=== PATIENT | female | born 1965 | race Caucasian/White ===

== ENCOUNTER → 2020-08-21 12:02 | Outpatient (CLI) | payer OTHER, SELFPAY ==
[2020-08-21 16:14] LABS: Free T3 4.6 pg/mL (2.18-3.98); T4 Free Direct 1.53 ng/dL (0.76-1.46); Thyroid Stim Hormone (TSH) < 0.01 uIU/mL (0.358-3.74)
[2020-08-23 10:59] LABS: Thyroid Peroxidase AB 35 IU/mL (0-34)
== END ==
PROVIDERS: PCP Internal Medicine; Referring Provider Internal Medicine; Visit Provider Internal Medicine
DX: E03.9 Hypothyroidism, unspecified (principal)
CPT/HCPCS: 36415; 84439; 84443; 84481; 86376

== ENCOUNTER → 2020-08-22 12:18 | Outpatient (CLI) | payer OTHER, SELFPAY | PROVIDERS: PCP Internal Medicine; Visit Provider Internal Medicine | DX: G47.33 Obstructive sleep apnea (adult) (pediatric) (principal) | CPT/HCPCS: 95806 ==

== ENCOUNTER → 2020-09-25 10:42 | Outpatient (CLI) | payer OTHER, SELFPAY ==
[2020-09-25 13:09] LABS: T4 Free Direct 1.53 ng/dL (0.76-1.46); Thyroid Stim Hormone (TSH) < 0.01 uIU/mL (0.358-3.74)
== END ==
PROVIDERS: PCP Internal Medicine; Referring Provider Internal Medicine; Visit Provider Internal Medicine
DX: E03.9 Hypothyroidism, unspecified (principal); E05.80 Other thyrotoxicosis without thyrotoxic crisis or storm
CPT/HCPCS: 36415; 84439; 84443; 84481

== ENCOUNTER → 2020-10-29 14:03 | Outpatient (CLI) | payer OTHER, SELFPAY ==
[2020-10-29 16:32] LABS: Thyroid Stim Hormone (TSH) < 0.01 uIU/mL (0.358-3.74)
== END ==
PROVIDERS: PCP Internal Medicine; Referring Provider Internal Medicine; Visit Provider Internal Medicine
DX: E03.9 Hypothyroidism, unspecified (principal); E05.80 Other thyrotoxicosis without thyrotoxic crisis or storm
CPT/HCPCS: 36415; 84439; 84443; 84481

== ENCOUNTER → 2020-12-11 11:49 | Outpatient (CLI) | payer OTHER, SELFPAY ==
[2020-12-11 15:42] LABS: Free T3 2.8 pg/mL (2.18-3.98); T4 Free Direct 1.47 ng/dL (0.76-1.46); Thyroid Stim Hormone (TSH) 0.01 uIU/mL (0.358-3.74)
[2020-12-17 21:09] LABS: Thyroid Stim Immunoglob 0.17 IU/L (0.00-0.55)
== END ==
PROVIDERS: PCP Internal Medicine; Referring Provider Internal Medicine; Visit Provider Internal Medicine
DX: E03.9 Hypothyroidism, unspecified (principal); R79.89 Other specified abnormal findings of blood chemistry
CPT/HCPCS: 36415; 84439; 84443; 84445; 84481

== ENCOUNTER → 2020-12-16 15:18 | Outpatient (CLI) | payer OTHER, SELFPAY ==
[2020-12-12 14:35] VITALS: BMI 44.4
--- NOTE | 2020-12-16 15:22 | US_ITS ---
STUDY: THYROID ULTRASOUND REASON FOR EXAM: Female, 55 years old. Keeps getting stuck in throat. Hypothyroidism. TECHNIQUE: Ultrasound evaluation of the thyroid was performed with real-time and static villegas-scale imaging. COMPARISON: None. FINDINGS: RIGHT LOBE: The right lobe of the thyroid gland measures 4.0 x 0.9 x 1.4 cm. There is a homogeneous echotexture. There is an ill-defined 1.2 x 0.7 x 0.6 cm hypoechoic nodule in the mid upper lobe. Abnormal vascularity on DOPPLER imaging. LEFT LOBE: The left lobe of the thyroid gland measures 2.8 x 0.9 x 0.7 cm. There is a homogeneous echotexture. There are no demonstrated solid, cystic or complex lesions. Normal vascularity on DOPPLER imaging. ISTHMUS: The isthmus measures 0.1 cm. The regional lymph nodes are normal. US/Thyroid IMPRESSION: Ill-defined hypoechoic nodule in the right thyroid. This nodule is moderately suspicious. Recommend follow-up thyroid ultrasounds at 1, 2, 3 and 5 years. Electronically Signed: Ralf Michaels DO at 20:44 EDT Tel [phone], Service support ,
== END ==
PROVIDERS: PCP Internal Medicine; Referring Provider Internal Medicine; Visit Provider Internal Medicine
DX: E03.9 Hypothyroidism, unspecified (principal); E04.9 Nontoxic goiter, unspecified
CPT/HCPCS: 76536

== ENCOUNTER → 2021-01-01 | Outpatient (CLI) | payer OTHER, SELFPAY ==
--- NOTE | 2021-01-01 14:45 | ASPS_PTH ---
PATIENT: JAMIE GANT LOC: [facility] U#:[id number] AGE/SX: 55/F ROOM: RE01/01/[address]: Dr. Geremias Fine MD : 1965 BED: DIS: 01/01/2021 SPEC #: [id number] RECD: 01/02/21 06:58 STATUS: FLOR HIDALGO #: [id number] TINO: 01/01/21 14:[address]: Geremias Fine DEPT: CYTOLOGY RECD BY: Quiana Murray Tissues: Thyroid gland, NOS Procedures: Special Stain Group II Cytology Other HEADER OPERATION: Right thyroid fine needle aspiration PRE-OP DIAGNOSIS: Right thyroid nodule TISSUE SUBMITTED: Right thyroid slides x10 DIAGNOSIS CYTOLOGY Fine needle aspiration, right thyroid nodule (smears): Inadequate for evaluation. Negative for malignant cells. See comment. AM:swetha 01/02/2021 COMMENT Only rare follicular cells are identified. The specimen is inadequate for further evaluation. Clinical correlation is necessary. CYTOLOGY STUDY Slides are reviewed. CYTOLOGY GROSS Received are ten smears labeled with the patient's name and designated per the requisition as right thyroid. Submitted for staining. / swetha 01/01/21 TC:5 CPT: 83292
[2021-01-01 15:16] VITALS: BMI 42.9
== END | disposition home or self-care (01) ==
LOC: LAB 01-02 07:25 → LABSPEC 01-02 07:28
PROVIDERS: Visit Provider Surgery
DX: E04.1 Nontoxic single thyroid nodule (principal)
CPT/HCPCS: 88161; 88313

== ENCOUNTER → 2021-01-09 09:14 | Outpatient (CLI) | payer OTHER, SELFPAY ==
[2021-01-01 05:54] VITALS: BMI 44.4
[2021-01-01 15:16] VITALS: BMI 42.9
--- NOTE | 2021-01-09 09:40 | RAD_ITS ---
STUDY: AIR CONTRAST UPPER GI SERIES with esophagram. REASON FOR EXAM: Female, 55 years old. 3 year history of worsening dysphagia. FLUOROSCOPY TIME (if supplied): (53 seconds) minutes/seconds. 28 images were obtained. TECHNIQUE: SINGLE CONTRAST AND AIR CONTRAST FLUOROSCOPIC IMAGES. COMPARISON: None. FINDINGS: The cervical esophagus demonstrates normal motility without aspiration. There is no stricture or extrinsic mass effect. No intraluminal polypoid mass is identified. The thoracic esophagus distends well without stricture or mucosal fold thickening. No mucosal ulcerations are identified. There is no extrinsic mass effect. There are no diverticula. Small hiatal hernia. Narrowing of the distal esophagus at the gastroesophageal junction. The patient ingested a 12 mm tablet of barium. The tablet is trapped at the gastroesophageal junction. The stomach distends well without mucosal fold thickening or mucosal ulceration. There is no intraluminal mass. The duodenal bulb is freely distensible without deformity or ulceration. The duodenal sweep is normal in position and caliber. RAD/Upper GI w/BA Swallow IMPRESSION: Small sliding hiatal hernia without gastroesophageal reflux. Narrowing of the distal esophagus at the GE junction with trapping of the 12 mm tablet of barium. Correlation with endoscopy is recommended. Electronically Signed: Bandar Gastelum MD at 10:23 EDT , Service support ,
== END ==
PROVIDERS: PCP Internal Medicine; Referring Provider Surgery; Visit Provider Surgery
DX: K22.2 Esophageal obstruction (principal); K44.9 Diaphragmatic hernia without obstruction or gangrene; R13.10 Dysphagia, unspecified
CPT/HCPCS: 74246

== ENCOUNTER → 2021-01-28 14:42 | Outpatient (CLI) | payer OTHER, SELFPAY ==
[2021-01-01 15:16] VITALS: BMI 42.9
[2021-01-28 17:35] LABS: Free T3 2.6 pg/mL (2.18-3.98); T4 Free Direct 1.14 ng/dL (0.76-1.46); Thyroid Stim Hormone (TSH) 0.51 uIU/mL (0.358-3.74)
== END ==
PROVIDERS: PCP Internal Medicine; Referring Provider Internal Medicine; Visit Provider Internal Medicine
DX: E03.9 Hypothyroidism, unspecified (principal)
CPT/HCPCS: 36415; 84439; 84443; 84481

== ENCOUNTER 2021-02-07 06:54 | Day surgery (SDC) | payer OTHER, SELFPAY ==
[2021-01-01 15:16] VITALS: BMI 42.9
[2021-02-07] VITALS (8 sets, daily range): BP systolic 122–148; BP diastolic 60–76; PULSE 59–72; RESP 14–18; TEMP 36.1–37.4; O2SAT 96–100; BMI 44.1
[2021-02-07] MEDS: Lactated Ringers 1,000 ML 100 ML IV (07:20)
--- NOTE | 2021-02-07 07:27 | PCM.HP.BLA ---
History and Physical Date of Admission: 02/07/21 Intake [employer] Required: No Is patient in pain?: No PFSH <Dr. Geremias Fine MD - Last Filed: 01/01/21 15:35> Medical History (Updated 01/01/21 @ 14:56 by Peg Powers) Arthritis Depression Dysphagia Essential hypertension Hypothyroidism Other and unspecified hyperlipidemia Surgical History (Updated 01/01/21 @ 15:14 by Peg Powers) RIGHT WRIST S/P colonoscopy S/P tonsillectomy S/P wrist surgery Family History (Updated 01/01/21 @ 15:16 by Peg Powers) Mother Myocardial infarction Thyroid disorder Heart disease Hypertension Lung cancer Diabetes CVA (cerebral vascular accident) Grandmother Myocardial infarction Sister Breast cancer Diabetes Father Leukemia Diabetes Other Cancer Social History (Updated 01/01/21 @ 15:16 by Peg Powers) Smoking Status: Never smoker alcohol intake: current alcohol intake frequency: a few times a month Alcohol type: wine substance use type: does not use caffeine: Yes what type of physical activity do you participate in: none frequency: decline to answer HPI <Dr. Geremias Fine MD - Last Filed: 01/01/21 15:35> HPI HPI: JAMIE GANT, is a 55 F who presents to the office today for thyroid abnormality and dysphagia. The patient is referred by Dr. Romi Araujo and a written copy of my surgical consult and recommendations will return to him. The patient has trouble swallowing foods. Bread and meats particularly get caught. She notes that she has to either drink water for frequently she will have emesis dislodge it. This has been going on for 3 years. She has not had a barium swallow yet nor an upper endoscopy. She states that 5 years ago she had an attempt at a colonoscopy but that was foreshortened due to a inadequate bowel prep. She states that she simply was not able to take the large volume prep. She denies family history of colon cancer or colon polyps. She denies bright red blood per rectum or melena. She has not had any unexpected weight loss. She did have a thyroid ultrasound. There is a quite vague 1.2 cm diameter hypoechoic right thyroid nodule TI-RADS 4. Moderately suspicious. Follow-up is recommended. Name: JAMIE GANT CESAR ADDENDUM by Dr. Ralf Michaels DO on 12/17/20 at 1559 ADDENDUM ADDENDUM: TIRADS category TR 4: Moderately suspicious. Electronically Signed: Ralf Michaels DO at 15:59 EDT Tel [phone], Service support , Signed ADDENDUM by Dr. Ralf Michaels DO on 12/17/20 at 1648 US/Thyroid Signed STUDY: THYROID ULTRASOUND REASON FOR EXAM: Female, 55 years old. Keeps getting stuck in throat. Hypothyroidism. TECHNIQUE: Ultrasound evaluation of the thyroid was performed with real-time and static villegas-scale imaging. COMPARISON: None. FINDINGS: RIGHT LOBE: The right lobe of the thyroid gland measures 4.0 x 0.9 x 1.4 cm. There is a homogeneous echotexture. There is an ill-defined 1.2 x 0.7 x 0.6 cm hypoechoic nodule in the mid upper lobe. Abnormal vascularity on DOPPLER imaging. LEFT LOBE: The left lobe of the thyroid gland measures 2.8 x 0.9 x 0.7 cm. There is a homogeneous echotexture. There are no demonstrated solid, cystic or complex lesions. Normal vascularity on DOPPLER imaging. ISTHMUS: The isthmus measures 0.1 cm. The regional lymph nodes are normal. US/Thyroid IMPRESSION: Ill-defined hypoechoic nodule in the right thyroid. This nodule is moderately suspicious. Recommend follow-up thyroid ultrasounds at 1, 2, 3 and 5 years. Electronically Signed: Ralf Michaels DO at 20:44 EDT Tel [phone], Service support , HPI <Dr. Geremias Fine MD - Last Filed: 01/01/21 15:35> HPI HPI: JAMIE GANT, is a 55 F who presents to the office today for <Peg Powers - Last Filed: 01/01/21 15:25> General General: No weight change, appetite, fatigue, colon cancer, breast cancer or weakness HEENT HEENT: Yes difficulty swallowing; No eye injury, eye surgery, swollen glands or hoarseness Endo Endocrine: Yes thyroid disease; No diabetes mellitus, thyroid cancer, Hair loss, heat intolerance or cold intolerance Skin Skin: No rash or changing moles Musc Musculoskeletal: Yes arthritis; No back problems, rheumatoid arthritis, gout or joint pain Cardio Cardiovascular: Yes high blood pressure; No murmur, pacemaker, heart disease, atrial fibrillation, heart attack, heart stent, palpitations, shortness of breat with exertion or chest pain Psych Psychiatric: No depression, anxiety or hearing voices Resp Respiratory: No shortness of breath, No sleep apnea, No cough, No COPD, No asthma, No emphysema and No wheezing Gastro Gastrointestinal: No abdominal pain, No nausea or vomiting, No diarrhea, No constipation, No blood in stool, No acid reflux, No hemorrhoids, No ulcers, No gallbladder problem and No black,tarry stools Zeyad Hematologic: No blood thinners, No blood disorders, No bleeding, No anemia and No blood clots Neuro Neurologic: No weakness Exam <Dr. Geremias Fine MD - Last Filed: 01/01/21 15:35> Const General: cooperative Nutritional Appearance: obese morbidly obese [facility] Head: normal to inspection Neck Thyroid: thyroid normal Carotids: normal carotid upstroke and no bruits Lymphatic: no lymphadenopathy noted Resp Effort & Inspection: normal respiratory effort Auscultation: clear to auscultation bilaterally Cardio Rate: regular rate Rhythm: regular rhythm GI Palpation: soft and no hepatosplenomegaly Musc Cervical Spine: normal cervical lordosis Skin General: no rashes or lesions noted Neuro Cognition: normal cognition Extrem General: no calf tenderness bilaterally Psych Thought Content: normal <Peg Powers - Last Filed: 01/01/21 15:25> Cardio Heart Sounds: no murmurs Office Procedures Fine Needle Aspiration Provider Documentation Details: Ultrasound-guided fine needle aspiration vague right thyroid nodule Timeout and informed consent was obtained. Patient was taken to the procedure room and placed supine on the table. The right neck was prepped with Betadine and ultrasound was performed. The thyroid nodule identified on preoperative ultrasound was very vague and difficult to identify and maintain a clear image. This was a technically very difficult procedure. Under ultrasound guidance 1% lidocaine was instilled as a local anesthetic. 3 separate passes with a 25-gauge needle was attempted. 3 additional separate passes with a 23-gauge needle was attempted. Specimen that was obtained and smeared out on slides. There was difficulty in visualizing the lesion and there was difficulty in keeping the lesion consistent within the [id number]. This was hampered by small size of the lesion small size of the thyroid and depth of the thyroid from the skin. She tolerated the procedure well. The slides were treated with fixative. She will be notified of cytology results as they become available. There does not appear to be any evidence suggest compression of the esophagus by this nodule. Geremias Fine M.D., F.A.C.S. Alert Physician Primary [facility] Sports Medicine Alert Billing: Yes FNA [id number] Thyroid Assessment and Plan <Dr. Geremias Fine MD - Last Filed: 01/01/21 15:35> Assessment and Plan (1) Right thyroid nodule: Status: Acute Plan: As noted above on today's visit an ultrasound-guided fine-needle aspiration of this vague right thyroid nodule was performed. This was a technically difficult procedure. Close follow-up will need to be pursued. Regarding the patient's dysphagia to food I would recommend that we obtain a contrast upper GI study. In part this will be to help evaluate for Zenker's diverticulum or evidence of stricturing. I then propose for the patient an esophagogastroduodenoscopy. Careful inspection of the duodenum and stomach with biopsies as indicated. Careful inspection for any stricturing or evidence of reflux hiatal hernia or findings that might suggest eosinophilic esophagitis. The patient has had a previous failed colonoscopy. I would propose at the same setting of her upper endoscopy to proceed with a colonoscopy with possible biopsy or polypectomy. We will utilize a 2-day bowel prep. We will utilize monitored anesthesia care. She has had an opportunity to ask and have questions answered. We will schedule and proceed as noted. Copy: Dr. Romi Fine M.D., Wali.CChrisS. <Peg Powers - Last Filed: 01/01/21 15:25> Assessment and Plan (1) Right thyroid nodule: (2) Dysphagia: Coding Level of Care Code 18980 Diagnoses Right thyroid nodule E04.1 Dysphagia R13.10 CPT Codes FNA - Fine Needle Aspiration: 01140 Thyroid (70797) The patient had a barium swallow. This suggest possible stricturing in the lower esophagus. I anticipate a combined upper and lower endoscopy. I anticipate possible esophageal dilatation. The patient is aware of this new finding and agrees to proceed. Geremias Fine M.D., Nuzhat.[place].CChrisS.
[2021-02-07 07:28] LABS: Internal QC Validated? YES +Cl - CLEAR BKGD; Pregnancy, Urine Negative Negative
--- NOTE | 2021-02-07 08:00 | IMM_PTH ---
PATIENT: JAMIE GANT LOC: [facility] U#:[id number] AGE/SX: 55/F ROOM: RE02/07/[address]: Dr. Geremias Fine MD : 1965 BED: DIS: 02/07/2021 SPEC #: [id number] RECD: 02/07/21 13:11 STATUS: FLOR REJeromy #: [id number] TINO: 02/07/21 08:[address]: Geremias Fine DEPT: IMMUNOHISTOCHEMISTRY RECD BY: Jil Kennedy ENTERED: 02/07/21 13:12 SP TYPE: IMMUNO OTHR DR: Dr. Romi Araujo MD Tissues: A - Stomach, NOS Procedures: H Pylori (initial) PHYSICIAN & INSTITUTION [place] [id number] SPECIMEN INFORMATION: Tissue Source: A ? Antrum biopsy Clinical Info: Right thyroid nodule, dysphagia Specimen Number: [id number] CPT code: 59818 METHODOLOGY: Deparaffinized sections of prefer/formalin-fixed tissue or PAP/DQ stained slides are incubated with monoclonal/polyclonal antibodies/oligonucleotide probes. Localization is made via biotin free immunoperoxidase method. Appropriate controls are performed and reacted as expected. Results on target cell population are indicated in the following table: RESULTS: ANTIBODY / CLONE RESULT Block A H Pylori (polyclonal) negative These tests were developed and their performance characteristics determined by [facility]. They may not have been cleared or approved by the U.S. Food and Drug Administration. The FDA has determined that such clearance or approval is not necessary. INTERPRETATION: A. Antrum biopsy: Negative for Helicobacter pylori organisms. AM:swetha 02/10/2021
--- NOTE | 2021-02-07 08:00 | EGD_PTH ---
PATIENT: JAMIE GANT LOC: EN U#:[id number] AGE/SX: 55/F ROOM: RE02/07/[address]: Dr. Geremias Fine MD : 1965 BED: DIS: 02/07/2021 SPEC #: [id number] RECD: 02/07/21 11:02 STATUS: FLOR GWEN #: [id number] TINO: 02/07/21 08:[address]: Geremias Fine DEPT: SURGICAL PATHOLOGY RECD BY: Riana Pearl ENTERED: 02/07/21 12:01 SP TYPE: EGD BIOPSY [facility] DR: Dr. Romi Araujo MD Tissues: A - Gastric mucous membrane B - Gastric mucous membrane Procedures: Special Stain Group II Surgery Specimen Level IV Alcian Blue/PAS (control) HEADER OPERATION: Colonoscopy, EGD ([facility] [place]) PRE-OP DIAGNOSIS: Right thyroid nodule, dysphagia TISSUE SUBMITTED: A ? Antrum biopsy for H. pylori and path, B ? EG junction biopsy MICROSCOPIC DIAGNOSIS A. Gastric antrum, biopsy: Chronic gastritis. See comment. B. Gastroesophageal junction, biopsy: Chronic inflammation. Focal changes of reflux. No evidence of goblet cell metaplasia. See comment. AM:swetha 02/10/2021 COMMENT A. The results of immunohistochemistry for Helicobacter pylori will be reported separately ([id number]). B. Alcian blue/PAS stain with matched control supports the above diagnosis. MICROSCOPIC DESCRIPTION Slides are reviewed. GROSS DESCRIPTION A - Received in fixative is one container labeled with the patient's name and designated gastric antrum. The specimen consists of one irregular fragment of light beach soft tissue that measures 0.3 x 0.2 x 0.1 cm. The specimen is totally submitted in one cassette. B - Received in fixative is one container labeled with the patient's name and designated GE junction biopsy. The specimen consists of multiple irregular fragments of light beach soft tissue that in aggregate measure 0.6 x 0.6 x 0.1 cm. The specimen is totally submitted in one cassette. / AM:swetha 02/07/21 TC:3 CPT: 43355 x2, 88152
--- NOTE | 2021-02-07 15:09 | OP.EGD_ITS ---
Patient Name: Elena Graham Procedure Date: 02/07/2021 8:00 AM Date of : 1965 Age: 55 Procedure: Upper GI endoscopy Indications: Dysphagia Providers: Geremias Fine MD Medicines: See the Anesthesia note for documentation of the administered medications Complications: No immediate complications. Procedure: Pre-Anesthesia Assessment: - Prior to the procedure, a History and Physical was performed, and patient medications and allergies were reviewed. The patient's tolerance of previous anesthesia was also reviewed. The risks and benefits of the procedure and the sedation options and risks were discussed with the patient. All questions were answered, and informed consent was obtained. Prior Anticoagulants: The patient has taken aspirin, last dose was 1 day prior to procedure. ASA Grade Assessment: III - A patient with severe systemic disease. After reviewing the risks and benefits, the patient was deemed in satisfactory condition to undergo the procedure. After obtaining informed consent, the endoscope was passed under direct vision. Throughout the procedure, the patient's blood pressure, pulse, and oxygen saturations were monitored continuously. The gastroscope was introduced through the mouth, and advanced to the second part of duodenum. The upper GI endoscopy was accomplished without difficulty. The patient tolerated the procedure well. Scope In: 8:11:18 AM Scope Out: 8:21:03 AM Total Procedure Duration Time 0 hours 9 minutes 45 seconds Findings: Moderately severe esophagitis with bleeding was found 40 cm from the incisors. Biopsies were taken with a cold forceps for histology. One benign-appearing, intrinsic stenosis was found 40 cm from the incisors. This stenosis was moderately severe and. The stenosis was traversed. A TTS dilator was passed through the scope. Dilation with a 15-16.5-18 mm balloon dilator was performed to 18 mm. The dilation site was examined and showed mild improvement in luminal narrowing. Estimated blood loss was minimal. Diffuse mildly erythematous mucosa without bleeding was found in the gastric antrum. Biopsies were taken with a cold forceps for histology. The examined duodenum was normal. Impression: - Moderately severe reflux and erosive esophagitis. Biopsied. - Benign-appearing esophageal stenosis. Dilated. - Erythematous mucosa in the antrum. Biopsied. - Normal examined duodenum. Recommendation: - Discharge patient to home. - Resume previous diet. - Continue present medications. - Use Prilosec (omeprazole) 40 mg PO daily. Procedure Code(s): --- Professional --- 33521, Esophagogastroduodenoscopy, flexible, transoral; with transendoscopic balloon dilation of esophagus (less than 30 mm diameter) 36886, 59, Esophagogastroduodenoscopy, flexible, transoral; with biopsy, single or multiple Diagnosis Code(s): --- Professional --- K21.0, Gastro-esophageal reflux disease with esophagitis K20.8, Other esophagitis K22.2, Esophageal obstruction K31.89, Other diseases of stomach and duodenum R13.10, Dysphagia, unspecified CPT copyright 2017 [employer]. All rights reserved. The codes documented in this report are preliminary and upon curriculum and instruction director review may be revised to meet current compliance requirements. Geremias Fine MD 02/07/2021 8:48:40 AM This report has been signed electronically. Number of Addenda: 0 Note Initiated On: 02/07/2021 8:00 AM
--- NOTE | 2021-02-07 15:09 | OP.COLON_ITS ---
Patient Name: Elena Graham Procedure Date: 02/07/2021 8:25 AM Date of : 1965 Age: 55 Procedure: Colonoscopy Indications: Screening for colorectal malignant neoplasm Providers: Geremias Fine MD Medicines: See the Anesthesia note for documentation of the administered medications Patient Profile: Last Colonoscopy: 5 years ago. Complications: No immediate complications. Procedure: Pre-Anesthesia Assessment: - Prior to the procedure, a History and Physical was performed, and patient medications and allergies were reviewed. The patient's tolerance of previous anesthesia was also reviewed. The risks and benefits of the procedure and the sedation options and risks were discussed with the patient. All questions were answered, and informed consent was obtained. Prior Anticoagulants: The patient has taken aspirin, last dose was 1 day prior to procedure. ASA Grade Assessment: III - A patient with severe systemic disease. After reviewing the risks and benefits, the patient was deemed in satisfactory condition to undergo the procedure. After I obtained informed consent, the scope was passed under direct vision. Throughout the procedure, the patient's blood pressure, pulse, and oxygen saturations were monitored continuously. The adult colonoscope was introduced through the anus and advanced to the cecum, identified by appendiceal orifice and ileocecal valve. The colonoscopy was performed without difficulty. The patient tolerated the procedure well. The quality of the bowel preparation was good. The ileocecal valve and the appendiceal orifice were photographed. Scope In: 8:30:09 AM Scope Withdrawal Time 0 hours 4 minutes 49 seconds Scope Out: 8:41:12 AM Total Procedure Duration Time 0 hours 11 minutes 3 seconds Findings: Hemorrhoids were found on perianal exam. Multiple diverticula were found in the entire colon. The colon (entire examined portion) was moderately tortuous. The exam was otherwise without abnormality. Impression: - Hemorrhoids found on perianal exam. - Diverticulosis in the entire examined colon. - Tortuous colon. - The examination was otherwise normal. - No specimens collected. Recommendation: - Discharge patient to home. - Resume previous diet. - Continue present medications. - Repeat colonoscopy in 10 years for screening purposes. Procedure Code(s): --- Professional --- 51985, Colonoscopy, flexible; diagnostic, including collection of specimen(s) by brushing or washing, when performed (separate procedure) Diagnosis Code(s): --- Professional --- Z12.11, Encounter for screening for malignant neoplasm of colon K64.9, Unspecified hemorrhoids K57.30, Diverticulosis of large intestine without perforation or abscess without bleeding Q43.8, Other specified congenital malformations of intestine CPT copyright 2017 [employer]. All rights reserved. The codes documented in this report are preliminary and upon computer operations manager review may be revised to meet current compliance requirements. Geremias Fine MD 02/07/2021 8:50:42 AM This report has been signed electronically. Number of Addenda: 0 Note Initiated On: 02/07/2021 8:25 AM
== END 2021-02-07 09:49 ==
LOC: EN 06:55 → AC 06:56
PROVIDERS: Anesthesiology; PCP Internal Medicine; Referring Provider Surgery; Visit Provider Surgery
PROC: 0DJD8ZZ Inspection of Lower Intestinal Tract, Via Natural or Artificial Opening Endoscopic (ICD-10-PCS; CPT 45378; principal; 2021-02-07 07:55)
DX: Z12.11 Encounter for screening for malignant neoplasm of colon (principal); K57.30 Diverticulosis of large intestine without perforation or abscess without bleeding; K64.9 Unspecified hemorrhoids; Q43.8 Other specified congenital malformations of intestine; K29.50 Unspecified chronic gastritis without bleeding; K22.10 Ulcer of esophagus without bleeding; K21.00 Gastro-esophageal reflux disease with esophagitis, without bleeding; E04.1 Nontoxic single thyroid nodule; M19.90 Unspecified osteoarthritis, unspecified site; E66.01 Morbid (severe) obesity due to excess calories; Z68.41 Body mass index [BMI] 40.0-44.9, adult; I10 Essential (primary) hypertension; F32.9 Major depressive disorder, single episode, unspecified; E03.9 Hypothyroidism, unspecified; E78.5 Hyperlipidemia, unspecified; Z79.82 Long term (current) use of aspirin; Z79.899 Other long term (current) drug therapy
CPT/HCPCS: 43239; 43249; 45378; 81025; 88305; 88313; 88342; J7120; J2405

== ENCOUNTER → 2021-06-10 15:13 | Outpatient (CLI) | payer OTHER, SELFPAY ==
[2021-06-10 16:52] LABS: Free T3 2.5 pg/mL (2.18-3.98); T4 Free Direct 1.02 ng/dL (0.76-1.46); Thyroid Stim Hormone (TSH) 1.48 uIU/mL (0.358-3.74)
== END ==
PROVIDERS: PCP Internal Medicine; Referring Provider Internal Medicine; Visit Provider Internal Medicine
DX: E03.9 Hypothyroidism, unspecified (principal)
CPT/HCPCS: 36415; 84439; 84443; 84481

== ENCOUNTER → 2021-07-08 09:52 | Outpatient (CLI) | payer OTHER, SELFPAY ==
--- NOTE | 2021-07-08 09:56 | US_ITS ---
STUDY: THYROID ULTRASOUND REASON FOR EXAM: Female, 55 years old. Thyroid nodule TECHNIQUE: Ultrasound evaluation of the thyroid was performed with real-time and static villegas-scale imaging. COMPARISON: Comparison is made with prior study 12/16/2020. FINDINGS: RIGHT LOBE: The right lobe of the thyroid gland measures 3.6 cm x 1.3 cm x 1 cm. There is a heterogeneous echotexture. There is a 9 mm x 4 mm x 5 mm hypoechoic solid nodule in the mid upper pole. This has decreased in size as compared to prior study. LEFT LOBE: The left lobe of the thyroid gland measures 3.1 cm x 1.1 cm by 1.1 cm. There is a homogeneous echotexture. There are no demonstrated solid, cystic or complex lesions. ISTHMUS: The isthmus measures 1 mm. The regional lymph nodes are normal. US/Thyroid IMPRESSION: Slight decrease in size of the hypoechoic solid nodule in the mid upper pole of the right lobe of the thyroid. Electronically Signed: Bandar Gastelum MD at 15:40 EDT , Service support ,
== END ==
PROVIDERS: PCP Internal Medicine; Referring Provider Surgery; Visit Provider Surgery
DX: E04.1 Nontoxic single thyroid nodule (principal)
CPT/HCPCS: 76536

== ENCOUNTER → 2021-08-14 | Outpatient (CLI) | payer OTHER, SELFPAY | END | disposition home or self-care (01) | LOC: LABSPEC 13:06 | PROVIDERS: PCP Internal Medicine; Referring Provider Internal Medicine; Visit Provider Internal Medicine | DX: U07.1 COVID-19 (principal) | CPT/HCPCS: 87635; U0005; U0003 ==

== ENCOUNTER 2021-08-16 15:21 | Outpatient (CLI) | payer OTHER, SELFPAY ==
[2021-08-16 15:38] VITALS: BP 153/95; PULSE 73; RESP 16; TEMP 36.9; O2SAT 97; BMI 42.9
[2021-08-16] MEDS: 0.9% Saline Lock 10 ML Syringe IV (15:46)
[2021-08-16 16:15] VITALS: BP 165/80; PULSE 68; RESP 16; TEMP 36.9; O2SAT 100
[2021-08-16 17:11] VITALS: BP 175/88; PULSE 68; RESP 16; TEMP 37.3; O2SAT 98
== END 2021-08-16 17:34 | disposition home or self-care (01) ==
LOC: MS3OUT 15:26 → MS3 15:26
PROVIDERS: PCP Internal Medicine; Visit Provider Nurse Practitioner Acute Care
DX: U07.1 COVID-19 (principal)
CPT/HCPCS: J7050; M0245; Q0245; A4216

== ENCOUNTER 2021-10-08 12:45 | Outpatient (CLI) | payer OTHER, SELFPAY ==
--- NOTE | 2021-10-08 12:50 | RAD_ITS ---
STUDY: XR Knee Complete 4 Views or More 10/08/2021 4:00 PM REASON FOR EXAM: Female, 55 years old. PAIN TECHNIQUE: XR Knee Complete 4 Views or More COMPARISON: None. FINDINGS: Normal visualized distal femur. Normal visualized proximal tibia and fibula. Normal proximal tibiofibular articulation. There is mild degenerative arthrosis of the medial femorotibial compartment. Normal lateral femorotibial compartment. There is mild degenerative arthrosis of the patellofemoral articulation. The soft tissue structures are unremarkable. RAD/Knee 4 or More Views IMPRESSION: Degenerative arthrosis. Electronically Signed: Cristofer Carlson MD at 16:01 EST ,
== END 2021-10-08 23:59 | disposition short-term general hospital (02) ==
LOC: RAD 12:48
PROVIDERS: PCP Internal Medicine; Referring Provider Internal Medicine; Visit Provider Internal Medicine
DX: M25.561 Pain in right knee (principal)
CPT/HCPCS: 73564

== ENCOUNTER 2021-10-15 10:14 | Outpatient (CLI) | payer OTHER, SELFPAY ==
[2021-10-15 13:13] LABS: T4 Free Direct 1.09 ng/dL (0.76-1.46); Thyroid Stim Hormone (TSH) 3.59 uIU/mL (0.358-3.74)
== END 2021-10-15 23:59 | disposition home or self-care (01) ==
LOC: BIMLAB 10:15
PROVIDERS: PCP Internal Medicine; Referring Provider Internal Medicine; Visit Provider Internal Medicine
DX: E03.9 Hypothyroidism, unspecified (principal)
CPT/HCPCS: 36415; 84439; 84443; 84481

== ENCOUNTER 2021-11-18 09:36 | Outpatient (CLI) | payer OTHER, SELFPAY ==
[2021-11-18 12:04] LABS: Absolute Lymphocyte Count 1.62 X10^3/uL (0.83-4.51); Absolute Neutrophil Count 4.8 X10^3/uL (2.0-7.7); Basophil# 0.05 X10^3/uL; Basophil% 0.7 % (0-1); Eosinophil# 0.12 X10^3/uL; Eosinophils% 1.7 % (0-5); Hematocrit 43.2 % (37-47); Hemoglobin 14.9 g/dL (12.0-15.0); Lymphocyte # 1.62 X10^3/ul (0.83-4.51); Lymphocyte % 23.2 % (19-41); Mean Corp Hgb Conc 34.5 g/dL (32-36); Mean Corpuscular Hgb 32.9 pg (27.0-32.0); Mean Corpuscular Volume 95.4 fL (81-99); Mean Platelet Vol. 11.1 fl (6.2-12.0); Monocyte# 0.42 X10^3/uL; NRBC Flagged by Analyzer 0 % (0-5); Neutrophil # 4.76 X10^3/uL (2.7-7.7); Neutrophil % 68.1 % (47-70); Platelet Count 223 K/mm3 (150-450); RBC Distribution Width CV 12.9 % (11.6-14.6); RBC Distribution Width SD 45.6 fl (35.1-43.9); Red Blood Count 4.53 M/mm3 (4.2-5.4)
[2021-11-18 12:41] LABS: Cholesterol 149 mg/dL (200); Glucose 132 mg/dL (74-106); High Density Lipoprotein 58 mg/dL; Triglycerides 138 mg/dL; Very Low Density Lipoprotein 28 mg/dL (5-40)
== END 2021-11-18 23:59 | disposition home or self-care (01) ==
LOC: BIMLAB 09:36
PROVIDERS: PCP Internal Medicine; Referring Provider Physician Assistant; Visit Provider Physician Assistant
DX: E66.9 Obesity, unspecified (principal)
CPT/HCPCS: 36415; 80061; 82947; 85025

== ENCOUNTER 2021-12-02 11:00 | Outpatient (RCR) | payer OTHER, SELFPAY | END 2021-12-04 23:59 | LOC: NS 11:00 | PROVIDERS: PCP Internal Medicine; Visit Provider Internal Medicine | DX: Z71.3 Dietary counseling and surveillance (principal); E66.9 Obesity, unspecified | CPT/HCPCS: 97802; 97803 ==

== ENCOUNTER 2021-12-09 13:11 | Outpatient (CLI) | payer OTHER, SELFPAY ==
[2021-12-09 15:41] LABS: Free T3 2.1 pg/mL (2.18-3.98); Thyroid Stim Hormone (TSH) 0.97 uIU/mL (0.358-3.74)
== END 2021-12-09 23:59 | disposition home or self-care (01) ==
LOC: BIMLAB 13:12
PROVIDERS: PCP Internal Medicine; Referring Provider Internal Medicine; Visit Provider Internal Medicine
DX: E03.9 Hypothyroidism, unspecified (principal)
CPT/HCPCS: 36415; 84439; 84443; 84481

== ENCOUNTER 2021-12-23 09:29 | Outpatient (RCR) | payer OTHER, SELFPAY | END 2022-01-03 23:59 | LOC: NS 09:29 | PROVIDERS: PCP Internal Medicine; Referring Provider Internal Medicine; Visit Provider Internal Medicine | DX: Z71.3 Dietary counseling and surveillance (principal); E66.9 Obesity, unspecified; Z68.41 Body mass index [BMI] 40.0-44.9, adult | CPT/HCPCS: 97803 ==

== ENCOUNTER 2022-01-20 07:24 | Outpatient (RCR) | payer OTHER, SELFPAY | END 2022-02-03 23:59 | LOC: NS 07:24 | PROVIDERS: PCP Internal Medicine; Referring Provider Internal Medicine; Visit Provider Internal Medicine | DX: Z71.3 Dietary counseling and surveillance (principal); E66.9 Obesity, unspecified; Z68.41 Body mass index [BMI] 40.0-44.9, adult | CPT/HCPCS: 97802 ==

== ENCOUNTER → 2022-01-27 | Outpatient (CLI) | payer OTHER, SELFPAY ==
[2022-01-27 15:54] LABS: Free T3 2.5 pg/mL (2.18-3.98); T4 Free Direct 1.28 ng/dL (0.76-1.46); Thyroid Stim Hormone (TSH) 0.21 uIU/mL (0.358-3.74)
== END | disposition home or self-care (01) ==
LOC: BIMLAB 13:58
PROVIDERS: PCP Internal Medicine; Referring Provider Internal Medicine; Visit Provider Internal Medicine
DX: E03.9 Hypothyroidism, unspecified (principal)
CPT/HCPCS: 36415; 84439; 84443; 84481

== ENCOUNTER → 2022-02-18 | Outpatient (CLI) | payer OTHER, SELFPAY ==
[2022-02-18 12:55] LABS: Free T3 2.7 pg/mL (2.18-3.98); T4 Free Direct 1.33 ng/dL (0.76-1.46); Thyroid Stim Hormone (TSH) 0.29 uIU/mL (0.358-3.74)
== END | disposition home or self-care (01) ==
LOC: BIMLAB 11:11
PROVIDERS: PCP Internal Medicine; Referring Provider Internal Medicine; Visit Provider Internal Medicine
DX: E03.9 Hypothyroidism, unspecified (principal)
CPT/HCPCS: 36415; 84439; 84443; 84481

== ENCOUNTER 2022-03-31 11:30 | Outpatient (RCR) | payer OTHER, SELFPAY | END 2022-04-05 23:59 | LOC: NS 11:30 | PROVIDERS: PCP Internal Medicine; Referring Provider Internal Medicine; Visit Provider Internal Medicine | DX: Z71.3 Dietary counseling and surveillance (principal); E66.9 Obesity, unspecified; Z68.41 Body mass index [BMI] 40.0-44.9, adult | CPT/HCPCS: 97803 ==

== ENCOUNTER → 2022-04-20 | Outpatient (CLI) | payer OTHER, SELFPAY ==
[2022-04-20 13:08] LABS: Thyroid Stim Hormone (TSH) 0.65 uIU/mL (0.358-3.74)
== END | disposition home or self-care (01) ==
LOC: BIMLAB 09:56
PROVIDERS: PCP Internal Medicine; Referring Provider Physician Assistant; Visit Provider Physician Assistant
DX: E03.9 Hypothyroidism, unspecified (principal)
CPT/HCPCS: 36415; 84443

== ENCOUNTER 2022-05-04 10:25 | Outpatient (RCR) | payer SELFPAY | END 2022-05-06 23:59 | LOC: NS 10:25 | PROVIDERS: PCP Internal Medicine; Referring Provider Internal Medicine; Visit Provider Internal Medicine | DX: Z71.3 Dietary counseling and surveillance (principal); E66.9 Obesity, unspecified; Z68.41 Body mass index [BMI] 40.0-44.9, adult | CPT/HCPCS: 97803 ==

== ENCOUNTER 2022-06-02 09:29 | Outpatient (RCR) | payer OTHER, SELFPAY | END 2022-06-05 23:59 | LOC: NS 09:29 | PROVIDERS: PCP Internal Medicine; Referring Provider Internal Medicine; Visit Provider Internal Medicine | DX: Z71.3 Dietary counseling and surveillance (principal); E66.9 Obesity, unspecified; Z68.41 Body mass index [BMI] 40.0-44.9, adult | CPT/HCPCS: 97803 ==

== ENCOUNTER → 2022-07-09 | Outpatient (CLI) | payer OTHER, SELFPAY ==
--- NOTE | 2022-07-09 11:40 | US_ITS ---
STUDY: THYROID ULTRASOUND REASON FOR EXAM: Female, 56 years old. Thyroid nodule TECHNIQUE: Ultrasound evaluation of the thyroid was performed with real-time and static villegas-scale imaging. COMPARISON: Comparison is made with prior study of 07/08/2021. FINDINGS: RIGHT LOBE: The right lobe of the thyroid gland measures 2.8 cm x 1.2 cm x 1 cm. There is a heterogeneous echotexture. Stable 9 mm x 4 mm x 5 mm hypoechoic solid nodule in the lower pole of the right lobe. LEFT LOBE: The left lobe of the thyroid gland measures 2.7 cm x 1 cm x 0.7 cm. There is a heterogeneous echotexture. There are no demonstrated solid, cystic or complex lesions. ISTHMUS: The isthmus measures 1 mm. There is a 2.3 cm x 1.5 cm x 0.6 cm right cervical lymph node. US/Thyroid IMPRESSION: Stable examination. 2.3 cm x 1.5 cm x 0.6 cm right cervical lymph node. Electronically Signed: Bandar Gastelum MD at 15:41 EDT ,
== END | disposition home or self-care (01) ==
LOC: US 11:39
PROVIDERS: PCP Internal Medicine; Visit Provider Surgery
DX: E04.1 Nontoxic single thyroid nodule (principal)
CPT/HCPCS: 76536

== ENCOUNTER 2022-07-14 09:00 | Outpatient (RCR) | payer OTHER, SELFPAY ==
--- NOTE | 2022-06-18 13:49 | HP.PTEVAL_ITS ---
Patient's Visit Information JAMIE GANT is a 56 year old F referred to Physical Therapy by Dr. Brent Amaro DPM with a diagnosis of Achilled Tedonitis. Date of Evaluation: 06/18/22 Physical Therapist: Julia Saenz DPT - Visit Plan Frequency: 2x /Week Duration: 4 Weeks Plan: Ultraound, Manual, Eccentrics and Stretching. HEP Given IE: gastroc and soleus standing stretch - Subjective Patietn reprots that her right foot is bothering her starting in the of summer. She had gotten different shoes- just started to bother her. Three weeks ago she went to the [facility] and was getting worse. She has been getting better since she saw the [facility]ist. He did x-rays and she has a bone spur on the medial portion and on the bottom. He gave her a night splint- compound cream- stretches and then sent her to PT. She is able to wear the night splint. She feels that her achilles is tight- she has a night splint that has been helping. Has been wearing shoes without back and has recently put on back shoes and it hurts when the shoes rubs on it. Worst: 5/10 Agg: going down the stairs, wearing shoes with backs, standing for long periods of time or walking a lot. Eases: compound cream, night splint. Best: 0/10. Pain is located along the achilles tendon. No radiating pain. Describes the pain as burning or sharp pain. N/T only happens when the night splint has been on too long. Sleep: once in awhile- she sleeps on her side- mostly when she is touching it. 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 Prior to pain she had no issues and she was wearing [employer]oes or S[employer]chers. No MRI or injections at this time. She feels that she is 75% better from when she was the worst. PMHx/Meds: no changes since saw PCP 04/30/22. - Objective Posture: fair throughout. Gait: mild pes planus- no gait pattern deviations. Stairs: asc/desc- desc recip with poor control and single HR. HR/TR: able without pain. Palpation: tender along distal achilles. ROM: WFL in all planes. Strength: 4+/5 t/o LE. Flex: HS: moderate Gastroc: moderate Soleus: moderate - Balance/Special Test Scores Lower Extremity Functional Score: 57 - Goals Goal 1:: Patient will be I with HEP and progression Goal Time Frame: 4-6 Weeks Goal 2:: Patient will asc/desc 8 recip with no HR and good control Goal Time Frame: 4-6 Weeks Goal 3:: Patient will SLS for 15 sec without LOB Goal Time Frame: 4-6 Weeks Goal 4:: Patient will report 80% improvement Goal Time Frame: 4-6 Weeks - Rehabilitation Potential Physical Therapy Diagnosis: Patient presents with hypomobility- she has decreased LE and core strength/stabilization, flex and muscular endurance leading to increased pain with ADL's. Rehabilitation Potential: Good - Anticipated Interventions Patient/Client Instruction: Educate patient on: Benefits of Fitness Program Therapeutic Exercise to Include: Strength training, Balance training, Coordination, Agility training, Body mechanics, Postural training, Flexibilty training, Gait and locomotor training, Neuromotor development, Passive ROM, Active ROM, Dynamic Lumbar Stabilization, Scapular Strength/Stabilization Manual Therapy Techniques to Include: Mobilization, Soft tissue mobilization TENS: Yes Cryotherapy (ice pack, ice massage): Yes Thermo therapy (hot pack): Yes Ultrasound (thermal/non thermal): Yes Thank you for the opportunity to evaluate your patient. For Medicare and Medicare HMO plans, please review the plan of care and approve it. It will need to be FAXED BACK to us at [phone] for Medicare purposes. For Medicare only, by signing this I certify the plan of care. Please let me know if there are questions or concerns regarding this plan of care. Physician Signature: Date:
--- NOTE | 2022-11-30 07:50 | HP.PT.NRP ---
JAMIE GANT was seen in my office for initial evaluation on 06/18/22. The following Plan of Care was established for this patient: Initial Frequency: 2x /Week Initial Duration: 4 Weeks Patient/Client Instruction: Educate patient on: Benefits of Fitness Program Therapeutic Exercise to Include: Strength training, Balance training, Coordination, Agility training, Body mechanics, Postural training, Flexibilty training, Gait and locomotor training, Neuromotor development, Passive ROM, Active ROM, Dynamic Lumbar Stabilization, Scapular Strength/Stabilization Manual Therapy Techniques to Include: Mobilization, Soft tissue mobilization TENS: Yes Cryotherapy (ice pack, ice massage): Yes Thermo therapy (hot pack): Yes Ultrasound (thermal/non thermal): Yes This patient was last seen in our office . Pertinent comments regarding their Physical therapy will appear below: Patient was to attempt HEP and call with questions. Patient has not followed up with questions and is appropriate to be d/c. At this point I will be discontinuing this patient from physical therapy. I would be happy to see this patient again in the future if found appropriate by the physician. Thank you! Julia Saenz DPT Balance/Gait/Functional tests - Balance/Special Test Scores Lower Extremity Functional Score: 61
== END 2022-07-14 19:00 | disposition home or self-care (01) ==
LOC: PT 09:00
PROVIDERS: PCP Internal Medicine; Visit Provider Podiatrist
DX: M76.61 Achilles tendinitis, right leg (principal); M77.31 Calcaneal spur, right foot
CPT/HCPCS: 97035; 97110; 97140; 97162

== ENCOUNTER 2022-07-28 08:52 | Outpatient (RCR) | payer OTHER, SELFPAY | END 2022-07-28 23:59 | disposition home or self-care (01) | LOC: NS 08:52 | PROVIDERS: PCP Internal Medicine; Referring Provider Internal Medicine; Visit Provider Internal Medicine | DX: Z71.3 Dietary counseling and surveillance (principal); E66.9 Obesity, unspecified; Z68.41 Body mass index [BMI] 40.0-44.9, adult | CPT/HCPCS: 97803 ==

== ENCOUNTER → 2022-09-10 | Outpatient (CLI) | payer OTHER, SELFPAY ==
--- NOTE | 2022-09-10 | EMB_PTH ---
PATIENT: JAMIE GANT LOC: [facility] U#:[id number] AGE/SX: 56/F ROOM: RE09/10/[address]: Dr. Cooper Hernández MD : 1965 BED: DIS: 09/10/2022 SPEC #: [id number] RECD: 09/10/22 10:52 STATUS: FLOR REJeromy #: [id number] TINO: 09/10/22 00:[address]: Cooper Hernández DEPT: SURGICAL PATHOLOGY RECD BY: Quiana Murray ENTERED: 09/10/22 13:29 SP TYPE: ENDOM BX/C BHASKAR DR: Dr. Romi Araujo MD Tissues: Endometrium, NOS Procedures: Surgery Specimen Level IV HEADER OPERATION: Endometrial biopsy PRE-OP DIAGNOSIS: PMB TISSUE SUBMITTED: Endometrial biopsy MICROSCOPIC DIAGNOSIS Endometrial biopsy: Strips and superficial fragments of benign endometrial tissue with focal cystic changes, blood and mucous. See comment. KWAME:swetha 09/11/2022 COMMENT Clinical correlation and appropriate follow up are necessary. MICROSCOPIC DESCRIPTION Slides are reviewed. GROSS DESCRIPTION Received in fixative is one container labeled with the patient's name and designated endometrial biopsy. The specimen consists of multiple irregular fragments of pink-beach soft tissue that in aggregate measure 1.2 x 1 x <0.1 cm. The specimen is totally submitted in one cassette. / AM:swetha 09/10/2022 TC:5 CPT: 59065
[2022-09-10 10:59] LABS: Absolute Lymphocyte Count 1.62 X10^3/uL (0.83-4.51); Absolute Neutrophil Count 5.4 X10^3/uL (2.0-7.7); Basophil# 0.05 X10^3/uL; Basophil% 0.7 % (0-1); Eosinophils% 1.3 % (0-5); Hematocrit 44.1 % (37-47); Hemoglobin 15.1 g/dL (12.0-15.0); Lymphocyte # 1.62 X10^3/ul (0.83-4.51); Lymphocyte % 21.2 % (19-41); Mean Corp Hgb Conc 34.2 g/dL (32-36); Mean Corpuscular Volume 93.4 fL (81-99); Mean Platelet Vol. 10.6 fl (6.2-12.0); Monocyte# 0.43 X10^3/uL; Monocyte% 5.6 % (0-10); NRBC Flagged by Analyzer 0 % (0-5); Neutrophil # 5.43 X10^3/uL (2.7-7.7); Neutrophil % 70.9 % (47-70); Platelet Count 244 K/mm3 (150-450); RBC Distribution Width CV 12.7 % (11.6-14.6); RBC Distribution Width SD 43.8 fl (35.1-43.9); Red Blood Count 4.72 M/mm3 (4.2-5.4); White Blood Count 7.7 K/mm3 (4.4-11.0)
[2022-09-10 11:36] LABS: Estradiol 27.3 pg/mL; Luteinizing Hormone 19.8 mIU/mL; T4 Free Direct 1.07 ng/dL (0.76-1.46); Thyroid Stim Hormone (TSH) 2.83 uIU/mL (0.358-3.74)
== END | disposition home or self-care (01) ==
LOC: WOBLAB 10:30
PROVIDERS: PCP Internal Medicine; Visit Provider Obstetrics & Gynecology
DX: N95.0 Postmenopausal bleeding (principal); N93.9 Abnormal uterine and vaginal bleeding, unspecified
CPT/HCPCS: 36415; 82670; 83001; 83002; 84439; 84443; 85025; 88305

== ENCOUNTER 2022-11-09 07:43 | Day surgery (SDC) | payer OTHER, SELFPAY ==
[2022-10-23 10:53] LABS: Hematocrit 43.2 % (37-47); Hemoglobin 14.5 g/dL (12.0-15.0); Mean Corp Hgb Conc 33.6 g/dL (32-36); Mean Corpuscular Hgb 31.2 pg (27.0-32.0); Mean Corpuscular Volume 92.9 fL (81-99); Mean Platelet Vol. 10.4 fl (6.2-12.0); Platelet Count 244 K/mm3 (150-450); RBC Distribution Width CV 12.7 % (11.6-14.6); RBC Distribution Width SD 43.7 fl (35.1-43.9); Red Blood Count 4.65 M/mm3 (4.2-5.4); White Blood Count 7.3 K/mm3 (4.4-11.0)
[2022-10-23 11:38] LABS: Anion Gap 6 (5-15); BUN 13 mg/dL (7-18); BUN/Creat Ratio 17.2 RATIO (10-20); Calcium,Total 9.5 mg/dL (8.5-10.1); Chloride 102 mmol/L (98-107); Creatinine, Serum 0.75 mg/dL (0.55-1.02); EST Glomerular Filtration Rate 84 mL/min (>60); Est Glom Filt Rate - Afr Amer 102 mL/min (>60); Glucose 143 mg/dL (74-106); Potassium 3.7 mmol/L (3.5-5.1); Sodium Level 139 mmol/L (136-145); Thyroid Stim Hormone (TSH) 5.24 uIU/mL (0.358-3.74)
[2022-11-09] VITALS (10 sets, daily range): BP systolic 114–169; BP diastolic 58–81; PULSE 48–75; RESP 16; TEMP 36–36.8; O2SAT 98–100; BMI 42.9
--- NOTE | 2022-11-09 08:16 | PCM.HP.BLA ---
History and Physical Date of Admission: 11/09/22 Chief complaint: Abnormal uterine bleeding History present illness: 56-year-old arrives for robotic assisted total laparoscopic hysterectomy bilateral salpingo-oophorectomy and cystoscopy for abnormal uterine bleeding. No medical changes since last seen. All questions answered and consent signed. Obstetric history: with a history of vaginal deliveries Past medical history: Hypertension, hyperlipidemia, GERD, hypothyroid Medications: Aspirin, atorvastatin, famotidine, fluoxetine, hydrochlorothiazide, levothyroxine, lisinopril, loratadine Past surgical history: Ablation, wisdom tooth extraction, wrist surgery Allergies: Codeine, erythromycin, nystatin, Bactrim, tetracycline Family history: Denies history DVT or PE Social history: Denies smoking, alcohol use, drug use Review of systems: Besides above pertinent positives a full review of systems was performed and found to be negative Physical exam: Vitals: Pending General: Normal-appearing no acute distress HEENT: Normocephalic/atraumatic no cervical lymphadenopathy Cardiac/respiratory: No use accessory muscles, nonlabored breathing Abdomen: Soft, nontender, obese Extremities: No peripheral edema normal peripheral pulses Psych: Normal affect and remainder nonpressured speech Assessment and plan: 56-year-old elects for robotic assisted total laparoscopic hysterectomy bilateral salpingo-oophorectomy and cystoscopy for abnormal uterine bleeding. Patient understands the risk of the procedure include but are not limited to visceral or vascular injury, prolonged hospitalization, blood loss and need for transfusion, reoperation. Patient state understanding wish to proceed. All questions were answered and consent was signed
[2022-11-09] MEDS: Gabapentin 600 MG Tablet PO (08:31)
[2022-11-09] MEDS: Acetaminophen 500 MG Tablet 1000 MG PO (08:31)
[2022-11-09] MEDS: Magnesium 1 GM over 15 mins IV (08:31)
[2022-11-09] MEDS: Lactated Ringers 1,000 ML 40 ML IV ×2 (08:32→12:02)
[2022-11-09 09:11] LABS: Bedside Glucose 162 mg/dL (74-106)
[2022-11-09] MEDS: Cefazolin 2 GM in 0.9% Normal Saline 100 ML IV (09:37)
--- NOTE | 2022-11-09 09:45 | HYST_PTH ---
PATIENT: JAMIE GANT LOC: [facility] [place] U#:[id number] AGE/SX: 56/F ROOM: RE11/09/[address]: Dr. Cooper Hernández MD : 1965 BED: DIS: 11/09/2022 SPEC #: [id number] RECD: 11/09/22 12:20 STATUS: FLOR HIDALGO #: [id number] TINO: 11/09/22 09:[address]: Cooper Hernández DEPT: SURGICAL PATHOLOGY RECD BY: Quiana Murray ENTERED: 11/09/22 12:40 SP TYPE: HYSTERECT OTHR DR: Dr. Romi Araujo MD Tissues: Uterus, NOS Procedures: Surgery Specimen Level V HEADER OPERATION: ERAS, lap robotic hysterectomy, BSO, cysto PRE-OP DIAGNOSIS: Abnormal uterine bleeding TISSUE SUBMITTED: Cervix, uterus, bilateral ovaries MICROSCOPIC DIAGNOSIS Cervix, uterus, bilateral fallopian tubes and ovaries, hysterectomy and bilateral salpingo-oophorectomy: Cervix ? chronic inflammation and squamous metaplasia. Endometrium ? simple cystic and endometrial hyperplasia without atypia. Myometrium - no pathologic diagnosis. Bilateral fallopian tubes - no pathologic diagnosis. Bilateral ovaries - no pathologic diagnosis. Left paratubal cyst. SJ:swetha 11/10/2022 COMMENT Please make reference to previous specimen ([id number]) endometrial biopsy with diagnosis of ?strips and superficial fragments of benign endometrial tissue with focal cystic changes.? MICROSCOPIC DESCRIPTION Slides are reviewed. GROSS DESCRIPTION Received in fixative is one container labeled with the patient's name and designated uterus. The specimen consists of a uterus with attached cervix and attached right and left fallopian tubes and ovaries. The uterus with cervix measures 8.7 x 5.0 x 3.5 cm and weighs 86 gm. The ectocervix is unremarkable. The endocervical canal measures 3.3 cm in length and is grossly unremarkable. The triangular endometrial cavity measures 3.2 x 3.0 cm. The reddish-beach endometrium measures up to 0.2 cm in thickness. The myometrium measures 2.0 cm in average thickness and is free of mass lesions. The crinkled beach-yellow right ovary measures 3.0 x 2.0 x 1.0 cm. Serial sections of the right ovary does not reveal mass lesions. The adjacent fallopian tubes measures 5.0 cm in length and is 0.6 cm in average diameter. No tubo-ovarian adhesions are seen. The left ovary is similar in appearance to the right ovary and measures 3.0 x 2.0 x 1.2 cm. The left fallopian tube is similar in appearance to the right tube and measures 7.0 cm in length and 0.6 cm in average diameter. No tubo-ovarian adhesions are seen. [employer] sections are submitted in eight cassettes as follows: 1 - anterior cervix, 2 - posterior cervix, 3 & 4 - anterior endometrium/myometrium, 5 & 6 - posterior endometrium/myometrium, 7 - right ovary and fallopian tube, 8 - left ovary and fallopian tube. / AM:swetha 11/09/2022 TC:5 CPT: 25301
--- NOTE | 2022-11-09 11:33 | DCINST_ITS ---
Discharge Instructions Diet Discharge Diet: No restrictions Activity Discharge Activity: Return to Normal Activity, May Drive, May Shower and - (No tub baths for 2 weeks) May resume sexual activity in: 4-6 weeks Lifting Restrictions: No lifting over 25 pounds for 2-3 Dressing / Incision Call your doctor if your incision/area has: Continuous Slow Oozing and Foul Smelling Discharge Call your doctor if you observe: Fever of 101 or Higher, Shortness of breath and Chest pain Follow Up Care Please Follow Up With: Cooper Hernández MD When: 2 weeks postoperatively Test Results: Test results from this visit will be discussed in further detail at your follow- up appointment, if applicable. Discharge Plan Admission Attending Provider: Cooper Hernández Primary Care Provider: Romi Araujo Discharge Orders/Prescriptions Prescriptions: New oxycodone-acetaminophen [Percocet] 5-325 mg tablet 1 tab PO Q6H PRN (Reason: pain (scale score 7-10)) 5 Days Qty: 20 0RF Continued aspirin 81 mg tablet,delayed release (DR/EC) 81 mg PO DAILY cholecalciferol (vitamin D3) 50 mcg (2,000 unit) capsule 50 mcg PO DAILY famotidine [Pepcid AC] 20 mg tablet 20 mg PO BID Qty: 60 6RF zinc 50 mg tablet 50 mg PO DAILY ascorbate calcium (vitamin C) 500 mg tablet 500 mg PO DAILY loratadine 10 mg tablet 10 mg PO DAILY PRN (Reason: allergy symptoms) calcium carbonate 500 mg calcium (1,250 mg) Tablet 500 mg PO DAILY lisinopril 10 mg tablet 10 mg PO DAILY Qty: 90 3RF hydrochlorothiazide 25 mg tablet 25 mg PO DAILY Qty: 90 3RF fluoxetine [Prozac] 20 mg capsule 20 mg PO DAILY Qty: 90 3RF levothyroxine 112 mcg tablet 112 mcg PO DAILY Qty: 90 3RF atorvastatin 40 mg tablet 40 mg PO DAILY Qty: 90 3RF Referrals / Follow Up: Romi Araujo MD [Primary Care Provider] - Disposition Disposition (needs filled in before D/C Order can be placed): Home, Self Care
--- NOTE | 2022-11-09 11:33 | OP.PCM_ITS ---
Report of Operation Date of Procedure: 11/09/22 Pre-Operative Diagnosis: Abnormal uterine bleeding Post-Operative Diagnosis: Abnormal uterine bleeding Surgery/Procedure Performed:: Robotic assisted total laparoscopic hysterectomy bilateral salpingo-oophorectomy, cystoscopy Description of Surgical Findings:: Surgeon: Cooper Hernández MD Anesthesia: General EBL: 25 cc Urine output: 150 cc none IV fluids: 1100 cc Complications: None Specimen: Uterus, cervix, bilateral fallopian tubes, bilateral ovaries Findings: Normal uterus, tubes, and ovaries. Post procedure cystoscopy with no pathology noted, bilateral ureteral jets noted. Upon entry omentum insufflated and superficial defect hemostatic without repair. Otherwise intestine and bowel were evaluated with no defects noted. Consent: Patient with abnormal uterine bleeding elects for robotic assisted total laparoscopic hysterectomy bilateral salpingo-oophorectomy and cystoscopy. Patient understands risk of the procedure include but are not limited to visceral or vascular injury, prolonged hospitalization, blood loss and need for transfusion, reoperation. Patient state understanding and wished to proceed. All questions were answered and consent was signed. Procedure: Patient was brought back to the OR where general anesthesia was found to be adequate. 2 g of Ancef were given for infection prophylaxis. Patient was prepared and draped in a dorsolithotomy position with yellowfin stirrups. A weighted speculum is placed in the posterior aspect of vagina and cervical dilators were used to dilate the cervix. Uterine manipulator was placed. Varies needle was inserted at the umbilicus, water safety test was passed. But upon insufflation high insufflation pressure noted. Varies needle removed. And again varies needle was inserted and water safety test was passed but again with increased insufflation pressure. 8 mm supraumbilical midline trocar incision was made and 8 mm robotic trocar was directly inserted and the abdomen. Laparoscope was inserted and abdomen was insufflated noted to be intra- abdominal. Above findings were noted with omentum insufflation and defect from varies insertion and trocar insertion. Defect was further evaluated and noted to be hemostatic and no signs of intestinal or bowel injury, this area was again reinspected after the procedure was complete with no changes. Right lower quadrant 8 mm trocar was inserted under direct visualization. Left lower quadrant 8 mm trocar was inserted under direct visualization. Accessory 8 mm air seal port was placed in the left upper quadrant under direct visualization. Robot was docked. Bilateral ureters were visualized and noted to be out of the operative field. Using a vessel sealer the left round ligament was identified cut and cauterized anterior and posterior portions of broad ligament were dissected, bladder flap was developed. Left IP ligament was identified cut and cauterized with a vessel sealer. Posterior portion of the broad ligament was dissected. Left uterine vessels were skeletonized. Left uterine vessels were cut and cauterized, lateralized beyond the level of colpotomy cup. Good hemostasis was noted. Right round ligament was identified cut and cauterized, anterior and posterior portions of broad ligament were dissected. Bladder flap was completely developed beyond the level the colpotomy cup. Right IP ligament was identified cut and cauterized with a vessel sealer. Posterior portion of the broad ligament was dissected. Right uterine vessels were identified cut and cauterized, lateralized beyond the level of the colpotomy cup. Circumferential colpotomy was made with monopolar scissors. Uterus, cervix, bilateral fallopian tubes and ovaries were removed from the abdominal cavity and sent to pathology. Good hemostasis was noted. Colpotomy was closed in a continuous running fashion with V-Loc suture. Good hemostasis was noted after the abdominal pressure was dropped. Cystoscopy was performed and above findings were noted, bilateral ureteral jets were noted. Abdomen was desufflated, trocars were removed under direct visualization. Good hemostasis was noted. Trocar sites were closed in a subcutaneous fashion. Good hemostasis was noted. All counts were correct x2. Patient tolerated procedure well and was brought to recovery in a stable condition.
[2022-11-09] MEDS: Ketorolac 30 MG/ML Syringe IV (12:23)
[2022-11-09] MEDS: Ondansetron ODT 4 MG Tablet PO (14:13)
--- NOTE | 2022-11-09 14:15 | SUR.PHASEII ---
pt has emesis while getting dressed. zofran given. pt feels better after throwing up. wants to go home and sleep. pt getting dressed.
== END 2022-11-09 14:21 | disposition home or self-care (01) ==
LOC: SDC 07:47 → AC 07:47
PROVIDERS: Anesthesiology; PCP Internal Medicine; Referring Provider Obstetrics & Gynecology; Visit Provider Obstetrics & Gynecology
PROC: 0UT94ZZ Resection of Uterus, Percutaneous Endoscopic Approach (ICD-10-PCS; CPT 58571; principal; 2022-11-09 09:25)
DX: N83.8 Other noninflammatory disorders of ovary, fallopian tube and broad ligament (principal); Z68.41 Body mass index [BMI] 40.0-44.9, adult; N85.01 Benign endometrial hyperplasia; N85.8 Other specified noninflammatory disorders of uterus; E78.5 Hyperlipidemia, unspecified; I10 Essential (primary) hypertension; E66.9 Obesity, unspecified; E03.9 Hypothyroidism, unspecified; Z79.82 Long term (current) use of aspirin; Z79.899 Other long term (current) drug therapy; Z86.16 Personal history of COVID-19
CPT/HCPCS: 58571; 52000; S2900; 00840; 36415; 80048; 82962; 83735; 84443; 85027; 86850; 86900; 86901; 88307; 93005; J7120; J2405; J3475

== ENCOUNTER → 2023-01-06 | Outpatient (CLI) | payer OTHER, SELFPAY ==
[2023-01-06 16:09] LABS: Free T3 2.4 pg/mL (2.18-3.98); T4 Free Direct 1.09 ng/dL (0.76-1.46); Thyroid Stim Hormone (TSH) 1.24 uIU/mL (0.358-3.74)
== END | disposition home or self-care (01) ==
LOC: BIMLAB 13:21
PROVIDERS: PCP Internal Medicine; Referring Provider Internal Medicine; Visit Provider Internal Medicine
DX: E04.1 Nontoxic single thyroid nodule (principal); E03.9 Hypothyroidism, unspecified
CPT/HCPCS: 36415; 84439; 84443; 84481

== ENCOUNTER → 2023-03-30 | Outpatient (CLI) | payer OTHER, SELFPAY ==
[2023-03-30 12:31] LABS: Absolute Lymphocyte Count 1.52 X10^3/uL (0.83-4.51); Absolute Neutrophil Count 4.4 X10^3/uL (2.0-7.7); Basophil# 0.05 X10^3/uL; Basophil% 0.8 % (0-1); Eosinophil# 0.11 X10^3/uL; Eosinophils% 1.7 % (0-5); Hematocrit 42.9 % (37-47); Hemoglobin 14.1 g/dL (12.0-15.0); Lymphocyte # 1.52 X10^3/ul (0.83-4.51); Lymphocyte % 23.3 % (19-41); Mean Corp Hgb Conc 32.9 g/dL (32-36); Mean Corpuscular Hgb 31.3 pg (27.0-32.0); Mean Corpuscular Volume 95.1 fL (81-99); Mean Platelet Vol. 10.4 fl (6.2-12.0); Monocyte# 0.46 X10^3/uL; Monocyte% 7.1 % (0-10); NRBC Flagged by Analyzer 0 % (0-5); Neutrophil # 4.35 X10^3/uL (2.7-7.7); Neutrophil % 66.6 % (47-70); Platelet Count 268 K/mm3 (150-450); RBC Distribution Width CV 12.5 % (11.6-14.6); RBC Distribution Width SD 43.4 fl (35.1-43.9); Red Blood Count 4.51 M/mm3 (4.2-5.4); White Blood Count 6.5 K/mm3 (4.4-11.0)
[2023-03-30 12:59] LABS: Vitamin D,25 Hydroxy 40.6 ng/mL
[2023-03-30 13:00] LABS: Hemoglobin A1c 6.4 % (3.8-5.6)
[2023-03-30 13:10] LABS: AST(SGOT) 19 U/L (15-37); Alanine Aminotransfer ALT/SGPT 57 U/L (13-56); Albumin, Serum 3.5 g/dL (3.2-5.0); Alkaline Phosphatase 83 U/L (45-117); Anion Gap 7 (5-15); BUN 13 mg/dL (7-18); BUN/Creat Ratio 18.1 RATIO (10-20); Calcium,Total 8.8 mg/dL (8.5-10.1); Chloride 103 mmol/L (98-107); Cholesterol 133 mg/dL (200); Creatinine, Serum 0.72 mg/dL (0.55-1.02); EST Glomerular Filtration Rate 89 mL/min (>60); Est Glom Filt Rate - Afr Amer 108 mL/min (>60); Free T3 2.4 pg/mL (2.18-3.98); Globulin 3.6 g/dL (2.2-4.2); Glucose 140 mg/dL (74-106); High Density Lipoprotein 51 mg/dL; Potassium 3.8 mmol/L (3.5-5.1); Protein, Total 7.1 g/dL (6.4-8.2); Sodium Level 136 mmol/L (136-145); T4 Free Direct 1.27 ng/dL (0.76-1.46); Thyroid Stim Hormone (TSH) 1.46 uIU/mL (0.358-3.74); Triglycerides 138 mg/dL; Very Low Density Lipoprotein 28 mg/dL (5-40)
[2023-03-31 11:28] LABS: Insulin 21.7 mU/L (2.6-37.6)
== END | disposition home or self-care (01) ==
LOC: BIMLAB 08:41
PROVIDERS: PCP Internal Medicine; Referring Provider Internal Medicine; Visit Provider Internal Medicine
DX: Z13.220 Encounter for screening for lipoid disorders (principal); I10 Essential (primary) hypertension; E66.9 Obesity, unspecified; F32.9 Major depressive disorder, single episode, unspecified; E03.9 Hypothyroidism, unspecified; E78.5 Hyperlipidemia, unspecified; E88.81 Metabolic syndrome and other insulin resistance; E55.9 Vitamin D deficiency, unspecified; R73.9 Hyperglycemia, unspecified
CPT/HCPCS: 36415; 80053; 80061; 82306; 83036; 83525; 84439; 84443; 84481; 85025

== ENCOUNTER → 2023-04-29 | Outpatient (CLI) | payer OTHER, SELFPAY ==
[2023-04-29 17:46] LABS: Free T3 2.5 pg/mL (2.18-3.98); T4 Free Direct 1.17 ng/dL (0.76-1.46); Thyroid Stim Hormone (TSH) 1.07 uIU/mL (0.358-3.74)
== END | disposition home or self-care (01) ==
LOC: LAB 15:55
PROVIDERS: PCP Internal Medicine; Referring Provider Internal Medicine; Visit Provider Internal Medicine
DX: E03.9 Hypothyroidism, unspecified (principal)
CPT/HCPCS: 36415; 84439; 84443; 84481

== ENCOUNTER → 2023-10-11 | Outpatient (CLI) | payer OTHER, SELFPAY ==
--- NOTE | 2023-10-11 16:19 | RAD_ITS ---
STUDY: X-RAY - LEFT KNEE REASON FOR EXAM: Female, 57 years old. fall TECHNIQUE: 3 view(s) of the knee. COMPARISON: None. FINDINGS: Normal visualized distal femur. Normal visualized proximal tibia and fibula. Normal proximal tibiofibular articulation. There is no demonstrated fracture. There is moderate degenerative arthrosis of the medial femorotibial compartment with moderate joint space narrowing. Normal lateral femorotibial compartment. There is moderate degenerative arthrosis of the patellofemoral articulation. There is no demonstrated joint effusion. The soft tissue structures are unremarkable. RAD/Knee 3 Views IMPRESSION: No acute fracture or dislocation. Degenerative changes. Electronically Signed: Sergei Li MD at 17:30 EST ,
--- OUTSIDE RECORDS SUMMARY | 2023-10-11 17:46 | XMS RPT_ITS | CCD ---
Author Name Unknown Address [address] [place] [address] [address] [place] [id number] Organization [facility] Clinical Note 03-28-2021 Note Date & Type Note Facility 03-28-2021 Note Patient Outreach (NE TNAV) JAMIE GANT ([id number]) 1965 F Date Time Provider Department 03/28/21 SOCO KENYON (PSS) SALAZAR During your visit today, we recorded the following information about you: Soco Kenyon Pss 03/28/2021 8:10 AM Signed POPULATION HEALTH NAVIGATION OUTREACH Action/FYI Spoke w/patient regarding Cervical Cancer screening-she see a provider outside of [facility] for that. She has not had it done yet this year. Contact made with patient or family member? YES Pt identified by name and : YES Outreach Outcome/Action Spoke to patient or caregiver: Patient declined Reason for Outreach Care Gap or Scheduling/Wellness visits Payer: No coverage found. Care Gap Reviewed:: Annual Wellness visit Reminder: Reminder note to check Health Maintenance for items below Health Maintenance items due: COVID-19 VACCINE(1) Never done HEPATITIS C SCREENING Never done HIV SCREENING Never done HPV TESTING due on 12/15/2010 PAP TESTING due on 05/21/2019 Advanced Directives Completed: Have you ever planned for future healthcare decisions with a power of insurance attorney, living will, or advance directives? Referrals: Message Sent to Practice: Navigation Signature: Soco Kenyon Pss March 28, 2021 8:09 AM Allergies As of Date: 03/28/2021 Noted Allergy Reaction ambenyl [Other] 06/13/2005 16 - Unknown BACTRIM (SULFAMETHOXAZOLE-TRIMETH*03/15/2015 2 - Rash ERYTHROMYCIN 06/13/2005 16 - Unknown mysteclin [Other] 06/13/2005 16 - Unknown NYSTATIN 06/13/2005 16 - Unknown TETRACYCLINE 06/13/2005 16 - Unknown Date Reviewed: 08/19/2020 Reviewed by: Mariann Michaels LPN - Fully Assessed Reason for Visit: Population Health Navigation Outreach [3910] Cmt: [facility] ANNUAL EXAM Prescriptions as of 03/28/2021 - hydroCHLOROthiazide (HYDRODIURIL, ESIDRIX) 25 mg tablet Take 1 tablet by mouth once daily. - liothyronine (CYTOMEL) 50 mcg tablet Take 1 tablet by mouth once daily. - levothyroxine (SYNTHROID) 137 mcg tablet Take 1 tablet by mouth once daily. - atorvastatin (LIPITOR) 40 mg tablet Take 1 tablet by mouth once daily. - lisinopril (ZESTRIL, PRINIVIL) 10 mg tablet Take 1 tablet by mouth once daily. - meloxicam (MOBIC) 15 mg tablet Take 1 tablet by mouth once daily. - FLUoxetine (PROZAC) 20 mg capsule Take 1 capsule by mouth once daily. - propranolol (INDERAL) 40 mg tablet Take 1 tablet by mouth twice daily. To prevent migraines. - loratadine (CLARITIN) 10 mg ORAL Tab Take one(1) tablet daily as needed for allergy symptoms. - MULTIPLE VITAMIN TAB Take one(1) tablet daily. - ASPIRIN 81 MG TAB Take one(1) tablet daily. 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] 01/04/2006 Hyperlipidemia [E78.5] 10/01/2006 Hypothyroidism [E03.9] 10/01/2006 Major depression (HCC) [F32.9] 10/01/2006 Migraine without aura, without mention of intra*09/22/2007 Thrombosed external hemorrhoid [K64.5] 12/12/2013 Routine gynecological examination [Z01.419] 10/26/2014 HTN (hypertension) [I10] 10/26/2014 Well adult exam [Z00.00] 10/26/2014 Fatty liver [K76.0] 10/26/2014 Obesity, Class III, BMI 40-49.9 (morbid obesity*03/23/2017 Elevated fasting blood sugar [R73.01] 03/23/2017 Visit for screening mammogram [Z12.31] 09/24/2017 Fatigue [R53.83] 09/24/2017 Essential hypertension [I10] 09/24/2017 Dyslipidemia [E78.5] 09/24/2017 Vitamin D deficiency [E55.9] 09/24/2017 IFG (impaired fasting glucose) [R73.01] 09/24/2017 Major depressive disorder, single episode, mode*03/29/2018 Essential hypertension, benign [I10] 03/29/2018 Esophageal dysphagia [R13.19] 03/29/2018 Hypothyroidism, acquired [E03.9] 05/08/2020 Encounter Status:Closed by SOCO LIMA on 03/28/21 [facility] Progress note 03-28-2021 Note Date & Type Note Facility 03-28-2021 Note HNO ID: [id number] Author: Soco De Leno Service: ? Author Type: ? Type: Progress Notes Filed: 03/28/2021 8:10 AM Note Text: POPULATION HEALTH NAVIGATION OUTREACH Action/FYI Spoke w/patient regarding Cervical Cancer screening-she see a provider outside of [facility] for that. She has not had it done yet this year. Contact made with patient or family member? YES Pt identified by name and : YES Outreach Outcome/Action Spoke to patient or caregiver: Patient declined Reason for Outreach Care Gap or Scheduling/Wellness visits Payer: No coverage found. Care Gap Reviewed:: Annual Wellness visit Reminder: Reminder note to check Health Maintenance for items below Health Maintenance items due: COVID-19 VACCINE(1) Never done HEPATITIS C SCREENING Never done HIV SCREENING Never done HPV TESTING due on 12/15/2010 PAP TESTING due on 05/21/2019 Advanced Directives Completed: Have you ever planned for future healthcare decisions with a power of insurance attorney, living will, or advance directives? Referrals: Message Sent to Practice: Navigation Signature: Soco De Leon March 28, 2021 8:09 AM [facility] Clinical Note 01-30-2021 Note Date & Type Note Facility 01-30-2021 Note Patient Outreach (MN Q) JAMIE GANT ([id number]) 1965 F Date Time Provider Department 01/30/21 MARISOL PHELAN MIQ During your visit today, we recorded the following information about you: Marisol Phelan 01/30/2021 11:54 AM Signed Care Gap Reviewed: Controlling Blood Pressure Phone call placed to patient. Pt identified by name and : NO Outreach Outcome/Action: Outreached was completed 01/21. If patient deferred or declined to schedule appointment, please indicate the reason(s): Marisol Phelan Allergies As of Date: 01/30/2021 Noted Allergy Reaction ambenyl [Other] 06/13/2005 16 - Unknown BACTRIM (SULFAMETHOXAZOLE-TRIMETH*03/15/2015 2 - Rash ERYTHROMYCIN 06/13/2005 16 - Unknown mysteclin [Other] 06/13/2005 16 - Unknown NYSTATIN 06/13/2005 16 - Unknown TETRACYCLINE 06/13/2005 16 - Unknown Date Reviewed: 08/19/2020 Reviewed by: Mariann Michaels LPN - Fully Assessed Reason for Visit: Population Health Navigation Outreach [3910] Cmt: Deferred Care Prescriptions as of 01/30/2021 Sig: HYDROCHLOROTHIAZIDE 25 MG TAB* Take 1 tablet by mouth once d* LIOTHYRONINE 50 MCG TABLET Take 1 tablet by mouth once d* LEVOTHYROXINE 137 MCG TABLET Take 1 tablet by mouth once d* ATORVASTATIN 40 MG TABLET Take 1 tablet by mouth once d* LISINOPRIL 10 MG TABLET Take 1 tablet by mouth once d* MELOXICAM 15 MG TABLET Take 1 tablet by mouth once d* FLUOXETINE 20 MG CAPSULE Take 1 capsule by mouth once * PROPRANOLOL 40 MG TABLET Take 1 tablet by mouth twice * * CLARITIN 10 MG TABLET Take one(1) tablet daily as n* * MULTIPLE VITAMIN TABLET Take one(1) tablet daily. * ASPIRIN 81 MG TABLET Take one(1) tablet daily. 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] 01/04/2006 Hyperlipidemia [E78.5] 10/01/2006 Hypothyroidism [E03.9] 10/01/2006 Major depression (HCC) [F32.9] 10/01/2006 Migraine without aura, without mention of intra*09/22/2007 Thrombosed external hemorrhoid [K64.5] 12/12/2013 Routine gynecological examination [Z01.419] 10/26/2014 HTN (hypertension) [I10] 10/26/2014 Well adult exam [Z00.00] 10/26/2014 Fatty liver [K76.0] 10/26/2014 Obesity, Class III, BMI 40-49.9 (morbid obesity*03/23/2017 Elevated fasting blood sugar [R73.01] 03/23/2017 Visit for screening mammogram [Z12.31] 09/24/2017 Fatigue [R53.83] 09/24/2017 Essential hypertension [I10] 09/24/2017 Dyslipidemia [E78.5] 09/24/2017 Vitamin D deficiency [E55.9] 09/24/2017 IFG (impaired fasting glucose) [R73.01] 09/24/2017 Major depressive disorder, single episode, mode*03/29/2018 Essential hypertension, benign [I10] 03/29/2018 Esophageal dysphagia [R13.10] 03/29/2018 Hypothyroidism, acquired [E03.9] 05/08/2020 Encounter Status:Closed by MARISOL PHELAN on 01/30/21 [facility] Progress note 01-30-2021 Note Date & Type Note Facility 01-30-2021 Note HNO ID: [id number] Author: Marisol Phelan Service: ? Author Type: ? Type: Progress Notes Filed: 01/30/2021 11:54 AM Note Text: Care Gap Reviewed: Controlling Blood Pressure Phone call placed to patient. Pt identified by name and : NO Outreach Outcome/Action: Outreached was completed 01/21. If patient deferred or declined to schedule appointment, please indicate the reason(s): Marisol Phelan [facility] Clinical Note 01-21-2021 Note Date & Type Note Facility 01-21-2021 Note Patient Outreach (FA MPWS) STALINJAMIE ([id number]) 1965 F Date Time Provider Department 01/21/21 CAROL FLORIAN (RAZ) KAMILA During your visit today, we recorded the following information about you: Carol Dickens LPN 01/21/2021 10:53 AM Signed POPULATION HEALTH NAVIGATION OUTREACH Action/ 6 month follow up blood pressure Contact made with patient or family member? NO Pt identified by name and : YES Outreach Outcome/Action Sanswirehart message sent Reason for Outreach Care Gap or Scheduling/Wellness visits Payer: No coverage found. Care Gap Reviewed:: Controlling Blood Pressure Reminder: Reminder note to check Health Maintenance for items below Health Maintenance items due: HEPATITIS C SCREENING Never done HIV SCREENING Never done BP CONTROLLED (<130/80) Never done HPV TESTING due on 12/15/2010 PAP TESTING due on 05/21/2019 Carol Dickens LPN January 21, 2021 10:49 AM Allergies As of Date: 01/21/2021 Noted Allergy Reaction ambenyl [Other] 06/13/2005 16 - Unknown BACTRIM (SULFAMETHOXAZOLE-TRIMETH*03/15/2015 2 - Rash ERYTHROMYCIN 06/13/2005 16 - Unknown mysteclin [Other] 06/13/2005 16 - Unknown NYSTATIN 06/13/2005 16 - Unknown TETRACYCLINE 06/13/2005 16 - Unknown Date Reviewed: 08/19/2020 Reviewed by: Mariann Michaels LPN - Fully Assessed Reason for Visit: PHMA/Care Gap Outreach [1654] Prescriptions as of 01/21/2021 Sig: HYDROCHLOROTHIAZIDE 25 MG TAB* Take 1 tablet by mouth once d* LIOTHYRONINE 50 MCG TABLET Take 1 tablet by mouth once d* LEVOTHYROXINE 137 MCG TABLET Take 1 tablet by mouth once d* ATORVASTATIN 40 MG TABLET Take 1 tablet by mouth once d* LISINOPRIL 10 MG TABLET Take 1 tablet by mouth once d* MELOXICAM 15 MG TABLET Take 1 tablet by mouth once d* FLUOXETINE 20 MG CAPSULE Take 1 capsule by mouth once * PROPRANOLOL 40 MG TABLET Take 1 tablet by mouth twice * * CLARITIN 10 MG TABLET Take one(1) tablet daily as n* * MULTIPLE VITAMIN TABLET Take one(1) tablet daily. * ASPIRIN 81 MG TABLET Take one(1) tablet daily. 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] 01/04/2006 Hyperlipidemia [E78.5] 10/01/2006 Hypothyroidism [E03.9] 10/01/2006 Major depression (HCC) [F32.9] 10/01/2006 Migraine without aura, without mention of intra*09/22/2007 Thrombosed external hemorrhoid [K64.5] 12/12/2013 Routine gynecological examination [Z01.419] 10/26/2014 HTN (hypertension) [I10] 10/26/2014 Well adult exam [Z00.00] 10/26/2014 Fatty liver [K76.0] 10/26/2014 Obesity, Class III, BMI 40-49.9 (morbid obesity*03/23/2017 Elevated fasting blood sugar [R73.01] 03/23/2017 Visit for screening mammogram [Z12.31] 09/24/2017 Fatigue [R53.83] 09/24/2017 Essential hypertension [I10] 09/24/2017 Dyslipidemia [E78.5] 09/24/2017 Vitamin D deficiency [E55.9] 09/24/2017 IFG (impaired fasting glucose) [R73.01] 09/24/2017 Major depressive disorder, single episode, mode*03/29/2018 Essential hypertension, benign [I10] 03/29/2018 Esophageal dysphagia [R13.10] 03/29/2018 Hypothyroidism, acquired [E03.9] 05/08/2020 Encounter Status:Closed by CAROL DICKENS LPN on 01/21/21 [facility] Progress note 01-21-2021 Note Date & Type Note Facility 01-21-2021 Note HNO ID: [id number] Author: Carol Dickens LPN Service: ? Author Type: ? Type: Progress Notes Filed: 01/21/2021 10:53 AM Note Text: POPULATION HEALTH NAVIGATION OUTREACH Action/FYI 6 month follow up blood pressure Contact made with patient or family member? NO Pt identified by name and : YES Outreach Outcome/Action MyChart message sent Reason for Outreach Care Gap or Scheduling/Wellness visits Payer: No coverage found. Care Gap Reviewed:: Controlling Blood Pressure Reminder: Reminder note to check Health Maintenance for items below Health Maintenance items due: HEPATITIS C SCREENING Never done HIV SCREENING Never done BP CONTROLLED (<130/80) Never done HPV TESTING due on 12/15/2010 PAP TESTING due on 05/21/2019 Carol Dickens LPN January 21, 2021 10:49 AM [facility] Summary Purpose Family History No Family History Records Found Advance Directives No Advanced Directives Records Found Additional Source Comments INFORMATION SOURCE (unrecogn ized section and content) FOR RECORDS PERTAINING TO PATIENTS WHO ARE OR HAVE BEEN ENROLLED IN A CHEMICAL DEPENDENCY/SUBSTANCEABUSE PROGRAM, SOME INFORMATION MAY BE OMITTED. This clinical summary was aggregated from multiple sources. Caution should be exercised in using it in the provision of clinical care. This summary normalizes information from multiple sources, and as a consequence, information in this document may materially change the coding, format and clinical context of patient data. In addition, data may be omitted in some cases. CLINICAL DECISIONS SHOULD BE BASED ON THE PRIMARY CLINICAL RECORDS. [employer] provides no warranty or guarantee of the accuracy or completeness of information in this document.
== END | disposition home or self-care (01) ==
PROVIDERS: PCP Internal Medicine; Referring Provider Physician Assistant; Visit Provider Physician Assistant
DX: S89.92XA Unspecified injury of left lower leg, initial encounter (principal); W19.XXXA Unspecified fall, initial encounter
CPT/HCPCS: 73562

== ENCOUNTER → 2024-01-06 | Outpatient (CLI) | payer OTHER, SELFPAY ==
--- NOTE | 2024-01-06 15:45 | US_ITS ---
STUDY: THYROID ULTRASOUND REASON FOR EXAM: Female, 58 years old. Follow up thyroid nodule. TECHNIQUE: Ultrasound evaluation of the thyroid was performed with real-time and static villegas-scale imaging. COMPARISON: Comparison is made with prior examination dated July 09, 2022. FINDINGS: RIGHT LOBE: The right lobe of the thyroid gland measures 2.9 cm x 1.1 cm x 0.8 cm. There is a heterogeneous echotexture. Stable 7 mm x 5 mm x 4 mm well-defined hypoechoic solid nodule in the lower pole of the right lobe. LEFT LOBE: The left lobe of the thyroid gland measures 2.3 cm x 0.9 cm x 0.7 cm. There is a heterogeneous echotexture. There are no demonstrated solid, cystic or complex lesions. ISTHMUS: The isthmus measures 1 mm. Stable 2.3 cm x 1.5 cm x 0.7 cm benign-appearing right cervical lymph node. US/Thyroid IMPRESSION: Stable examination. Electronically Signed: Bandar Gastelum MD at 13:35 EDT ,
== END | disposition home or self-care (01) ==
LOC: US 15:44
PROVIDERS: PCP Internal Medicine; Referring Provider Surgery; Visit Provider Surgery
DX: E04.1 Nontoxic single thyroid nodule (principal)
CPT/HCPCS: 76536

== ENCOUNTER → 2024-02-21 | Outpatient (CLI) | payer OTHER, SELFPAY ==
[2024-02-21 08:47] LABS: Absolute Lymphocyte Count 1.51 X10^3/uL (0.83-4.51); Basophil# 0.04 X10^3/uL; Basophil% 0.7 % (0-1); Eosinophil# 0.13 X10^3/uL; Eosinophils% 2.1 % (0-5); Hemoglobin 13.8 g/dL (12.0-15.0); Lymphocyte # 1.51 X10^3/ul (0.83-4.51); Lymphocyte % 24.7 % (19-41); Mean Corp Hgb Conc 33.7 g/dL (32-36); Mean Corpuscular Hgb 31.2 pg (27.0-32.0); Mean Corpuscular Volume 92.6 fL (81-99); Mean Platelet Vol. 11.1 fl (6.2-12.0); Monocyte% 6.5 % (0-10); NRBC Flagged by Analyzer 0 % (0-5); Neutrophil % 65.5 % (47-70); Platelet Count 220 K/mm3 (150-450); RBC Distribution Width CV 12.7 % (11.6-14.6); RBC Distribution Width SD 43.5 fl (35.1-43.9); Red Blood Count 4.43 M/mm3 (4.2-5.4); White Blood Count 6.1 K/mm3 (4.4-11.0)
[2024-02-21 09:34] LABS: Vitamin D,25 Hydroxy 49.2 ng/mL
[2024-02-21 10:26] LABS: ALB/GLOB Ratio 1.2 RATIO (0.9-2.4); AST(SGOT) 19 U/L (15-37); Alanine Aminotransfer ALT/SGPT 45 U/L (13-56); Albumin, Serum 3.8 g/dL (3.2-5.0); Alkaline Phosphatase 72 U/L (45-117); Anion Gap 6 (5-15); BUN 16 mg/dL (7-18); BUN/Creat Ratio 23.5 RATIO (10-20); Calcium,Total 9.6 mg/dL (8.5-10.1); Chloride 105 mmol/L (98-107); Cholesterol 122 mg/dL (200); Creatinine, Serum 0.68 mg/dL (0.55-1.02); EST Glomerular Filtration Rate 94 mL/min (>60); Est Glom Filt Rate - Afr Amer 114 mL/min (>60); Free T3 2.6 pg/mL (2.18-3.98); Globulin 3.3 g/dL (2.2-4.2); Glucose 139 mg/dL (74-106); High Density Lipoprotein 47 mg/dL; Potassium 3.5 mmol/L (3.5-5.1); Protein, Total 7.1 g/dL (6.4-8.2); Sodium Level 137 mmol/L (136-145); Thyroid Stim Hormone (TSH) 0.46 uIU/mL (0.358-3.74); Triglycerides 104 mg/dL; Very Low Density Lipoprotein 21 mg/dL (5-40)
[2024-02-21 13:44] LABS: Hemoglobin A1c 6.2 % (3.8-5.6)
== END | disposition home or self-care (01) ==
LOC: LAB 08:04
PROVIDERS: PCP Internal Medicine; Referring Provider Internal Medicine; Visit Provider Internal Medicine
DX: E03.9 Hypothyroidism, unspecified (principal); E78.5 Hyperlipidemia, unspecified; I10 Essential (primary) hypertension; E66.9 Obesity, unspecified; E88.810 Metabolic syndrome; E55.9 Vitamin D deficiency, unspecified; R73.9 Hyperglycemia, unspecified
CPT/HCPCS: 36415; 80053; 80061; 82306; 83036; 84439; 84443; 84481; 85025

== ENCOUNTER → 2024-03-21 | Outpatient (CLI) | payer OTHER, SELFPAY ==
--- NOTE | 2024-03-21 15:51 | BI_ITS ---
MAMMOGRAPHY - BILATERAL SCREENING REASON FOR EXAM: Female, 58 years old. Routine annual screening examination. PERTINENT HISTORY: Sister with breast cancer. History of prior right breast biopsy. TECHNIQUE: Digital bilateral breast emelina (3D mammographic acquisition) in the CC and MLO projections. 2-D mediolateral oblique (MLO) and craniocaudad (CC) views of both breasts were obtained. CAD: Full Field Digital Mammography with Computer Added Detection was performed. COMPARISON: Comparison is made with prior outside examination dated August 06, 2020. FINDINGS: Breast Composition: There are scattered areas of fibroglandular density. There is a stable 6.5 mm x 15.2 mm well-defined nodule in the inferior medial aspect of the right breast. Correlation with ultrasound is recommended for further evaluation. No other significant abnormalities are identified. BI/SCRN MAMM (CAD)W/EMELINA BILAT IMPRESSION: 6.5 mm x 15.2 mm well-defined nodule in the inferior medial aspect of the right breast. A punctate calcification is seen within it. Correlation with ultrasound is recommended. ASSESSMENT CATEGORY: BIRADS Category 0: Incomplete. Need additional imaging evaluation. A letter regarding these results will be sent to the patient by the facility within 30 days. Approximately 10% of breast cancers are not detected by mammography. A normal mammogram should not delay biopsy of a clinically suspicious abnormality. [id number] Electronically Signed: Bandar Gastelum MD at 7:37 EDT ,
== END | disposition home or self-care (01) ==
LOC: OPBI 15:51
PROVIDERS: PCP Internal Medicine; Referring Provider Nurse Practitioner Women's Health; Visit Provider Nurse Practitioner Women's Health
DX: Z12.31 Encounter for screening mammogram for malignant neoplasm of breast (principal); Z80.3 Family history of malignant neoplasm of breast
CPT/HCPCS: 77063; 77067

== ENCOUNTER → 2024-03-23 | Outpatient (CLI) | payer OTHER, SELFPAY ==
--- NOTE | 2024-03-23 13:50 | US_ITS ---
STUDY: ULTRASOUND BREAST - RIGHT REASON FOR EXAM: Female, 58 years old. Abnormal screening mammogram. TECHNIQUE: Axial and longitudinal images of the RIGHT breast were performed with a high resolution ultrasound transducer. # OF IMAGES: 25 COMPARISON: Comparison is made with prior mammogram dated March 21, 2024. FINDINGS: RIGHT Breast: The inferior medial aspect of the right breast was examined with ultrasound. There is a 9 mm x 13 mm x 7 mm well-defined hypoechoic nodule at the 4:00 position of the breast at 6 cm from the nipple. Punctate calcification is seen within it. Biopsy recommended. US/Breast Limited Unilateral IMPRESSION: Mammographic abnormality corresponds to a 9 mm x 13 mm x 7 mm well-defined hypoechoic nodule at the 4:00 position of the breast is 6 cm from the nipple. Punctate calcification is seen within it. Biopsy recommended. ASSESSMENT CATEGORY: BIRADS Category 4: Suspicious - Biopsy Should Be Considered. A letter regarding these results will be sent to the patient by the facility within 30 days. Electronically Signed: Bandar Gastelum MD at 14:58 EDT ,
[2024-03-23 15:21] LABS: Free T3 2.3 pg/mL (2.18-3.98); Thyroid Stim Hormone (TSH) 0.42 uIU/mL (0.358-3.74)
== END | disposition home or self-care (01) ==
PROVIDERS: PCP Internal Medicine; Visit Provider Nurse Practitioner Women's Health
DX: N63.10 Unspecified lump in the right breast, unspecified quadrant (principal); E03.9 Hypothyroidism, unspecified
CPT/HCPCS: 36415; 76642; 84439; 84443; 84481

== ENCOUNTER → 2024-03-29 | Outpatient (CLI) | payer OTHER, SELFPAY ==
--- NOTE | 2024-03-29 10:35 | BRBX_PTH ---
PATIENT: JAMIE GANT LOC: [facility] U#:[id number] AGE/SX: 58/F ROOM: RE03/29/[address]: Dr. Abner Stein MD : 1965 BED: DIS: 03/29/2024 SPEC #: [id number] RECD: 03/29/24 11:57 STATUS: FLOR REJeromy #: [id number] TINO: 03/29/24 10:[address]: Abner Stein DEPT: SURGICAL PATHOLOGY RECD BY: Quiana Murray ENTERED: 03/29/24 13:40 SP TYPE: BREAST BX OTHR DR: Dr. Romi Araujo MD Tissues: Right breast, NOS Procedures: Surgery Specimen Level IV HEADER OPERATION: Right breast biopsy PRE-OP DIAGNOSIS: Right breast mass TISSUE SUBMITTED: Right breast tissue Ischemic Time: 1 minute Fixation Time: 9 hours MICROSCOPIC DIAGNOSIS Right breast mass, core biopsy: Fibroadenoma. AM/mr 03/30/2024 MICROSCOPIC DESCRIPTION Slides are reviewed. GROSS DESCRIPTION Received in fixative is one container labeled with the patient's name and designated Right breast. The specimen consists of multiple elongated fragments of fibroadipose tissue measuring in aggregate 1.5 x 0.3 x 0.1cm. The entire specimen is submitted in one cassette. KWAME/ 03/29/2024 TC:5 CPT:76675
== END | disposition home or self-care (01) ==
LOC: LABSPEC 13:24
PROVIDERS: PCP Internal Medicine; Referring Provider Surgery; Visit Provider Surgery
DX: N63.10 Unspecified lump in the right breast, unspecified quadrant (principal)
CPT/HCPCS: 88305

== ENCOUNTER → 2024-05-25 | Outpatient (CLI) | payer OTHER, SELFPAY ==
--- NOTE | 2024-05-25 11:55 | RAD_ITS ---
STUDY: X-RAY - RIGHT ELBOW REASON FOR EXAM: Female, 58 years old. Fall, right elbow pain. TECHNIQUE: 3 views of the right elbow. COMPARISON: None. FINDINGS: Normal visualized humerus, radius and ulna. Normal radiocapitellar and ulnotrochlear articulations. The soft tissue structures are unremarkable. There is no demonstrated fracture. RAD/Elbow min 3 Views IMPRESSION: No demonstrated fracture. Electronically Signed: Jesus Salcedo MD at 8:06 EDT ,
== END | disposition home or self-care (01) ==
LOC: RAD 11:50
PROVIDERS: PCP Internal Medicine; Referring Provider Internal Medicine; Visit Provider Internal Medicine
DX: M25.521 Pain in right elbow (principal); W19.XXXA Unspecified fall, initial encounter
CPT/HCPCS: 73080

== ENCOUNTER → 2024-08-15 | Outpatient (CLI) | payer OTHER, SELFPAY ==
[2024-08-15 12:53] LABS: Vitamin D,25 Hydroxy 42.1 ng/mL
[2024-08-15 13:13] LABS: ALB/GLOB Ratio 1.2 RATIO (0.9-2.4); AST(SGOT) 23 U/L (15-37); Alanine Aminotransfer ALT/SGPT 42 U/L (13-56); Albumin, Serum 3.9 g/dL (3.2-5.0); Alkaline Phosphatase 89 U/L (45-117); Anion Gap 8 (5-15); BUN 14 mg/dL (7-18); BUN/Creat Ratio 17.9 RATIO (10-20); Calcium,Total 9.6 mg/dL (8.5-10.1); Chloride 104 mmol/L (98-107); Creatinine, Serum 0.78 mg/dL (0.55-1.02); EST Glomerular Filtration Rate 80 mL/min (>60); Est Glom Filt Rate - Afr Amer 97 mL/min (>60); Free T3 2.6 pg/mL (2.18-3.98); Globulin 3.3 g/dL (2.2-4.2); Glucose 173 mg/dL (74-106); Potassium 3.5 mmol/L (3.5-5.1); Protein, Total 7.2 g/dL (6.4-8.2); Sodium Level 138 mmol/L (136-145); T4 Free Direct 1.37 ng/dL (0.76-1.46)
[2024-08-15 14:49] LABS: Hemoglobin A1c 6.2 % (3.8-5.6)
== END | disposition home or self-care (01) ==
LOC: BIMLAB 10:20
PROVIDERS: PCP Internal Medicine; Referring Provider Internal Medicine; Visit Provider Internal Medicine
DX: I10 Essential (primary) hypertension (principal); E03.9 Hypothyroidism, unspecified; R53.83 Other fatigue; E88.819 Insulin resistance, unspecified; E04.1 Nontoxic single thyroid nodule; E66.9 Obesity, unspecified; E55.9 Vitamin D deficiency, unspecified; R73.9 Hyperglycemia, unspecified
CPT/HCPCS: 36415; 80053; 82306; 83036; 83735; 84439; 84443; 84481

== ENCOUNTER 2024-08-16 09:30 | Outpatient (RCR) | payer OTHER, SELFPAY ==
--- NOTE | 2024-06-28 12:03 | HP.PTEVAL_ITS ---
Patient's Visit Information Visit Information Visit Information: JAMIE GANT is a 58 year old F referred to Physical Therapy by Dr. Romi Araujo MD with a diagnosis of R elbow pain. Date of Evaluation: 06/28/24 Physical Therapist: Cristofer Shelton, PT, ATC Visit Plan Frequency: 2-3x /Week Duration: 2-4 Weeks Plan: R wrist flexor stretching, DTR to extensor can, hawks motor vehicle field representative, ECC strengthening, and HEP Subjective Subjective: Pt reports she fell approximately 3 weeks ago and fell on her R arm. Pt reports she has had pain ever since then. Pt notes she had x-rays which revealed no fractures. Pt notes she has pain anytime she is reaching out trying to grab stuff. Pt also notes pain when her elbow is bent. Pt reports sleep difficulty at this time secondary to pain. Pt is R hand dominant. Pt denies any R UE radiculopathy at this time. 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 Pt reports she is limited with heavier house chores at this time secondary to pain, such as vacuuming her floors. Rest is the only thing that tends to help her pain. 5/10 pain while sitting here at rest, 8/10 pain at worst. Pain R elbow: Pain Intensity (Out of 10): 5 Pain Intensity Range: 8 Objective Objective: Neuro: B UE sensation is WNL to light touch. B bicipital reflex= 1/3 Palpation: Pt is very sore on the extensor can of R elbow. No obvious deformity. ROM: L wrist flex= 75, ext= 90 degrees; R wrist flex= 65, ext= 80 degrees MMT: L wrist flex= 27, ext= 27 #F; R wrist flex= 28, ext= 8 #F Balance/Special Test Scores Quick DASH Score: 40.9075 Goals Goal 1:: Decrease R elbow pain x 50% to aid with sleep Goal Time Frame: 2-4 Weeks Goal 2:: Increase R wrist strength x 5-10 #F to aid with IADL's Goal Time Frame: 2-4 Weeks Goal 3:: Increase R wrist flex ROM x 5 degrees to aid with decreasing pain Goal Time Frame: 2-4 Weeks Goal 4:: I with HEP Goal Time Frame: 2-4 Weeks Rehabilitation Potential Physical Therapy Diagnosis: Pt has R elbow pain and weakness secondary to R elbow strain Rehabilitation Potential: Good Anticipated Interventions Patient/Client Instruction: Educate patient on: Condition and Plan of Care For the Purpose of:: To improve self management Therapeutic Exercise to Include: Strength training, Endurance training, Flexibilty training and Active ROM For the Purpose of:: To decrease pain, To increase ROM and To improve muscle performance and motor function Manual Therapy Techniques to Include: Soft tissue mobilization For the Purpose of:: To decrease pain and To increase ROM Text: Thank you for the opportunity to evaluate your patient. For Medicare and Medicare HMO plans, please review the plan of care and approve it. It will need to be FAXED BACK to us at [phone] for Medicare purposes. For Medicare only, by signing this I certify the plan of care. Please let me know if there are questions or concerns regarding this plan of care. Physician Signature: Date:
--- NOTE | 2024-10-13 12:45 | HP.PT.NRP ---
Patient Information Patient Information: JAMIE GANT was seen in my office for initial evaluation on 06/28/24. The following Plan of Care was established for this patient: POC Established Initial Frequency: 2-3x /Week Initial Duration: 2-4 Weeks Anticipated Interventions Patient/Client Instruction: Educate patient on: Condition and Plan of Care For the Purpose of:: To improve self management Therapeutic Exercise to Include: Strength training, Endurance training, Flexibilty training and Active ROM For the Purpose of:: To decrease pain, To increase ROM and To improve muscle performance and motor function Manual Therapy Techniques to Include: Soft tissue mobilization For the Purpose of:: To decrease pain and To increase ROM Last Seen Last Seen: This patient was last seen in our office . Pertinent comments regarding their Physical therapy will appear below: Pt has not returned through todays date for 30 days and is discontinued at this time. At this point I will be discontinuing this patient from physical therapy. I would be happy to see this patient again in the future if found appropriate by the physician. Thank you! Cristofer Shelton, PT, ATC Balance/Gait/Functional tests Balance/Special Test Scores Quick DASH Score: 40.9088
== END 2024-08-16 19:00 | disposition home or self-care (01) ==
LOC: PT 09:30
PROVIDERS: PCP Internal Medicine; Referring Provider Internal Medicine; Visit Provider Internal Medicine
DX: M25.521 Pain in right elbow (principal)
CPT/HCPCS: 97110; 97140; 97161

== ENCOUNTER → 2024-10-10 | Outpatient (CLI) | payer OTHER, SELFPAY ==
--- NOTE | 2024-10-10 10:42 | US_ITS ---
PROCEDURE: BREAST LIMITED UNILATERAL REASON FOR EXAM: Follow-up for right breast biopsy. COMPARISON: Comparison is made with prior sonogram dated March 23, 2024. TECHNIQUE: Targeted bilateral breast ultrasound. FINDINGS: RIGHT: Ultrasound targeted to the inferior medial aspect of the right breast. The breast tissue appears sonographically normal. Stable 1.3 cm x 0.7 cm x 0.7 cm hypoechoic solid nodule with some posterior acoustical shadowing. This is unchanged. US/Breast Limited Unilateral IMPRESSION: Stable examination. BI-RADS 1: NEGATIVE. RECOMMEND ANNUAL MAMMOGRAPHIC SCREENING. Reading Location: [facility]
== END | disposition home or self-care (01) ==
LOC: OPUS 10:40
PROVIDERS: PCP Internal Medicine; Referring Provider Surgery; Visit Provider Surgery
DX: N63.10 Unspecified lump in the right breast, unspecified quadrant (principal)
CPT/HCPCS: 76642

== ENCOUNTER 2024-11-05 10:30 | Emergency (ER) | payer OTHER, SELFPAY ==
[2024-11-05 10:31] VITALS: BP 163/96; PULSE 70; RESP 18; TEMP 36.8; O2SAT 98; BMI 42.5
--- NOTE | 2024-11-05 10:44 | EKG12_ITS ---
Test Reason : DIZZY Blood Pressure : */* mmHG Vent. Rate : 94 BPM Atrial Rate : 94 BPM P-R Int : 160 ms QRS Dur : 76 ms QT Int : 346 ms P-R-T Axes : * -5 -12 degrees QTcB Int : 432 ms Sinus rhythm with Premature atrial complexes Otherwise normal ECG Confirmed by Angel Covarrubias ([id number]), magazine editor JOHN JOSEPH ([id number]) on 11/07/2024 10:43:06 AM Referred By: Confirmed By: Angel Covarrubias
[2024-11-05 10:53] VITALS: BP 159/116; BP 171/107; BP 176/92; PULSE 79; PULSE 81; PULSE 83
--- NOTE | 2024-11-05 10:53 | EDS_ITS ---
HPI History of Present Illness Chief Complaint: Dizziness Narrative Narrative: Chief complaint and HPI: Episodic lightheadedness with chest heaviness. 58-year-old female with past medical history of migraines, hypothyroidism, HTN, HLD presents for evaluation of episodic lightheadedness and chest heaviness. Patient states 9 days ago she was diagnosed with a right ear infection and placed on Augmentin. She has 1 day left of medication. She states yesterday while standing in line she had a 10-second episode of lightheadedness. She states that last night she was aware of her heartbeat. But denies palpitations. She states she went to [employer] today and developed several episode s of lightheadedness. She states she was standing up and down multiple times at [employer]. She states to the episodes happen shortly after standing. 1 episode while sitting. She denies room spinning/vertigo, tinnitus, hearing loss. She states she developed some chest heaviness while at [employer]. She denies any fever, chills, shortness of breath, abdominal pain, nausea, vomiting, dysuria. States she has been eating and drinking well. Denies any trauma or head injury. States she has been having increased headaches over the past 2 days. Denies any numbness or tingling. Denies any neurological deficits. Review of systems: See HPI Medications: As listed on the chart Allergies: As listed on the chart PFSH: Per chart Vital signs: As listed on the chart. Reviewed. Physical exam: Gen: A&O x3, NAD Head: Normocephalic, atraumatic Eyes: No sclera icterus, conjunctiva clear, PERRL, EOMI, no nystagmus ENT: Moist mucous membranes, tympanic membranes clear bilaterally without erythema or signs of infection, no sinus tenderness Neck: Trachea midline, No JVD, full range of motion CV: RRR, no murmurs, no peripheral edema Resp: Lungs CTA BL, no w/r/c, dry cough+ GI: Abd soft, non-distended, non-tender, no r/r/g Musc: Full ROM, no deformity Skin: Warm, dry Neuro: Alert, oriented, grossly intact, sensation intact Psych: Cooperative, appropriate mood and affect [facility] Medical History Left foot pain Right elbow pain Fall Fatigue Strain of left knee Contusion of left knee Thyroid disease Migraine headache History of hiatal hernia Non-smoker History of pain when walking History of edema Wears glasses Alcohol use Difficulty swallowing Difficulty chewing Gastric reflux Arthritis Dysphagia Essential hypertension Depression Other and unspecified hyperlipidemia Hypothyroidism Home Medications ?Medication ?Instructions ?Recorded ?Last Taken ?Type aspirin 81 mg tablet,delayed 81 mg PO DAILY 08/07/20 0 02/01/21 09:00 History release cholecalciferol (vitamin D3) 50 50 mcg PO DAILY 02/06/21 09:00 History mcg (2,000 unit) capsule famotidine 20 mg tablet (Pepcid AC) 20 mg PO BID #60 t abs 03/13/21 11/09/22 04:45 Rx loratadine 10 mg tablet 10 mg PO DAILY PRN allergy s ymptoms 10/29/21 Unknown History zinc gluconate 50 mg tablet 50 mg PO DAILY 02/23/24 Un known History hydrochlorothiazide 25 mg tablet 25 mg PO DAILY #90 ta bs 03/13/24 Unknown Rx lisinopril 10 mg tablet 10 mg PO DAILY #90 tabs 04/29 Unknown Rx levothyroxine 125 mcg tablet 125 mcg PO DAILY #90 tabs 03/27/24 Unknown Rx vitamin B complex 1 tab PO DAILY 03/29/24 Unkn own History atorvastatin 40 mg tablet 40 mg PO DAILY #90 tabs 09/06 11/28 Unknown Rx fluoxetine 20 mg capsule (Prozac) 20 mg PO DAILY #90 c aps 10/23/24 Unknown Rx amoxicillin 875 mg-potassium 1 tab PO Q12H 10 days #20 tabs 10/27/24 Unknown Rx clavulanate 125 mg tablet Allergy/AdvReac Type Severity Reaction Status Date / Time bromodiphenhydramine (From Allergy Mild unknown Verified 11/05/24 10:31 Ambenyl) codeine (From Ambenyl) Allergy Mild unknown Verified 11/05/24 10:31 erythromycin base (From Allergy Mild unknown Verified 11/05/24 10:31 Kayden-Tab) nystatin Allergy Mild unknown Verified 11/05/24 10:31 sulfamethoxazole (From Allergy Mild Rash Verified 11/05/24 10:31 Bactrim) Tetracyclines Allergy Mild unknown Verified 11/05/24 10:31 trimethoprim (From Bactrim) Allergy Mild Rash Verified 11/05/24 10:31 Family History Mother Myocardial infarction Thyroid disorder Heart disease Hypertension Lung cancer Diabetes CVA (cerebral vascular accident) Grandmother Myocardial infarction Sister Breast cancer Diabetes Father Leukemia Diabetes Other Cancer Surgical History History of breast biopsy H/O total hysterectomy Hx of colonoscopy S/P thyroid biopsy S/P colonoscopy S/P tonsillectomy S/P wrist surgery RIGHT WRIST Social History household members: spouse number of children: 3 current occupational status: employed current occupation: [employer] Smoking Status: Never smoker Electronic Cigarette Use: not used second hand exposure: No alcohol intake: current alcohol intake frequency: holidays/special occasions only Alcohol type: wine substance use type: does not use caffeine: Yes what type of physical activity do you participate in: none frequency: decline to answer elma/jainism: L[employer] seatbelt use: always do you feel safe at home: Yes EXAM Physical Exam Const Vital Signs: 11/05/24 10:31 11/05/24 10:53 11/05/24 10:55 Temperature 98.2 F Temperature Source Oral Pulse Rate 70 Pulse Rate [Lying] 83 Pulse Rate [Sitting (for 1 minute prior to obtaining)] 79 Pulse Rate [Standing (for 1 minute prior to obtaining)] 81 Respiratory Rate 18 Respiratory Effort Normal Non-Labored Respiratory Pattern Normal Blood Pressure 163/96 H Blood Pressure [Lying] 159/116 H Blood Pressure [Sitting (for 1 minute prior to obtaining)] 171/107 H Blood Pressure [Standing (for 1 minute prior to obtaining)] 176/92 H Blood Pressure Mean 118 Blood Pressure Mean [Lying] 130 Blood Pressure Mean [Sitting (for 1 minute prior to obtaining)] 128 Blood Pressure Mean [Standing (for 1 minute prior to obtaining)] 120 Pulse Ox 98 Oxygen Delivery Method Room Air 11/05/24 11:05 11/05/24 11:43 11/05/24 13:29 Temperature Temperature Source Pulse Rate 88 88 75 Pulse Rate [Lying] Pulse Rate [Sitting (for 1 minute prior to obtaining)] Pulse Rate [Standing (for 1 minute prior to obtaining)] Respiratory Rate 22 H 18 17 Respiratory Effort Respiratory Pattern Blood Pressure 176/92 H 162/81 H 171/84 H Blood Pressure [Lying] Blood Pressure [Sitting (for 1 minute prior to obtaining)] Blood Pressure [Standing (for 1 minute prior to obtaining)] Blood Pressure Mean 120 108 113 Blood Pressure Mean [Lying] Blood Pressure Mean [Sitting (for 1 minute prior to obtaining)] Blood Pressure Mean [Standing (for 1 minute prior to obtaining)] Pulse Ox 95 94 97 Oxygen Delivery Method Room Air Room Air Room Air MDM MDM MDM Narrative Medical decision making narrative: 58-year-old female with past medical history of migraines, hypothyroidism, HTN, HLD presents for evaluation of episodic lightheadedness and chest heaviness. Differential diagnosis includes but is not limited to orthostatic hypotension, electrolyte abnormality, dehydration, pneumonia, UTI, intracranial abnormality, ACS. Will obtain orthostatic vital signs prior to fluid resuscitation. Labo ratory workup ordered including CT head. Orthostatic vital signs positive as she had more than a 10 mm Hg in diastolic blood pressure when standing compared to sitting. Fluids ordered. EKG and chest x-ray reviewed see below. Monitor blood pressure at home. Patient per radiology has a left midlung zone/lingula nodule. This will need to be further workup outpatient. CBC without leukocytosis or anemia. BMP relatively unremarkable. No HIREN. BNP unremarkable. UA negative for UTI. No ketones. CT of the brain without any acute intracranial abnormality. Patient has mild right maxillary sinusitis. She is already on Augmentin. She is no sinus pressure on physical exam. Troponin unremarkable x 2. Thyroid function unremarkable. Magnesium level unremarkable. On reevaluation, patient is currently asymptomatic. I suspect her episodic lightheadedness is secondary to orthostatic hypotension. She is educated to drink plenty of fluids over the next several days. Educated on slow movements with position changes. She confirmed understanding. Will place her on a Holter monitor to assess for intermittent arrhythmia. We do not have any available in our emergency department at this time therefore order was given for her to pick 1 up tomorrow. She confirmed understanding. Return precautions explained. Patient stable to discharge home. EKG: Interpreted by me/EM physician: EKG shows normal sinus rhythm with PACs. No acute ischemic changes. Heart 94. Diagnostic: Interpreted by me/EM physician: Chest x-ray without pneumonia, effusion, cardiomegaly, pneumothorax Impression: 1. Orthostatic hypotension 2. Episodic lightheadedness 3. Chest heaviness, unclear etiology Lab Data Labs: Laboratory Results - last 24 hr 11/05/24 11/05/24 11/05/24 11:00 11:29 12:40 WBC 6.2 RBC 4.69 Hgb 15.0 Hct 42.6 MCV 90.8 MCH 32.0 MCHC 35.2 RDW Std Deviation 42.5 RDW Coeff of Angel 13.0 Plt Count 205 MPV 10.4 Immature Gran % (Auto) 0.200 Neut % (Auto) 59.9 Lymph % (Auto) 26.9 [place] % (Auto) 9.7 Eos % (Auto) 2.8 Baso % (Auto) 0.5 Absolute Neuts (auto) 3.7 Absolute Lymphs (auto) 1.66 Nucleated RBC % 0 Sodium 138 Potassium 3.8 Chloride Direct 100 Carbon Dioxide 25.8 Anion Gap 13 BUN 15 Creatinine 0.62 L Estim Creat Clear Calc 121.50 Est GFR (MDRD) Non-Af 103 BUN/Creatinine Ratio 24.9 H Glucose 165 H Calcium 9.9 Magnesium Cancelled Troponin T High Sens < 6 Troponin T Hi Sens 2 Hr Cancelled Troponin T Hi Sens 2Hr Delta Cancelled NT pro BNP II < 36 TSH Cancelled Free T4 Cancelled Urine Color Yellow Urine Clarity Clear Urine pH 7.0 Ur Specific [place] 1.010 Urine Protein Negative Urine Glucose (UA) Normal Urine Ketones Negative Urine Occult Blood Negative Urine Nitrite Negative Urine Bilirubin Negative Urine Urobilinogen Normal Ur Leukocyte Esterase Negative Urine RBC 0 SEEN Urine WBC 0 SEEN Ur Squamous Epith Cells 0-5 SEEN Urine Bacteria 0 SEEN Urine Mucus 0 SEEN 11/05/24 13:05 WBC RBC Hgb Hct MCV MCH MCHC RDW Std Deviation RDW Coeff of Angel Plt Count MPV Immature Gran % (Auto) Neut % (Auto) Lymph % (Auto) [place] % (Auto) Eos % (Auto) Baso % (Auto) Absolute Neuts (auto) Absolute Lymphs (auto) Nucleated RBC % Sodium Potassium Chloride Direct Carbon Dioxide Anion Gap BUN Creatinine Estim Creat Clear Calc Est GFR (MDRD) Non-Af BUN/Creatinine Ratio Glucose Calcium Magnesium 1.7 Troponin T High Sens Troponin T Hi Sens 2 Hr < 6 Troponin T Hi Sens 2Hr Delta UNABLE TO CALCULATE NT pro BNP II TSH 0.357 Free T4 1.40 Urine Color Urine Clarity Urine pH Ur Specific [place] Urine Protein Urine Glucose (UA) Urine Ketones Urine Occult Blood Urine Nitrite Urine Bilirubin Urine Urobilinogen Ur Leukocyte Esterase Urine RBC Urine WBC Ur Squamous Epith Cells Urine Bacteria Urine Mucus Radiography Diagnostic Testing: Clinical Impression(s) from Imaging Studies Brain CT 11/05/24 11:10 IMPRESSION: 1. No CT evidence of acute intracranial pathology 2. Mild right maxillary sinusitis Reading Location: [facility] Chest X-Ray 11/05/24 11:13 IMPRESSION: 1. No radiographic evidence of acute cardiopulmonary disease 2. Left mid lung zone/lingula nodule Reading Location: [facility] Discharge Plan Triage Chief Complaint: Dizziness ED Provider: Eric Alba Dx/Rx/DC Orders Clinical Impression: Orthostatic hypotension, Episodic lightheadedness, Chest pain Instructions: Orthostatic Hypotension, ED Chest Pain, Uncertain Cause Prescriptions: No Action aspirin 81 mg tablet,delayed release (DR/EC) 81 mg PO DAILY cholecalciferol (vitamin D3) 50 mcg (2,000 unit) capsule 50 mcg PO DAILY famotidine [Pepcid AC] 20 mg tablet 20 mg PO BID Qty: 60 6RF loratadine 10 mg tablet 10 mg PO DAILY PRN (Reason: allergy symptoms) zinc gluconate 50 mg tablet 50 mg PO DAILY vitamin B complex Tablet 1 tab PO DAILY amoxicillin-pot clavulanate 875-125 mg tablet 1 tab PO Q12H 10 Days Qty: 20 0RF hydrochlorothiazide 25 mg tablet 25 mg PO DAILY Qty: 90 3RF lisinopril 10 mg tablet 10 mg PO DAILY Qty: 90 3RF levothyroxine 125 mcg tablet 125 mcg PO DAILY Qty: 90 3RF atorvastatin 40 mg tablet 40 mg PO DAILY Qty: 90 3RF fluoxetine [Prozac] 20 mg capsule 20 mg PO DAILY Qty: 90 3RF Other Ambulatory Orders: Cardiac Holter Monitor, 48 Hrs (Routine) Timeframe: 2 Days Facility: [facility] - Location: Cardiovascular Services Ordered By: Dr. Eric Alba Primary Care Provider: Romi Araujo Referrals: Romi Araujo MD [Primary Care Provider] - Activity Restrictions/Additional Instructions: Follow-up with your primary care physician. Return back to the ED if symptoms change or worsen. Make sure you drink plenty of fluids. Change body positions slowly. Print Language: Danish Disposition Disposition: Home, Self Care
[2024-11-05 11:05] VITALS: BP 176/92; PULSE 88; RESP 22; O2SAT 95
[2024-11-05] MEDS: Aspirin 81 MG TAB.CHEW 324 MG PO (11:06)
[2024-11-05] MEDS: 0.9% Normal Saline (1000mL) 1,000 ML 1000 ML IV (11:06)
[2024-11-05 11:09] LABS: Absolute Lymphocyte Count 1.66 X10^3/uL (0.83-4.51); Absolute Neutrophil Count 3.7 X10^3/uL (2.0-7.7); Basophil# 0.03 X10^3/uL; Basophil% 0.5 % (0-1); Eosinophil# 0.17 X10^3/uL; Eosinophils% 2.8 % (0-5); Hematocrit 42.6 % (37-47); Lymphocyte # 1.66 X10^3/ul (0.83-4.51); Lymphocyte % 26.9 % (19-41); Mean Corp Hgb Conc 35.2 g/dL (32-36); Mean Corpuscular Volume 90.8 fL (81-99); Mean Platelet Vol. 10.4 fl (6.2-12.0); Monocyte% 9.7 % (0-10); NRBC Flagged by Analyzer 0 % (0-5); Neutrophil # 3.69 X10^3/uL (2.7-7.7); Neutrophil % 59.9 % (47-70); Platelet Count 205 K/mm3 (150-450); RBC Distribution Width SD 42.5 fl (35.1-43.9); Red Blood Count 4.69 M/mm3 (4.2-5.4); White Blood Count 6.2 K/mm3 (4.4-11.0)
--- NOTE | 2024-11-05 11:10 | CT_ITS ---
EXAM: BRAIN/HEAD WITHOUT CONTRAST CLINICAL HISTORY: Lightheadedness headache COMPARISON: None. TECHNIQUE: Noncontrast images of the head with multiplanar reconstructions. Dose reduction techniques were used including intermediate exposure control (AEC),iterative reconstruction technique, and/or mA and/or KV dose adjustments based on patient's size. FINDINGS: CT HEAD FINDINGS: No acute intracranial hemorrhage, mass, mass effect, midline shift or pathologic extra-axial fluid collection. No hydrocephalus. Age- appropriate cerebral volume and white matter. Mild thickening of the right maxillary sinus. Mastoid air cells are clear. The calvarium is grossly intact. CT/Brain/Head without Contrast IMPRESSION: 1. No CT evidence of acute intracranial pathology 2. Mild right maxillary sinusitis Reading Location: [facility]
--- NOTE | 2024-11-05 11:13 | RAD_ITS ---
PROCEDURE: CHEST PA AND LATERAL REASON FOR EXAM: Chest discomfort TECHNIQUE: Frontal and lateral views of the chest. COMPARISON: None. FINDINGS: The heart size is normal. The mediastinal contour is unremarkable. No infiltrate. 13 mm nodule in the left mid lung zone Degenerative changes are identified within the thoracic spine. RAD/Chest PA and Lateral IMPRESSION: 1. No radiographic evidence of acute cardiopulmonary disease 2. Left mid lung zone/lingula nodule Reading Location: [facility]
[2024-11-05 11:31] LABS: Troponin T High Sensitivity < 6 ng/L (<=14)
[2024-11-05 11:33] LABS: Anion Gap 13 (5-15); BUN 15 mg/dL (4-19); BUN/Creat Ratio 24.9 RATIO (10-20); Calcium 9.9 mg/dL (7.6-11.0); Carbon Dioxide 25.8 mmol/L (22.0-29.0); Chloride 100 mmol/L (96-108); Creatinine, Serum 0.62 mg/dL (0.70-1.20); EST Glomerular Filtration Rate 103 (>60); Glucose 165 mg/dL (70-99); Potassium 3.8 mmol/L (3.3-5.1); Sodium Level 138 mmol/L (133-145)
[2024-11-05 11:37] LABS: Bacteria 0 SEEN /hpf (None Seen); Mucous, Urine 0 SEEN /hpf (<or=2+); White Blood Cells 0 SEEN /hpf (0-5)
[2024-11-05 11:39] LABS: Color, Urine Yellow (Yellow); Glucose, Dipstick Normal (Normal); Ketone-Dipstick Negative (Negative); Leukocyte Esterase-Dipstick Negative /ul (Negative); Nitrite-Dipstick Negative (Negative); Occult Blood-Urine Negative /ul (Negative); Protein-Dipstick Negative (Negative); Urine Bilirubin Dipstick Negative (Negative); Urine Clarity Clear (Clear); Urine Urobilinogen Normal (Normal)
[2024-11-05 11:41] LABS: Pro- Brain NATRIURETIC PEPTIDE < 36 pg/mL (<=900)
[2024-11-05 11:43] VITALS: BP 162/81; PULSE 88; RESP 18; O2SAT 94
[2024-11-05 11:45] LABS: Squamous Epithelial Cells - UA 0-5 SEEN /hpf (5-10)
--- NOTE | 2024-11-05 11:45 | ED.RN ---
pt reports light headed feeling comes and goes
[2024-11-05 11:59] LABS: Red Blood Cells-Urine 0 SEEN /hpf (0-5)
[2024-11-05 13:29] VITALS: BP 171/84; PULSE 75; RESP 17; O2SAT 97
[2024-11-05 13:44] LABS: Magnesium 1.7 mg/dL (1.5-2.2); TROPONIN VARIANCE 2 HR UNABLE TO CALCULATE; Thyroid Stim Hormone (TSH) 0.357 uIU/mL (0.300-4.200); Troponin T High Sens 2 HR < 6 ng/L (<=14)
--- NOTE | 2024-11-05 14:40 | ED.RN ---
spoke with pt regarding outpatient testing.
[2024-11-05 14:41] VITALS: BP 142/76
== END 2024-11-05 14:41 | disposition home or self-care (01) ==
PROVIDERS: Emergency Provider Surgery; PCP Internal Medicine; Visit Provider Surgery
DX: I95.1 Orthostatic hypotension (principal); R07.9 Chest pain, unspecified; E78.5 Hyperlipidemia, unspecified; I10 Essential (primary) hypertension; E03.9 Hypothyroidism, unspecified; F32.A Depression, unspecified; Z79.899 Other long term (current) drug therapy; Z79.82 Long term (current) use of aspirin
CPT/HCPCS: 70450; 71046; 80048; 81001; 83735; 83880; 84439; 84443; 84484; 85025; 93005; 96360; 99285

== ENCOUNTER → 2024-11-06 | Outpatient (CLI) | payer OTHER, SELFPAY ==
[2024-11-06 16:51] LABS: D-Dimer Quantitative (DVT/PE) 0.27 FEU/ug/m (0.27-0.49)
== END | disposition home or self-care (01) ==
LOC: LAB 15:20
PROVIDERS: PCP Internal Medicine; Referring Provider Internal Medicine; Visit Provider Internal Medicine
DX: R42 Dizziness and giddiness (principal); R07.9 Chest pain, unspecified; I95.1 Orthostatic hypotension
CPT/HCPCS: 36415; 85379

== ENCOUNTER 2024-11-07 01:54 | Inpatient (IN) | payer OTHER, SELFPAY ==
[2024-11-07] VITALS (14 sets, daily range): BP systolic 102–152; BP diastolic 55–104; PULSE 80–132; RESP 12–20; TEMP 36.3–36.8; O2SAT 92–100; BMI 43.2; BMI 42.3
[2024-11-07 02:23] LABS: Absolute Lymphocyte Count 2.63 X10^3/uL (0.83-4.51); Absolute Neutrophil Count 3.5 X10^3/uL (2.0-7.7); Basophil# 0.03 X10^3/uL; Basophil% 0.4 % (0-1); Eosinophils% 2.8 % (0-5); Hematocrit 44.4 % (37-47); Hemoglobin 15.5 g/dL (12.0-15.0); Lymphocyte # 2.63 X10^3/ul (0.83-4.51); Lymphocyte % 36.4 % (19-41); Mean Corp Hgb Conc 34.9 g/dL (32-36); Mean Corpuscular Hgb 31.7 pg (27.0-32.0); Mean Corpuscular Volume 90.8 fL (81-99); Mean Platelet Vol. 10.6 fl (6.2-12.0); Monocyte# 0.81 X10^3/uL; Monocyte% 11.2 % (0-10); NRBC Flagged by Analyzer 0 % (0-5); Neutrophil # 3.53 X10^3/uL (2.7-7.7); Neutrophil % 48.9 % (47-70); POSITIVE COUNT YES; RBC Distribution Width SD 42.4 fl (35.1-43.9); Red Blood Count 4.89 M/mm3 (4.2-5.4); White Blood Count 7.2 K/mm3 (4.4-11.0)
[2024-11-07 02:40] LABS: Troponin T High Sensitivity 7 ng/L (<=14)
[2024-11-07] MEDS: Metoprolol Tartrate 5 MG/5 ML Vial IV (02:42)
[2024-11-07 02:48] LABS: Anion Gap 15 (5-15); BUN 18 mg/dL (4-19); BUN/Creat Ratio 28.1 RATIO (10-20); Calcium,Total 10.3 mg/dL (7.6-11.0); Carbon Dioxide 24.7 mmol/L (21.0-32.0); Chloride 98 mmol/L (98-108); Creatinine, Serum 0.64 mg/dL (0.70-1.20); EST Glomerular Filtration Rate 102 (>60); Glucose 138 mg/dL (70-99); Potassium 4.1 mmol/L (3.3-5.1); Sodium Level 137 mmol/L (133-145)
--- NOTE | 2024-11-07 03:10 | ED.VIS.CHEST ---
HPI History of Present Illness Chief Complaint: Chest Pain Informant: patient Narrative Narrative: Patient is a 58-year-old female with history of hypertension, hypothyroidism and recent sinusitis (completed course of amoxicillin) presenting with recurrent lightheadedness and chest discomfort. Patient's had the symptoms intermittently for the past 2 days and has been seen in the ER as well as follow-up with her primary care doctor. She has an outpatient Holter monitor set up. She was told that if her symptoms worsen she should return to the emergency room as she might require inpatient workup versus outpatient workup. Patient states that tonight she started having worsening palpitations. She will get intermittent episodes of lightheadedness and now dizziness and will have a burning chest pain. She came in for further evaluation. This is similar to the episodes that she has had before but more constant. She had an outpatient D-dimer performed by her PCP yesterday which was normal. She states compliant with her medications. No other complaints or concerns reported at this time. She does not think she is ever had a stress test before or echocardiogram. [facility] Medical History Left foot pain Right elbow pain Fall Fatigue Strain of left knee Contusion of left knee Thyroid disease Migraine headache History of hiatal hernia Non-smoker History of pain when walking History of edema Wears glasses Alcohol use Difficulty swallowing Difficulty chewing Gastric reflux Arthritis Dysphagia Essential hypertension Depression Other and unspecified hyperlipidemia Hypothyroidism Home Medications ?Medication ?Instructions ?Recorded ?Last Taken ?Type aspirin 81 mg tablet,delayed 81 mg PO DAILY 08/07/20 02/01/21 09:00 History release cholecalciferol (vitamin D3) 50 50 mcg PO DAILY 08/07/20 02/06/21 09:00 History mcg (2,000 unit) capsule famotidine 20 mg tablet (Pepcid AC) 20 mg PO BID #60 tabs 03/13/21 11/09/22 04:45 Rx loratadine 10 mg tablet 10 mg PO DAILY PRN allergy symptoms 10/29/21 Unknown History zinc gluconate 50 mg tablet 50 mg PO DAILY 02/23/24 Unknown History hydrochlorothiazide 25 mg tablet 25 mg PO DAILY #90 tabs 03/13/24 Unknown Rx lisinopril 10 mg tablet 10 mg PO DAILY #90 tabs 03/13/24 Unknown Rx levothyroxine 125 mcg tablet 125 mcg PO DAILY #90 tabs 03/27/24 Unknown Rx vitamin B complex 1 tab PO DAILY 03/29/24 Unknown History atorvastatin 40 mg tablet 40 mg PO DAILY #90 tabs 09/18/24 Unknown Rx fluoxetine 20 mg capsule (Prozac) 20 mg PO DAILY #90 caps 10/23/24 Unknown Rx Allergy/AdvReac Type Severity Reaction Status Date / Time bromodiphenhydramine (From Allergy Mild unknown Verified 11/06/24 11:26 Ambenyl) codeine (From Ambenyl) Allergy Mild unknown Verified 11/06/24 11:26 erythromycin base (From Allergy Mild unknown Verified 11/06/24 11:26 Kayden-Tab) nystatin Allergy Mild unknown Verified 11/06/24 11:26 sulfamethoxazole (From Allergy Mild Rash Verified 11/06/24 11:26 Bactrim) Tetracyclines Allergy Mild unknown Verified 11/06/24 11:26 trimethoprim (From Bactrim) Allergy Mild Rash Verified 11/06/24 11:26 Family History Mother Myocardial infarction Thyroid disorder Heart disease Hypertension Lung cancer Diabetes CVA (cerebral vascular accident) Grandmother Myocardial infarction Sister Breast cancer Diabetes Father Leukemia Diabetes Other Cancer Surgical History History of breast biopsy H/O total hysterectomy Hx of colonoscopy S/P thyroid biopsy S/P colonoscopy S/P tonsillectomy S/P wrist surgery RIGHT WRIST Social History household members: spouse number of children: 3 current occupational status: employed current occupation: [employer] Smoking Status: Never smoker Electronic Cigarette Use: not used second hand exposure: No alcohol intake: current alcohol intake frequency: holidays/special occasions only Alcohol type: wine substance use type: does not use caffeine: Yes what type of physical activity do you participate in: none frequency: decline to answer elma/nondenominational: Yazidism seatbelt use: always do you feel safe at home: Yes ROS ROS ED Constitutional Constitutional ED: Denies chills or fever(s) ENT ENT ED: Denies ear pain, rhinorrhea or sore throat Cardiovascular Cardiovascular: Reports as per HPI, chest pain and palpitations Respiratory/Chest Respiratory/Chest: Denies cough or dyspnea Gastrointestinal Gastrointestinal: Denies abdominal pain or vomiting Musculoskeletal Musculoskeletal: Denies arthralgias or myalgias Integumentary Denies rash Neurologic Neurologic: Denies paresthesias or weakness Psychiatric Psychiatric: Denies anxiety EXAM Physical Exam Const Vital Signs: 11/07/24 01:54 11/07/24 01:59 11/07/24 02:16 Temperature 97.6 F L Temperature Source Oral Pulse Rate 132 H 115 H Respiratory Rate 12 15 Blood Pressure 152/94 H Blood Pressure Mean 113 Pulse Ox 100 98 95 Oxygen Delivery Method Room Air Room Air Room Air 11/07/24 02:53 11/07/24 03:00 11/07/24 04:00 Temperature Temperature Source Pulse Rate 91 89 87 Respiratory Rate 18 13 16 Blood Pressure 147/99 H 144/98 H 132/91 H Blood Pressure Mean 115 113 104 Pulse Ox 97 92 94 Oxygen Delivery Method Room Air Room Air Room Air 11/07/24 04:43 Temperature 97.7 F L Temperature Source Pulse Rate 88 Respiratory Rate 20 H Blood Pressure 139/83 H Blood Pressure Mean 101 Pulse Ox 95 Oxygen Delivery Method Positive well nourished and well developed General Appearance ED: well developed and NAD HEENT Reports moist mucous membranes Eyes EOMs intact bilaterally Neck supple and no JVD Chest Wall inspection of chest normal and palpation of chest normal Resp normal respiratory effort and clear to auscultation bilaterally Cardio regular rhythm and no murmurs Rate: tachycardic Rhythm: abnormal rhythm other (Significant fluctuation in rate on auscultation but for the most part regular) Peripheral Pulses: radial pulses present right and posterior tibial pulses present bilateral 2+ GI normal to inspection, nondistended, normoactive bowel sounds and non-tender Extremity normal to inspection General Extremety ED: Negative for edema General Extremity: Negative for edema Neuro oriented x3 Sensorium / Orientation: awake and alert Motor Exam: Negative for general weakness Psych mental status grossly normal Skin no rashes or lesions noted and no wounds Heart Score History: Moderately Suspicious ECG: Normal Age: >45 - <65 years Risk Factors: 1 or 2 Risk Factors Troponin: </= Normal Limit Score: 3 MDM MDM MDM Narrative Medical decision making narrative: Patient's evaluated for recurrent/worsening lightheadedness, near syncope and palpitations with burning chest pain. Patient was seen in the ER for her 1 presentation 2 days ago. She followed up the following day with her PCP. She had an outpatient echo and event monitor and stress test ordered/planned. D-dimer was added on (this was normal). Patient is returning today because of worsening palpitations and feeling she is going to pass out. Episodes are lasting longer. Upon arrival patient is tachycardic and does appear to have some type of irregular tachyarrhythmia. EKG shows sinus tachycardia with frequent PACs. I question if there could be developing multifocal atrial tachycardia but she only seems to have 2 morphologies of P waves. She is quite symptomatic when the rate goes above 120. Patient is given a dose of IV metoprolol with improvement of her symptoms. Given that she had a chest x-ray 2 days ago I do not think this requires repeating at this time. Her D-dimer from yesterday was normal and I do not think she requires CTA. CBC stable as well as her BMP. High-sensitivity troponin normal at 7 and 8. Case was discussed with cardiology, Dr. Covarrubias especially given her arrhythmia on telemetry and also obtain on rhythm strip. Feel that this likely is sinus tachycardia/PACs and we could start the patient on metoprolol and be discharged home. I did attempt to ambulate patient and she was feeling much better at rest after receiving IV metoprolol however patient becomes quite symptomatic and near syncopal again. Because of this patient will be admitted for inpatient workup. She is given oral metoprolol in the emergency room. Also question given her recent influenza if she could have some type of viral induced cardiomyopathy. Low suspicion for myocarditis given her normal troponin and no ischemic EKG changes. Patient is agreeable with this. Case discussed with hospitalist, Dr. Zeng Lab Data Attestation: I reviewed the patient's lab results. Labs: Laboratory Results - last 24 hr 11/07/24 11/07/24 02:09 04:47 WBC 7.2 RBC 4.89 Hgb 15.5 H Hct 44.4 MCV 90.8 MCH 31.7 MCHC 34.9 RDW Std Deviation 42.4 RDW Coeff of Angel 13.0 Plt Count TNP MPV 10.6 Immature Gran % (Auto) 0.300 Neut % (Auto) 48.9 Lymph % (Auto) 36.4 [place] % (Auto) 11.2 H Eos % (Auto) 2.8 Baso % (Auto) 0.4 Absolute Neuts (auto) 3.5 Absolute Lymphs (auto) 2.63 Nucleated RBC % 0 Platelet Estimate ADEQUATE Sodium 137 Potassium 4.1 Chloride 98 Carbon Dioxide 24.7 Anion Gap 15 BUN 18 Creatinine 0.64 L Estim Creat Clear Calc 118.80 Est GFR (MDRD) Non-Af 102 BUN/Creatinine Ratio 28.1 H Glucose 138 H Calcium 10.3 Troponin T High Sens 7 D Troponin T Hi Sens 2 Hr 8 Troponin T Hi Sens 2Hr Delta 1 Rhythm Strip Rhythm Strip: Sinus Tach Rate: 129 Ectopy: PAC(s) EKG Initial EKG: Attestation: I personally reviewed and interpreted this EKG as follows: Interpretation: Sinus Tachycardia Comments: Sinus tachycardia with PACs at a rate of 129 bpm Borderline left axis deviation Normal intervals Normal ST segments Prior EKG tracings: available for review Prior: Changed (Compared to prior EKG patient now has sinus tachycardia with frequent PACs) Differential Diagnosis Chest pain/SOB: pulmonary embolism Reason(s) PE less likely: Positive for Well's <3 and D-Dimer negative (0.27 on 11/06), ACS ACS: Positive for no evidence of ACS based on cardiac biomarkers and EKG without ischemia and CHF Reason(s) CHF less likely: Positive for no significant peripheral edema and BtNP not significantly elevated over normal/baseline (Less than 36 2 days ago) Management Discussion w/another healthcare provider: Hospitalist and Veneer Lathe Operator Discharge Plan Dx/Rx/DC Orders Clinical Impression: Tachyarrhythmia, Episodic lightheadedness, Chest pain, PAC (premature atrial contraction) Disposition Disposition: Acute Care Hospital [facility] Discharge Date/Time: 11/07/24 05:49
[2024-11-07 03:38] LABS: Differential Indicated SCAN CRITERIA MET; Platelet Estimate ADEQUATE (ADEQ)
[2024-11-07] MEDS: Metoprolol Tartrate 25 MG Tablet PO (04:12)
--- NOTE | 2024-11-07 04:42 | PCM.HP.STD ---
[facility] - General General Date of Admission: 11/07/24 Date of Service: 11/07/24 Chief Complaint: Dizziness and lightheadedness HPI Narrative JAMIE GANT, is a 58 F who presents to the emergency room with chief complaint of dizziness and lightheadedness. Patient has significant past medical history of hypertension, hypothyroidism and recent sinus infection status post antibiotics. Patient reports intermittent symptoms over the past 2 days of dizziness and lightheadedness and worsening palpitations this evening. At times she associates this with some burning in her chest. She had some outpatient workup done by her primary care physician yesterday and her D-dimer was negative. She states they were planning to have a outpatient echocardiogram and stress test done in the near future. She states she had a outpatient overnight pulse ox test done that was negative for screening of sleep apnea. In the emergency room EKG shows a sinus tachyarrhythmia with no ST elevation. Initial troponin is negative and patient currently does not have any chest pain during my evaluation. She received a dose of metoprolol in the emergency room and her current heart rate is now in the normal range she will be admitted for echocardiogram and cardiology consult. [facility] Medical History Left foot pain Right elbow pain Fall Fatigue Strain of left knee Contusion of left knee Thyroid disease Migraine headache History of hiatal hernia Non-smoker History of pain when walking History of edema Wears glasses Alcohol use Difficulty swallowing Difficulty chewing Gastric reflux Arthritis Dysphagia Essential hypertension Depression Other and unspecified hyperlipidemia Hypothyroidism Home Medications ?Medication ?Instructions ?Recorded ?Last Taken ?Type aspirin 81 mg tablet,delayed 81 mg PO DAILY 08/07/20 02/01/21 09:00 History release cholecalciferol (vitamin D3) 50 50 mcg PO DAILY 08/07/20 02/06/21 09:00 History mcg (2,000 unit) capsule famotidine 20 mg tablet (Pepcid AC) 20 mg PO BID #60 tabs 03/13/21 11/09/22 04:45 Rx loratadine 10 mg tablet 10 mg PO DAILY PRN allergy symptoms 10/29/21 Unknown History zinc gluconate 50 mg tablet 50 mg PO DAILY 02/23/24 Unknown History hydrochlorothiazide 25 mg tablet 25 mg PO DAILY #90 tabs 03/13/24 Unknown Rx lisinopril 10 mg tablet 10 mg PO DAILY #90 tabs 03/13/24 Unknown Rx levothyroxine 125 mcg tablet 125 mcg PO DAILY #90 tabs 03/27/24 Unknown Rx vitamin B complex 1 tab PO DAILY 03/29/24 Unknown History atorvastatin 40 mg tablet 40 mg PO DAILY #90 tabs 09/18/24 Unknown Rx fluoxetine 20 mg capsule (Prozac) 20 mg PO DAILY #90 caps 10/23/24 Unknown Rx Allergy/AdvReac Type Severity Reaction Status Date / Time bromodiphenhydramine (From Allergy Mild unknown Verified 11/06/24 11:26 Ambenyl) codeine (From Ambenyl) Allergy Mild unknown Verified 11/06/24 11:26 erythromycin base (From Allergy Mild unknown Verified 11/06/24 11:26 Kayden-Tab) nystatin Allergy Mild unknown Verified 11/06/24 11:26 sulfamethoxazole (From Allergy Mild Rash Verified 11/06/24 11:26 Bactrim) Tetracyclines Allergy Mild unknown Verified 11/06/24 11:26 trimethoprim (From Bactrim) Allergy Mild Rash Verified 11/06/24 11:26 Family History Mother Myocardial infarction Thyroid disorder Heart disease Hypertension Lung cancer Diabetes CVA (cerebral vascular accident) Grandmother Myocardial infarction Sister Breast cancer Diabetes Father Leukemia Diabetes Other Cancer Surgical History History of breast biopsy H/O total hysterectomy Hx of colonoscopy S/P thyroid biopsy S/P colonoscopy S/P tonsillectomy S/P wrist surgery RIGHT WRIST Social History household members: spouse number of children: 3 current occupational status: employed current occupation: [employer] Smoking Status: Never smoker Electronic Cigarette Use: not used second hand exposure: No alcohol intake: current alcohol intake frequency: holidays/special occasions only Alcohol type: wine substance use type: does not use caffeine: Yes what type of physical activity do you participate in: none frequency: decline to answer elma/yarsanism: Denominational seatbelt use: always do you feel safe at home: Yes ROS Constitutional Constitutional: Denies chills or fever(s) Eyes Eyes: Denies blurry vision ENT HEENT: Denies abnormal hearing Cardiovascular Cardiovascular: Reports chest pain and palpitations Respiratory/Chest Respiratory/Chest: Denies cough Gastrointestinal Gastrointestinal: Denies abdominal pain, diarrhea, nausea or vomiting Genitourinary Genitourinary: Denies dysuria Musculoskeletal Musculoskeletal: Denies back pain Integumentary Integumentary: Denies dry skin Neurologic Neurologic: Denies abnormal gait Psychiatric Psychiatric: Denies anxiety Vital Signs Vital Signs Vital Signs: 11/07/24 01:54 11/07/24 01:59 11/07/24 02:16 Temperature 97.6 F L Temperature Source Oral Pulse Rate 132 H 115 H Respiratory Rate 12 15 Blood Pressure 152/94 H Blood Pressure Mean 113 Pulse Ox 100 98 95 Oxygen Delivery Method Room Air Room Air Room Air 11/07/24 02:53 11/07/24 03:00 11/07/24 04:00 Temperature Temperature Source Pulse Rate 91 89 87 Respiratory Rate 18 13 16 Blood Pressure 147/99 H 144/98 H 132/91 H Blood Pressure Mean 115 113 104 Pulse Ox 97 92 94 Oxygen Delivery Method Room Air Room Air Room Air Weight Weight: 251 lb 15.814 oz Body Mass Index (BMI) 43.2 Physical Exam Const alert and oriented x3 General Appearance: cooperative and well developed HEENT normocephalic and head/scalp atraumatic Eyes PERRL Neck no lymphadenopathy Lymph Lymphatic: no lymphadenopathy noted Resp normal respiratory effort, normal air movement and clear to auscultation bilaterally Cardio regular rate, S1 normal heart sound, S2 normal heart sound, no murmurs, no rub and no gallops Rhythm: abnormal rhythm regularly irregular GI normal to inspection, nondistended, normoactive bowel sounds Extremity normal capillary refill Skin General Skin Exam: no breakdown Neuro no focal motor deficits and no sensory deficits noted Psych thought process normal, cooperative and affect normal Appearance: appropriate Results Lab / Micro Data 11/07/24 02:09 11/07/24 02:09 Labs: Laboratory Results - last 24 hr 11/07/24 02:09: WBC 7.2, RBC 4.89, Hgb 15.5 H, Hct 44.4, MCV 90.8, MCH 31.7, MCHC 34.9, RDW Std Deviation 42.4, RDW Coeff of Angel 13.0, Plt Count TNP, MPV 10.6, Immature Gran % (Auto) 0.300, Neut % (Auto) 48.9, Lymph % (Auto) 36.4, [place] % (Auto) 11.2 H, Eos % (Auto) 2.8, Baso % (Auto) 0.4, Absolute Neuts (auto) 3.5, Absolute Lymphs (auto) 2.63, Nucleated RBC % 0, Platelet Estimate ADEQUATE, Sodium 137, Potassium 4.1, Chloride 98, Carbon Dioxide 24.7, Anion Gap 15, BUN 18, Creatinine 0.64 L, Estim Creat Clear Calc 118.80, Est GFR (MDRD) Non-Af 102, BUN/Creatinine Ratio 28.1 H, Glucose 138 H, Calcium 10.3, Troponin T High Sens 7 D Assessment & Plan Assessment/Plan (1) Chest pain: (2) Episodic lightheadedness: (3) Essential hypertension: (4) Hypothyroidism: PLAN: Plan 1 episodic lightheadedness with palpitations?admit patient to progressive care unit, consult Dr. Covarrubias technical project coordinator, order echocardiogram and will defer decision for stress testing to technical project coordinator since patient just had a beta-mary. 2. Chest pain will order as needed nitroglycerin and oxygen as needed should pain recur. Currently chest pain is absent 3. Hypertension?continue routine home medications 4. Hypothyroidism?continue Synthroid labs were checked recently 5. DVT prophylaxis?low molecular weight heparin Charges/Coding Visit Charges Inpatient E&M: 20911 Init Hosp L2
--- NOTE | 2024-11-07 04:54 | ECHOD_ITS ---
Reason For Study Reason For Study: SINUS TACHYCARDIA Procedure This was a 2D Doppler, Color Flow transthoracic echocardiogram. Exam performed portable in patient room. Left Ventricle Normal left ventricular thickness. The left ventricular ejection fraction is 65 %. Unable to assess diastolic function based on available data. Right Ventricle Normal right ventricle. Atria The left atrium is moderately enlarged. Normal right atrium. Mitral Valve Trivial mitral valve insufficiency. Tricuspid Valve Trivial tricuspid valve insufficiency. Normal pulmonary artery pressure. Aortic Valve Trisinus/trileaflet aortic valve. Pulmonic Valve The pulmonic valve is not well visualized. Great Vessels Normal sized aortic root. Pericardium/Pleural No pericardial effusion. MMode/2D Measurements & Calculations LVIDd: 4.9 cm IVSd: 0.98 cm Ao root diam: 2.9 cm LVIDs: 3.1 cm LVPWd: 1.0 cm RVDd: 3.3 cm FS: 35.7 % LAV(MOD-bp): 39.0 ml LVAd ap4: 27.2 cm2 SV(MOD-sp4): 43.4 ml LAV(MOD-bp) Indexed: 18.1 ml/m2 LVLd ap4: 7.7 cm SI(MOD-sp4): 20.1 ml/m2 LAV(MOD-sp2): 37.2 ml EDV(MOD-sp4): 76.9 ml LAV(MOD-sp4): 39.3 ml EDV(sp4-el): 81.2 ml LVAs ap4: 15.8 cm2 LVLs ap4: 6.3 cm ESV(MOD-sp4): 33.5 ml ESV(sp4-el): 33.3 ml EF(MOD-sp4): 56.4 % EF(sp4-el): 59.0 % SV(sp4-el): 47.9 ml LA A4 area: 16.2 cm2 LA dimension(2D): 4.0 cm RA A4 area: 14.9 cm2 TAPSE: 1.8 cm Doppler Measurements & Calculations MV E max analy: 93.2 cm/sec Ao V2 max: 129.7 cm/sec LV V1 max: 87.1 cm/sec Ao max P.8 mmHg LV V1 max P.1 mmHg PA V2 max: 75.3 cm/sec TR max analy: 211.2 cm/sec TR max P.8 mmHg ECHO/Echo Complete Interpretation Summary The left ventricular ejection fraction is 65 %. The left atrium is moderately enlarged. Ordering Physician: Zeng^Papito^^Dr.^MD Referring Physician: NOEL GARCIAS Performed By: Liliya Bautista OLGA
[2024-11-07 05:13] LABS: TROPONIN VARIANCE 2 HR 1; Troponin T High Sens 2 HR 8 ng/L (<=14)
[2024-11-07] MEDS: Levothyroxine 125 MCG Tablet PO (06:40)
[2024-11-07] MEDS: 0.9% Saline Lock 10 ML Syringe IV (06:40)
--- NOTE | 2024-11-07 08:35 | PCM.CONS.C ---
Assessment & Plan Assessment/Plan (1) Tachyarrhythmia: PLAN: Patient presented emergency department complaint of lightheadedness dizziness this was exactly recreated her symptoms were exactly recreated with a tachyarrhythmia in the 130-140 bpm range in the ED. This was captured on EKG and a rhythm strip there is definite P waves in front of each QRS consistent with some type of automatic atrial tachycardia. The patient was started on metoprolol but continues to have breakthrough. She did have a history of influenza A bronchitis and a middle ear infection starting in October 13, 2024. She continues to have some coughing related to the residual bronchitic changes. Patient has no prior history of a cardiac issue. There is a family history of coronary disease in her mother at age 45 she is hypertensive and hyperlipidemic both of which are treated. She has also has a history of hypothyroidism which is treated but is well-controlled by blood work done early November 2024. She has never smoked. Her hemoglobin A1c has been 6.1?6.2. The patient denies any PND orthopnea denies any lower extremity edema she really has not felt like exercising much due to all the infection that she has had in the last month. 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 (2) Episodic lightheadedness: PLAN: The episodic lightheadedness correlated with her tachycardia documented in the emergency department. (3) Insulin resistance: PLAN: Patient's hemoglobin A1c has been 6.1?6.2 by her report. This is managed through the primary service. (4) Essential hypertension: PLAN: Blood pressure slightly elevated in the hospital today. Will increase her metoprolol to 50 mg twice daily for better control of her heart rate and monitor her blood pressure response. (5) Hypothyroidism: QUALIFIERS: Hypothyroidism type: unspecified Qualified Code(s): E03.9 - Hypothyroidism, unspecified PLAN: Hypothyroidism is managed through the primary service she is on replacement therapy and her TSH and free T4 were within normal limits early November 2024. (6) Other and unspecified hyperlipidemia: PLAN: Patient's lipids are managed through the primary service. She is on atorvastatin 40 mg daily in her home environment. PLAN: Plan 1. Will increase metoprolol to tartrate to 50 mg twice daily. 2. Obtain 2D echocardiogram for LV function evaluation. 3. Further recommendations pending the outcome of the testing. HPI Consult Data Date of Consult: 11/07/24 HPI Narrative Reason for Consultation: Tachycardia HPI Narrative: JAMIE GANT, is a 58 F who presents to the emergency department last evening complaining of dizziness and lightheadedness it was episodic. She also complained of some shortness of breath and some atypical type chest symptoms. EKG in the emergency department showed sinus tachycardia and then she had a run of what looks to be an automatic atrial rhythm there were definite P waves and from the QRS is up to about 130 240 bpm and this recreated the symptoms she was having at home. We initially decided to place her on metoprolol and discharged her to home but when she got up to try to walk around her heart rate went up to 130 and she became symptomatic. She was therefore admitted to telemetry. Patient carries a history of influenza A documented October 13, 2024 in her doctor's office. She also has been treated for bronchitis and a middle ear infection within the month of October. She continues to have some coughing and pulmonary congestion. She had she has been evaluated with nocturnal O2 sats and was found not to be screened positive for obstructive sleep apnea. She also had a negative D-dimer in her primary care physician's office. Patient was admitted to the hospital she was placed on metoprolol to tartrate 25 mg twice daily. This morning when she sat up on the side of the bed her heart rate went up to 130 witnessed by her watching the monitor. Her symptoms recurred at that time. Patient's cardiovascular enzymes are negative x 2 set at 7 and 8. Essentially ruling out an ischemic event. Patient's renal function is normal she does carry a history of diabetes with a hemoglobin A1c of 6.1?6.2. She is hyperlipidemic on therapy. She is hypertensive on therapy. She has never smoked she does have a family history of her mother having an infarct at age 45. She has an older brother and a younger sister neither of which have any cardiac issues. [facility] Medical History Left foot pain Right elbow pain Fall Fatigue Strain of left knee Contusion of left knee Thyroid disease Migraine headache History of hiatal hernia Non-smoker History of pain when walking History of edema Wears glasses Alcohol use Difficulty swallowing Difficulty chewing Gastric reflux Arthritis Dysphagia Essential hypertension Depression Other and unspecified hyperlipidemia Hypothyroidism Home Medications ?Medication ?Instructions ?Recorded ?Last Taken ?Type aspirin 81 mg tablet,delayed 81 mg PO DAILY 08/07/20 02/01/21 09:00 History release cholecalciferol (vitamin D3) 50 50 mcg PO DAILY 08/07/20 02/06/21 09:00 History mcg (2,000 unit) capsule famotidine 20 mg tablet (Pepcid AC) 20 mg PO BID #60 tabs 03/13/21 11/09/22 04:45 Rx loratadine 10 mg tablet 10 mg PO DAILY PRN allergy symptoms 10/29/21 Unknown History zinc gluconate 50 mg tablet 50 mg PO DAILY 02/23/24 Unknown History hydrochlorothiazide 25 mg tablet 25 mg PO DAILY #90 tabs 03/13/24 Unknown Rx lisinopril 10 mg tablet 10 mg PO DAILY #90 tabs 03/13/24 Unknown Rx levothyroxine 125 mcg tablet 125 mcg PO DAILY #90 tabs 03/27/24 Unknown Rx vitamin B complex 1 tab PO DAILY 03/29/24 Unknown History atorvastatin 40 mg tablet 40 mg PO DAILY #90 tabs 09/18/24 Unknown Rx fluoxetine 20 mg capsule (Prozac) 20 mg PO DAILY #90 caps 10/23/24 Unknown Rx Allergy/AdvReac Type Severity Reaction Status Date / Time bromodiphenhydramine (From Allergy Mild unknown Verified 11/06/24 11:26 Ambenyl) codeine (From Ambenyl) Allergy Mild unknown Verified 11/06/24 11:26 erythromycin base (From Allergy Mild unknown Verified 11/06/24 11:26 Kayden-Tab) nystatin Allergy Mild unknown Verified 11/06/24 11:26 sulfamethoxazole (From Allergy Mild Rash Verified 11/06/24 11:26 Bactrim) Tetracyclines Allergy Mild unknown Verified 11/06/24 11:26 trimethoprim (From Bactrim) Allergy Mild Rash Verified 11/06/24 11:26 Family History Mother Myocardial infarction Thyroid disorder Heart disease Hypertension Lung cancer Diabetes CVA (cerebral vascular accident) Grandmother Myocardial infarction Sister Breast cancer Diabetes Father Leukemia Diabetes Other Cancer Surgical History History of breast biopsy H/O total hysterectomy Hx of colonoscopy S/P thyroid biopsy S/P colonoscopy S/P tonsillectomy S/P wrist surgery RIGHT WRIST Social History household members: spouse number of children: 3 current occupational status: employed current occupation: [employer] Smoking Status: Never smoker Electronic Cigarette Use: not used second hand exposure: No alcohol intake: current alcohol intake frequency: holidays/special occasions only Alcohol type: wine substance use type: does not use caffeine: Yes what type of physical activity do you participate in: none frequency: decline to answer elma/shinto: Confucianist seatbelt use: always do you feel safe at home: Yes ROS Constitutional Constitutional: Reports as per HPI Eyes Eyes: Reports systems reviewed and no addt'l complaints, except as documented ENT HEENT: Reports as per HPI Cardiovascular Cardiovascular: Reports as per HPI Respiratory/Chest Respiratory/Chest: Reports as per HPI Gastrointestinal Gastrointestinal: Reports systems reviewed and no addt'l complaints, except as documented Genitourinary Genitourinary: Reports systems reviewed and no addt'l complaints, except as documented Musculoskeletal Musculoskeletal: Reports systems reviewed and no addt'l complaints, except as documented Integumentary Integumentary: Reports systems reviewed and no addt'l complaints, except as documented Neurologic Neurologic: Reports systems reviewed and no addt'l complaints, except as documented Psychiatric Psychiatric: Reports systems reviewed and no addt'l complaints, except as documented Endocrine Endocrinology: Reports as per HPI Hematologic/Lymphatic Hematologic/Lymphatic: Reports systems reviewed and no addt'l complaints, except as documented Allergic/Immunologic Allergic/Immunologic: Reports systems reviewed and no addt'l complaints, except as documented Physical Exam Narrative Patient is resting comfortably and become position in bed. Const alert and oriented x3 HEENT normocephalic Eyes PERRL Neck no JVD and no carotid bruits Chest inspection of chest normal Resp normal respiratory effort and clear to auscultation bilaterally Cardio Rate: regular rate Rhythm: regular rhythm Heart Sounds: S1 normal and S2 normal; Negative for click, gallop or murmur GI soft to palpation GI Narrative: Obese Extremity no pedal edema Neuro Neuro Narrative: Alert and oriented x 3 Psych mental status grossly normal Risk Stratification Risk Stratification Applicable: Yes Age >/= 65: No >/= 3 CAD Risk Factors (HTN, HLD, DM, family hx of CAD, or current smoker): Yes Aspirin Use in the Past 7 Days: Yes Severe Angina (>/= episodes in 24 hours): No EKG ST Changes >/= 0.5mm: No Positive Cardiac Marker: No CAITLIN Risk Stratification Score: 2 CAITLIN % Risk: 8% Risk Charges/Coding Visit Charges Inpatient E&M: 16799 Init Hosp L3 Objective Data Vital Signs: Vital Signs Temp Pulse Resp BP Pulse Ox O2 Del Method 97.7 F L 93 20 H 146/104 H 94 Room Air 11/07/24 04:43 11/07/24 05:00 11/07/24 05:00 11/07/24 05:00 11/07/24 05:00 11/07/24 05:00 Oxygen Delivery Method Room Air Weight: 246 lb 7.629 oz Body Mass Index (BMI) 42.3 Lab / Micro Data Attestation: I reviewed the patient's lab results. 11/07/24 02:09 11/07/24 02:09 Labs: Laboratory Results - last 24 hr 11/07/24 02:09: WBC 7.2, RBC 4.89, Hgb 15.5 H, Hct 44.4, MCV 90.8, MCH 31.7, MCHC 34.9, RDW Std Deviation 42.4, RDW Coeff of Angel 13.0, Plt Count TNP, MPV 10.6, Immature Gran % (Auto) 0.300, Neut % (Auto) 48.9, Lymph % (Auto) 36.4, [place] % (Auto) 11.2 H, Eos % (Auto) 2.8, Baso % (Auto) 0.4, Absolute Neuts (auto) 3.5, Absolute Lymphs (auto) 2.63, Nucleated RBC % 0, Platelet Estimate ADEQUATE, Sodium 137, Potassium 4.1, Chloride 98, Carbon Dioxide 24.7, Anion Gap 15, BUN 18, Creatinine 0.64 L, Estim Creat Clear Calc 118.80, Est GFR (MDRD) Non-Af 102, BUN/Creatinine Ratio 28.1 H, Glucose 138 H, Calcium 10.3, Troponin T High Sens 7 D 11/07/24 04:47: Troponin T Hi Sens 2 Hr 8, Troponin T Hi Sens 2Hr Delta 1 Rhythm Strip Rhythm Strip: Sinus Rhythm Rate: 95 Ectopy: PAC(s) Cardiology Labs/Tests 11/07/24 02:09: WBC 7.2, RBC 4.89, Hgb 15.5 H, Hct 44.4, MCV 90.8, MCH 31.7, MCHC 34.9, Plt Count TNP, MPV 10.6, Immature Gran % (Auto) 0.300, Neut % (Auto) 48.9, Lymph % (Auto) 36.4, [place] % (Auto) 11.2 H, Eos % (Auto) 2.8, Baso % (Auto) 0.4, Absolute Neuts (auto) 3.5, Nucleated RBC % 0, Sodium 137, Potassium 4.1, Chloride 98, Carbon Dioxide 24.7, Anion Gap 15, BUN 18, Creatinine 0.64 L, Est GFR (MDRD) Non-Af 102, BUN/Creatinine Ratio 28.1 H, Glucose 138 H, Calcium 10.3 Rhythm: EKG: ECHO: Stress Test: Cardiac Cath: PCI: CT Surgery: Holter monitor: EPS: PPM: CXR: Chest CT Scan:
[2024-11-07] MEDS: hydroCHLOROthiazide 25 MG Tablet PO (09:09)
[2024-11-07] MEDS: Vitamin B Comp W-C Capsule 1 CAP PO (09:09)
[2024-11-07] MEDS: Aspirin E.C. 81 MG Tablet PO (09:09)
[2024-11-07] MEDS: FLUoxetine 20 MG Capsule PO (09:10)
[2024-11-07] MEDS: Lisinopril 10 MG Tablet PO (09:10)
[2024-11-07] MEDS: Cholecalciferol (VIT D3) 25 MCG TABLET (1,000 UNITS) 50 MCG PO (09:10)
[2024-11-07] MEDS: Enoxaparin 40 MG/0.4 ML Syringe SC (09:10)
[2024-11-07] MEDS: Zinc Sulfate 50 mg zinc (220 mg) ORAL capsule PO (09:10)
[2024-11-07] MEDS: Famotidine 20 MG Tablet PO ×2 (09:10→22:12)
[2024-11-07] MEDS: Metoprolol Tartrate 50 MG Tablet PO ×2 (09:22→22:12)
--- NOTE | 2024-11-07 13:15 | CASEMGMT ---
AGNES PLUNKETT Assessment: Face to Face with pt for initial transition planning/care coordination assessment. AGNES PLUNKETT introduced self and role at [facility], pt voices understanding and consents to assessment. Pt is A&O x4 and answers all questions appropriately at this time. Pt sitting up in bed with at bedside. Care providers, pharmacy, and demographics verified/updated. Admitting Dx: dizziness lightheadedness, CP Strata Score: 1 PCP:Gayle Specialists:Denies Preferred Pharmacy:[facility] [place] Insurance: [employer] Prescription Benefit: yes LNOK: Yonny Graham, Living Arrangements: Pt lives with in a two story home with 3 steps to enter. Pt reports she is I in ADLs/IADLs and denies concerns at home. Transportation: Pt drives self and denies concerns with transportation. DME:canes, shower chair, BGM with sufficient supply of strips and lancets HHC/SNF: Denies hx of Pt states no concerns with going home at time of dc. Pt states no further concerns/needs. CM to follow. Advised pt to ask CM if any further questions/concerns/needs arise, voices understanding. Pt Goal: Home Plan: Home Jeanette ALARCON CM
--- NOTE | 2024-11-07 15:57 | CHAPLAIN ---
Type of Pastoral Visit ___ Initial Visit ___ Follow-up Visit ___ On-call Visit ___ General Patient Visit ___ Spiritual Assessment ___ Family Conference ___ Bereavement ___ Rapid Response ___ Code Blue ___ Other (describe below) Pastoral Care Referral From ___ Patient ___ Family ___ Nurse ___ Physician ___ Salesperson Furniture ___ Window Air Conditioner Installer ___ Other (describe below) Sacrament/Intervention ___ Active listening ___ Anointing ___ Cheondoism ___ Bereavement ___ Communion ___ Felicity exploration ___ ___ Life review ___ Prayer ___ Reconciliation ___ Sacrament of Sick ___ Supportive presence ___ Wedding ___ Other (describe below) Pastoral Comments two attempts made to see the patient but she was busy
--- NOTE | 2024-11-07 16:12 | PCM.PROGNOTE ---
Subjective Subjective Patient seen and examined. Her was by her bedside. She had no complaints. She was admitted with a complaint of dizziness with concerns for arrhythmia. Her symptoms have not recurred again since admission. Review of systems otherwise negative. Objective Data Objective Data Vital Signs: Vital Signs Temp Pulse Resp BP Pulse Ox O2 Del Method 97.3 F L 97 18 102/55 L 96 Room Air 11/07/24 14:35 11/07/24 14:35 11/07/24 14:35 11/07/24 14:35 11/07/24 14:35 11/07/24 14:35 Oxygen Delivery Method Room Air Weight: 246 lb 7.629 oz Body Mass Index (BMI) 42.3 Lab / Micro Data 11/07/24 02:09 11/07/24 02:09 Labs: Laboratory Results - last 24 hr 11/07/24 02:09: WBC 7.2, RBC 4.89, Hgb 15.5 H, Hct 44.4, MCV 90.8, MCH 31.7, MCHC 34.9, RDW Std Deviation 42.4, RDW Coeff of Angel 13.0, Plt Count TNP, MPV 10.6, Immature Gran % (Auto) 0.300, Neut % (Auto) 48.9, Lymph % (Auto) 36.4, [place] % (Auto) 11.2 H, Eos % (Auto) 2.8, Baso % (Auto) 0.4, Absolute Neuts (auto) 3.5, Absolute Lymphs (auto) 2.63, Nucleated RBC % 0, Platelet Estimate ADEQUATE, Sodium 137, Potassium 4.1, Chloride 98, Carbon Dioxide 24.7, Anion Gap 15, BUN 18, Creatinine 0.64 L, Estim Creat Clear Calc 118.80, Est GFR (MDRD) Non-Af 102, BUN/Creatinine Ratio 28.1 H, Glucose 138 H, Calcium 10.3, Troponin T High Sens 7 D 11/07/24 04:47: Troponin T Hi Sens 2 Hr 8, Troponin T Hi Sens 2Hr Delta 1 Radiography Diagnostic Testing: Radiology Impression Echocardiogram 11/07/24 04:54 Interpretation Summary The left ventricular ejection fraction is 65 %. The left atrium is moderately enlarged. Ordering Physician: Ivana^^^ Referring Physician: NOEL GARCIAS Performed By: Liliya Bautista RDCS Rhythm Strip Rhythm Strip: Sinus Rhythm Rate: 95 Ectopy: PAC(s) Physical Exam Const alert, oriented x3, no apparent distress and well nourished Constitutional Narrative: class III obesity General Appearance: cooperative HEENT normocephalic, head/scalp atraumatic and moist oral mucous membranes Eyes PERRL and EOMs intact bilaterally Neck no lymphadenopathy and supple Lymph Lymphatic: no lymphadenopathy noted Resp normal respiratory effort, normal air movement and clear to auscultation bilaterally Cardio regular rate, regular rhythm, S1 normal heart sound and S2 normal heart sound GI normal to inspection, nondistended, normoactive bowel sounds, soft to palpation, non-tender and non-distended Extremity normal capillary refill, no clubbing, cyanosis or edema and no calf tenderness General Extremity: no tenderness to palpation of joints or extremities Skin General Skin Exam: no breakdown Neuro CN's II-XII intact bilaterally, no focal motor deficits and no sensory deficits noted Motor Exam: strength 5/5 throughout and general weakness Psych thought process normal and cooperative Appearance: appropriate Assessment & Plan Assessment/Plan (1) Tachyarrhythmia: (2) Episodic lightheadedness: PLAN: Plan # Dizziness and lightheadedness due to tachyarrhythmia Said her symptoms initially occurred while she was in jehovah's witness. Her son-in-law who is finally a medical student checked her pulse and he told her that she had an abnormal heart rhythm. She went home and went see her PCP yesterday who advised that she come into the ED. EKG showed no acute ST changes. However per telemetry she was in sinus arrhythmia at time of review. In the ED EKG showed tachyarrhythmia with heart rate in the 130s to 140s. EKG and rhythm strip showed definite P waves in front of each QRS consistent with some type of automatic atrial tachycardia. Cardiology consulted. 2D echo ordered today. 2D echo today showed EF of 65% and unable to assess diastolic function based on available data as well as moderately enlarged left atrium and normal right atrium. Await further cardiology recs. #Hypertension: On hydrochlorothiazide and lisinopril. Metoprolol increased to 50 mg twice daily. #Type 2 diabetes mellitus She appears to be diet controlled. Her last A1c in August 2024 was 6.2. A1c from March 2023 is 6.4. Will check A1c this time to check her level atorvastatin to determine if she would benefit from any oral medications. #Hypothyroidism: On Synthroid #Depression: On fluoxetine #Hyperlipidemia: On statin DVT prophylaxis: On SCDs Charges/Coding Visit Charges Inpatient E&M: 24215 Subs Hosp L2
--- NOTE | 2024-11-07 16:14 | CHAPLAIN ---
Type of Pastoral Visit _x__ Initial Visit ___ Follow-up Visit ___ On-call Visit ___ General Patient Visit ___ Spiritual Assessment ___ Family Conference ___ Bereavement ___ Rapid Response ___ Code Blue ___ Other (describe below) Pastoral Care Referral From _x__ Patient ___ Family ___ Nurse ___ Physician ___ Compliance Field Technician ___ Sieve Maker ___ Other (describe below) Sacrament/Intervention _x__ Active listening ___ Anointing ___ Mandaeism ___ Bereavement ___ Communion ___ Felicity exploration ___ ___ Life review _x__ Prayer ___ Reconciliation ___ Sacrament of Sick ___ Supportive presence ___ Wedding ___ Other (describe below) Pastoral Comments patient and her son are in the room; pt explains the situation and presents with an optimistic outlook on the process and hopeful outcome; pt has notified her foundry worker apprentice for support as well; casual conversation and prayer
[2024-11-07] MEDS: Atorvastatin Calcium 40 MG Tablet PO (22:11)
[2024-11-08] VITALS (8 sets, daily range): BP systolic 116–141; BP diastolic 48–93; PULSE 74–100; RESP 16–18; TEMP 36.1–37; O2SAT 96–98
--- NOTE | 2024-11-08 01:15 | NURSING ---
this nurse took over care for patient at 0110
[2024-11-08 04:55] LABS: Absolute Lymphocyte Count 2.26 X10^3/uL (0.83-4.51); Basophil# 0.05 X10^3/uL; Basophil% 0.8 % (0-1); Eosinophil# 0.16 X10^3/uL; Eosinophils% 2.7 % (0-5); Hematocrit 42.5 % (37-47); Hemoglobin 14.8 g/dL (12.0-15.0); Lymphocyte # 2.26 X10^3/ul (0.83-4.51); Lymphocyte % 37.7 % (19-41); Mean Corp Hgb Conc 34.8 g/dL (32-36); Mean Corpuscular Hgb 31.8 pg (27.0-32.0); Mean Corpuscular Volume 91.4 fL (81-99); Mean Platelet Vol. 10.2 fl (6.2-12.0); Monocyte# 0.54 X10^3/uL; NRBC Flagged by Analyzer 0 % (0-5); Neutrophil # 2.95 X10^3/uL (2.7-7.7); Neutrophil % 49.3 % (47-70); Platelet Count 234 K/mm3 (150-450); RBC Distribution Width CV 13.2 % (11.6-14.6); RBC Distribution Width SD 43.6 fl (35.1-43.9); Red Blood Count 4.65 M/mm3 (4.2-5.4)
[2024-11-08 05:22] LABS: Anion Gap 14 (5-15); BUN 19 mg/dL (4-19); BUN/Creat Ratio 28.8 RATIO (10-20); Calcium,Total 9.4 mg/dL (7.6-11.0); Carbon Dioxide 21.6 mmol/L (21.0-32.0); Chloride 103 mmol/L (98-108); Creatinine, Serum 0.67 mg/dL (0.70-1.20); EST Glomerular Filtration Rate 101 (>60); Estimated Creatinine Clearance 112.03 ml/min (50-250); Glucose 133 mg/dL (70-99); Potassium 3.8 mmol/L (3.3-5.1); Sodium Level 138 mmol/L (133-145)
[2024-11-08] MEDS: Levothyroxine 125 MCG Tablet PO (06:11)
--- NOTE | 2024-11-08 08:18 | PCM.PN.CARD ---
Subjective Subjective Patient continues to have episodes of tachycardia with the appearance of an automatic atrial tachyarrhythmia. She does have definitive P waves and from the QRS is and occasionally slows down and has sinus pauses. She is very symptomatic when she gets tachycardic in the 130-140 bpm range. She has been on metoprolol 50 mg every 6 hours and this has not successfully controlled the tachycardia and is now worsening more pauses. Objective Data Vital Signs: Vital Signs Temp Pulse Resp BP Pulse Ox O2 Del Method 97 F L 74 16 116/48 L 98 Room Air 11/08/24 03:15 11/08/24 03:15 11/08/24 03:15 11/08/24 03:15 11/08/24 03:15 11/08/24 03:15 Oxygen Delivery Method Room Air Weight: 246 lb 7.629 oz Body Mass Index (BMI) 42.3 Intake & Output: Intake and Output for Last 24 Hours 11/06/24 11/07/24 11/08/24 23:59 23:59 23:59 Intake Total 200 / 200 Balance 200 / 200 Lab / Micro Data Attestation: I reviewed the patient's lab results. 11/08/24 04:42 11/08/24 04:42 Labs: Laboratory Results - last 24 hr 11/08/24 04:42: WBC 6.0, RBC 4.65, Hgb 14.8, Hct 42.5, MCV 91.4, MCH 31.8, MCHC 34.8, RDW Std Deviation 43.6, RDW Coeff of Angel 13.2, Plt Count 234, MPV 10.2, Immature Gran % (Auto) 0.500, Neut % (Auto) 49.3, Lymph % (Auto) 37.7, [place] % (Auto) 9.0, Eos % (Auto) 2.7, Baso % (Auto) 0.8, Absolute Neuts (auto) 3.0, Absolute Lymphs (auto) 2.26, Nucleated RBC % 0, Sodium 138, Potassium 3.8, Chloride 103, Carbon Dioxide 21.6, Anion Gap 14, BUN 19, Creatinine 0.67 L, Estim Creat Clear Calc 112.03, Est GFR (MDRD) Non-Af 101, BUN/Creatinine Ratio 28.8 H, Glucose 133 H, Calcium 9.4 Rhythm Strip Rhythm Strip: Sinus Rhythm Rate: 80 Ectopy: PAC(s) and - (Noted sinus pauses. Noted heart rates in the 130-140 bpm range.) Cardiology Labs/Tests 11/08/24 04:42: WBC 6.0, RBC 4.65, Hgb 14.8, Hct 42.5, MCV 91.4, MCH 31.8, MCHC 34.8, Plt Count 234, MPV 10.2, Immature Gran % (Auto) 0.500, Neut % (Auto) 49.3, Lymph % (Auto) 37.7, [place] % (Auto) 9.0, Eos % (Auto) 2.7, Baso % (Auto) 0.8, Absolute Neuts (auto) 3.0, Nucleated RBC % 0, Sodium 138, Potassium 3.8, Chloride 103, Carbon Dioxide 21.6, Anion Gap 14, BUN 19, Creatinine 0.67 L, Est GFR (MDRD) Non-Af 101, BUN/Creatinine Ratio 28.8 H, Glucose 133 H, Calcium 9.4 Rhythm: EKG: ECHO: Stress Test: Cardiac Cath: PCI: CT Surgery: Holter monitor: EPS: PPM: CXR: Chest CT Scan: Radiography Diagnostic Testing: Radiology Impression Echocardiogram 11/07/24 04:54 Interpretation Summary The left ventricular ejection fraction is 65 %. The left atrium is moderately enlarged. Ordering Physician: Karri^Papito^^^ Referring Physician: NOEL GARCIAS Performed By: Liliya Bautista RDCS Physical Exam Const alert and oriented x3 HEENT normocephalic Eyes PERRL Neck no JVD Chest inspection of chest normal Resp normal respiratory effort and clear to auscultation bilaterally Cardio regular rate, regular rhythm, S1 normal heart sound, S2 normal heart sound, no murmurs, no rub and no gallops GI GI Narrative: Obese Extremity no pedal edema Neuro Neuro Narrative: Alert and oriented x 3 Psych mental status grossly normal Assessment & Plan Assessment/Plan (1) Tachyarrhythmia: PLAN: Patient's tachyarrhythmia appears to be some type of automatic atrial rhythm. It runs in the 140 bpm range and the patient is very symptomatic with lightheadedness and dizziness that correlates exactly when she goes into the rhythm. This occurs with almost any activity just walking to the bathroom and back to the bed. She also has noted pauses that do not appear to be symptomatic. These are short what appeared to be sinus node pauses. The patient's echocardiogram showed a normal LV function EF of 65% she did have a dilated left atrium of an uncertain etiology. There is no significant valvular heart disease documented. Patient has no prior history of coronary artery disease. She does have a history of hypothyroidism on replacement therapy that was appropriate according to her TSH levels. She is not using any stimulant medic medications. The patient was recently infected with documented influenza A the first week of October 2024. This subsequently developed into bronchitis and a middle ear infection which she has been treated by her primary care physician. The echocardiogram did not show anything consistent with a postviral cardiomyopathy. Given this unresponsive what appears to be an automatic atrial tachycardia I would recommend the patient be evaluated by electrophysiology. She has to go to [place] due to her insurance and I would recommend that we transfer her to [facility] were not having much luck controlling this and she probably needs an EP study to evaluate and determine the best treatment options. (2) Episodic lightheadedness: PLAN: Patient's episodic lightheadedness exactly correlates with her heart rates in the 130-140 bpm range. (3) Essential hypertension: PLAN: Patient's blood pressure is adequately controlled on her current medical therapy. (4) Hypothyroidism: QUALIFIERS: Hypothyroidism type: unspecified Qualified Code(s): E03.9 - Hypothyroidism, unspecified PLAN: TSH was 0.357 and free T4 was 1.4 both of which are within normal limits in November 2024. PLAN: Plan 1. Continue current maximum dose of beta-mary therapy. 2. Will assist with arrangement of transfer to EP service at [facility]. 3. Patient will need to follow-up with the [place] cardiology given her [facility] care insurance. Charges/Coding Visit Charges Inpatient E&M: 37699 Subs Hosp L2
[2024-11-08] MEDS: Aspirin E.C. 81 MG Tablet PO (09:03)
[2024-11-08] MEDS: Vitamin B Comp W-C Capsule 1 CAP PO (09:04)
[2024-11-08] MEDS: hydroCHLOROthiazide 25 MG Tablet PO (09:04)
[2024-11-08] MEDS: Cholecalciferol (VIT D3) 25 MCG TABLET (1,000 UNITS) 50 MCG PO (09:05)
[2024-11-08] MEDS: FLUoxetine 20 MG Capsule PO (09:05)
[2024-11-08] MEDS: Enoxaparin 40 MG/0.4 ML Syringe SC (09:05)
[2024-11-08] MEDS: Famotidine 20 MG Tablet PO ×2 (09:05→21:08)
[2024-11-08] MEDS: Lisinopril 10 MG Tablet PO (09:06)
[2024-11-08] MEDS: Zinc Sulfate 50 mg zinc (220 mg) ORAL capsule PO (09:06)
[2024-11-08] MEDS: Metoprolol Tartrate 50 MG Tablet PO ×4 (09:21→21:08)
--- NOTE | 2024-11-08 10:01 | CASEMGMT ---
Insurance review for hospitals In-network with [facility] insurance if transfer is recommended [facility] Marjorie Nicole, Discharge Planning Asst.
[2024-11-08 12:08] LABS: Hemoglobin A1c 6.9 % (<=5.6)
--- NOTE | 2024-11-08 16:07 | PCM.PROGNOTE ---
Subjective Subjective Patient seen and examined. She had no active complaints. Cardiology is recommending transfer to [facility] for evaluation by EP. Review of systems otherwise negative. She has otherwise remained hemodynamically stable. Objective Data Objective Data Vital Signs: Vital Signs Temp Pulse Resp BP Pulse Ox O2 Del Method 97.4 F L 91 17 125/86 H 97 Room Air 11/08/24 09:00 11/08/24 14:17 11/08/24 09:00 11/08/24 09:21 11/08/24 09:00 11/08/24 09:00 Oxygen Delivery Method Room Air Weight: 246 lb 7.629 oz Body Mass Index (BMI) 42.3 Intake & Output: Intake and Output for Last 24 Hours 11/06/24 11/07/24 11/08/24 23:59 23:59 23:59 Intake Total 200 / 200 Balance 200 / 200 Lab / Micro Data 11/08/24 04:42 11/08/24 04:42 Labs: Laboratory Results - last 24 hr 11/08/24 04:42: WBC 6.0, RBC 4.65, Hgb 14.8, Hct 42.5, MCV 91.4, MCH 31.8, MCHC 34.8, RDW Std Deviation 43.6, RDW Coeff of Angel 13.2, Plt Count 234, MPV 10.2, Immature Gran % (Auto) 0.500, Neut % (Auto) 49.3, Lymph % (Auto) 37.7, [place] % (Auto) 9.0, Eos % (Auto) 2.7, Baso % (Auto) 0.8, Absolute Neuts (auto) 3.0, Absolute Lymphs (auto) 2.26, Nucleated RBC % 0, Sodium 138, Potassium 3.8, Chloride 103, Carbon Dioxide 21.6, Anion Gap 14, BUN 19, Creatinine 0.67 L, Estim Creat Clear Calc 112.03, Est GFR (MDRD) Non-Af 101, BUN/Creatinine Ratio 28.8 H, Glucose 133 H, Hemoglobin A1c 6.9, Calcium 9.4 Rhythm Strip Rhythm Strip: Sinus Rhythm Rate: 80 Ectopy: PAC(s) and - (Noted sinus pauses. Noted heart rates in the 130-140 bpm range.) Physical Exam Const alert, oriented x3, no apparent distress and well nourished Constitutional Narrative: class III obesity General Appearance: cooperative and well developed HEENT normocephalic, head/scalp atraumatic and moist oral mucous membranes Eyes PERRL and EOMs intact bilaterally Neck no lymphadenopathy and supple Lymph Lymphatic: no lymphadenopathy noted Resp normal respiratory effort, normal air movement and clear to auscultation bilaterally Cardio regular rate, regular rhythm, S1 normal heart sound, S2 normal heart sound, no murmurs, no rub and no gallops Rhythm: abnormal rhythm regularly irregular GI normal to inspection, nondistended, normoactive bowel sounds, soft to palpation, non-tender and non-distended Extremity normal capillary refill, no clubbing, cyanosis or edema and no calf tenderness General Extremity: no tenderness to palpation of joints or extremities Skin General Skin Exam: no breakdown Neuro CN's II-XII intact bilaterally, no focal motor deficits and no sensory deficits noted Motor Exam: strength 5/5 throughout and general weakness Psych thought process normal, cooperative and affect normal Appearance: appropriate Assessment & Plan Assessment/Plan (1) Tachyarrhythmia: (2) Episodic lightheadedness: PLAN: Plan # Dizziness and lightheadedness due to tachyarrhythmia Said her symptoms initially occurred while she was in [employer]. Her son-in-law who is finally a medical student checked her pulse and he told her that she had an abnormal heart rhythm. She went home and went see her PCP yesterday who advised that she come into the ED. EKG showed no acute ST changes. However per telemetry she was in sinus arrhythmia at time of review. In the ED EKG showed tachyarrhythmia with heart rate in the 130s to 140s. EKG and rhythm strip showed definite P waves in front of each QRS consistent with some type of automatic atrial tachycardia. Cardiology consulted. 2D echo showed EF of 65% and unable to assess diastolic function based on available data as well as moderately enlarged left atrium and normal right atrium. cardiology recommends transfer to [facility] for evaluation by PT/OT. On p.o. metoprolol 50 mg 4 times daily per cardiology. #Hypertension: On hydrochlorothiazide and lisinopril. Now on metoprolol also #Type 2 diabetes mellitus She appears to be diet controlled. Her last A1c in August 2024 was 6.2. A1c from March 2023 is 6.4. A1C is 6.9. Counseled on DASh diet. Will benefit from initiation of metformin. #Hypothyroidism: On Synthroid #Depression: On fluoxetine #Hyperlipidemia: On statin DVT prophylaxis: Lovenox Disposition: Transfer to [facility] pending bed availability Charges/Coding Visit Charges Inpatient E&M: 38500 Subs Hosp L2
[2024-11-08] MEDS: Atorvastatin Calcium 40 MG Tablet PO (21:08)
--- NOTE | 2024-11-09 07:07 | PCM.DC.SUM ---
Providers Date of Admission: 11/07/24 Date of Discharge: 11/09/24 Primary Care Physician: Dr. Romi Araujo MD Consultations 11/07/24 06:14 Consult: Cardiology Routine Consulting Provider: Angel Covarrubias Reason for Consult: Arrhythmia EMERGENT Consult: Yes Notified: Yes Date Notified: 11/07/24 Time Notified: 04:53 Method of Notification: ED Physician Initiated Reason For Visit: DIZZINESS LIGHTHEADEDNESS, CHEST PAIN Diagnosis Discharge Diagnosis (1) Tachyarrhythmia: Status: Acute Code(s): R00.0 - Tachycardia, unspecified (2) Episodic lightheadedness: Status: Acute Code(s): R42 - Dizziness and giddiness Plan # Dizziness and lightheadedness due to tachyarrhythmia Said her symptoms initially occurred while she was in [employer]. Her son-in-law who is finally a medical student checked her pulse and he told her that she had an abnormal heart rhythm. She went home and went see her PCP yesterday who advised that she come into the ED. EKG showed no acute ST changes. However per telemetry she was in sinus arrhythmia at time of review. In the ED EKG showed tachyarrhythmia with heart rate in the 130s to 140s. EKG and rhythm strip showed definite P waves in front of each QRS consistent with some type of automatic atrial tachycardia. Cardiology consulted. 2D echo showed EF of 65% and unable to assess diastolic function based on available data as well as moderately enlarged left atrium and normal right atrium. cardiology recommends transfer to [facility] for evaluation by PT/OT. On p.o. metoprolol 50 mg 4 times daily per cardiology. #Hypertension: On hydrochlorothiazide and lisinopril. Now on metoprolol also #Type 2 diabetes mellitus She appears to be diet controlled. Her last A1c in August 2024 was 6.2. A1c from March 2023 is 6.4. A1C is 6.9. Counseled on DASh diet. Will benefit from initiation of metformin. #Hypothyroidism: On Synthroid #Depression: On fluoxetine #Hyperlipidemia: On statin DVT prophylaxis: Lovenox Disposition: Transfer to [facility] pending bed availability Medications at Discharge Home Medications aspirin 81 mg tablet,delayed release 81 mg PO DAILY 08/07/20 cholecalciferol (vitamin D3) 50 mcg (2,000 unit) capsule 50 mcg PO DAILY 08/07/20 famotidine 20 mg tablet (Pepcid AC) 20 mg PO BID #60 tabs 03/13/21 loratadine 10 mg tablet 10 mg PO DAILY PRN allergy symptoms 10/29/21 zinc gluconate 50 mg tablet 50 mg PO DAILY 02/23/24 hydrochlorothiazide 25 mg tablet 25 mg PO DAILY #90 tabs 03/13/24 lisinopril 10 mg tablet 10 mg PO DAILY #90 tabs 03/13/24 levothyroxine 125 mcg tablet 125 mcg PO DAILY #90 tabs 03/27/24 vitamin B complex 1 tab PO DAILY 03/29/24 atorvastatin 40 mg tablet 40 mg PO DAILY #90 tabs 09/18/24 fluoxetine 20 mg capsule (Prozac) 20 mg PO DAILY #90 caps 10/23/24 Hospital Course Operations None Procedures 2-D Echocardiogram Summary of Care Provided Minutes Spent on Discharge: 45 Hospital Course: Patient is a 58-year-old female with past medical history as outlined was admitted through the ED on 11/07/2024 with complaint of dizziness and lightheadedness. 70 having the symptoms about 2 days prior to admission and worsening the day of admission. She said she had been at [employer] a few days prior to admission and noticed that she was feeling dizzy and lightheaded. Her son-in-law who is a finally a medical student checked her pulse and told her she was having abnormal heart rhythm and encouraged to come to the ED. She went to see her PCP however she was told to come to the ED. In the ED EKG showed sinus tach arrhythmia with no acute ST elevation. Troponins were negative. He was admitted to be managed for dizziness and lightheadedness with near syncope due to probable arrhythmia. Cardiology was consulted. She had 2D echo which showed EF of 65% and moderately enlarged left atrium. Cardiology started patient on p.o. metoprolol 50 mg every 6 hours. Per cardiology she was having episodes of tachycardia with appearance of an automatic atrial tachyarrhythmia and was very symptomatic when she became tachycardic. Cardiology therefore commended that patient be transferred to [facility] for evaluation by electrophysiology. Patient was transferred to [facility] in the early hours of 11/09/2024 to the service of electrophysiology. Patient seen and examined. She had no active complaints. Review of systems otherwise negative. Labs and vitals reviewed. Physical Exam Const alert, oriented x3, no apparent distress and well nourished Constitutional Narrative: class III obesity General Appearance: cooperative, comfortable and well developed HEENT normocephalic, head/scalp atraumatic and moist oral mucous membranes Eyes PERRL and EOMs intact bilaterally Neck no lymphadenopathy and supple Lymph Lymphatic: no lymphadenopathy noted Resp normal respiratory effort, normal air movement and clear to auscultation bilaterally Cardio regular rate, regular rhythm, S1 normal heart sound, S2 normal heart sound, no murmurs, no rub and no gallops Rhythm: abnormal rhythm regularly irregular GI normal to inspection, nondistended, normoactive bowel sounds, soft to palpation, non-tender and non-distended Extremity normal capillary refill, no clubbing, cyanosis or edema and no calf tenderness General Extremity: no tenderness to palpation of joints or extremities Skin General Skin Exam: no breakdown Neuro CN's II-XII intact bilaterally, no focal motor deficits and no sensory deficits noted Motor Exam: strength 5/5 throughout and general weakness Psych thought process normal, cooperative and affect normal Appearance: appropriate Weight / BMI Weight Weight: 246 lb 7.629 oz Body Mass Index (BMI) 42.3 ABG / Lab / Microbiology Data 11/08/24 04:42 11/08/24 04:42 Laboratory: Laboratory Results - last 24 hr 11/08/24 04:42: Hemoglobin A1c 6.9 D/C Instructions Discharge Diet: Low fat / Low cholesterol Discharge Activity: Return to Normal Activity Weight Bearing Status: Weight bearing as tolerated Call your doctor if you observe: Fever of 101 or Higher, Shortness of breath, Dizziness, Swelling in the ankles and Chest pain DC O2, CPAP, BIPAP Needs Home O2 Discharge instructions: No DC home with Oxygen: No Meaningful Use Info Meaningful Use Meaningful Use Diagnoses (Choose all that apply): None applicable Ischemic Stroke Statin Dosing Therapy Reference: STATIN DOSE THERAPY REFERENCE: * Patients > 75 years receive moderate or high dose statin therapy. * Patients 75 years or YOUNGER should receive HIGH intensity statin dose unless contraindicated. You will be required to document reason for non-treatment if statin daily dose does not meet guidelines. HIGH DOSE STATIN THERAPY DAILY Atorvastatin > than or = to 40 mg Rosuvastatin > than or = to 20 mg Amlodipine + Atorvastatin > than or = to 2.5/40 mg Ezetimibe + Simvastatin 10/80 mg Simvastatin 80mg Discharge Plan Admission Admit Date/Time: 11/07/24 04:51 Primary Reason for Your Visit: dizziness, chest pain Attending Provider: Amanda Anthony Primary Care Provider: Romi Araujo Consulting Providers: Angel Covarrubias; Papito Zeng Discharge Orders/Prescriptions Prescriptions: No Action aspirin 81 mg tablet,delayed release (DR/EC) 81 mg PO DAILY cholecalciferol (vitamin D3) 50 mcg (2,000 unit) capsule 50 mcg PO DAILY famotidine [Pepcid AC] 20 mg tablet 20 mg PO BID Qty: 60 6RF loratadine 10 mg tablet 10 mg PO DAILY PRN (Reason: allergy symptoms) zinc gluconate 50 mg tablet 50 mg PO DAILY vitamin B complex Tablet 1 tab PO DAILY hydrochlorothiazide 25 mg tablet 25 mg PO DAILY Qty: 90 3RF lisinopril 10 mg tablet 10 mg PO DAILY Qty: 90 3RF levothyroxine 125 mcg tablet 125 mcg PO DAILY Qty: 90 3RF atorvastatin 40 mg tablet 40 mg PO DAILY Qty: 90 3RF fluoxetine [Prozac] 20 mg capsule 20 mg PO DAILY Qty: 90 3RF Referrals / Follow Up: Romi Arauoj MD [Primary Care Provider] - Disposition Disposition (needs filled in before D/C Order can be placed): Acute Care Hospital Charges/Coding Visit Charges Inpatient E&M: 66317 Disch Hosp >30min
== END 2024-11-09 00:30 | disposition short-term general hospital (02) | DRG 309 ==
LOC: ED 02:30 → MS2 05:24
PROVIDERS: Admitting Provider Family Medicine; Emergency Provider Emergency Medicine; PCP Internal Medicine; Visit Provider Student in an Organized Health Care Education/Training Program
DX: I47.19 Other supraventricular tachycardia (principal); Z68.41 Body mass index [BMI] 40.0-44.9, adult; E03.9 Hypothyroidism, unspecified; E11.9 Type 2 diabetes mellitus without complications; I10 Essential (primary) hypertension; F32.A Depression, unspecified; E78.5 Hyperlipidemia, unspecified; K21.9 Gastro-esophageal reflux disease without esophagitis; E66.813 Obesity, class 3; Z79.82 Long term (current) use of aspirin; Z79.899 Other long term (current) drug therapy
CPT/HCPCS: 80048; 83036; 84484; 85025; 93005; 93306; 97802; 99285; A4216

== ENCOUNTER 2024-11-20 16:50 | Emergency (ER) | payer OTHER, SELFPAY ==
[2024-11-20 16:50] VITALS: BP 190/101; PULSE 55; RESP 16; TEMP 36.3; O2SAT 98; BMI 42.9
[2024-11-20 17:31] VITALS: BP 171/85; PULSE 18; RESP 55; O2SAT 94
--- NOTE | 2024-11-20 18:34 | EKG12_ITS ---
Test Reason : CP Blood Pressure : */* mmHG Vent. Rate : 55 BPM Atrial Rate : 55 BPM P-R Int : 200 ms QRS Dur : 96 ms QT Int : 476 ms P-R-T Axes : 37 -12 12 degrees QTcB Int : 455 ms Sinus bradycardia Otherwise normal ECG Confirmed by BRIDGET LANDRY, FAISAL ([id number]), non linear editor LORI OLIVA ([id number]) on 11/21/2024 8:18:47 AM Referred By: JOHAN/ALTAF Confirmed By: FAISAL GILL MD
--- NOTE | 2024-11-20 18:43 | RAD_ITS ---
PROCEDURE: CHEST PA AND LATERAL (RADCXR), 11/20/2024 REASON FOR EXAM: CHEST PAIN TECHNIQUE: PA and lateral views of the chest were obtained. COMPARISON: 11/05/2024 FINDINGS: Heart: Unremarkable. Mediastinum: Unremarkable. Lungs/pleura: Trace linear bibasilar likely atelectasis/scarring.. No effusion or visible pneumothorax. Redemonstrated roughly 13 mm nodule in the left. Bones: Multilevel spondylosis. Suspect demineralization.. Lines and support devices: None. RAD/Chest PA and Lateral IMPRESSION: 1. No visible acute cardiopulmonary findings.Trace linear bibasilar likely atel ectasis/scarring 2. Redemonstrated roughly 13 mm nodule on the left. Recommend outpatient CT ch est. Comparison with any available outside imaging may also be helpful. 3. Additional description as above. Reading Location: [id number]
--- NOTE | 2024-11-20 18:48 | EDS_ITS ---
HPI History of Present Illness Chief Complaint: Dizziness Informant: patient and spouse/S.O. Narrative Narrative: Presents to the ED with spouse for feelings of lightheadedness fluttering chest and mild discomfort. No patient was hospitalized earlier this month for day states she was transferred to [facility] after seeing cardiology for tachycardic rhythm. She states stayed for 4 days sent home on flecainide and metoprolol 25 mg twice daily. She has been taking her medicines. She she has a follow-up with cardiology along with electrophysiology. She is doing well up today. She has current event monitor. Denies cough. Denies recent vomiting. No cardiac history. Review of records on patient's phone from [facility], she is transferred for concerns for tacky dysrhythmia for concerns for tachybradycardia syndrome. There is also a note from cardiology for possible Wenkebach disease. She did not tolerate Cardizem therefore switched to metoprolol 25 mg twice daily along with taking flecainide after normal stress test. She is following up with EP outpatient if she did not tolerate things well for possible ablation. Reported was told not likely tachybradycardia syndrome as she was on metoprolol with no decompensation. Prior similar symptoms: Yes PFSH PFS Medical History Insulin resistance Essential hypertension Atrial tachycardia PAC (premature atrial contraction) Tachyarrhythmia Chest pain Episodic lightheadedness Left foot pain Right elbow pain Fall Fatigue Strain of left knee Contusion of left knee Thyroid disease Migraine headache History of hiatal hernia Non-smoker History of pain when walking History of edema Wears glasses Alcohol use Difficulty swallowing Difficulty chewing Gastric reflux Arthritis Dysphagia Depression Other and unspecified hyperlipidemia Hypothyroidism Home Medications ?Medication ?Instructions ?Recorded ?Last Taken ?Type aspirin 81 mg tablet,delayed 81 mg PO DAILY 08/07/20 0 02/01/21 09:00 History release cholecalciferol (vitamin D3) 50 50 mcg PO DAILY 02/06/21 09:00 History mcg (2,000 unit) capsule famotidine 20 mg tablet (Pepcid AC) 20 mg PO BID #60 t abs 03/13/21 11/09/22 04:45 Rx loratadine 10 mg tablet 10 mg PO DAILY PRN allergy s ymptoms 10/29/21 Unknown History zinc gluconate 50 mg tablet 50 mg PO DAILY 02/23/24 Un known History levothyroxine 125 mcg tablet 125 mcg PO DAILY #90 tabs 03/27/24 Unknown Rx vitamin B complex 1 tab PO DAILY 03/29/24 Unkn own History atorvastatin 40 mg tablet 40 mg PO DAILY #90 tabs 09/06 11/28 Unknown Rx fluoxetine 20 mg capsule (Prozac) 20 mg PO DAILY #90 c aps 10/23/24 Unknown Rx flecainide 100 mg tablet 100 mg PO BID 11/16/24 Unkno wn History metoprolol succinate 25 mg 25 mg PO BID 11/16/24 Unkno wn History tablet,extended release 24 hr nitrofurantoin 100 mg PO Q12H 7 days #14 ca ps 11/19/24 Unknown Rx monohydrate/macrocrystals 100 mg capsule (Macrobid) Allergy/AdvReac Type Severity Reaction Status Date / Time bromodiphenhydramine (From Allergy Mild unknown Verified 11/20/24 16:57 Ambenyl) codeine (From Ambenyl) Allergy Mild unknown Verified 11/20/24 16:57 erythromycin base (From Allergy Mild unknown Verified 11/20/24 16:57 Kayden-Tab) nystatin Allergy Mild unknown Verified 11/20/24 16:57 sulfamethoxazole (From Allergy Mild Rash Verified 11/20/24 16:57 Bactrim) Tetracyclines Allergy Mild unknown Verified 11/20/24 16:57 trimethoprim (From Bactrim) Allergy Mild Rash Verified 11/20/24 16:57 Family History Mother Myocardial infarction Thyroid disorder Heart disease Hypertension Lung cancer Diabetes CVA (cerebral vascular accident) Grandmother Myocardial infarction Sister Breast cancer Diabetes Father Leukemia Diabetes Other Cancer Surgical History History of breast biopsy H/O total hysterectomy Hx of colonoscopy S/P thyroid biopsy S/P colonoscopy S/P tonsillectomy S/P wrist surgery RIGHT WRIST Social History household members: spouse number of children: 3 current occupational status: employed current occupation: [employer] Smoking Status: Never smoker Electronic Cigarette Use: not used second hand exposure: No alcohol intake: current alcohol intake frequency: holidays/special occasions only Alcohol type: wine substance use type: does not use caffeine: Yes what type of physical activity do you participate in: none frequency: decline to answer elma/islam: Jainism seatbelt use: always do you feel safe at home: Yes ROS ROS ED Constitutional Constitutional ED: Denies chills, fever(s) or sweats ENT ENT ED: Denies sore throat Cardiovascular Cardiovascular: Reports chest pain, palpitations and other Details: Lightheaded ; Denies leg edema or racing heartbeat Respiratory/Chest Respiratory/Chest: Denies cough, dyspnea or dyspnea on exertion Gastrointestinal Gastrointestinal: Denies abdominal pain, diarrhea, nausea or vomiting Genitourinary Genitourinary ED: Denies dysuria, hematuria or urinary frequency Musculoskeletal Musculoskeletal: Denies back pain, extremity pain or neck pain Integumentary Denies rash or wounds Neurologic Neurologic: Denies headache(s), paresthesias or weakness EXAM Physical Exam Const Vital Signs: 11/20/24 16:50 11/20/24 17:31 11/20/24 18:57 Temperature 97.4 F L Temperature Source Temporal Pulse Rate 55 L 18 L 52 L Respiratory Rate 16 55 H 19 H Blood Pressure 190/101 H 171/85 H 131/105 H Blood Pressure Mean 130 113 113 Pulse Ox 98 94 95 Oxygen Delivery Method Room Air Room Air Room Air 11/20/24 21:00 11/20/24 21:25 Temperature 98.0 F Temperature Source Pulse Rate 51 L 52 L Respiratory Rate 18 16 Blood Pressure 165/81 H 165/81 H Blood Pressure Mean 109 109 Pulse Ox 98 94 Oxygen Delivery Method Room Air Positive well nourished and well developed General Appearance ED: well developed and NAD HEENT Reports moist mucous membranes normocephalic and atraumatic Eyes General Eye ED: Yes normal appearance of both eyes Neck full ROM Chest Wall Chest: Negative for tenderness Resp normal respiratory effort and normal air movement Effort and Inspection: symmetric chest movement; Negative for respiratory distress Cardio regular rhythm and no murmurs Rate: bradycardia Peripheral Pulses: pulses 2+ throughout GI normal to inspection, nondistended, normoactive bowel sounds and non-tender Palpation: Negative for guarding or rebound tenderness present Extremity normal to inspection General Extremety ED: Negative for edema or tenderness General Extremity: Negative for edema Neuro oriented x3, CN's II-XII intact bilaterally and no sensory deficits noted Sensorium / Orientation: awake and alert Skin no rashes or lesions noted and no wounds MDM MDM MDM Narrative Medical decision making narrative: Interventions / MDM: Differential diagnosis: Chest pain, palpitations, history of atrial tachycardia Diagnosis considered but do not suspect: ACS however workup negative. My EKG interpretation: Sinus rate of 55, no ST changes, T wave inversion inferior anterior leads. New inversion V3 compared to EKG November 07, 2024. Imaging independently reviewed and interpreted by myself: 2 view chest x-ray: No acute process. External documents reviewed: N/A Test considered but not ordered:N/A ED course: Patient EKG bradycardic however she is on metoprolol. Chest discomfort palpitations and lightheaded symptoms. Cardiac workup initiated will check evaluate electrolytes will keep her on the monitor. 2000: Initial troponin negative. TSH mag electrolytes and blood counts were all normal. Chest x-ray redemonstration of 13 mm left lobe nodule. Troponin negative x 2 sinus rhythm on the monitor rate in the 50s were beta- mary. Discussed possibility of tachycardic rhythm with her history however she is clinically stable labs are normal. She will call her improvement engineer for follow-up. Discussed return precautions. Discussed avoiding caffeine. Patient understands agrees with plan. All questions were answered. Re-evaluation: stable Disposition discussed with patient/family/significant other: Patient and spouse Case discussed with consulting clinician: N/A This note was generated with [employer] dictation software. It may contain incorrect words, spelling, and punctuation that were not noted in checking the note before signing. Lab Data Attestation: I reviewed the patient's lab results. Labs: Laboratory Results - last 24 hr 11/20/24 11/20/24 17:25 20:40 WBC 7.4 RBC 4.56 Hgb 14.4 Hct 42.1 MCV 92.3 MCH 31.6 MCHC 34.2 RDW Std Deviation 44.8 H RDW Coeff of Angel 13.2 Plt Count 261 MPV 10.8 Immature Gran % (Auto) 0.300 Neut % (Auto) 62.8 Lymph % (Auto) 27.0 [place] % (Auto) 6.9 Eos % (Auto) 2.3 Baso % (Auto) 0.7 Absolute Neuts (auto) 4.6 Absolute Lymphs (auto) 1.99 Nucleated RBC % 0 Sodium 139 Potassium 4.2 Chloride 101 Carbon Dioxide 25.0 Anion Gap 13 BUN 15 Creatinine 0.70 Estim Creat Clear Calc 106.80 Est GFR (MDRD) Non-Af 99 BUN/Creatinine Ratio 21.2 H Glucose 121 H Calcium 9.4 Magnesium 2.0 Troponin T High Sens < 6 D Troponin T Hi Sens 2 Hr 9 TSH 0.732 Radiography Diagnostic Testing: Clinical Impression(s) from Imaging Studies Chest X-Ray 11/20/24 18:43 IMPRESSION: 1. No visible acute cardiopulmonary findings.Trace linear bibasilar likely atelectasis/scarring 2. Redemonstrated roughly 13 mm nodule on the left. Recommend outpatient CT chest. Comparison with any available outside imaging may also be helpful. 3. Additional description as above. Reading Location: [facility] Discharge Plan Triage Chief Complaint: Dizziness ED Provider: Amrik Pacheco Dx/Rx/DC Orders Clinical Impression: Chest pain, Palpitations Instructions: ED Chest Pain, Uncertain Cause, ED Palpitations Prescriptions: No Action aspirin 81 mg tablet,delayed release (DR/EC) 81 mg PO DAILY cholecalciferol (vitamin D3) 50 mcg (2,000 unit) capsule 50 mcg PO DAILY famotidine [Pepcid AC] 20 mg tablet 20 mg PO BID Qty: 60 6RF loratadine 10 mg tablet 10 mg PO DAILY PRN (Reason: allergy symptoms) zinc gluconate 50 mg tablet 50 mg PO DAILY vitamin B complex Tablet 1 tab PO DAILY metoprolol succinate 25 mg tablet extended release 24 hr 25 mg PO BID flecainide 100 mg tablet 100 mg PO BID nitrofurantoin monohyd/m-cryst [Macrobid] 100 mg capsule 100 mg PO Q12H 7 Days Qty: 14 0RF Rx Instructions: must administer with a meal/food levothyroxine 125 mcg tablet 125 mcg PO DAILY Qty: 90 3RF atorvastatin 40 mg tablet 40 mg PO DAILY Qty: 90 3RF fluoxetine [Prozac] 20 mg capsule 20 mg PO DAILY Qty: 90 3RF Primary Care Provider: Romi Araujo Referrals: Romi Araujo MD [Primary Care Provider] - Activity Restrictions/Additional Instructions: Your cardiac workup negative. Electrolytes normal. Chest x-ray negative. Continue your flecainide and your metoprolol. Follow-up with your improvement engineer. If you have recurrent symptoms that is prolonged, return t o the ED for reevaluation. Print Language: Citizen [place] Disposition Disposition: Home, Self Care Discharge Date/Time: 11/20/24 21:26
[2024-11-20 18:57] VITALS: BP 131/105; PULSE 52; RESP 19; O2SAT 95
[2024-11-20 19:02] LABS: Absolute Lymphocyte Count 1.99 X10^3/uL (0.83-4.51); Absolute Neutrophil Count 4.6 X10^3/uL (2.0-7.7); Basophil# 0.05 X10^3/uL; Basophil% 0.7 % (0-1); Eosinophil# 0.17 X10^3/uL; Eosinophils% 2.3 % (0-5); Hematocrit 42.1 % (37-47); Hemoglobin 14.4 g/dL (12.0-15.0); Lymphocyte # 1.99 X10^3/ul (0.83-4.51); Mean Corp Hgb Conc 34.2 g/dL (32-36); Mean Corpuscular Hgb 31.6 pg (27.0-32.0); Mean Corpuscular Volume 92.3 fL (81-99); Mean Platelet Vol. 10.8 fl (6.2-12.0); Monocyte# 0.51 X10^3/uL; Monocyte% 6.9 % (0-10); NRBC Flagged by Analyzer 0 % (0-5); Neutrophil # 4.62 X10^3/uL (2.7-7.7); Neutrophil % 62.8 % (47-70); Platelet Count 261 K/mm3 (150-450); RBC Distribution Width CV 13.2 % (11.6-14.6); RBC Distribution Width SD 44.8 fl (35.1-43.9); Red Blood Count 4.56 M/mm3 (4.2-5.4); White Blood Count 7.4 K/mm3 (4.4-11.0)
[2024-11-20 19:10] LABS: Troponin T High Sensitivity < 6 ng/L (<=14)
[2024-11-20 19:19] LABS: Thyroid Stim Hormone (TSH) 0.732 uIU/mL (0.300-4.200)
[2024-11-20 19:30] LABS: Anion Gap 13 (5-15); BUN 15 mg/dL (4-19); BUN/Creat Ratio 21.2 RATIO (10-20); Calcium,Total 9.4 mg/dL (7.6-11.0); Chloride 101 mmol/L (98-108); EST Glomerular Filtration Rate 99 (>60); Glucose 121 mg/dL (70-99); Potassium 4.2 mmol/L (3.3-5.1); Sodium Level 139 mmol/L (133-145)
[2024-11-20 21:00] VITALS: BP 165/81; PULSE 51; RESP 18; O2SAT 98
[2024-11-20 21:08] LABS: Troponin T High Sens 2 HR 9 ng/L (<=14)
[2024-11-20 21:25] VITALS: BP 165/81; PULSE 52; RESP 16; TEMP 36.7; O2SAT 94
== END 2024-11-20 21:26 | disposition home or self-care (01) ==
PROVIDERS: Emergency Provider Emergency Medicine; PCP Internal Medicine; Visit Provider Emergency Medicine
DX: R07.9 Chest pain, unspecified (principal); R00.2 Palpitations
CPT/HCPCS: 71046; 80048; 83735; 84443; 84484; 85025; 93005; 99284; A4216

== ENCOUNTER → 2024-11-20 | Outpatient (CLI) | payer OTHER, SELFPAY ==
[2024-11-20 11:06] LABS: Mucous, Urine 0 SEEN /hpf (<or=2+)
[2024-11-20 11:27] LABS: Color, Urine Yellow (Yellow); Glucose, Dipstick Normal (Normal); Ketone-Dipstick Negative (Negative); Leukocyte Esterase-Dipstick 500 /ul (Negative); Nitrite-Dipstick Negative (Negative); Occult Blood-Urine 150 /ul (Negative); Protein-Dipstick 30 mg/dl (Negative); Specific Gravity, Urine 1.025 (1.002-1.030); Urine Bilirubin Dipstick Negative (Negative); Urine Clarity Clear (Clear); Urine Urobilinogen Normal (Normal)
[2024-11-20 12:03] LABS: White Blood Cells 25-50 SEEN /hpf (0-5)
[2024-11-20 12:04] LABS: Red Blood Cells-Urine 5-10 SEEN /hpf (0-5)
[2024-11-20 12:05] LABS: Bacteria 1+ /hpf (None Seen); Squamous Epithelial Cells - UA 0-5 SEEN /hpf (5-10)
[2024-11-20 12:06] LABS: Calcium Oxalate Crystals Ur 2+ /hpf (<or=2+)
== END | disposition home or self-care (01) ==
LOC: LABSPEC 10:40
PROVIDERS: PCP Internal Medicine; Referring Provider Nurse Practitioner Family; Visit Provider Nurse Practitioner Family
DX: R30.0 Dysuria (principal)
CPT/HCPCS: 81001; 87086; 87088

== ENCOUNTER 2024-11-27 13:44 | Emergency (ER) | payer OTHER, SELFPAY ==
[2024-11-27 13:46] VITALS: BP 158/96; PULSE 52; RESP 18; TEMP 36.3; O2SAT 98
--- NOTE | 2024-11-27 13:53 | EKG12_ITS ---
Test Reason : CP Blood Pressure : */* mmHG Vent. Rate : 52 BPM Atrial Rate : 52 BPM P-R Int : 144 ms QRS Dur : 94 ms QT Int : 462 ms P-R-T Axes : 34 -18 5 degrees QTcB Int : 429 ms Sinus bradycardia Otherwise normal ECG Confirmed by RBIDGET LANDRY, FAISAL ([id number]), news videotape editor JOHN JOSEPH ([id number]) on 11/29/2024 8:16:34 AM Referred By: Eric Alba Confirmed By: FAISAL GILL MD
[2024-11-27 14:14] LABS: Absolute Lymphocyte Count 1.63 X10^3/uL (0.83-4.51); Absolute Neutrophil Count 4.5 X10^3/uL (2.0-7.7); Basophil# 0.04 X10^3/uL; Basophil% 0.6 % (0-1); Eosinophil# 0.09 X10^3/uL; Eosinophils% 1.3 % (0-5); Hematocrit 42.6 % (37-47); Hemoglobin 14.8 g/dL (12.0-15.0); Lymphocyte # 1.63 X10^3/ul (0.83-4.51); Lymphocyte % 23.9 % (19-41); Mean Corp Hgb Conc 34.7 g/dL (32-36); Mean Corpuscular Hgb 32.2 pg (27.0-32.0); Mean Corpuscular Volume 92.8 fL (81-99); Mean Platelet Vol. 10.3 fl (6.2-12.0); Monocyte# 0.49 X10^3/uL; Monocyte% 7.2 % (0-10); NRBC Flagged by Analyzer 0 % (0-5); Neutrophil # 4.54 X10^3/uL (2.7-7.7); Neutrophil % 66.7 % (47-70); Platelet Count 226 K/mm3 (150-450); RBC Distribution Width CV 13.2 % (11.6-14.6); RBC Distribution Width SD 44.9 fl (35.1-43.9); Red Blood Count 4.59 M/mm3 (4.2-5.4); White Blood Count 6.8 K/mm3 (4.4-11.0)
--- NOTE | 2024-11-27 14:33 | RAD_ITS ---
EXAM: XR Chest, 1 View CLINICAL INDICATION: CHEST PAIN TECHNIQUE: Frontal view of the chest. COMPARISON: No relevant prior studies available. FINDINGS: LUNGS AND PLEURAL SPACES: Unremarkable. No consolidation. No pneumothorax. HEART: Unremarkable. No cardiomegaly. MEDIASTINUM: Unremarkable. Normal mediastinal contour. BONES/JOINTS: Unremarkable. No acute fracture. RAD/Chest 1 View (Portable) IMPRESSION: No acute cardiopulmonary process. Reading Location[facility]
[2024-11-27 14:50] LABS: Anion Gap 10 (5-15); BUN 16 mg/dL (4-19); BUN/Creat Ratio 20.6 RATIO (10-20); Calcium,Total 9.7 mg/dL (7.6-11.0); Carbon Dioxide 26.5 mmol/L (21.0-32.0); Chloride 102 mmol/L (98-108); Creatinine, Serum 0.77 mg/dL (0.70-1.20); EST Glomerular Filtration Rate 89 (>60); Glucose 100 mg/dL (70-99); Potassium 4.2 mmol/L (3.3-5.1); Sodium Level 139 mmol/L (133-145); Troponin T High Sensitivity < 6 ng/L (<=14)
[2024-11-27 15:05] VITALS: BP 150/83; PULSE 56; RESP 23; O2SAT 94
[2024-11-27 16:00] VITALS: BP 87/76; PULSE 56; RESP 18; O2SAT 94
[2024-11-27 16:54] LABS: Troponin T High Sens 2 HR < 6 ng/L (<=14)
[2024-11-27 17:00] VITALS: BP 143/74; PULSE 56; RESP 18; O2SAT 96
[2024-11-27 17:20] LABS: D-Dimer Quantitative (DVT/PE) 0.34 FEU/ug/m (0.27-0.49)
[2024-11-27 18:00] VITALS: BP 139/67; PULSE 57; RESP 20; O2SAT 96
--- NOTE | 2024-11-27 18:26 | EDS_ITS ---
HPI History of Present Illness Chief Complaint: Chest Pain Narrative Narrative: Chief complaint and HPI: Chest heaviness, lightheadedness. 59-year-old female presents for evaluation of chest heaviness and lightheadedness. She has been seen in our emergency department movement multiple times for similar complaint. Patient states today she had another episode of chest heaviness, lightheadedness, and shortness of breath. She states the chest heaviness resolved and then she developed more a burning like sensation. It did not go down her arm or into her jaw. She denies any nausea or vomiting. Denies any headache, syncope, cough, URI symptoms, abdominal pain. She states she took aspirin prior to arrival. She states her symptoms have already improved. Of note, on chart review, patient was hospitalized earlier this month and transferred to [facility] after seeing cardiology for tachycardic rhythm. She saw EP and was started on flecainide and metoprolol. She was transferred for concerns for tachybradycardia syndrome. She had a stress test that was unremarkable. Patient states she was wearing a Holter monitor but that this was discontinued several days ago. Review of systems: See HPI Medications: As listed on the chart Allergies: As listed on the chart PFSH: Per chart Vital signs: As listed on the chart. Reviewed. Physical exam: Gen: A&O x3, NAD Head: Normocephalic, atraumatic Eyes: No sclera icterus, conjunctiva clear ENT: Moist mucous membranes Neck: Trachea midline, No JVD CV: Bradycardic, regular rhythm, no murmurs, no peripheral edema Resp: Lungs CTA BL, no w/r/c GI: Abd soft, non-distended, non-tender, no r/r/g Musc: Full ROM, no deformity Skin: Warm, dry Neuro: Alert, oriented, grossly intact, sensation intact Psych: Cooperative, appropriate mood and affect [facility] Medical History Insulin resistance Essential hypertension Atrial tachycardia PAC (premature atrial contraction) Tachyarrhythmia Chest pain Episodic lightheadedness Left foot pain Right elbow pain Fall Fatigue Strain of left knee Contusion of left knee Thyroid disease Migraine headache History of hiatal hernia Non-smoker History of pain when walking History of edema Wears glasses Alcohol use Difficulty swallowing Difficulty chewing Gastric reflux Arthritis Dysphagia Depression Other and unspecified hyperlipidemia Hypothyroidism Home Medications ?Medication ?Instructions ?Recorded ?Last Taken ?Type aspirin 81 mg tablet,delayed 81 mg PO DAILY 08/07/20 0 02/01/21 09:00 History release cholecalciferol (vitamin D3) 50 50 mcg PO DAILY 02/06/21 09:00 History mcg (2,000 unit) capsule famotidine 20 mg tablet (Pepcid AC) 20 mg PO BID #60 t abs 03/13/21 11/09/22 04:45 Rx loratadine 10 mg tablet 10 mg PO DAILY PRN allergy s ymptoms 10/29/21 Unknown History zinc gluconate 50 mg tablet 50 mg PO DAILY 02/23/24 Un known History levothyroxine 125 mcg tablet 125 mcg PO DAILY #90 tabs 03/27/24 Unknown Rx vitamin B complex 1 tab PO DAILY 03/29/24 Unkn own History atorvastatin 40 mg tablet 40 mg PO DAILY #90 tabs 09/06 11/28 Unknown Rx fluoxetine 20 mg capsule (Prozac) 20 mg PO DAILY #90 c aps 10/23/24 Unknown Rx flecainide 100 mg tablet 100 mg PO BID 11/16/24 Unkno wn History metoprolol succinate 25 mg 25 mg PO BID 11/16/24 Unkno wn History tablet,extended release 24 hr Allergy/AdvReac Type Severity Reaction Status Date / Time bromodiphenhydramine (From Allergy Mild unknown Verified 11/27/24 13:46 Ambenyl) codeine (From Ambenyl) Allergy Mild unknown Verified 11/27/24 13:46 erythromycin base (From Allergy Mild unknown Verified 11/27/24 13:46 Kayden-Tab) nystatin Allergy Mild unknown Verified 11/27/24 13:46 sulfamethoxazole (From Allergy Mild Rash Verified 11/27/24 13:46 Bactrim) Tetracyclines Allergy Mild unknown Verified 11/27/24 13:46 trimethoprim (From Bactrim) Allergy Mild Rash Verified 11/27/24 13:46 Family History Mother Myocardial infarction Thyroid disorder Heart disease Hypertension Lung cancer Diabetes CVA (cerebral vascular accident) Grandmother Myocardial infarction Sister Breast cancer Diabetes Father Leukemia Diabetes Other Cancer Surgical History History of breast biopsy H/O total hysterectomy Hx of colonoscopy S/P thyroid biopsy S/P colonoscopy S/P tonsillectomy S/P wrist surgery RIGHT WRIST Social History household members: spouse number of children: 3 current occupational status: employed current occupation: [employer] Smoking Status: Never smoker Electronic Cigarette Use: not used second hand exposure: No alcohol intake: current alcohol intake frequency: holidays/special occasions only Alcohol type: wine substance use type: does not use caffeine: Yes what type of physical activity do you participate in: none frequency: decline to answer elma/pentecostal: Orthodox seatbelt use: always do you feel safe at home: Yes EXAM Physical Exam Const Vital Signs: 11/27/24 13:46 11/27/24 15:05 11/27/24 15:05 Temperature 97.3 F L Temperature Source Temporal Pulse Rate 52 L 56 L Respiratory Rate 18 23 H Respiratory Effort Blood Pressure 158/96 H 150/83 H Blood Pressure Mean 116 105 Pulse Ox 98 94 Oxygen Delivery Method Room Air Room Air Room Air 11/27/24 15:05 11/27/24 16:00 11/27/24 17:00 Temperature Temperature Source Pulse Rate 56 L 56 L Respiratory Rate 18 18 Respiratory Effort Short of Breath Blood Pressure 87/76 L 143/74 H Blood Pressure Mean 79 97 Pulse Ox 94 96 Oxygen Delivery Method Room Air 11/27/24 18:00 Temperature Temperature Source Pulse Rate 57 L Respiratory Rate 20 H Respiratory Effort Blood Pressure 139/67 H Blood Pressure Mean 91 Pulse Ox 96 Oxygen Delivery Method Room Air MDM MDM MDM Narrative Medical decision making narrative: 59-year-old female presents for evaluation of chest heaviness and lightheadedness. She has been seen in our emergency department multiple times for similar complaint. She just had an extensive cardiac workup at [facility]. Differential diagnosis includes but is not limited to arrhythmia, electrolyte abnormality, anemia, ACS, PE. Patient just had an unremarkable stress test which makes ACS less likely. She has low risk factors for PE. Patient already received aspirin prior to arrival. Symptoms already improved. Cardiac workup ordered. EKG and chest x-ray ordered. See below. CBC without leukocytosis or anemia. BMP relatively unremarkable. D-dimer unremarkable. Troponin unremarkable x 2. Patient has remained on the monitor without any arrhythmias. This point in time, no clear etiology for patient's symptoms. Her symptoms have resolved. Will send her home with another 48-hour Holter monitor. We do not have any available here in the emergency department therefore order will be given. She was told to follow-up with her day care aide as well as EP. Return precautions explained. She confirmed understanding the plan. Patient stable to discharge home. EKG: Interpreted by me/EM physician: EKG shows sinus bradycardia with a heart rate of 52. No acute ischemic changes. Diagnostic: Interpreted by me/EM physician: Chest x-ray without pneumonia, effusion, cardiomegaly, pneumothorax Impression: 1. Chest pain 2. Lightheadedness Lab Data Labs: Laboratory Results - last 24 hr 11/27/24 11/27/24 11/27/24 14:05 16:24 16:50 WBC 6.8 RBC 4.59 Hgb 14.8 Hct 42.6 MCV 92.8 MCH 32.2 H MCHC 34.7 RDW Std Deviation 44.9 H RDW Coeff of Angel 13.2 Plt Count 226 MPV 10.3 Immature Gran % (Auto) 0.300 Neut % (Auto) 66.7 Lymph % (Auto) 23.9 [place] % (Auto) 7.2 Eos % (Auto) 1.3 Baso % (Auto) 0.6 Absolute Neuts (auto) 4.5 Absolute Lymphs (auto) 1.63 Nucleated RBC % 0 D-Dimer Quant (PE/DVT) 0.34 Sodium 139 Potassium 4.2 Chloride 102 Carbon Dioxide 26.5 Anion Gap 10 BUN 16 Creatinine 0.77 Est GFR (MDRD) Non-Af 89 BUN/Creatinine Ratio 20.6 H Glucose 100 H Calcium 9.7 Troponin T High Sens < 6 Troponin T Hi Sens 2 Hr < 6 Radiography Diagnostic Testing: Clinical Impression(s) from Imaging Studies Chest X-Ray 11/27/24 14:33 IMPRESSION: No acute cardiopulmonary process. Reading Location: [facility] Discharge Plan Triage Chief Complaint: Chest Pain ED Provider: Eric Alba Dx/Rx/DC Orders Clinical Impression: Chest pain Instructions: Chest Pain [facility]O Prescriptions: No Action aspirin 81 mg tablet,delayed release (DR/EC) 81 mg PO DAILY cholecalciferol (vitamin D3) 50 mcg (2,000 unit) capsule 50 mcg PO DAILY famotidine [Pepcid AC] 20 mg tablet 20 mg PO BID Qty: 60 6RF loratadine 10 mg tablet 10 mg PO DAILY PRN (Reason: allergy symptoms) zinc gluconate 50 mg tablet 50 mg PO DAILY vitamin B complex Tablet 1 tab PO DAILY metoprolol succinate 25 mg tablet extended release 24 hr 25 mg PO BID flecainide 100 mg tablet 100 mg PO BID levothyroxine 125 mcg tablet 125 mcg PO DAILY Qty: 90 3RF atorvastatin 40 mg tablet 40 mg PO DAILY Qty: 90 3RF fluoxetine [Prozac] 20 mg capsule 20 mg PO DAILY Qty: 90 3RF Primary Care Provider: Romi Araujo Referrals: Romi Araujo MD [Primary Care Provider] - 3-5 Days Angel Covarrubias MD [Med Staff - Active Staff] - 3-5 Days Activity Restrictions/Additional Instructions: Follow-up with cardiology, return back to the ED if symptoms change or worsen. Make sure you grain picker your nitro monitor for tomorrow. Prescription supplied. Print Language: Croatian Disposition Disposition: Home, Self Care Discharge Date/Time: 11/27/24 18:37
== END 2024-11-27 18:37 | disposition home or self-care (01) ==
PROVIDERS: Emergency Provider Surgery; PCP Internal Medicine; Referring Provider Surgery; Visit Provider Surgery
DX: R07.9 Chest pain, unspecified (principal)
CPT/HCPCS: 71045; 80048; 84484; 85025; 85379; 93005; 99285; A4216

== ENCOUNTER → 2024-11-27 | Outpatient (CLI) | payer OTHER, SELFPAY | END | disposition home or self-care (01) | PROVIDERS: PCP Internal Medicine; Visit Provider Surgery | DX: Z00.00 Encounter for general adult medical examination without abnormal findings (principal) ==

== ENCOUNTER → 2024-12-04 | Outpatient (CLI) | payer OTHER, SELFPAY | END | disposition home or self-care (01) | LOC: PSN 08:28 | PROVIDERS: PCP Internal Medicine; Referring Provider Surgery; Visit Provider Surgery | DX: R07.9 Chest pain, unspecified (principal) | CPT/HCPCS: 93225; 93226 ==

== ENCOUNTER 2024-12-10 23:14 | Emergency (ER) | payer OTHER, SELFPAY ==
[2024-12-10 23:14] VITALS: BP 169/80; PULSE 56; RESP 16; TEMP 36.8; O2SAT 98; BMI 43.1
[2024-12-10 23:37] VITALS: O2SAT 96
--- NOTE | 2024-12-11 00:18 | EDS_ITS ---
HPI History of Present Illness Chief Complaint: Shortness of Breath Informant: patient and spouse/S.O. Narrative Narrative: 59-year-old female has had dyspnea with exertion for about 5 weeks now. She states she has occasionally had chest discomfort with exertion, and lightheadedness, she has never had any syncopal episodes. She denies any leg pain or swelling, history of DVT or PE, she was hospitalized at [facility] for short period of time at the beginning of all of this, after she was seen in the ED and had a negative workup, and saw EP cardiology, she had Holter monitor, event monitor, none of which show dysrhythmia, she was tachycardic at 1 point and told that she may have had a dysrhythmia but they were not sure according to her and her , she is currently on metoprolol and has been dyspneic with exertion ever since. She states she is scheduled for an MRI of her heart and following up after that. She has been checking her pulse ox occasionally at home. Today around 12 hours ago she felt dyspneic after light activity and checked her pulse ox and it was 85%. She states it recovered into the 90s after half a minute or so. Usually she feels better with resting for a minute or so. She has no new symptoms. She is been seen here in the ER several times for this and had negative workups. As above she is seeing cardiology and getting worked up for all of this. She was awakened by her son-in-law who is a fourth-year medical student [employer], who told them when he found out about her transient hypoxemia, that she may have a blood clot and that she should come to the ER immediately to be evaluated. Right now at rest, as usual at home, she is asymptomatic. [facility] Medical History Insulin resistance Essential hypertension Atrial tachycardia PAC (premature atrial contraction) Tachyarrhythmia Chest pain Episodic lightheadedness Left foot pain Right elbow pain Fall Fatigue Strain of left knee Contusion of left knee Thyroid disease Migraine headache History of hiatal hernia Non-smoker History of pain when walking History of edema Wears glasses Alcohol use Difficulty swallowing Difficulty chewing Gastric reflux Arthritis Dysphagia Depression Other and unspecified hyperlipidemia Hypothyroidism Home Medications ?Medication ?Instructions ?Recorded ?Last Taken ?Type aspirin 81 mg tablet,delayed 81 mg PO DAILY 12/02/20 0 02/01/21 09:00 History release cholecalciferol (vitamin D3) 50 50 mcg PO DAILY 02/06/21 09:00 History mcg (2,000 unit) capsule famotidine 20 mg tablet (Pepcid AC) 20 mg PO BID #60 t abs 03/13/21 11/09/22 04:45 Rx loratadine 10 mg tablet 10 mg PO DAILY PRN allergy s ymptoms 10/29/21 Unknown History zinc gluconate 50 mg tablet 50 mg PO DAILY 02/23/24 Un known History levothyroxine 125 mcg tablet 125 mcg PO DAILY #90 tabs 03/27/24 Unknown Rx vitamin B complex 1 tab PO DAILY 03/29/24 Unkn own History atorvastatin 40 mg tablet 40 mg PO DAILY #90 tabs 09/06 11/28 Unknown Rx fluoxetine 20 mg capsule (Prozac) 20 mg PO DAILY #90 c aps 10/23/24 Unknown Rx flecainide 100 mg tablet 100 mg PO BID 11/16/24 Unkno wn History metoprolol succinate 25 mg 25 mg PO DAILY #1 TAB 12/11 Unknown Rx tablet,extended release 24 hr Allergy/AdvReac Type Severity Reaction Status Date / Time bromodiphenhydramine (From Allergy Mild unknown Verified 12/10/24 23:15 Ambenyl) codeine (From Ambenyl) Allergy Mild unknown Verified 12/10/24 23:15 erythromycin base (From Allergy Mild unknown Verified 12/10/24 23:15 Kayden-Tab) nystatin Allergy Mild unknown Verified 12/10/24 23:15 sulfamethoxazole (From Allergy Mild Rash Verified 12/10/24 23:15 Bactrim) Tetracyclines Allergy Mild unknown Verified 12/10/24 23:15 trimethoprim (From Bactrim) Allergy Mild Rash Verified 12/10/24 23:15 Family History Mother Myocardial infarction Thyroid disorder Heart disease Hypertension Lung cancer Diabetes CVA (cerebral vascular accident) Grandmother Myocardial infarction Sister Breast cancer Diabetes Father Leukemia Diabetes Other Cancer Surgical History History of breast biopsy H/O total hysterectomy Hx of colonoscopy S/P thyroid biopsy S/P colonoscopy S/P tonsillectomy S/P wrist surgery RIGHT WRIST Social History household members: spouse number of children: 3 current occupational status: employed current occupation: [employer] Smoking Status: Never smoker Electronic Cigarette Use: not used second hand exposure: No alcohol intake: current alcohol intake frequency: holidays/special occasions only Alcohol type: wine substance use type: does not use caffeine: Yes what type of physical activity do you participate in: none frequency: decline to answer elma/temple: Restorationism seatbelt use: always do you feel safe at home: Yes ROS ROS ED Constitutional Constitutional ED: Denies chills or fever(s) Eyes Eyes: Denies change in vision or diplopia ENT ENT ED: Denies rhinorrhea or sore throat Cardiovascular Cardiovascular: Reports chest pain and lightheadedness; Denies orthopnea, palpitations or syncope Respiratory/Chest Respiratory/Chest: Reports dyspnea on exertion; Denies cough, dyspnea or orthopnea Gastrointestinal Gastrointestinal: Denies abdominal pain, diarrhea, nausea or vomiting Genitourinary Genitourinary ED: Denies dysuria or hematuria Musculoskeletal Musculoskeletal: Denies back pain or neck pain Integumentary Denies abscess or rash Neurologic Neurologic: Denies headache(s), paresthesias or weakness Psychiatric Psychiatric: Denies anxiety or suicidal thoughts EXAM Physical Exam Const Vital Signs: 12/10/24 23:14 12/10/24 23:37 12/11/24 01:07 Temperature 98.3 F 98 F Temperature Source Oral Oral Pulse Rate 56 L 53 L Respiratory Rate 16 16 Respiratory Effort Normal Respiratory Depth Normal Respiratory Pattern Normal Blood Pressure 169/80 H 163/76 H Blood Pressure Mean 109 105 Pulse Ox 98 95 Oxygen Delivery Method Room Air Room Air Positive well nourished and well developed General Appearance ED: well developed and NAD HEENT Reports moist mucous membranes normocephalic and atraumatic Eyes PERRL and EOMs intact bilaterally Neck full ROM, no lymphadenopathy, supple and no JVD Resp normal respiratory effort and clear to auscultation bilaterally Cardio regular rate, regular rhythm and no murmurs Cardio Narrative: Borderline bradycardia GI non-tender and non-distended Auscultation: normoactive bowel sounds Palpation: soft Back/Spine no CVA tenderness General Back: other FROM Extremity normal to inspection General Extremety ED: Negative for edema, pulses abnormal or tenderness General Extremity: Negative for edema or pulses abnormal Neuro oriented x3, CN's II-XII intact bilaterally and no sensory deficits noted Sensorium / Orientation: awake and alert Motor Exam: strength 5/5 throughout Psych mental status grossly normal Skin no rashes or lesions noted and no wounds MDM MDM MDM Narrative Medical decision making narrative: I reviewed the prior workup that the patient had which included a negative D- dimer less than 2 weeks ago, the patient confirms that she had the same symptoms then and denies any new symptoms now. She has no objective findings of a DVT here clinically, and I do not think this needs to be repeated. I discussed with them, I do not think she has a PE given the fact she was already ruled out for that. This could be an electrical issue, she also is fairly bradycardic and is on metoprolol 25 mg twice daily, and she may be on too much metoprolol and not able to increase her heart rate with demand making her feel dyspneic. I did some labs and an EKG, I do not really feel that I need to repeat her chest x-ray since she has had 3 in the last month and they were all normal and her lungs are clear right now and her pulse ox is normal at rest. With ambulation she did not desat here, no lower than 95%, and all of the above are unremarkable. It is also possible that her low reading at home was not accurate. I recommend cutting her metoprolol in half and following up with her money order clerk to see if that makes a difference. I confirmed with her and her that she is indeed is on metoprolol succinate twice daily. We are cutting it back to once daily. They are amenable to that plan. History & Record Review Additional record(s) reviewed:: Prior ED visit Lab Data Attestation: I reviewed the patient's lab results. Labs: Laboratory Results - last 24 hr 12/11/24 00:30 WBC 7.4 RBC 4.40 Hgb 14.0 Hct 41.1 MCV 93.4 MCH 31.8 MCHC 34.1 RDW Std Deviation 45.1 H RDW Coeff of Angel 13.2 Plt Count 236 MPV 10.6 Immature Gran % (Auto) 0.100 Neut % (Auto) 56.5 Lymph % (Auto) 32.8 Allen % (Auto) 7.5 Eos % (Auto) 2.4 Baso % (Auto) 0.7 Absolute Neuts (auto) 4.2 Absolute Lymphs (auto) 2.42 Nucleated RBC % 0 Sodium 138 Potassium 4.3 Chloride 103 Carbon Dioxide 25.5 Anion Gap 10 BUN 20 H Creatinine 0.75 Estim Creat Clear Calc 100.00 Est GFR (MDRD) Non-Af 91 BUN/Creatinine Ratio 26.6 H Glucose 131 H Calcium 9.6 Troponin T High Sens < 6 Rhythm Strip Rhythm Strip: sinus bry Rate: 55 Ectopy: None EKG Initial EKG: Attestation: I personally reviewed and interpreted this EKG as follows: Interpretation: No Acute Injury Pattern, Sinus Bradycardia and AV Block (1st deg) Comments: diffuse precordial T-wave flattening - nonspecific Prior EKG tracings: available for review Prior: Unchanged Discharge Plan Triage Chief Complaint: Shortness of Breath ED Provider: Morales Eubanks Dx/Rx/DC Orders Clinical Impression: Dyspnea on exertion, Bradycardia, drug induced Instructions: Understanding Bradycardia, ED Dyspnea Prescriptions: Continued aspirin 81 mg tablet,delayed release (DR/EC) 81 mg PO DAILY cholecalciferol (vitamin D3) 50 mcg (2,000 unit) capsule 50 mcg PO DAILY famotidine [Pepcid AC] 20 mg tablet 20 mg PO BID Qty: 60 6RF loratadine 10 mg tablet 10 mg PO DAILY PRN (Reason: allergy symptoms) zinc gluconate 50 mg tablet 50 mg PO DAILY vitamin B complex Tablet 1 tab PO DAILY flecainide 100 mg tablet 100 mg PO BID levothyroxine 125 mcg tablet 125 mcg PO DAILY Qty: 90 3RF atorvastatin 40 mg tablet 40 mg PO DAILY Qty: 90 3RF fluoxetine [Prozac] 20 mg capsule 20 mg PO DAILY Qty: 90 3RF Changed metoprolol succinate 25 mg tablet extended release 24 hr 25 mg PO DAILY Qty: 1 0RF Primary Care Provider: Romi Araujo Referrals: your money order clerk [Other] - Keep Amada appointment Romi Araujo MD [Primary Care Provider] - Print Language: Persian Disposition Disposition: Home, Self Care
--- NOTE | 2024-12-11 00:19 | EKG12_ITS ---
Test Reason : DYSRHYTHMIA Blood Pressure : */* mmHG Vent. Rate : 54 BPM Atrial Rate : 54 BPM P-R Int : 214 ms QRS Dur : 90 ms QT Int : 532 ms P-R-T Axes : 31 -25 -3 degrees QTcB Int : 504 ms Sinus bradycardia with 1st degree A-V block Nonspecific ST and T wave abnormality Abnormal ECG Confirmed by BRIDGET LANDRY, FAISAL ([id number]), video tape editor LORI OLIVA ([id number]) on 12/11/2024 9:16:54 AM Referred By: Confirmed By: FAISAL GILL MD
[2024-12-11 00:42] LABS: Absolute Lymphocyte Count 2.42 X10^3/uL (0.83-4.51); Absolute Neutrophil Count 4.2 X10^3/uL (2.0-7.7); Basophil# 0.05 X10^3/uL; Basophil% 0.7 % (0-1); Eosinophil# 0.18 X10^3/uL; Eosinophils% 2.4 % (0-5); Hematocrit 41.1 % (37-47); Lymphocyte # 2.42 X10^3/ul (0.83-4.51); Lymphocyte % 32.8 % (19-41); Mean Corp Hgb Conc 34.1 g/dL (32-36); Mean Corpuscular Hgb 31.8 pg (27.0-32.0); Mean Corpuscular Volume 93.4 fL (81-99); Mean Platelet Vol. 10.6 fl (6.2-12.0); Monocyte# 0.55 X10^3/uL; Monocyte% 7.5 % (0-10); NRBC Flagged by Analyzer 0 % (0-5); Neutrophil # 4.17 X10^3/uL (2.7-7.7); Neutrophil % 56.5 % (47-70); Platelet Count 236 K/mm3 (150-450); RBC Distribution Width CV 13.2 % (11.6-14.6); RBC Distribution Width SD 45.1 fl (35.1-43.9); White Blood Count 7.4 K/mm3 (4.4-11.0)
[2024-12-11 00:53] VITALS: O2SAT 96
[2024-12-11 01:07] VITALS: BP 163/76; PULSE 53; RESP 16; TEMP 36.6; O2SAT 95
[2024-12-11 01:16] LABS: Troponin T High Sensitivity < 6 ng/L (<=14)
[2024-12-11 01:25] LABS: Anion Gap 10 (5-15); BUN 20 mg/dL (4-19); BUN/Creat Ratio 26.6 RATIO (10-20); Calcium,Total 9.6 mg/dL (7.6-11.0); Carbon Dioxide 25.5 mmol/L (21.0-32.0); Chloride 103 mmol/L (98-108); Creatinine, Serum 0.75 mg/dL (0.70-1.20); EST Glomerular Filtration Rate 91 (>60); Glucose 131 mg/dL (70-99); Potassium 4.3 mmol/L (3.3-5.1); Sodium Level 138 mmol/L (133-145)
[2024-12-11 01:50] VITALS: BP 147/72; PULSE 56; RESP 16; TEMP 36.7; O2SAT 97
== END 2024-12-11 01:55 | disposition home or self-care (01) ==
PROVIDERS: Emergency Provider Emergency Medicine; PCP Internal Medicine; Visit Provider Emergency Medicine
DX: R06.09 Other forms of dyspnea (principal); T50.905A Adverse effect of unspecified drugs, medicaments and biological substances, initial encounter; R00.1 Bradycardia, unspecified; I10 Essential (primary) hypertension; E78.5 Hyperlipidemia, unspecified; E03.9 Hypothyroidism, unspecified; Z79.82 Long term (current) use of aspirin; Z79.899 Other long term (current) drug therapy
CPT/HCPCS: 80048; 84484; 85025; 93005; 99284; A4216

== ENCOUNTER 2025-01-30 08:24 | Day surgery (SDC) | payer OTHER, SELFPAY ==
--- NOTE | 2025-01-25 13:23 | PAT.ANE_ITS ---
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 When Was Last Pacemaker Check QUESTION #4 FULL TEXT: You/Your Family Experience fever (hyperthermia) with Anesthesia Last Oral Intake Last Oral intake: Last Oral Intake NPO since Meds taken in AM with sips of water? 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 Female Yes 01/25/25 08:56 HX of Motion Sickness No 01/25/25 08:56 HX of N/V After Surgery No 01/25/25 08:56 Non-Smoker Yes 01/25/25 08:56 Duration of Surgery greater No 01/25/25 08:56 than 60 minutes Number of Risk Factors 2 01/25/25 08:56 PONV Score Moderate Risk 01/25/25 08:56 Height & Weight Height & Weight: Anesthesia: Height & Weight Height 5 ft 4 in 01/23/25 09:05 Respiratory Assessment Respiratory Assessment - casing wringer operator: Respiratory Tract Infection Hx - casing wringer operator Hx Respiratory Tract Infection No 01/25/25 08:56 STOP Sleep Apnea STOP Sleep Apnea - casing wringer operator: STOP Sleep Apnea - casing wringer operator Hx Hypertension Yes: CONTROLLED WITH MEDS 01/25/25 08:56 Hx Sleep Apnea No 01/25/25 08:56 CPAP No 11/06/24 08:21 BIPAP Do you snore loudly (louder Yes 01/25/25 08:56 than talking or can be heard Do you often feel tired/ Yes 01/25/25 08:56 fatigued/ sleepy during daytime? Has anyone observed you stop No 01/25/25 08:56 breathing during sleep? STOP Results Positive 01/25/25 08:56 QUESTION #5 FULL TEXT : Do you snore loudly (louder than talking or can be heard through closed doors)? 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 Specify any problems Hx of Preganancy in last 3 No 01/25/25 08:56 Months Nurse Filling Out Transfusion DSCHRIBER 01/25/25 08:56 & Questions: Date: 01/25/25 01/25/25 08:56 Time: 08:58 01/25/25 08:56 Patient unable to answer at this time (ie. confused, unrespo /Reproduction History /Reproductive History - casing wringer operator: /Reproductive Hx- casing wringer operator Hx Now No 01/25/25 08:56 Gestational Age (in weeks): EDC: Hx Hx Para Hx Section SAB No 01/25/25 08:56 [facility] Medical History (Updated 01/25/25 @ 09:05 by Evon Lester) Diabetes High cholesterol Easy bruising Syncope Difficulty swallowing Gastric reflux Shortness of breath on exertion Hypertension Cardiology follow-up encounter Normal Holter exam History of echocardiogram Esophageal stenosis Atrial tachycardia PAC (premature atrial contraction) Tachyarrhythmia Chest pain Episodic lightheadedness Left foot pain Right elbow pain Fall Fatigue Strain of left knee Contusion of left knee Insulin resistance Thyroid disease Migraine headache History of hiatal hernia Non-smoker Wears glasses Arthritis Dysphagia Depression Other and unspecified hyperlipidemia Hypothyroidism Home Medications ?Medication ?Instructions ?Recorded ?Last Taken ?Type aspirin 81 mg tablet,delayed 81 mg PO DAILY 08/07/20 0 01/24/25 History release cholecalciferol (vitamin D3) 50 50 mcg PO DAILY 02/06/21 09:00 History mcg (2,000 unit) capsule famotidine 20 mg tablet (Pepcid AC) 20 mg PO BID #60 t abs 03/13/21 11/09/22 04:45 Rx loratadine 10 mg tablet 10 mg PO DAILY PRN allergy s ymptoms 10/29/21 Unknown History zinc gluconate 50 mg tablet 50 mg PO DAILY 02/23/24 Un known History vitamin B complex 1 tab PO DAILY 03/29/24 Unkn own History atorvastatin 40 mg tablet 40 mg PO DAILY #90 tabs 09/06 11/28 Unknown Rx fluoxetine 20 mg capsule (Prozac) 20 mg PO DAILY #90 c aps 10/23/24 Unknown Rx flecainide 100 mg tablet 100 mg PO BID 11/16/24 Unkno wn History metoprolol succinate 25 mg 25 mg PO DAILY #1 TAB 12/11 Unknown Rx tablet,extended release 24 hr levothyroxine 125 mcg tablet 125 mcg PO DAILY #90 tabs 01/17/25 Unknown Rx lisinopril 40 mg tablet 40 mg PO QDAY 01/23/25 Unkno wn History spironolactone 25 mg tablet 25 mg PO QDAY 01/23/25 Unk nown History magnesium 200 mg tablet 400 mg PO DAILY 01/25/25 Unk nown History Allergy/AdvReac Type Severity Reaction Status Date / Time bromodiphenhydramine (From Allergy Mild unknown Verified 01/25/25 08:53 Ambenyl) codeine (From Ambenyl) Allergy Mild unknown Verified 01/25/25 08:53 erythromycin base (From Allergy Mild unknown Verified 01/25/25 08:53 Kayden-Tab) nystatin Allergy Mild unknown Verified 01/25/25 08:53 sulfamethoxazole (From Allergy Mild Rash Verified 01/25/25 08:53 Bactrim) Tetracyclines Allergy Mild unknown Verified 01/25/25 08:53 trimethoprim (From Bactrim) Allergy Mild Rash Verified 01/25/25 08:53 Family History Mother Myocardial infarction Thyroid disorder Heart disease Hypertension Lung cancer Diabetes CVA (cerebral vascular accident) Grandmother Myocardial infarction Sister Breast cancer Diabetes Father Leukemia Diabetes Other Cancer Surgical History History of breast biopsy H/O total hysterectomy Hx of colonoscopy S/P thyroid biopsy S/P colonoscopy S/P tonsillectomy S/P wrist surgery RIGHT WRIST Social History household members: spouse number of children: 3 current occupational status: employed current occupation: [employer] Smoking Status: Never smoker Electronic Cigarette Use: not used second hand exposure: No alcohol intake: current alcohol intake frequency: holidays/special occasions only Alcohol type: wine substance use type: does not use caffeine: Yes what type of physical activity do you participate in: none frequency: decline to answer elma/buddhism: Tenriism seatbelt use: always do you feel safe at home: Yes Audit: Pertinent Findings Pertinent Findings EKG Perinent findings: 12/11/2024. Sinus bradycardia 54 bpm. First-degree AV block. Nonspecific ST and T wave abnormality. Echo (EF%) pertinent findings: 11/07/2024. EF 65%. Recommendation Anesthesia Recommendation Anesthesia recommendation: OPTIMIZED for anesthesia
[2025-01-30] VITALS (7 sets, daily range): BP systolic 101–134; BP diastolic 59–71; PULSE 55–66; RESP 16; TEMP 36.2–36.5; O2SAT 95–100; BMI 43.2
[2025-01-30] MEDS: Lactated Ringers 1,000 ML 15 ML IV (09:00)
--- NOTE | 2025-01-30 09:16 | PCM.HP.BLA ---
History and Physical Date of Admission: 01/30/25 Intake Vital Signs 12/10/2522:14 01/23/2509:05 Height 5 ft 4 in 5 ft 4 in Weight: 251 lb 6.4 oz 254 lb BMI 43.1 43.6 BP 169/80 H 131/85 H Blood Pressure Location Rt brachial Position Sitting Respiration 16 17 Pulse 56 L 58 L Pulse Source Monitor Temp 98.3 F Temp Source Oral Pulse Oximetry (%) 98 98 Oxygen Delivery Method room air Intake Visit Reasons: DIFFICULTY SWALLOWING Chief Complaint: difficulty swallowing Is patient in pain?: No Allergies bromodiphenhydramine (From Ambenyl) Allergy (Mild, Verified 01/23/25 09:06) unknowncodeine (From Ambenyl) Allergy (Mild, Verified 01/23/25 09:06) unknownerythromycin base (From Kayden-Tab) Allergy (Mild, Verified 01/23/25 09:06) unknownnystatin Allergy (Mild, Verified 01/23/25 09:06) unknownsulfamethoxazole (From Bactrim) Allergy (Mild, Verified 01/23/25 09:06) RashTetracyclines Allergy (Mild, Verified 01/23/25 09:06) unknowntrimethoprim (From Bactrim) Allergy (Mild, Verified 01/23/25 09:06) Rash Medications ?Medication ?Instructions ?Recorded ?Confirmed ?Type aspirin 81 mg tablet,delayed 81 mg PO DAILY 08/07/20 01/23/25 History release cholecalciferol (vitamin D3) 50 50 mcg PO DAILY 08/07/20 01/23/25 History mcg (2,000 unit) capsule famotidine 20 mg tablet (Pepcid AC) 20 mg PO BID #60 tabs 03/13/21 01/23/25 Rx loratadine 10 mg tablet 10 mg PO DAILY PRN allergy symptoms 10/29/21 01/23/25 History zinc gluconate 50 mg tablet 50 mg PO DAILY 02/23/24 01/23/25 History vitamin B complex 1 tab PO DAILY 03/29/24 01/23/25 History atorvastatin 40 mg tablet 40 mg PO DAILY #90 tabs 09/18/24 01/23/25 Rx fluoxetine 20 mg capsule (Prozac) 20 mg PO DAILY #90 caps 10/23/24 01/23/25 Rx flecainide 100 mg tablet 100 mg PO BID 11/16/24 01/23/25 History metoprolol succinate 25 mg 25 mg PO DAILY #1 TAB 12/11/24 01/23/25 Rx tablet,extended release 24 hr levothyroxine 125 mcg tablet 125 mcg PO DAILY #90 tabs 01/17/25 01/23/25 Rx lisinopril 40 mg tablet 40 mg PO QDAY 01/23/25 01/23/25 History spironolactone 25 mg tablet 25 mg PO QDAY 01/23/25 01/23/25 History PFSH Medical History Esophageal stenosis Insulin resistance Essential hypertension Atrial tachycardia PAC (premature atrial contraction) Tachyarrhythmia Chest pain Episodic lightheadedness Left foot pain Right elbow pain Fall Fatigue Strain of left knee Contusion of left knee Thyroid disease Migraine headache History of hiatal hernia Non-smoker History of pain when walking History of edema Wears glasses Alcohol use Difficulty swallowing Difficulty chewing Gastric reflux Arthritis Dysphagia Depression Other and unspecified hyperlipidemia Hypothyroidism Surgical History History of breast biopsy H/O total hysterectomy Hx of colonoscopy S/P thyroid biopsy S/P colonoscopy S/P tonsillectomy S/P wrist surgery RIGHT WRIST Family History Mother Myocardial infarction Thyroid disorder Heart disease Hypertension Lung cancer Diabetes CVA (cerebral vascular accident)Grandmother Myocardial infarctionSister Breast cancer DiabetesFather Leukemia DiabetesOther Cancer Social History household members: spouse number of children: 3 current occupational status: employed current occupation: [employer] Smoking Status: Never smoker Electronic Cigarette Use: not used second hand exposure: No alcohol intake: current alcohol intake frequency: holidays/special occasions only Alcohol type: wine substance use type: does not use caffeine: Yes what type of physical activity do you participate in: none frequency: decline to answer elma/jainism: Mandaen seatbelt use: always do you feel safe at home: Yes Female Reproductive History Menstrual Ab induced: 0 Ab spontaneous: 0 Ectopics: 0 HPI HPI HPI: Patient is a 59-year-old female with dysphagia. She reports that she does have hiatal hernia. She reports that she had a EGD in 2020 with dilation. She says that the dysphagia has been getting worse but last Wednesday about a week ago she had a chicken that got stuck for 20 minutes and it was the worst that she has had. It eventually passed on its own. ROS General General: No weight change, appetite, fatigue, colon cancer, breast cancer or weakness HEENT HEENT: Yes difficulty swallowing; No eye injury, eye surgery, swollen glands or hoarseness Endo Endocrine: Yes thyroid disease; No diabetes mellitus, thyroid cancer, Hair loss, heat intolerance or cold intolerance Skin Skin: No rash or changing moles Musc Musculoskeletal: Yes arthritis; No back problems, rheumatoid arthritis, gout or joint pain Cardio Cardiovascular: Yes heart disease, atrial fibrillation and high blood pressure; No murmur, pacemaker, heart attack, heart stent, palpitations, shortness of breath with exertion or chest pain Psych Psychiatric: No depression, anxiety or hearing voices Resp Respiratory: Yes shortness of breath, No sleep apnea, No cough, No COPD, No asthma, No emphysema and No wheezing Gastro Gastrointestinal: No abdominal pain, No nausea or vomiting, Yes diarrhea, No constipation, No blood in stool, Yes acid reflux, No hemorrhoids, No ulcers, No gallbladder problem and No black,tarry stools Zeyad Hematologic: No blood thinners, No blood disorders, No bleeding, No anemia and No blood clots Neuro Neurologic: No system reviewed and no additional complaints, except as documented, No as per HPI, No abnormal gait, No abnormal hearing, No abnormal movements, No abnormal speech, No behavioral changes, No burning sensations, No confusion, No convulsions, No disequilibrium, No dizziness, No localized weakness, No frequent falls, No headache(s), No lack of coordination, No loss of vision, No memory loss, No numbness, No other visual disturbances, No radicular pain, No restless legs, No sensory deficit, No syncope, No tingling, No tremor(s), No weakness and No other Exam Const General: cooperative Orientation: alert and oriented x3 HENMT Head: normal to inspection Neck Neck: normal visual inspection and full ROM Chest Chest palpation & inspection: normal inspection of the chest Resp Effort & Inspection: normal respiratory effort Auscultation: clear to auscultation bilaterally Cardio Rate: regular rate Rhythm: regular rhythm GI Inspection: non-distended Palpation: soft and nontender Skin General: no rashes or lesions noted Neuro General: patient alert and patient oriented x3 Extrem General: full ROM Psych Appearance: grossly normal Mental Status: mental status grossly normal Assessment and Plan Assessment and Plan (1) Esophageal stenosis: Status: Acute Plan: Patient is having dysphagia. I would like to perform an EGD with possible dilation. I discussed the risks including but not limited to bleeding, infection, perforation of the esophagus. Patient understands the risks and is willing to proceed. I did inform her that the risk of perforation and bleeding go up with dilation. She will stop her aspirin for 5 days. Abner Stein MD Pager: [facility] [address] [place] [address], [address] [place] [address] Office: I have examined the patient and the H&P has been reviewed. There are no clinical changes since date of exam.
--- NOTE | 2025-01-30 09:22 | PCM.PRE.AN2 ---
ASA Classification* ASA Classification ASA Classification: 3 Assessment & Plan Anesthesia* Anesthesia Assessment Anesthesia Assessment: Discussed sedation and/or anesthesia options, risks, benefits, and alternatives with patient/parents/legal guardian/POA. Questions invited. The patient/parents/legal guardian/POA seems to understand and agrees to proceed with anesthesia plan. Reviewed the physical assessment, medical history, allergy history and patient home medications list prior to surgery/procedure/anesthetic and documented any changes. Performed airway and anesthesia risk assessments. Anesthesia Type Anesthesia Type: MAC History Source History Obtained from:: Patient and Chart Anesthesia Focused Assessment* Temperature: 97.7 F Pulse Rate: 58 Blood Pressure: 134/62 Respiratory Rate: 16 Pulse Ox: 100 Oxygen Delivery Method: Room Air Airway Assessment Mouth opens: >3 cm Mallampati Score: III Teeth Condition: Caps/Crowns (Patient has couple crowns. They are tight.) Neck Range of motion (ROM): Limited ROM (slight decrease in extension) Focused Labs Anesthesia Preop lab: CBC WBC 7.4 K/mm3 (4.4-11.0) 12/11/24 00:12/11/24 RBC 4.40 M/mm3 (4.2-5.4) 12/11/24 00:30 12/11/24 Hgb 14.0 g/dL (12.0-15.0) 12/11/24 00:30 12/11/24 Hct 41.1 % (37-47) 12/11/24 00:30 12/11/24 Plt Count 236 K/mm3 (150-450) 12/11/24 00:30 12/11/24 CHEMISTRY Potassium 4.3 mmol/L (3.3-5.1) 12/11/24 00:30 12/11/24 Sodium 138 mmol/L (133-145) 12/11/24 00:30 12/11/24 Magnesium 2.0 mg/dL (1.5-2.2) 11/20/24 17:25 11/20/24 BUN 20 mg/dL (4-19) H 12/11/24 00:30 12/11/24 Creatinine 0.75 mg/dL (0.70-1.20) 12/11/24 00:30 12/11/24 Glucose 131 mg/dL (70-99) H 12/11/24 00:30 12/11/24 POC Glucose 162 mg/dL (74-106) H 11/09/22 08:22 11/09/22 TSH 0.732 uIU/mL (0.300-4.200) 11/20/24 17:25 11/20/24 COAG Urine Test Negative Negative 02/07/21 07:10 02/07/21 Pre-Assessment Diagnosis/Proposed Procedure Planned Operative Procedure(s): EGD POSS DILATION Anesthesia History Anesthesia History - stand grinder: Anesthesia History - stand grinder Hx Hospitalization Yes: 11/2024 [facility] RATE 01/25/25 08:56 /HYPERTENSION UNCONTROLLED Any Problems With Anesthesia Yes: SLOW TO AWAKEN 01/25/25 08:56 Cholinesterase deficiency No 01/25/25 08:56 You/Your Family Experience No 01/25/25 08:56 fever (hyperthermia) with Relationship Recent Exposure to Contagious No 01/30/25 08:48 Disease Does patient have nerve No 01/25/25 08:56 stimulator Patient instructed to have device shut off --Does patient have Pacemaker No 01/30/25 08:48 or ICD? When Was Last Pacemaker Check QUESTION #4 FULL TEXT: You/Your Family Experience fever (hyperthermia) with Anesthesia Last Oral Intake Last Oral intake: Last Oral Intake NPO since 06:00 01/30/25 08:48 Meds taken in AM with sips of Yes 01/30/25 08:48 water? Meds patient instructed to see medlist 01/30/25 08:48 take am of surgery Any additional information?: Yes Meds taken in AM with sips of water?: Yes PONV PONV - stand grinder: PONV - stand grinder Female Yes 01/25/25 08:56 HX of Motion Sickness No 01/25/25 08:56 HX of N/V After Surgery No 01/25/25 08:56 Non-Smoker Yes 01/25/25 08:56 Duration of Surgery greater No 01/25/25 08:56 than 60 minutes Number of Risk Factors 2 01/25/25 08:56 PONV Score Moderate Risk 01/25/25 08:56 Height & Weight Height & Weight: Anesthesia: Height & Weight Height 5 ft 4 in 01/30/25 08:48 Weight: 114.3 kg 01/30/25 08:48 Body Mass Index (BMI) 43.2 01/30/25 08:48 Respiratory Assessment Respiratory Assessment - stand grinder: Respiratory Tract Infection Hx - stand grinder Hx Respiratory Tract Infection No 01/25/25 08:56 STOP Sleep Apnea STOP Sleep Apnea - stand grinder: STOP Sleep Apnea - stand grinder Hx Hypertension Yes: CONTROLLED WITH MEDS 01/25/25 08:56 Hx Sleep Apnea No 01/25/25 08:56 CPAP No 11/06/24 08:21 BIPAP Do you snore loudly (louder Yes 01/25/25 08:56 than talking or can be heard Do you often feel tired/ Yes 01/25/25 08:56 fatigued/ sleepy during daytime? Has anyone observed you stop No 01/25/25 08:56 breathing during sleep? STOP Results Positive 01/25/25 08:56 QUESTION #5 FULL TEXT : Do you snore loudly (louder than talking or can be heard through closed doors)? Tobacco Use History Tobacco Use History - stand grinder: Tobacco Use History - stand grinder Tobacco Use Smoking Status Never smoker 01/25/25 08:56 Hx Tobacco Use No 01/25/25 08:56 Years Smoking Packs Smoked per Day Smoking Cessation Date was within the last 15 years Hx Smoking Cessation Date Hx Smoking Cessation Counseling Hematologic Medial History Hematologic Hx - stand grinder: Hematologic Medical Hx - electronic scale tester Hx of Blood Transfusion No 01/25/25 08:56 Hx of Transfusion in last 3 No 01/25/25 08:56 Months Date of Last Transfusion (if within last 3 months) Ever experience any problems No 01/25/25 08:56 with transfusion(s)? Specify any problems Hx of Preganancy in last 3 No 01/25/25 08:56 Months Nurse Filling Out Transfusion DSCHRIBER 01/25/25 08:56 & Questions: Date: 01/25/25 01/25/25 08:56 Time: 08:58 01/25/25 08:56 Patient unable to answer at this time (ie. confused, unrespo /Reproduction History /Reproductive History - stand grinder: /Reproductive Hx- stand grinder Hx Now No 01/25/25 08:56 Gestational Age (in weeks): EDC: Hx Hx Para Hx Section SAB No 01/25/25 08:56 Active Medications Active Medications: Current Medications Generic Name Dose Route Start Last Admin Trade Name Stacy PRN Reason Stop Dose Admin Lactated Ringer's 1,000 mls @ 15 mls/hr 01/30/25 08:45 01/30/25 09:00 IV 15 mls/hr .Q48H AG Administration PFSH Medical History Diabetes High cholesterol Easy bruising Syncope Difficulty swallowing Gastric reflux Shortness of breath on exertion Hypertension Cardiology follow-up encounter Normal Holter exam History of echocardiogram Esophageal stenosis Atrial tachycardia PAC (premature atrial contraction) Tachyarrhythmia Chest pain Episodic lightheadedness Left foot pain Right elbow pain Fall Fatigue Strain of left knee Contusion of left knee Insulin resistance Thyroid disease Migraine headache History of hiatal hernia Non-smoker Wears glasses Arthritis Dysphagia Depression Other and unspecified hyperlipidemia Hypothyroidism Home Medications ?Medication ?Instructions ?Recorded ?Last Taken ?Type aspirin 81 mg tablet,delayed 81 mg PO DAILY 08/07/20 01/24/25 History release cholecalciferol (vitamin D3) 50 50 mcg PO DAILY 08/07/20 02/06/21 09:00 History mcg (2,000 unit) capsule famotidine 20 mg tablet (Pepcid AC) 20 mg PO BID #60 tabs 03/13/21 01/30/25 Rx loratadine 10 mg tablet 10 mg PO DAILY PRN allergy symptoms 10/29/21 Unknown History zinc gluconate 50 mg tablet 50 mg PO DAILY 02/23/24 Unknown History vitamin B complex 1 tab PO DAILY 03/29/24 Unknown History atorvastatin 40 mg tablet 40 mg PO DAILY #90 tabs 09/18/24 Unknown Rx fluoxetine 20 mg capsule (Prozac) 20 mg PO DAILY #90 caps 10/23/24 01/30/25 Rx flecainide 100 mg tablet 100 mg PO BID 11/16/24 01/30/25 History metoprolol succinate 25 mg 25 mg PO DAILY #1 TAB 12/11/24 01/30/25 Rx tablet,extended release 24 hr levothyroxine 125 mcg tablet 125 mcg PO DAILY #90 tabs 01/17/25 01/30/25 Rx lisinopril 40 mg tablet 40 mg PO QDAY 01/23/25 Unknown History spironolactone 25 mg tablet 25 mg PO QDAY 01/23/25 Unknown History magnesium 200 mg tablet 400 mg PO DAILY 01/25/25 Unknown History Allergy/AdvReac Type Severity Reaction Status Date / Time bromodiphenhydramine (From Allergy Mild unknown Verified 01/30/25 08:47 Ambenyl) codeine (From Ambenyl) Allergy Mild unknown Verified 01/30/25 08:47 erythromycin base (From Allergy Mild unknown Verified 01/30/25 08:47 Kayden-Tab) nystatin Allergy Mild unknown Verified 01/25/25 08:53 sulfamethoxazole (From Allergy Mild Rash Verified 01/30/25 08:47 Bactrim) Tetracyclines Allergy Mild unknown Verified 01/30/25 08:47 trimethoprim (From Bactrim) Allergy Mild Rash Verified 01/30/25 08:47 Family History Mother Myocardial infarction Thyroid disorder Heart disease Hypertension Lung cancer Diabetes CVA (cerebral vascular accident) Grandmother Myocardial infarction Sister Breast cancer Diabetes Father Leukemia Diabetes Other Cancer Surgical History History of breast biopsy H/O total hysterectomy Hx of colonoscopy S/P thyroid biopsy S/P colonoscopy S/P tonsillectomy S/P wrist surgery RIGHT WRIST Social History household members: spouse number of children: 3 current occupational status: employed current occupation: [employer] Smoking Status: Never smoker Electronic Cigarette Use: not used second hand exposure: No alcohol intake: current alcohol intake frequency: holidays/special occasions only Alcohol type: wine substance use type: does not use caffeine: Yes what type of physical activity do you participate in: none frequency: decline to answer elma/voodoo: Temple seatbelt use: always do you feel safe at home: Yes Review of Systems (Anesthesia) ROS Narrative System reviewed and no additional complaints, except as documented.
--- NOTE | 2025-01-30 10:12 | OP.CCLET_ITS ---
01/30/2025 Romi Araujo [facility] [address] [place] [address] Re : Upper GI endoscopy procedure for Elenalexi Graham Dear Dr. Araujo This procedure was performed on Thursday, January 30, 2025. My impressions and recommendations are as follows: Impressions : - Benign-appearing esophageal stenosis. Dilated. - Normal stomach. - Normal examined duodenum. - No specimens collected. Recommendations : - Discharge patient to home. - Resume previous diet. - Continue present medications. My findings are described in the full procedure note, which is enclosed. If I can be of further assistance, please feel free to contact me at Doctor phone number(s): , Work: . Sincerely, Abner Stein MD 01/30/2025 10:12:00 AM This report has been signed electronically.
--- NOTE | 2025-01-30 10:12 | OP.EGD_ITS ---
Patient Name: Elena Graham Procedure Date: 01/30/2025 9:52 AM Date of : 1965 Age: 59 Procedure: Upper GI endoscopy Indications: Dysphagia Providers: Abner Stein MD Medicines: Propofol per Anesthesia Patient Profile: This is a 59 year old female. Refer to note in patient chart for documentation of history and physical. Complications: No immediate complications. Estimated blood loss: Minimal. Procedure: Pre-Anesthesia Assessment: - Prior to the procedure, a History and Physical was performed, and patient medications and allergies were reviewed. The patient's tolerance of previous anesthesia was also reviewed. The risks and benefits of the procedure and the sedation options and risks were discussed with the patient. All questions were answered, and informed consent was obtained. Prior Anticoagulants: The patient has taken no anticoagulant or antiplatelet agents. After reviewing the risks and benefits, the patient was deemed in satisfactory condition to undergo the procedure. After obtaining informed consent, the endoscope was passed under direct vision. Throughout the procedure, the patient's blood pressure, pulse, and oxygen saturations were monitored continuously. The gastroscope was introduced through the mouth, and advanced to the third part of duodenum. The upper GI endoscopy was accomplished without difficulty. The patient tolerated the procedure well. Scope In: 10:04:25 AM Scope Out: 10:09:22 AM Total Procedure Duration Time 0 hours 4 minutes 57 seconds Findings: One benign-appearing, intrinsic moderate (circumferential scarring or stenosis; an endoscope may pass) stenosis was found at the gastroesophageal junction. The stenosis was traversed. A TTS dilator was passed through the scope. Dilation with a 15-16.5-18 mm balloon dilator was performed to 18 mm. The dilation site was examined following endoscope reinsertion and showed moderate improvement in luminal narrowing. Estimated blood loss was minimal. The stomach was normal. The examined duodenum was normal. Impression: - Benign-appearing esophageal stenosis. Dilated. - Normal stomach. - Normal examined duodenum. - No specimens collected. Recommendation: - Discharge patient to home. - Resume previous diet. - Continue present medications. Procedure Code(s): --- Professional --- 00896, Esophagogastroduodenoscopy, flexible, transoral; with transendoscopic balloon dilation of esophagus (less than 30 mm diameter) Diagnosis Code(s): --- Professional --- K22.2, Esophageal obstruction R13.10, Dysphagia, unspecified CPT copyright 2021 [employer]. All rights reserved. The codes documented in this report are preliminary and upon handcrew foreman review may be revised to meet current compliance requirements. Abner Stein MD 01/30/2025 10:12:00 AM This report has been signed electronically. Number of Addenda: 0 Note Initiated On: 01/30/2025 9:52 AM
--- NOTE | 2025-01-30 10:20 | PCM.POST.ANE ---
Anesthesia: Postop Eval I Current Vital Signs Temperature: 97.4 F Pulse Rate: 55 Blood Pressure: 101/59 Respiratory Rate: 16 Pulse Ox: 96 Oxygen Delivery Method: Room Air Assessment Airway patent: Yes Spontaneous unlabored respirations: Yes Mental status: Awake and Calm nausea: No Vomiting: No Anesthesia Complication: No Fluid Hydration Crystalloid volume administer (ml): 500 Total IV fluid infused: 500 Progress Note Anesthesia document: Postop Eval 1 completed: Yes
--- NOTE | 2025-01-30 14:01 | PCM.POSTANE2 ---
Anesthesia Postop Eval I Sum Postop Eval Completion status Anesthesia document: Postop Eval 1 completed: Yes Anesthesia Postop Eval I Summary Anesthesia Postop Eval I Summary: Anesthesia Postop Eval I: Assessment Summary Airway patent Yes 01/30/25 10:21 [email or web address] Spontaneous unlabored Yes 01/30/25 10:21 [email or web address] respirations Mental status Awake,Calm 01/30/25 10:21 [email or web address] nausea No 01/30/25 10:21 [email or web address] Vomiting No 01/30/25 10:21 [email or web address] Anesthesia Postop Eval I: Fluid Summary Crystalloid volume administer 500 01/30/25 10:21 [email or web address] (ml) Colloids volume administered ( ml) Blood Product volume administered (ml) Total IV fluid infused 500 01/30/25 10:21 [email or web address] Anesthesia Postop Eval I: Summary Notes Anesthesia Complication No 01/30/25 10:21 [email or web address] Anesthesia Complication Comment: Post-operative progress note Anesthesia: Postop Eval II Evaluation Mental status: Awake and Calm Pain Level: 0 nausea: No Vomiting: No Complications Anesthesia Complication: No
== END 2025-01-30 10:55 | disposition home or self-care (01) ==
LOC: EN 08:26 → AC 08:27
PROVIDERS: PCP Internal Medicine; Referring Provider Internal Medicine; Visit Provider Surgery
PROC: 0DJ08ZZ Inspection of Upper Intestinal Tract, Via Natural or Artificial Opening Endoscopic (ICD-10-PCS; CPT 43235; principal; 2025-01-30 09:25)
DX: K22.2 Esophageal obstruction (principal); R13.10 Dysphagia, unspecified; I10 Essential (primary) hypertension; K21.9 Gastro-esophageal reflux disease without esophagitis; E78.5 Hyperlipidemia, unspecified; E03.9 Hypothyroidism, unspecified; Z79.82 Long term (current) use of aspirin; Z79.899 Other long term (current) drug therapy
CPT/HCPCS: 43249; J2405

== ENCOUNTER → 2025-02-14 | Outpatient (CLI) | payer OTHER, SELFPAY ==
[2025-02-14 17:11] LABS: Absolute Lymphocyte Count 1.36 X10^3/uL (0.83-4.51); Absolute Neutrophil Count 5.1 X10^3/uL (2.0-7.7); Basophil# 0.04 X10^3/uL; Basophil% 0.6 % (0-1); Eosinophil# 0.11 X10^3/uL; Eosinophils% 1.6 % (0-5); Hematocrit 40.4 % (37-47); Hemoglobin 13.6 g/dL (12.0-15.0); Lymphocyte # 1.36 X10^3/ul (0.83-4.51); Lymphocyte % 19.2 % (19-41); Mean Corp Hgb Conc 33.7 g/dL (32-36); Mean Corpuscular Hgb 31.8 pg (27.0-32.0); Mean Corpuscular Volume 94.4 fL (81-99); Mean Platelet Vol. 11.3 fl (6.2-12.0); Monocyte# 0.47 X10^3/uL; Monocyte% 6.6 % (0-10); NRBC Flagged by Analyzer 0 % (0-5); Neutrophil # 5.09 X10^3/uL (2.7-7.7); Neutrophil % 71.7 % (47-70); Platelet Count 229 K/mm3 (150-450); RBC Distribution Width CV 11.9 % (11.6-14.6); RBC Distribution Width SD 41.3 fl (35.1-43.9); Red Blood Count 4.28 M/mm3 (4.2-5.4); White Blood Count 7.1 K/mm3 (4.4-11.0)
[2025-02-14 17:52] LABS: ALB/GLOB Ratio 1.7 RATIO (0.9-2.4); AST(SGOT) 19 U/L (<=31); Alanine Aminotransfer ALT/SGPT 32 U/L (<=34); Albumin, Serum 4.4 g/dL (3.5-5.0); Alkaline Phosphatase 85 U/L (35-104); Anion Gap 11 (5-15); BUN 23 mg/dL (4-19); BUN/Creat Ratio 19.5 RATIO (10-20); Calcium,Total 10.3 mg/dL (7.6-11.0); Carbon Dioxide 25.6 mmol/L (21.0-32.0); Chloride 102 mmol/L (98-108); Cholesterol 135 mg/dL (<=200); Creatinine, Serum 1.19 mg/dL (0.70-1.20); EST Glomerular Filtration Rate 53 (>60); Free T3 2.8 pg/mL (2.18-3.98); Globulin 2.6 g/dL (2.2-4.2); Glucose 139 mg/dL (70-99); High Density Lipoprotein 46 mg/dL; Low Density Lipoprotein Calc. 57 mg/dL; Magnesium 2.2 mg/dL (1.5-2.2); Potassium 5.7 mmol/L (3.3-5.1); Sodium Level 139 mmol/L (133-145); Thyroid Stim Hormone (TSH) 0.454 uIU/mL (0.300-4.200); Total Bilirubin 0.42 mg/dL (0.00-1.30); Triglycerides 160 mg/dL; Very Low Density Lipoprotein 32 mg/dL (5-40); Vitamin D,25 Hydroxy 39.8 ng/mL (30-100); cholesterol:hdl ratio screen 2.91
[2025-02-14 19:04] LABS: Hemoglobin A1c 6.8 % (<=5.6)
== END | disposition home or self-care (01) ==
LOC: BIMLAB 14:23
PROVIDERS: PCP Internal Medicine; Referring Provider Internal Medicine; Visit Provider Internal Medicine
DX: E88.819 Insulin resistance, unspecified (principal); I10 Essential (primary) hypertension; I47.19 Other supraventricular tachycardia; E07.9 Disorder of thyroid, unspecified; R73.9 Hyperglycemia, unspecified; E55.9 Vitamin D deficiency, unspecified; Z13.220 Encounter for screening for lipoid disorders
CPT/HCPCS: 36415; 80053; 80061; 82306; 83036; 83735; 84439; 84443; 84481; 85025

== ENCOUNTER 2025-03-05 15:38 | Emergency (ER) | payer OTHER, SELFPAY ==
[2025-03-05] VITALS (11 sets, daily range): BP systolic 93–152; BP diastolic 62–75; PULSE 55–63; RESP 14–20; TEMP 36.4–36.6; O2SAT 95–100; BMI 43.9
--- NOTE | 2025-03-05 15:51 | EKG12_ITS ---
Test Reason : SOB Blood Pressure : */* mmHG Vent. Rate : 56 BPM Atrial Rate : 56 BPM P-R Int : 198 ms QRS Dur : 86 ms QT Int : 464 ms P-R-T Axes : 37 -17 -31 degrees QTcB Int : 447 ms Sinus bradycardia Low voltage QRS ST & T wave abnormality, consider anterior ischemia Abnormal ECG Confirmed by BRIDGET LANDRY, FAISAL ([id number]), editorial assistant JOHN JOSEPH ([id number]) on 03/06/2025 1:35:11 PM Referred By: JIM/RODOLFO Confirmed By: FAISAL GILL MD
[2025-03-05 16:13] LABS: Hematocrit 38.1 % (37-47); Hemoglobin 13.1 g/dL (12.0-15.0); Immature Granulocytes Count 0.010 X10^3/uL (0.0-0.0); Mean Corp Hgb Conc 34.4 g/dL (32-36); Mean Corpuscular Volume 92.9 fL (81-99); Mean Platelet Vol. 10.7 fl (6.2-12.0); NRBC Flagged by Analyzer 0 % (0-5); Platelet Count 209 K/mm3 (150-450); RBC Distribution Width CV 12.0 % (11.6-14.6); RBC Distribution Width SD 40.9 fl (35.1-43.9); Red Blood Count 4.10 M/mm3 (4.2-5.4); White Blood Count 6.1 K/mm3 (4.4-11.0)
[2025-03-05 17:04] LABS: Anion Gap 12 (5-15); BUN 22 mg/dL (4-19); BUN/Creat Ratio 21.4 RATIO (10-20); Calcium,Total 9.4 mg/dL (7.6-11.0); Carbon Dioxide 20.9 mmol/L (21.0-32.0); Chloride 102 mmol/L (98-108); Glucose 230 mg/dL (70-99); Potassium 4.5 mmol/L (3.3-5.1); Troponin T High Sensitivity 7 ng/L (<=14)
--- NOTE | 2025-03-05 17:38 | EX.ED.DYSGE1 ---
HPI History of Present Illness Chief Complaint: Shortness of Breath Informant: patient Onset/Context/Timing Onset: Today Context: Sudden Onset Timing: Intermittent Quality: Dizzy, lightheaded, sweaty Location: Generalized Worsened by: Nothing Relieved by: Time, oxygen Narrative Narrative: Patient presents with shortness of breath, lightheadedness, dizziness, and low heart rate that began today. Patient states she noted some changes in her vision where her vision became blurry. Patient states she broke into a sweat. Patient checked her heart rate and it was low. Patient had a heart cath this morning which showed a 50% LAD stenosis. Patient states that her sample stitcher was recommending medical therapy for this. The patient states her symptoms have resolved. Patient states that EMS checked her pulse oximeter it was 98. Patient states they gave her oxygen and she felt better after that. Patient denies any nausea or vomiting. [facility] Medical History Diabetes High cholesterol Easy bruising Syncope Difficulty swallowing Gastric reflux Shortness of breath on exertion Hypertension Cardiology follow-up encounter Normal Holter exam History of echocardiogram Esophageal stenosis Atrial tachycardia PAC (premature atrial contraction) Tachyarrhythmia Chest pain Episodic lightheadedness Left foot pain Right elbow pain Fall Fatigue Strain of left knee Contusion of left knee Insulin resistance Thyroid disease Migraine headache History of hiatal hernia Non-smoker Wears glasses Arthritis Dysphagia Depression Other and unspecified hyperlipidemia Hypothyroidism Home Medications ?Medication ?Instructions ?Recorded ?Last Taken ?Type aspirin 81 mg tablet,delayed 81 mg PO DAILY 08/07/20 03/05/25 History release cholecalciferol (vitamin D3) 50 50 mcg PO DAILY 08/07/20 03/04/25 History mcg (2,000 unit) capsule famotidine 20 mg tablet (Pepcid AC) 20 mg PO BID #60 tabs 03/13/21 03/05/25 Rx loratadine 10 mg tablet 10 mg PO DAILY PRN allergy symptoms 10/29/21 03/05/25 History zinc gluconate 50 mg tablet 50 mg PO DAILY 02/23/24 03/04/25 History vitamin B complex 1 tab PO DAILY 03/29/24 03/04/25 History atorvastatin 40 mg tablet 40 mg PO DAILY #90 tabs 09/18/24 Unknown Rx fluoxetine 20 mg capsule (Prozac) 20 mg PO DAILY #90 caps 10/23/24 03/05/25 Rx flecainide 100 mg tablet 100 mg PO BID 11/16/24 03/05/25 History metoprolol succinate 25 mg 25 mg PO DAILY #1 TAB 12/11/24 03/05/25 Rx tablet,extended release 24 hr levothyroxine 125 mcg tablet 125 mcg PO DAILY #90 tabs 01/17/25 03/05/25 Rx lisinopril 40 mg tablet 40 mg PO QDAY 01/23/25 03/05/25 History spironolactone 25 mg tablet 25 mg PO QDAY 01/23/25 03/04/25 History magnesium 200 mg tablet 400 mg PO DAILY 01/25/25 03/04/25 History Allergy/AdvReac Type Severity Reaction Status Date / Time bromodiphenhydramine (From Allergy Mild unknown Verified 03/05/25 15:39 Ambenyl) codeine (From Ambenyl) Allergy Mild unknown Verified 03/05/25 15:39 erythromycin base (From Allergy Mild unknown Verified 03/05/25 15:39 Kayden-Tab) nystatin Allergy Mild unknown Verified 03/05/25 15:39 sulfamethoxazole (From Allergy Mild Rash Verified 03/05/25 15:39 Bactrim) Tetracyclines Allergy Mild unknown Verified 03/05/25 15:39 trimethoprim (From Bactrim) Allergy Mild Rash Verified 03/05/25 15:39 Family History Mother Myocardial infarction Thyroid disorder Heart disease Hypertension Lung cancer Diabetes CVA (cerebral vascular accident) Grandmother Myocardial infarction Sister Breast cancer Diabetes Father Leukemia Diabetes Other Cancer Surgical History History of breast biopsy H/O total hysterectomy Hx of colonoscopy S/P thyroid biopsy S/P colonoscopy S/P tonsillectomy S/P wrist surgery RIGHT WRIST Social History household members: spouse number of children: 3 current occupational status: employed current occupation: [employer] Smoking Status: Never smoker Electronic Cigarette Use: not used second hand exposure: No alcohol intake: current alcohol intake frequency: holidays/special occasions only Alcohol type: wine substance use type: does not use caffeine: Yes what type of physical activity do you participate in: none frequency: decline to answer elma/restoration: Restorationism seatbelt use: always do you feel safe at home: Yes ROS ROS ED Constitutional Constitutional ED: Reports sweats; Denies chills or fever(s) Eyes Eyes: Reports blurry vision and change in vision ENT ENT ED: Denies rhinorrhea or sore throat Cardiovascular Cardiovascular: Reports chest pain; Denies palpitations Respiratory/Chest Respiratory/Chest: Reports dyspnea; Denies cough Gastrointestinal Gastrointestinal: Denies nausea or vomiting Genitourinary Genitourinary ED: Denies dysuria or hematuria Musculoskeletal Musculoskeletal: Denies back pain or neck pain Integumentary Denies abscess or rash Neurologic Neurologic: Denies headache(s) or weakness Allergic/Immunologic Allergic/Immunologic ED: Denies mouth swelling or urticaria EXAM Physical Exam Const Vital Signs: 03/05/25 15:39 03/05/25 16:00 03/05/25 16:00 Temperature 97.9 F Temperature Source Oral Pulse Rate 58 L Respiratory Rate 18 20 H Respiratory Effort Respiratory Depth Respiratory Pattern Blood Pressure 93/75 Blood Pressure Mean 81 Pulse Ox 100 98 Oxygen Delivery Method Room Air Room Air Room Air 03/05/25 16:39 03/05/25 17:00 03/05/25 17:16 Temperature 97.8 F Temperature Source Oral Pulse Rate 58 L 59 L Respiratory Rate 20 H 20 H Respiratory Effort Normal Non-Labored Short of Breath Respiratory Depth Normal Respiratory Pattern Normal Blood Pressure 152/63 H 148/72 H Blood Pressure Mean 92 97 Pulse Ox 98 95 Oxygen Delivery Method Room Air Nasal Cannula 03/05/25 18:00 03/05/25 19:00 03/05/25 20:00 Temperature 97.8 F 97.6 F L Temperature Source Oral Oral Pulse Rate 63 60 Respiratory Rate 17 17 Respiratory Effort Respiratory Depth Respiratory Pattern Blood Pressure 131/62 H 141/69 H 137/62 H Blood Pressure Mean 85 93 87 Pulse Ox 96 Oxygen Delivery Method Room Air Room Air 03/05/25 21:00 03/05/25 21:50 03/05/25 23:00 Temperature 97.8 F Temperature Source Oral Pulse Rate 55 L 59 L 58 L Respiratory Rate 17 14 Respiratory Effort Respiratory Depth Respiratory Pattern Blood Pressure 138/72 H 139/62 H 148/64 H Blood Pressure Mean 94 87 92 Pulse Ox 97 98 Oxygen Delivery Method Room Air Room Air 07/01/25 00:10 Temperature 97.8 F Temperature Source Pulse Rate 67 Respiratory Rate 16 Respiratory Effort Respiratory Depth Respiratory Pattern Blood Pressure 144/65 H Blood Pressure Mean 91 Pulse Ox 100 Oxygen Delivery Method Positive well nourished and well developed General Appearance ED: well developed and NAD HEENT Reports moist mucous membranes Neck supple and no JVD Chest Wall palpation of chest normal Resp normal respiratory effort and clear to auscultation bilaterally Cardio regular rate and regular rhythm GI non-tender and non-distended Palpation: soft Extremity normal to inspection General Extremety ED: Negative for tenderness Neuro oriented x3, CN's II-XII intact bilaterally and no sensory deficits noted Sensorium / Orientation: alert Motor Exam: strength 5/5 throughout Psych mental status grossly normal MDM MDM MDM Narrative Medical decision making narrative: Differential diagnosis includes cardiac dysrhythmia, cardiac ischemia, electrolyte abnormality, pneumonia, bronchitis, pulmonary embolism, and anxiety. EKG will be obtained to assess for cardiac dysrhythmia and cardiac ischemia. Chest x-ray will be obtained to assess for pneumonia or bronchitis. CBC will be obtained to assess for leukocytosis and anemia. Basic metabolic profile will be obtained to assess for electrolyte abnormality and renal function. High-sensitivity troponin will be obtained to assess for cardiac ischemia. 2-hour repeat high-sensitivity troponin will be obtained to assess for ongoing cardiac ischemia. D-dimer will be obtained to assess for pulmonary embolism. History & Record Review Additional record(s) reviewed:: Prior outpatient record, Prior ED visit and Prior labs Lab Data Attestation: I reviewed the patient's lab results. Lab results narrative: CBC was reviewed and was within normal limits. Basic metabolic profile was reviewed. Glucose was elevated at 230. Initial high-sensitivity troponin was reviewed and was normal at 7. 2-hour repeat high-sensitivity troponin was reviewed and was 15. 4-hour repeat high-sensitivity troponin was reviewed and was normal at 11. D-dimer was reviewed and was less than 0.27. Labs: Laboratory Results - last 24 hr 03/05/25 03/05/25 03/05/25 16:00 20:10 22:25 WBC 6.1 RBC 4.10 L Hgb 13.1 Hct 38.1 MCV 92.9 MCH 32.0 MCHC 34.4 RDW Std Deviation 40.9 RDW Coeff of Angel 12.0 Plt Count 209 MPV 10.7 Immature Gran % (Auto) 0.200 Neut % (Auto) 66.2 Lymph % (Auto) 25.1 Bath % (Auto) 6.7 Eos % (Auto) 1.1 Baso % (Auto) 0.7 Absolute Neuts (auto) 4.0 Absolute Lymphs (auto) 1.53 Nucleated RBC % 0 D-Dimer Quant (PE/DVT) < 0.27 L Sodium 136 Potassium 4.5 Chloride 102 Carbon Dioxide 20.9 L Anion Gap 12 BUN 22 H Creatinine 1.03 Est GFR (MDRD) Non-Af 63 BUN/Creatinine Ratio 21.4 H Glucose 230 H Calcium 9.4 Troponin T High Sens 7 D Troponin T Hi Sens 2 Hr 15 H Troponin T Hi Sens 4Hr 11 EKG Initial EKG: Attestation: I personally reviewed and interpreted this EKG as follows: Interpretation: Sinus Bradycardia (56), Inverted T-Waves (V2 through V4, III, and aVF) and Non-Specific ST Changes Comments: EKG was obtained. On my independent interpretation, shows sinus bradycardia with a rate of 56. CO interval was normal at 198 ms. QRS interval was normal at 86 ms. QTc interval was normal at 447 ms. There is borderline left axis deviation -17. There are nonspecific ST-T wave changes in leads III and aVF as well as nonspecific T wave inversion in leads V1 through V4. Prior EKG tracings: available for review Prior: Changed (The T wave inversions in leads V3 and V4 are somewhat worse compared to previous EKG dated 12/11/2024.) Treatment and Re-Evaluation :: Patient was given aspirin. Patient was feeling better on reevaluation. Patient has a HEART score of 4. Patient denies having any pain here in the emergency department. Because of the delta troponin was 8, I discussed the case with the patient's sample stitcher who performed her cardiac catheterization today. He recommended obtaining a 4-hour troponin. This was ordered and was within normal limits. Patient was advised that this was normal. Patient was instructed to follow-up with her sample stitcher as scheduled. Patient was instructed to call the office tomorrow. Patient was instructed to return if worse in any way. Patient understood and was agreeable with the plan. All questions were answered. Discharge Plan Triage Chief Complaint: Shortness of Breath ED Provider: Jacinto Vazquez Dx/Rx/DC Orders Clinical Impression: Dyspnea, Essential hypertension Instructions: ED Hypertension, Established, ED Heart Disease Risk Factors Prescriptions: No Action aspirin 81 mg tablet,delayed release (DR/EC) 81 mg PO DAILY cholecalciferol (vitamin D3) 50 mcg (2,000 unit) capsule 50 mcg PO DAILY famotidine [Pepcid AC] 20 mg tablet 20 mg PO BID Qty: 60 6RF loratadine 10 mg tablet 10 mg PO DAILY PRN (Reason: allergy symptoms) zinc gluconate 50 mg tablet 50 mg PO DAILY vitamin B complex Tablet 1 tab PO DAILY flecainide 100 mg tablet 100 mg PO BID lisinopril 40 mg tablet 40 mg PO QDAY spironolactone 25 mg tablet 25 mg PO QDAY metoprolol succinate 25 mg tablet extended release 24 hr 25 mg PO DAILY Qty: 1 0RF magnesium 200 mg tablet 400 mg PO DAILY atorvastatin 40 mg tablet 40 mg PO DAILY Qty: 90 3RF fluoxetine [Prozac] 20 mg capsule 20 mg PO DAILY Qty: 90 3RF levothyroxine 125 mcg tablet 125 mcg PO DAILY Qty: 90 3RF Primary Care Provider: Romi Araujo Referrals: Romi Araujo MD [Primary Care Provider] - 5-7 Days Activity Restrictions/Additional Instructions: Call your sample stitcher tomorrow to schedule follow-up appointment. Print Language: Divehi Disposition Disposition: Home, Self Care Discharge Date/Time: 03/06/25 00:11
[2025-03-05 18:44] LABS: D-Dimer Quantitative (DVT/PE) < 0.27 FEU/ug/m (0.27-0.49)
[2025-03-05 20:39] LABS: Troponin T High Sens 2 HR 15 ng/L (<=14)
[2025-03-05 23:26] LABS: Troponin T High Sens 4 HR 11 ng/L (<=14)
[2025-03-06 00:10] VITALS: BP 144/65; PULSE 67; RESP 16; TEMP 36.6; O2SAT 100
== END 2025-03-06 00:11 | disposition home or self-care (01) ==
PROVIDERS: Emergency Provider Emergency Medicine; PCP Internal Medicine; Visit Provider Emergency Medicine
DX: R06.00 Dyspnea, unspecified (principal); E11.9 Type 2 diabetes mellitus without complications; I10 Essential (primary) hypertension; E78.00 Pure hypercholesterolemia, unspecified; Z79.82 Long term (current) use of aspirin; Z79.899 Other long term (current) drug therapy
CPT/HCPCS: 80048; 84484; 85025; 85379; 93005; 94760; 99285

== ENCOUNTER → 2025-04-07 | Outpatient (CLI) | payer OTHER, SELFPAY ==
--- OUTSIDE RECORDS SUMMARY | 2025-04-07 07:48 | XMS RPT_ITS | CCD ---
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 manifestations] 10-13-2024 Episodic Mood disorders (20 sources) Depressive disorder; Translations: [Depression] Onset: 04-17-20 24 08-07-2020 Chronic Nonspecific chest pain (20 sources) Chest pain; Translations: [Chest pain, unspecified] Onset: 12-20-19 25 11-13-2024 Episodic Osteoarthritis (20 sources) Arthritis; Translations: [Unspecified osteoarthritis, unspecified site] Chronic Comment on above: Left knee, and rt th umb Treatment options in clude steroid injection and oral NSAID's. Pt wishes to proceed with injection and oral medication (Mobic). Pt can also try glucosamine with chondroitin. Pt encouraged to lose weight and do lower impact exercising like riding a bike. We did discuss the why weight program. We did discuss viscosupplementation if she does not get lasting relief from the injections she may call to get these ordered. follow up as needed or sooner if pain, swelling, numbness or associated symptoms, or concerns develop. All questions answered. Patient in agreement of plan. 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 Other circulatory disease (20 sources) Orthostatic hypotension; Translations: [Orthostatic hypotension] 11-13-2024 Episodic Other connective tissue disease (20 sources) Swollen calf; Translations: [Other specified soft tissue disorders] 09-18-2021 Episodic Other connective tissue disease (20 sources) Pain in calf; Translations: [Pain in right lower leg] 09-18-2021 Episodic Other connective tissue disease (2 sources) Other specified soft tissue disorders; Translations: [Swelling of limb] Episodic Other connective tissue disease (2 sources) Pain in right lower leg; Translations: [Pain in limb] Episodic Other connective tissue disease (20 sources) Heel pain; Translations: [Pain in right foot] 04-30-2022 Episodic Other connective tissue disease (4 sources) Pain in right foot; Translations: [Pain in limb] Episodic Other connective tissue disease (12 sources) Foot pain; Translations: [Pain in left foot] 05-25-2024 Episodic Other gastrointestinal disorders (20 sources) History of stricture of esophagus; Translations: [Personal history of other diseases of the digestive system] 03-13-2021 Episodic Other gastrointestinal disorders (20 sources) Dysphagia; Translations: [Dysphagia, unspecified] 01-01-2021 Episodic Other gastrointestinal disorders (1 source) Dysphagia, unspecified; Translations: [Dysphagia, unspecified] Onset: 02-06-20 Episodic Other lower respiratory disease (20 sources) Nodule of lung; Translations: [Solitary pulmonary nodule] 11-16-2024 Episodic Other lower respiratory disease (6 sources) Dyspnea on exertion; Translations: [Other forms of dyspnea] 12-11-2024 Episodic Other lower respiratory disease (2 sources) Dyspnea; Translations: [Dyspnea, unspecified] 03-05-2025 Episodic Other lower respiratory disease (2 sources) Shortness of breath; Translations: [Shortness of breath] Onset: 12-20-19 Episodic Other lower respiratory disease (1 source) Solitary pulmonary nodule; Translations: [Solitary pulmonary nodule] Onset: 01-09-20 Episodic Other nervous system disorders (6 sources) Acute postoperative pain; Translations: [Other acute postprocedural pain] 11-09-2022 Episodic Other non-traumatic joint disorders (20 sources) Pain in right knee; Translations: [Right knee pain] 10-08-2021 Episodic Other non-traumatic joint disorders (12 sources) Pain in elbow; Translations: [Pain in right elbow] 05-25-2024 Episodic Other nutritional; endocrine; and metabolic disorders (20 sources) Obesity; Translations: [Obesity, unspecified] 10-29-2021 Chronic Other nutritional; endocrine; and metabolic disorders (7 sources) Obesity, unspecified; Translations: [Obesity, unspecified] Chronic Other nutritional; endocrine; and metabolic disorders (20 sources) Insulin resistance; Translations: [Metabolic syndrome] 03-30-2023 Chronic Other nutritional; endocrine; and metabolic disorders (1 source) Metabolic syndrome; Translations: [Metabolic syndrome and other insulin resistance] Onset: 01-09-20 Chronic Other upper respiratory infections (20 sources) Acute sinusitis; Translations: [Acute sinusitis, unspecified] 10-27-2024 Episodic Mayra-; endo-; and myocarditis; cardiomyopathy (except that caused by tuberculosis or sexually transmitted disease) (6 sources) Cardiomyopathy 11-30-2024 Chronic Residual codes; unclassified (20 sources) History of colonoscopy; Translations: [Other specified postprocedural states] 01-01-2021 Episodic Comment on above: 2016 Residual codes; unclassified (12 sources) Family history of malignant neoplasm of breast in first degree relative; Translations: [Family history of malignant neoplasm of breast] 02-24-2024 Episodic Comment on above: age 40. Patient will check to see if genetic screen done. Will consider empower Sprains and strains (16 sources) Strain of knee; Translations: [Strain of unspecified muscle(s) and tendon(s) at lower leg level, left leg, initial encounter] 10-11-2023 Episodic Superficial injury; contusion (16 sources) Contusion of left knee; Translations: [Contusion of left knee, initial encounter] 10-11-2023 Episodic Thyroid disorders (20 sources) Thyroid nodule; Translations: [Nontoxic single thyroid nodule] Onset: 04-17-2001-01-2021 Chronic Thyroid disorders (3 sources) Disorder of thyroid gland; Translations: [Disorder of thyroid, unspecified] 02-14-2025 Episodic Comment on above: ON MED Unclassified (1 source) Insulin resistance, unspecified; Translations: [Insulin resistance, unspecified] Onset: 02-22-20 Unclassified (1 source) Other supraventricular tachycardia; Translations: [Other supraventricular tachycardia] Onset: 01-09-20 Viral infection (19 sources) Disease caused by 2019-nCoV; Translations: [COVID-19] Episodic Past or Other Problems Problem Classification Problem Date Documented Date Episodic/Chronic Cardiac dysrhythmias (20 sources) Tachyarrhythmia ; Translations: [Tachycardia, unspecified] Onset: 11-06-2024 11-13-2024 Episodic E Codes: Fall (13 sources) Fall; Translations: [Unspecified fall, initial encounter] Onset: 10-16-2024 05-25-2024 Episodic Genitourinary symptoms and ill-defined conditions (1 source) Dysuria; Translations: [Dysuria] Onset: 12-07-2024 Episodic Malaise and fatigue (13 sources) Fatigue; Translations: [Other fatigue] Onset: 04-17-2024 04-17-2024 Episodic Nonmalignant breast conditions (13 sources) Breast lump; Translations: [Unspecified lump in unspecified breast] Onset: 10-24-2024 03-27-2024 Episodic Comment on above: [facility] referral for bio psy Other circulatory disease (1 source) Orthostatic hypotension; Translations: [Orthostatic hypotension] Onset: 11-06-2024 Episodic Other connective tissue disease (1 source) Pain in left foot; Translations: [Pain in left foot] Onset: 05-25-2024 Episodic Other lower respiratory disease (2 sources) Other forms of dyspnea; Translations: [Other forms of dyspnea] Onset: 11-06-2024 Episodic Other non-traumatic joint disorders (1 source) Pain in right elbow; Translations: [Pain in right elbow] Onset: 10-16-2024 Episodic Other screening for suspected conditions (not mental disorders or infectious disease) (2 sources) Abnormal electrocardiogram [ECG] [EKG]; Translations: [Abnormal electrocardiogram [ECG] [EKG]] Onset: 11-06-2024 Episodic Syncope (1 source) Syncope and collapse; Translations: [Syncope and collapse] Onset: 11-06-2024 Episodic Urinary tract infections (20 sources) Urinary tract infectious disease; Translations: [Urinary tract infection, site not specified] Onset: 12-07-2024 11-19-2024 Episodic Results Test Name Value Interpretation Reference Range Facility .GFRon 03-20-2025 Estimated Glomerular Filtration Rate 79 ml/min/1.73sqm Normal [facility] Comment on above: Result Comment: Stages of Chronic Kidney Disease (CKD) Stage Description eGFR(ml/min/1.73 sq.m.) CKD 1 Normal kidney function or >=90 normal kindney function with possible kidney damage (ex. Proteinuria) CKD 2 Kidney damage with mild loss 60-89 of kidney function CKD 3a Mild to moderate loss of kidney 45-59 function CKD 3b Moderate to severe loss of 30-44 of kindey function CKD 4 Severe loss of kidney function 15-29 CKD 5 Kidney failure <15 Note: (go live 2024) the eGFR calculation was updated to the 2020 CKD-EPI creatinine equation without a race factor to calculate the eGFR results. Performed By: #### B MP, GFR #### [address] [address] BMPon 03-20-2025 BUN/Creatinine Ratio 29 ratio High 7-27 [facility] Comment on above: Performed By: #### B MP, GFR #### [address] [address] Calcium [Mass/Vol] 9.3 mg/dL Normal 8.4-10.2 [facility] Comment on above: Performed By: #### B MP, GFR #### [address] [address] Chloride [Moles/Vol] 101 mmol/L Normal 98-107 [facility] Comment on above: Performed By: #### B MP, GFR #### [address] [address] CO2 [Moles/Vol] 28 mmol/L Normal 22-29 [facility] Comment on above: Performed By: #### B MP, GFR #### [address] [address] Creatinine [Mass/Vol] 0.85 mg/dL Normal 0.51-0.95 [facility] Comment on above: Performed By: #### B MP, GFR #### [place] [id number] Electrolyte Balance 7.0 mEq/L Normal 4.0-15.0 [facility] Comment on above: Performed By: #### B MP, GFR #### [place] [address]227 Glucose [Mass/Vol] 128 mg/dL High 70-105 [facility] Comment on above: Performed By: #### B MP, GFR #### [place] [address]227 Potassium [Moles/Vol] 4.6 mmol/L Normal 3.5-5.1 [facility] Comment on above: Performed By: #### B MP, GFR #### [place] [address] Sodium [Moles/Vol] 136 mmol/L Normal 136-145 [facility] Comment on above: Performed By: #### B MP, GFR #### [place] [id number] Urea nitrogen [Mass/Vol] 25 mg/dL High 7-18 [facility] Comment on above: Performed By: #### B MP, GFR #### [address] [address] MR/BMS.IMBon 03-07-2025 MR/BMS.IMB Normal [facility] .Auto Diffon 03-05-2025 Basophil, Absolute 0.1 10 3/mcL Normal 0.0-0.3 [facility] Comment on above: Performed By: #### A DIFF, PRO, ANEU, BMP, CBC, GFR ####[address] [address] Basophils/100 WBC (Bld) 0.8 % Normal 0.0-2.5 [facility] Comment on above: Performed By: #### A DIFF, PRO, ANEU, BMP, CBC, GFR ####[address] [address] Eosinophil, Absolute 0.1 10 3/mcL Normal 0.0-0.7 [facility] Comment on above: Performed By: #### A DIFF, PRO, ANEU, BMP, CBC, GFR ####[address] [address] Eosinophils/100 WBC (Bld) 1.7 % Normal 0.0-6.0 [facility] Comment on above: Performed By: #### A DIFF, PRO, ANEU, BMP, CBC, GFR ####[address] [address] Lymphocyte, Absolute 1.4 10 3/mcL Normal 0.9-4.3 [facility] Comment on above: Performed By: #### A DIFF, PRO, ANEU, BMP, CBC, GFR ####[address] [address] Lymphocytes/100 WBC (Bld) 20.7 % Normal 20.0-40.0 [facility] Comment on above: Performed By: #### A DIFF, PRO, ANEU, BMP, CBC, GFR ####[address] [address] Monocyte, Absolute 0.4 10 3/mcL Normal 0.1-1.4 [facility] Comment on above: Performed By: #### A DIFF, PRO, ANEU, BMP, CBC, GFR ####[address] [address] Monocytes/100 WBC (Bld) 6.5 % Normal 2.0-13.0 [facility] Comment on above: Performed By: #### A DIFF, PRO, ANEU, BMP, CBC, GFR ####[address] [address] Neutrophils/100 WBC (Bld) 70.3 % Normal 50.0-75.0 [facility] Comment on above: Performed By: #### A DIFF, PRO, ANEU, BMP, CBC, GFR ####[facility] [place] [address] .GFRon 03-05-2025 Estimated Glomerular Filtration Rate 90 ml/min/1.73sqm Normal [facility] Comment on above: Result Comment: Stages of Chronic Kidney Disease (CKD) Stage Description eGFR(ml/min/1.73 sq.m.) CKD 1 Normal kidney function or >=90 normal kindney function with possible kidney damage (ex. Proteinuria) CKD 2 Kidney damage with mild loss 60-89 of kidney function CKD 3a Mild to moderate loss of kidney 45-59 function CKD 3b Moderate to severe loss of 30-44 of kindey function CKD 4 Severe loss of kidney function 15-29 CKD 5 Kidney failure <15 Note: (go live 2024) the eGFR calculation was updated to the 2020 CKD-EPI creatinine equation without a race factor to calculate the eGFR results. Performed By: #### C MP, ANEU, LIPID, CBC, GFR, ADIFF, MG #### [facility] [address] [place], [place] [id number] .NEUABSon 03-05-2025 Neutrophil, Absolute 4.6 10 3/mcL Normal 2.3-8.1 [facility] Comment on above: Performed By: #### C MP, ANEU, LIPID, CBC, GFR, ADIFF, MG #### [address] [address] 12 Lead EKGon 03-05-2025 12 Lead EKG Normal [facility] Absolute lymphocyte countOrd ered By: ED PROVIDER on 03-05-2025 Lymphocytes Auto (Unsp spec) [#/Vol] 1.53 10*3/uL 0.83-4.51 [facility] Absolute neutrophil countOrd ered By: ED PROVIDER on 03-05-2025 Neutrophils (Bld) [#/Vol] 4.0 10*3/uL 2.0-7.7 [facility] Anion gap in Serum or Plasma Ordered By: ED PROVIDER on 03-05-2025 Anion gap [Moles/Vol] 12 mmol/L 5-15 [facility] Automated blood erythrocyte countOrdered By: ED PROVIDER on 03-05-2025 RBC (Bld) [#/Vol] 4.10 10*6/uL Low 4.2-5.4 [facility] Comment on above: Performed By: #### L 100.0100, L500.2500, L501.4021 ####[facility] [address] [place], [address] Automated blood hematocrit ( percentage)Ordered By: ED PROVIDER on 03-05-2025 Hematocrit (Bld) [Volume fraction] 38.1 % Normal 37-47 [facility] Comment on above: Performed By: #### L 100.0100, L500.2500, L501.4021 ####[facility] [address] [place], [address] Automated lymphocyte count a s percentage of total leukocytesOrdered By: ED PROVIDER on 03-05-2025 Lymphocytes/100 WBC Auto (Unsp spec) 25.1 % 19-41 [facility] BMPon 03-05-2025 BUN/Creatinine Ratio 25.0 ratio High 10.0-22.0 [facility] Comment on above: Performed By: #### C MP, ANEU, LIPID, CBC, GFR, ADIFF, MG #### [address] [address] Calcium [Mass/Vol] 9.9 mg/dL Normal 8.7-10.4 [facility] Comment on above: Performed By: #### C MP, ANEU, LIPID, CBC, GFR, ADIFF, MG #### [address] [address] Chloride [Moles/Vol] 105 mmol/L Normal 98-110 [facility] Comment on above: Performed By: #### C MP, ANEU, LIPID, CBC, GFR, ADIFF, MG #### [address] [address] CO2 [Moles/Vol] 23 mmol/L Normal 22-32 [facility] Comment on above: Performed By: #### C MP, ANEU, LIPID, CBC, GFR, ADIFF, MG #### [address] [address] Creatinine [Mass/Vol] 0.76 mg/dL Normal 0.50-1.20 [facility] Comment on above: Result Comment: Test ing performed on Sonalight analyzer using enzymatic creatinine methodology. Performed By: #### C MP, ANEU, LIPID, CBC, GFR, ADIFF, MG #### [address] [address] Electrolyte Balance 12.0 mEq/L Normal 4.0-15.0 [facility] Comment on above: Performed By: #### C MP, ANEU, LIPID, CBC, GFR, ADIFF, MG #### [place] [id number] Glucose [Mass/Vol] 111 mg/dL High 70-110 [facility] Comment on above: Performed By: #### C MP, ANEU, LIPID, CBC, GFR, ADIFF, MG #### [place] [id number] Potassium [Moles/Vol] 4.8 mmol/L Normal 3.5-5.0 [facility] Comment on above: Performed By: #### C MP, ANEU, LIPID, CBC, GFR, ADIFF, MG #### [place] [id number] Sodium [Moles/Vol] 140 mmol/L Normal 136-145 [facility] Comment on above: Performed By: #### C MP, ANEU, LIPID, CBC, GFR, ADIFF, MG #### [place] [id number] Urea nitrogen [Mass/Vol] 19.0 mg/dL Normal 8.0-22.0 [facility] Comment on above: Performed By: #### C MP, ANEU, LIPID, CBC, GFR, ADIFF, MG #### [place] [id number] BUN/creatinine ratioOrdered By: ED PROVIDER on 03-05-2025 Urea nitrogen/Creatinine [Mass ratio] 21.4 mg/mg [address] Basic Metabolic Profile (BMP )on 03-05-2025 BUN/CRE 21.[address] Comment on above: Performed By: #### L 100.0100, L500.2500, L501.4021 ####[facility] [address] [place], [address] GAP 12 Normal 5-15 [facility] Comment on above: Performed By: #### L 100.0100, L500.2500, L501.4021 ####[facility] [address] [place], [address] Potassium [Moles/Vol] 4.5 mmol/L Normal 3.3-5.1 [facility] Comment on above: Result Comment: Hemo lysis present, Results??could be affected.?? Performed By: #### L 100.0100, L500.2500, L501.4021 ####[facility] [address] [place], [address] Basophil percentageOrdered B y: ED PROVIDER on 03-05-2025 Basophils/100 WBC (Bld) 0.7 % Normal 0-1 [facility] Comment on above: Performed By: #### L 100.0100, L500.2500, L501.4021 ####[facility] [address] [place], [address] CBCon 03-05-2025 Erythrocyte distribution width (RBC) [Ratio] 12.3 % Normal 11.5-15.5 [facility] Comment on above: Performed By: #### A DIFF, PRO, ANEU, BMP, CBC, GFR ####[facility] [place] [address] Hematocrit (Bld) [Volume fraction] 41.5 % Normal 34.0-46.0 [facility] Comment on above: Performed By: #### A DIFF, PRO, ANEU, BMP, CBC, GFR ####[facility] [place] [address] Hgb 14.3 G/dL Normal 12.0-16.0 [facility] Comment on above: Performed By: #### A DIFF, PRO, ANEU, BMP, CBC, GFR ####[address] [address] MCH (RBC) [Entitic mass] 32.1 pg Normal 27.0-33.0 [facility] Comment on above: Performed By: #### A DIFF, PRO, ANEU, BMP, CBC, GFR ####[address] [address] MCHC 34.5 G/dL Normal 32.0-36.0 [facility] Comment on above: Performed By: #### A DIFF, PRO, ANEU, BMP, CBC, GFR ####[address] [address] Platelet 215 10 3/mcL Normal 150-450 [facility] Comment on above: Performed By: #### A DIFF, PRO, ANEU, BMP, CBC, GFR ####[place] [address] Platelet mean volume (Bld) [Entitic vol] 8.9 fL Normal 6.6-10.5 [facility] Comment on above: Performed By: #### A DIFF, PRO, ANEU, BMP, CBC, GFR ####[place] [address] RBC 4.47 10 6/mcL Normal 4.10-5.30 [facility] Comment on above: Performed By: #### A DIFF, PRO, ANEU, BMP, CBC, GFR ####[place] [id number] WBC 6.6 10 3/mcL Normal 4.5-10.8 [facility] Comment on above: Performed By: #### A DIFF, PRO, ANEU, BMP, CBC, GFR ####[address] [address] CBC W/Diff, Automatedon 06-3 0-2024 Absolute Lymph 1.53 X10 3/uL Normal 0.83-4.51 [facility] Comment on above: Performed By: #### L 100.0100, L500.2500, L501.4021 ####[facility] [address] [place], [address] Absolute Neut 4.0 X10 3/uL Normal 2.0-7.7 [facility] Comment on above: Performed By: #### L 100.0100, L500.2500, L501.4021 ####[facility] [address] [place], [address] IG% 0.200 Normal 0.0-0.9 [facility] Comment on above: Result Comment: IG% - Immature Granulocytes (promyelocytes, myelocytes andmetamyelocytes) > 1% indicates that a LEFT SHIFT is Present. Performed By: #### L 100.0100, L500.2500, L501.4021 ####[facility] [address] [place], [address] Lymphocytes/100 WBC (Bld) 25.1 % Normal 19-41 [facility] Comment on above: Performed By: #### L 100.0100, L500.2500, L501.4021 ####[facility] [address] [place], [address] Nucleated RBC (Bld) [#/Vol] 0 10*3/uL Normal 0-5 [facility] Comment on above: Performed By: #### L 100.0100, L500.2500, L501.4021 ####[facility] [address] [place], [address] RDW SD 40.9 fl Normal 35.1-43.9 [facility] Comment on above: Performed By: #### L 100.0100, L500.2500, L501.4021 ####[facility] [address] [place], [address] Carbon dioxide, total [Moles /volume] in Central venous bloodOrdered By: ED PROVIDER on 03-05-2025 CO2 [Moles/Vol] 20.9 mmol/L Low 21.0-32.0 [facility] Comment on above: Performed By: #### L 100.0100, L500.2500, L501.4021 ####[facility] [address] [place], [address] Chloride assayOrdered By: ED PROVIDER on 03-05-2025 Chloride [Moles/Vol] 102 mmol/L Normal 98-108 [facility] Comment on above: Performed By: #### L 100.0100, L500.2500, L501.4021 ####[facility] [address] [place], [address] D-Dimer Quantitative (DVT/PE )on 03-05-2025 D-DIMER QUANT < 0.27 Low 0.27-0.49 [facility] Comment on above: Result Comment: NORM AL D-Dimer level (<0.50) indicates no DVT or PE. Performed By: #### L 300.8000 ####[facility] [address] [place], [address] Emergency Department Summary on 03-05-2025 Emergency Department Summary Normal [facility] Eosinophil percentageOrdered By: ED PROVIDER on 03-05-2025 Eosinophils/100 WBC (Bld) 1.1 % Normal 0-5 [facility] Comment on above: Performed By: #### L 100.0100, L500.2500, L501.4021 ####[facility] [address] [place], [address] Erythrocyte distribution wid th ratioOrdered By: ED PROVIDER on 03-05-2025 Erythrocyte distribution width (RBC) [Ratio] 12.0 % Normal 11.6-14.6 [facility] Comment on above: Performed By: #### L 100.0100, L500.2500, L501.4021 ####[facility] [address] [place], [address] Erythrocyte distribution wid th standard deviationOrdered By: ED PROVIDER on 03-05-2025 Erythrocyte distribution width (RBC) [Ratio] 40.9 fl 35.1-43.9 [facility] Glomerular filtration rate ( GFR) estimation/1.73 sq m using serum, plasma, or whole bOrdered By: ED PROVIDER on 03-05-2025 GFR/1.73 sq M.predicted among non-blacks MDRD (S/P/Bld) [Vol rate/Area] 63 mL/min/{1.73_m2} Normal >60 [facility] Comment on above: mL/min/1.73m2 CKD-EP I Creatinine Equation (2020) Result Comment: mL/m in/1.73m2 CKD-EPI Creatinine Equation (2020) Performed By: #### L 100.0100, L500.2500, L501.4021 ####[facility] [address] [place], [address] Hemoglobin measurementOrdere d By: ED PROVIDER on 03-05-2025 Hemoglobin (Bld) [Mass/Vol] 13.1 g/dL Normal 12.0-15.0 [facility] Comment on above: Performed By: #### L 100.0100, L500.2500, L501.4021 ####[facility] [address] [place], [address] Immature granulocytes/100 WB C Auto (Bld)Ordered By: ED PROVIDER on 03-05-2025 Immature granulocytes/100 WBC (Bld) 0.200 % 0.0-0.9 [facility] Comment on above: IG% - Immature Granu locytes (promyelocytes, myelocytes and metamyelocytes) > 1% indicates that a LEFT SHIFT is Present. L499.0042on 03-05-2025 Trop T High Sen 15 ng/L High <=14 [facility] Comment on above: Performed By: #### L 499.0042 ####[facility] [address] [place], [address] L499.0043on 03-05-2025 Trop T High Sen 11 ng/L Normal <=14 [facility] Comment on above: Performed By: #### L 499.0043 ####[facility] [address] [place], [address] L501.4021on 03-05-2025 Trop T High Sen 7 ng/L Normal <=14 [facility] Comment on above: Performed By: #### L 100.0100, L500.2500, L501.4021 ####[facility] [address] [place], [address] LABORATORYOrdered By: SYSTEM SYSTEM on 03-05-2025 Basophils (Bld) [#/Vol] 0.1 103/mcL Normal 0.0 - 0.3 10^3/mcL Workflow SS Basophils/100 WBC (Bld) 0.8 % Normal 0.0 - 2.5 % Workflow SS Calcium [Mass/Vol] 9.9 mg/dL Normal 8.7 - 10. 4 mg/dL ADM SS Chloride [Moles/Vol] 105 mmol/L Normal 98 - 11 0 mEq/L ADM SS CO2 [Moles/Vol] 23 mmol/L Normal 22 - 32 mEq/L ADM SS Creatinine [Mass/Vol] 0.76 mg/dL Normal 0.50 - 1.20 mg/dL ADM SS Comment on above: Interpretive Data: T esting performed on [employer] CH analyzer using enzymatic creatinine methodology. Electrolyte Balance 12.0 mEq/L Normal 4.0 - 15 .0 mEq/L ADM SS Eosinophils (Bld) [#/Vol] 0.1 103/mcL Normal 0. 0 - 0.7 10^3/mcL Workflow SS Eosinophils/100 WBC (Bld) 1.7 % Normal 0.0 - 6.0 % Workflow SS Erythrocyte distribution width (RBC) [Ratio] 12.3 % Normal 11.5 - 15.5 % Workflow SS Estimated Glomerular Filtration Rate 90 ml/min/1.73sqm Invalid Interpretation Code Chemistry S Comment on above: Interpretive Data: Stages of Chronic Kidney Disease (CKD) Stage Description eGFR(ml/min/1.73 sq.m.) CKD 1 Normal kidney function or >=90 normal kindney function with possible kidney damage (ex. Proteinuria) CKD 2 Kidney damage with mild loss 60-89 of kidney function CKD 3a Mild to moderate loss of kidney 45-59 function CKD 3b Moderate to severe loss of 30-44 of kindey function CKD 4 Severe loss of kidney function 15-29 CKD 5 Kidney failure <15 Note: (go live 2024) the eGFR calculation was updated to the 2020 CKD-EPI creatinine equation without a race factor to calculate the eGFR results. Glucose [Mass/Vol] 111 mg/dL High 70 - 110 mg/dL ADM SS Hematocrit (Bld) [Volume fraction] 41.5 % Normal 34.0 - 46.0 % AH Workflow SS Hemoglobin (Bld) [Mass/Vol] 14.3 G/dL Normal 12.0 - 16.0 G/dL AH Workflow SS Lymphocytes (Bld) [#/Vol] 1.4 103/mcL Normal 0. 9 - 4.3 10^3/mcL AH Workflow SS Lymphocytes/100 WBC (Bld) 20.7 % Normal 20 .0 - 40.0 % AH Workflow SS MCH (RBC) [Entitic mass] 32.1 pg Normal 27. 0 - 33.0 pg AH Workflow SS MCHC 34.5 G/dL Normal 32.0 - 36.0 G/dL AH Workflow SS Monocytes (Bld) [#/Vol] 0.4 103/mcL Normal 0.1 - 1.4 10^3/mcL AH Workflow SS Monocytes/100 WBC (Bld) 6.5 % Normal 2.0 - 13.0 % AH Workflow SS Neutrophils (Bld) [#/Vol] 4.6 103/mcL Normal 2. 3 - 8.1 10^3/mcL AH Workflow SS Neutrophils/100 WBC (Bld) 70.3 % Normal 50 .0 - 75.0 % AH Workflow SS Platelet mean volume (Bld) [Entitic vol] 8.9 fL Normal 6.6 - 10.5 fL Workflow SS Platelets (Bld) [#/Vol] 215 103/mcL Normal 150 - 450 10^3/mcL Workflow SS Potassium [Moles/Vol] 4.8 mmol/L Normal 3.5 - 5.0 mEq/L ADM SS PT Coag (PPP) [Time] 11.2 s Normal 9.0 - 1 4.4 seconds [facility] SS Comment on above: Result Comment: Spec imen hemolyzed. Results may be affected. Interpretive Data: E ffective 03/20/08, Protime results may be affected by some antibiotics (i.e. Ciprofloxacin, Azithromycin, Bactrim) which may potentiate the action of oral anticoagulants, with further increases in Protime/INR. PT International Ratio 1.0 ratio Invalid Interpretation Code AH [facility] SS Comment on above: Result Comment: Spec imen hemolyzed. Results may be affected. Interpretive Data: [employer] [place] [place] (CHEST, 1992, 102:312S-25S) recommended therapeutic range for oral anticoagulant therapy is: LOW RISK: Prophylaxis of venous thrombosis INR: 2.0-3.0 Treatment of pulmonary embolism 2.0-3.0 Prevention of systemic embolism 2.0-3.0 HIGH RISK: Mechanical prosthetic valves 2.5-3.5 RBC (Bld) [#/Vol] 4.47 106/mcL Normal 4.10 - 5.3 0 10^6/mcL Workflow SS Sodium [Moles/Vol] 140 mmol/L Normal 136 - 145 mEq/L ADM SS Urea nitrogen [Mass/Vol] 19.0 mg/dL Normal 8.0 - 22.0 mg/dL ADM SS Urea nitrogen/Creatinine [Mass ratio] 25.0 ratio High 10.0 - 22.0 ratio ADM SS WBC (Bld) [#/Vol] 6.6 103/mcL Normal 4.5 - 10.8 10^3/mcL Workflow SS MCV (mean corpuscular volume ) determinationOrdered By: ED PROVIDER on 03-05-2025 MCV (RBC) [Entitic vol] 92.9 fL Normal 80.0-99.0 [facility] Comment on above: Performed By: #### L 100.0100, L500.2500, L501.4021 ####[facility] [address] [facility] [place], [place], [id number] Performed By: #### A DIFF, PRO, ANEU, BMP, CBC, GFR ####[address] [address] Mean corpuscular hemoglobin (MCH) determinationOrdered By: ED PROVIDER on 03-05-2025 MCH (RBC) [Entitic mass] 32.0 pg Normal 27.0-32.0 [facility] Comment on above: Performed By: #### L 100.0100, L500.2500, L501.4021 ####[facility] [address] [place], [address] Mean corpuscular hemoglobin concentration (MCHC) determinationOrdered By: ED PROVIDER on 03-05-2025 MCHC (RBC) [Mass/Vol] 34.4 g/dL Normal 32-36 [facility] Comment on above: Performed By: #### L 100.0100, L500.2500, L501.4021 ####[facility] [address] [place], [address] Mean platelet volume determi nationOrdered By: ED PROVIDER on 03-05-2025 Platelet mean volume (Bld) [Entitic vol] 10.7 fL Normal 6.2-12.0 [facility] Comment on above: Performed By: #### L 100.0100, L500.2500, L501.4021 ####[facility] [address] [place], [address] Monocyte percentageOrdered B y: ED PROVIDER on 03-05-2025 Monocytes/100 WBC (Bld) 6.7 % Normal 0-10 [facility] Comment on above: Performed By: #### L 100.0100, L500.2500, L501.4021 ####[facility] [address] [place], [address] Neutrophil percentageOrdered By: ED PROVIDER on 03-05-2025 Neutrophils/100 WBC (Bld) 66.2 % Normal 47-70 [facility] Comment on above: Performed By: #### L 100.0100, L500.2500, L501.4021 ####[facility] [address] [place], [address] Nucleated red blood cell per centageOrdered By: ED PROVIDER on 03-05-2025 Nucleated RBC/100 WBC (Bld) [Ratio] 0 % 0-5 [facility] PROon 03-05-2025 INR Coag (PPP) [Relative time] 1.0 {INR} Normal [facility] Comment on above: Result Comment: Spec imen hemolyzed. Results may be affected. The [place] [employer] (CHEST, 1992, 102:312S-25S) recommended therapeutic range for oral anticoagulant therapy is: LOW RISK: Prophylaxis of venous thrombosis INR: 2.0-3.0 Treatment of pulmonary embolism 2.0-3.0 Prevention of systemic embolism 2.0-3.0 HIGH RISK: Mechanical prosthetic valves 2.5-3.5 Performed By: #### C MP, ANEU, LIPID, CBC, GFR, ADIFF, MG #### [facility] [address] [place] [id number] PT Coag (PPP) [Time] 11.2 s Normal 9.0-14.4 [facility] Comment on above: Result Comment: Spec imen hemolyzed. Results may be affected. Effective 03/20/08, Protime results may be affected by some antibiotics (i.e. Ciprofloxacin, Azithromycin, Bactrim) which may potentiate the action of oral anticoagulants, with further increases in Protime/INR. Performed By: #### C MP, ANEU, LIPID, CBC, GFR, ADIFF, MG #### [facility] [address] [place] [address] Platelet countOrdered By: ED PROVIDER on 03-05-2025 Platelets (Bld) [#/Vol] 209 10*3/uL Normal 150-450 [facility] Comment on above: Performed By: #### L 100.0100, L500.2500, L501.4021 ####[facility] [address] [place], [place], [id number] Potassium measurement (mass/ volume)Ordered By: ED PROVIDER on 03-05-2025 Potassium (Unsp spec) [Mass/Vol] 4.5 mmol/L 3.3-5.1 [facility] Comment on above: Hemolysis present, R esults could be affected. Serum creatinine measurement (mass/volume)Ordered By: ED PROVIDER on 03-05-2025 Creatinine [Mass/Vol] 1.03 mg/dL Normal 0.70-1.20 [facility] Comment on above: Performed By: #### L 100.0100, L500.2500, L501.4021 ####[facility] [address] [place], [address] Serum glucose measurement (m ass/volume)Ordered By: ED PROVIDER on 03-05-2025 Glucose [Mass/Vol] 230 mg/dL High 70-99 [facility] Comment on above: Performed By: #### L 100.0100, L500.2500, L501.4021 ####[facility] [address] [place], [address] Serum or plasma calcium evie urement (mass/volume)Ordered By: ED PROVIDER on 03-05-2025 Calcium [Mass/Vol] 9.4 mg/dL Normal 7.6-11.0 [facility] Comment on above: Performed By: #### L 100.0100, L500.2500, L501.4021 ####[facility] [address] [place], [address] Serum or plasma urea nitroge n measurement (mass/volume)Ordered By: ED PROVIDER on 03-05-2025 Urea nitrogen [Mass/Vol] 22 mg/dL High 4-19 [facility] Comment on above: Performed By: #### L 100.0100, L500.2500, L501.4021 ####[facility] [address] [place], [address] Sodium levelOrdered By: ED Julee NIELSEN on 03-05-2025 Sodium [Moles/Vol] 136 mmol/L Normal 133-145 [facility] Comment on above: Performed By: #### L 100.0100, L500.2500, L501.4021 ####[facility] [address] [place], [address] Troponin T.cardiac [Mass/vol ume] in Serum or Plasma by High sensitivity methodOrdered By: Jacinto Vazquez on 03-05-2025 Troponin T.cardiac High sensitivity method [Mass/Vol] 11 ng/L <14 [facility] Troponin T.cardiac High sensitivity method [Mass/Vol] 15 ng/L High <14 [facility] Troponin T.cardiac [Mass/vol ume] in Serum or Plasma by High sensitivity methodOrdered By: ED PROVIDER on 03-05-2025 Troponin T.cardiac High sensitivity method [Mass/Vol] 7 ng/L <14 [facility] Comment on above: Delta: < 6 on -0 White blood cell (WBC) count Ordered By: ED PROVIDER on 03-05-2025 WBC (Bld) [#/Vol] 6.1 10*3/uL Normal 4.4-11.0 [facility] Comment on above: Performed By: #### L 100.0100, L500.2500, L501.4021 ####[facility] [address] [place], [address] .GFRon 03-03-2025 Estimated Glomerular Filtration Rate 80 ml/min/1.73sqm Normal [facility] Comment on above: Result Comment: Stages of Chronic Kidney Disease (CKD) Stage Description eGFR(ml/min/1.73 sq.m.) CKD 1 Normal kidney function or >=90 normal kindney function with possible kidney damage (ex. Proteinuria) CKD 2 Kidney damage with mild loss 60-89 of kidney function CKD 3a Mild to moderate loss of kidney 45-59 function CKD 3b Moderate to severe loss of 30-44 of kindey function CKD 4 Severe loss of kidney function 15-29 CKD 5 Kidney failure <15 Note: (go live 2024) the eGFR calculation was updated to the 2020 CKD-EPI creatinine equation without a race factor to calculate the eGFR results. Performed By: #### B MP, GFR #### [facility] [address] [place], [place] [address] BMPon 03-03-2025 BUN/Creatinine Ratio 25 ratio Normal 7-27 [facility] Comment on above: Performed By: #### B MP, GFR #### [facility] [address] [place], [place] [address] Calcium [Mass/Vol] 9.0 mg/dL Normal 8.4-10.2 [facility] Comment on above: Performed By: #### B MP, GFR #### [address] [address] Chloride [Moles/Vol] 104 mmol/L Normal 98-107 [facility] Comment on above: Performed By: #### B MP, GFR #### [address] [address] CO2 [Moles/Vol] 30 mmol/L High 22-29 [facility] Comment on above: Performed By: #### B MP, GFR #### [address] [address] Creatinine [Mass/Vol] 0.84 mg/dL Normal 0.51-0.95 [facility] Comment on above: Performed By: #### B MP, GFR #### [address] [address] Electrolyte Balance 6.0 mEq/L Normal 4.0-15.0 [facility] Comment on above: Performed By: #### B MP, GFR #### [address] [address] Glucose [Mass/Vol] 120 mg/dL High 70-105 [facility] Comment on above: Performed By: #### B MP, GFR #### [address] [address] Potassium [Moles/Vol] 4.5 mmol/L Normal 3.5-5.1 [facility] Comment on above: Performed By: #### B MP, GFR #### [address] [address] Sodium [Moles/Vol] 140 mmol/L Normal 136-145 [facility] Comment on above: Performed By: #### B MP, GFR #### [address] [address] Urea nitrogen [Mass/Vol] 21 mg/dL High 7-18 [facility] Comment on above: Performed By: #### B MP, GFR #### [address] [address] LABORATORYOrdered By: SYSTEM SYSTEM on 03-03-2025 Calcium [Mass/Vol] 9.0 mg/dL Normal 8.4 - 10. 2 mg/dL AO ADM SS Chloride [Moles/Vol] 104 mmol/L Normal 98 - 10 7 mmol/L AO ADM SS CO2 [Moles/Vol] 30 mmol/L High 22 - 29 mmol/L AO ADM SS Creatinine [Mass/Vol] 0.84 mg/dL Normal 0.51 - 0.95 mg/dL AO ADM SS Electrolyte Balance 6.0 mEq/L Normal 4.0 - 15 .0 mEq/L AO ADM SS Estimated Glomerular Filtration Rate 80 ml/min/1.73sqm Invalid Interpretation Code AO Chemistry S Comment on above: Interpretive Data: Stages of Chronic Kidney Disease (CKD) Stage Description eGFR(ml/min/1.73 sq.m.) CKD 1 Normal kidney function or >=90 normal kindney function with possible kidney damage (ex. Proteinuria) CKD 2 Kidney damage with mild loss 60-89 of kidney function CKD 3a Mild to moderate loss of kidney 45-59 function CKD 3b Moderate to severe loss of 30-44 of kindey function CKD 4 Severe loss of kidney function 15-29 CKD 5 Kidney failure <15 Note: (go live 2024) the eGFR calculation was updated to the 2020 CKD-EPI creatinine equation without a race factor to calculate the eGFR results. Glucose [Mass/Vol] 120 mg/dL High 70 - 105 mg/dL AO ADM SS Potassium [Moles/Vol] 4.5 mmol/L Normal 3.5 - 5.1 mmol/L AO ADM SS Sodium [Moles/Vol] 140 mmol/L Normal 136 - 145 mmol/L AO ADM SS Urea nitrogen [Mass/Vol] 21 mg/dL High 7 - 18 mg/d L AO ADM SS Urea nitrogen/Creatinine [Mass ratio] 25 ratio Normal 7 - 27 ratio AO ADM SS .GFRon 02-15-2025 Estimated Glomerular Filtration Rate 80 ml/min/1.73sqm [facility] Comment on above: Result Comment: Stages of Chronic Kidney Disease (CKD) Stage Description eGFR(ml/min/1.73 sq.m.) CKD 1 Normal kidney function or >=90 normal kindney function with possible kidney damage (ex. Proteinuria) CKD 2 Kidney damage with mild loss 60-89 of kidney function CKD 3a Mild to moderate loss of kidney 45-59 function CKD 3b Moderate to severe loss of 30-44 of kindey function CKD 4 Severe loss of kidney function 15-29 CKD 5 Kidney failure <15 Note: (go live 2024) the eGFR calculation was updated to the 2020 CKD-EPI creatinine equation without a race factor to calculate the eGFR results. Performed By: #### B MP, GFR ####[address] [address] BMPon 02-15-2025 BUN/Creatinine Ratio 21.4 ratio Normal 10.0-22.0 [facility] Comment on above: Performed By: #### B MP, GFR ####[address] [address] Calcium [Mass/Vol] 9.8 mg/dL Normal 8.7-10.4 [facility] Comment on above: Performed By: #### B MP, GFR ####[address] [address] Chloride [Moles/Vol] 105 mmol/L Normal 98-110 [facility] Comment on above: Performed By: #### B MP, GFR ####[address] [address] CO2 [Moles/Vol] 29 mmol/L Normal 22-32 [facility] Comment on above: Performed By: #### B MP, GFR ####[place] [address] Creatinine [Mass/Vol] 0.84 mg/dL Normal 0.50-1.20 [facility] Comment on above: Result Comment: Test ing performed on [employer] analyzer using enzymatic creatinine methodology. Performed By: #### B MP, GFR ####[address] [address] Electrolyte Balance 5.0 mEq/L Normal 4.0-15.0 [facility] Comment on above: Performed By: #### B MP, GFR ####[address] [address] Glucose [Mass/Vol] 96 mg/dL Normal 70-110 [facility] Comment on above: Performed By: #### B MP, GFR ####[facility] [place] [address] Potassium [Moles/Vol] 4.9 mmol/L Normal 3.5-5.0 [facility] Comment on above: Performed By: #### B MP, GFR ####[facility] [place] [address] Sodium [Moles/Vol] 139 mmol/L Normal 136-145 [facility] Comment on above: Performed By: #### B MP, GFR ####[facility] [place] [address] Urea nitrogen [Mass/Vol] 18.0 mg/dL Normal 8.0-22.0 [facility] Comment on above: Performed By: #### B MP, GFR ####[facility] [place] [address] LABORATORYOrdered By: SYSTEM SYSTEM on 02-15-2025 Calcium [Mass/Vol] 9.8 mg/dL Normal 8.7 - 10. 4 mg/dL ADM SS Chloride [Moles/Vol] 105 mmol/L Normal 98 - 11 0 mEq/L ADM SS CO2 [Moles/Vol] 29 mmol/L Normal 22 - 32 mEq/L ADM SS Creatinine [Mass/Vol] 0.84 mg/dL Normal 0.50 - 1.20 mg/dL ADM SS Comment on above: Interpretive Data: T esting performed on [employer] analyzer using enzymatic creatinine methodology. Electrolyte Balance 5.0 mEq/L Normal 4.0 - 15 .0 mEq/L ADM SS Estimated Glomerular Filtration Rate 80 ml/min/1.73sqm Invalid Interpretation Code Chemistry S Comment on above: Interpretive Data: Stages of Chronic Kidney Disease (CKD) Stage Description eGFR(ml/min/1.73 sq.m.) CKD 1 Normal kidney function or >=90 normal kindney function with possible kidney damage (ex. Proteinuria) CKD 2 Kidney damage with mild loss 60-89 of kidney function CKD 3a Mild to moderate loss of kidney 45-59 function CKD 3b Moderate to severe loss of 30-44 of kindey function CKD 4 Severe loss of kidney function 15-29 CKD 5 Kidney failure <15 Note: (go live 2024) the eGFR calculation was updated to the 2020 CKD-EPI creatinine equation without a race factor to calculate the eGFR results. Glucose [Mass/Vol] 96 mg/dL Normal 70 - 110 mg/dL ADM SS Potassium [Moles/Vol] 4.9 mmol/L Normal 3.5 - 5.0 mEq/L ADM SS Sodium [Moles/Vol] 139 mmol/L Normal 136 - 145 mEq/L AH ADM SS Urea nitrogen [Mass/Vol] 18.0 mg/dL Normal 8.0 - 22.0 mg/dL ADM SS Urea nitrogen/Creatinine [Mass ratio] 21.4 ratio Normal 10.0 - 22.0 ratio AH ADM SS Absolute lymphocyte countOrd ered By: Noel Araujo on 02-14-2025 Lymphocytes Auto (Unsp spec) [#/Vol] 1.36 10*3/uL 0.83-4.51 [facility] Absolute neutrophil countOrd ered By: Noel Araujo on 02-14-2025 Neutrophils (Bld) [#/Vol] 5.1 10*3/uL 2.0-7.7 [facility] Anion gap in Serum or Plasma Ordered By: Noel Araujo on 02-14-2025 Anion gap [Moles/Vol] 11 mmol/L 5-15 [facility] Automated lymphocyte count a s percentage of total leukocytesOrdered By: Noel Araujo on 02-14-2025 Lymphocytes/100 WBC Auto (Unsp spec) 19.2 % 19-41 [facility] BUN/creatinine ratioOrdered By: Noel Araujo on 02-14-2025 Urea nitrogen/Creatinine [Mass ratio] 19.5 mg/mg 10-20 [facility] Basophil percentageOrdered B y: Noel Araujo on 02-14-2025 Basophils/100 WBC (Bld) 0.6 % 0-1 [facility] Bilirubin, totalOrdered By: Noel Araujo on 02-14-2025 Bilirubin [Mass/Vol] 0.42 mg/dL 0.00-1.30 [facility] CBC W/Diff, Automatedon 02-04 Absolute Lymph 1.36 X10 3/uL Normal 0.83-4.51 [facility] Comment on above: Performed By: #### L 501.36399, L100.0100, L501.5200, L501.9520, L506.0400, L501.9985, L500.4100, L500.4050, L506.1001 ####[facility] [address] [place], [address] Absolute Neut 5.1 X10 3/uL Normal 2.0-7.7 [facility] Comment on above: Performed By: #### L 501.12771, L100.0100, L501.5200, L501.9520, L506.0400, L501.9985, L500.4100, L500.4050, L506.1001 ####[facility] [address] [place], [address] Basophils/100 WBC (Bld) 0.6 % Normal 0-1 [facility] Comment on above: Performed By: #### L 501.86113, L100.0100, L501.5200, L501.9520, L506.0400, L501.9985, L500.4100, L500.4050, L506.1001 ####[facility] [address] [place], [address] Eosinophils/100 WBC (Bld) 1.6 % Normal 0-5 [facility] Comment on above: Performed By: #### L 501.58615, L100.0100, L501.5200, L501.9520, L506.0400, L501.9985, L500.4100, L500.4050, L506.1001 ####[facility] [address] [facility] [place], [address] Erythrocyte distribution width (RBC) [Ratio] 11.9 % Normal 11.6-14.6 [facility] Comment on above: Performed By: #### L 501.73814, L100.0100, L501.5200, L501.9520, L506.0400, L501.9985, L500.4100, L500.4050, L506.1001 ####[facility] [address] [place], [address](878) Hematocrit (Bld) [Volume fraction] 40.4 % Normal 37-47 [facility] Comment on above: Performed By: #### L 501.24982, L100.0100, L501.5200, L501.9520, L506.0400, L501.9985, L500.4100, L500.4050, L506.1001 ####[facility] [address] [facility] [place], [address](117) Hemoglobin (Bld) [Mass/Vol] 13.6 g/dL Normal 12.0-15.0 [facility] Comment on above: Performed By: #### L 501.76344, L100.0100, L501.5200, L501.9520, L506.0400, L501.9985, L500.4100, L500.4050, L506.1001 ####[facility] [address] [facility] [place], [address] IG% 0.300 Normal 0.0-0.9 [facility] Comment on above: Result Comment: IG% - Immature Granulocytes (promyelocytes, myelocytes andmetamyelocytes) > 1% indicates that a LEFT SHIFT is Present. Performed By: #### L 501.20870, L100.0100, L501.5200, L501.9520, L506.0400, L501.9985, L500.4100, L500.4050, L506.1001 ####[facility] [address] [place], [address]) Lymphocytes/100 WBC (Bld) 19.2 % Normal 19-41 [facility] Comment on above: Performed By: #### L 501.77469, L100.0100, L501.5200, L501.9520, L506.0400, L501.9985, L500.4100, L500.4050, L506.1001 ####[facility] [address] [place], [address] MCH (RBC) [Entitic mass] 31.8 pg Normal 27.0-32.0 [facility] Comment on above: Performed By: #### L 501.23812, L100.0100, L501.5200, L501.9520, L506.0400, L501.9985, L500.4100, L500.4050, L506.1001 ####[facility] [facility] [address] [place], [address] MCHC (RBC) [Mass/Vol] 33.7 g/dL Normal 32-36 [facility] Comment on above: Performed By: #### L 501.25613, L100.0100, L501.5200, L501.9520, L506.0400, L501.9985, L500.4100, L500.4050, L506.1001 ####[facility] [address] [facility] [place], [address] MCV (RBC) [Entitic vol] 94.4 fL Normal 81-99 [facility] Comment on above: Performed By: #### L 501.55796, L100.0100, L501.5200, L501.9520, L506.0400, L501.9985, L500.4100, L500.4050, L506.1001 ####[facility] [address] [facility] [place], [address] Monocytes/100 WBC (Bld) 6.6 % Normal 0-10 [facility] Comment on above: Performed By: #### L 501.49397, L100.0100, L501.5200, L501.9520, L506.0400, L501.9985, L500.4100, L500.4050, L506.1001 ####[facility] [address] [place], [address] Neutrophils/100 WBC (Bld) 71.7 % High 47-70 [facility] Comment on above: Performed By: #### L 501.68268, L100.0100, L501.5200, L501.9520, L506.0400, L501.9985, L500.4100, L500.4050, L506.1001 ####[facility] [address] [place], [address] Nucleated RBC (Bld) [#/Vol] 0 10*3/uL Normal 0-5 [facility] Comment on above: Performed By: #### L 501.10717, L100.0100, L501.5200, L501.9520, L506.0400, L501.9985, L500.4100, L500.4050, L506.1001 ####[facility] [address] [place], [address] Platelet mean volume (Bld) [Entitic vol] 11.3 fL Normal 6.2-12.0 [facility] Comment on above: Performed By: #### L 501.03362, L100.0100, L501.5200, L501.9520, L506.0400, L501.9985, L500.4100, L500.4050, L506.1001 ####[facility] [address] [place], [address] Platelets (Bld) [#/Vol] 229 10*3/uL Normal 150-450 [facility] Comment on above: Performed By: #### L 501.81863, L100.0100, L501.5200, L501.9520, L506.0400, L501.9985, L500.4100, L500.4050, L506.1001 ####[facility] [address] [place], [place], [id number] RBC (Bld) [#/Vol] 4.28 10*6/uL Normal 4.2-5.4 [facility] Comment on above: Performed By: #### L 501.64227, L100.0100, L501.5200, L501.9520, L506.0400, L501.9985, L500.4100, L500.4050, L506.1001 ####[facility] [address] [facility] [place], [place], [id number] RDW SD 41.3 fl Normal 35.1-43.9 [facility] Comment on above: Performed By: #### L 501.50379, L100.0100, L501.5200, L501.9520, L506.0400, L501.9985, L500.4100, L500.4050, L506.1001 ####[facility] [address] [facility] [address] [place], [place], [id number] WBC (Bld) [#/Vol] 7.1 10*3/uL Normal 4.4-11.0 [facility] Comment on above: Performed By: #### L 501.03590, L100.0100, L501.5200, L501.9520, L506.0400, L501.9985, L500.4100, L500.4050, L506.1001 ####[facility] [address] [facility] [place], [place], [id number] Calculated very low density lipoprotein (VLDL) cholesterol measurementOrdered By: Noel Araujo on 02-14-2025 Calculated very low density lipoprotein (VLDL) cholesterol measurement 32 mg/dL 5-40 [facility] Carbon dioxide, total [Moles /volume] in Central venous bloodOrdered By: Noel Araujo on 02-14-2025 CO2 [Moles/Vol] 25.6 mmol/L 21.0-32.0 [facility] Chloride assayOrdered By: Sunni Araujo on 02-14-2025 Chloride [Moles/Vol] 102 mmol/L 98-108 [facility] Comprehensive Metabolic Prof ilon 02-14-2025 Albumin [Mass/Vol] 4.4 g/dL Normal 3.5-5.0 [facility] Comment on above: Performed By: #### L 501.23459, L100.0100, L501.5200, L501.9520, L506.0400, L501.9985, L500.4100, L500.4050, L506.1001 ####[facility] [address] [place], [address] Albumin/Globulin [Mass ratio] 1.7 {ratio} Normal 0.9-2.4 [facility] Comment on above: Performed By: #### L 501.06250, L100.0100, L501.5200, L501.9520, L506.0400, L501.9985, L500.4100, L500.4050, L506.1001 ####[facility] [address] [place], [place], [id number] ALK PHOS 85 U/L Normal 35-104 [facility] Comment on above: Performed By: #### L 501.49847, L100.0100, L501.5200, L501.9520, L506.0400, L501.9985, L500.4100, L500.4050, L506.1001 ####[facility] [address] [place], [address] ALT [Catalytic activity/Vol] 32 U/L Normal <=34 [facility] Comment on above: Performed By: #### L 501.70026, L100.0100, L501.5200, L501.9520, L506.0400, L501.9985, L500.4100, L500.4050, L506.1001 ####[facility] [address] [place], [address] AST [Catalytic activity/Vol] 19 U/L Normal <=31 [facility] Comment on above: Performed By: #### L 501.16237, L100.0100, L501.5200, L501.9520, L506.0400, L501.9985, L500.4100, L500.4050, L506.1001 ####[facility] [address] [place], [address] Bilirubin [Mass/Vol] 0.42 mg/dL Normal 0.00-1.30 [facility] Comment on above: Performed By: #### L 501.49730, L100.0100, L501.5200, L501.9520, L506.0400, L501.9985, L500.4100, L500.4050, L506.1001 ####[facility] [address] [place], [address] BUN/CRE 19.5 RATIO Normal 10-20 [facility] Comment on above: Performed By: #### L 501.90789, L100.0100, L501.5200, L501.9520, L506.0400, L501.9985, L500.4100, L500.4050, L506.1001 ####[facility] [address] [place], [address] Calcium [Mass/Vol] 10.3 mg/dL Normal 7.6-11.0 [facility] Comment on above: Performed By: #### L 501.25943, L100.0100, L501.5200, L501.9520, L506.0400, L501.9985, L500.4100, L500.4050, L506.1001 ####[facility] [address] [place], [address] Chloride [Moles/Vol] 102 mmol/L Normal 98-108 [facility] Comment on above: Performed By: #### L 501.32968, L100.0100, L501.5200, L501.9520, L506.0400, L501.9985, L500.4100, L500.4050, L506.1001 ####[facility] [address] [place], [place], [phone] CO2 [Moles/Vol] 25.6 mmol/L Normal 21.0-32.0 [facility] Comment on above: Performed By: #### L 501.37311, L100.0100, L501.5200, L501.9520, L506.0400, L501.9985, L500.4100, L500.4050, L506.1001 ####[facility] [address] [place], [place], [phone]) Creatinine [Mass/Vol] 1.19 mg/dL Normal 0.70-1.20 [facility] Comment on above: Performed By: #### L 501.55199, L100.0100, L501.5200, L501.9520, L506.0400, L501.9985, L500.4100, L500.4050, L506.1001 ####[facility] [address] [place], [place], [phone]) GAP 11 Normal 5-15 [facility] Comment on above: Performed By: #### L 501.06965, L100.0100, L501.5200, L501.9520, L506.0400, L501.9985, L500.4100, L500.4050, L506.1001 ####[facility] [address] [place], [address] GFR/1.73 sq M.predicted among non-blacks MDRD (S/P/Bld) [Vol rate/Area] 53 mL/min/{1.73_m2} Low >60 [facility] Comment on above: Result Comment: mL/m in/1.73m2 CKD-EPI Creatinine Equation (2020) Performed By: #### L 501.04619, L100.0100, L501.5200, L501.9520, L506.0400, L501.9985, L500.4100, L500.4050, L506.1001 ####[facility] [address] [place], [address] Globulin (S) [Mass/Vol] 2.6 g/dL Normal 2.2-4.2 [facility] Comment on above: Performed By: #### L 501.01475, L100.0100, L501.5200, L501.9520, L506.0400, L501.9985, L500.4100, L500.4050, L506.1001 ####[facility] [address] [place], [address] Glucose [Mass/Vol] 139 mg/dL High 70-99 [facility] Comment on above: Performed By: #### L 501.12129, L100.0100, L501.5200, L501.9520, L506.0400, L501.9985, L500.4100, L500.4050, L506.1001 ####[facility] [address] [place], [address] Potassium [Moles/Vol] 5.7 mmol/L High 3.3-5.1 [facility] Comment on above: Performed By: #### L 501.38624, L100.0100, L501.5200, L501.9520, L506.0400, L501.9985, L500.4100, L500.4050, L506.1001 ####[facility] [address] [place], [address] Sodium [Moles/Vol] 139 mmol/L Normal 133-145 [facility] Comment on above: Performed By: #### L 501.97241, L100.0100, L501.5200, L501.9520, L506.0400, L501.9985, L500.4100, L500.4050, L506.1001 ####[facility] [address] [place], [place], [id number] T PROT 7.0 g/dL Normal 5.9-8.4 [facility] Comment on above: Performed By: #### L 501.22167, L100.0100, L501.5200, L501.9520, L506.0400, L501.9985, L500.4100, L500.4050, L506.1001 ####[facility] [address] [place], [place], [id number] Urea nitrogen [Mass/Vol] 23 mg/dL High 4-19 [facility] Comment on above: Performed By: #### L 501.21374, L100.0100, L501.5200, L501.9520, L506.0400, L501.9985, L500.4100, L500.4050, L506.1001 ####[facility] [address] [facility] [address] [place], [place], [id number] Eosinophil percentageOrdered By: Noel Araujo on 02-14-2025 Eosinophils/100 WBC (Bld) 1.6 % 0-5 [facility] Erythrocyte distribution wid th ratioOrdered By: Noel Araujo on 02-14-2025 Erythrocyte distribution width (RBC) [Ratio] 11.9 % 11.6-14.6 [facility] Erythrocyte distribution wid th standard deviationOrdered By: Noel Araujo on 02-14-2025 Erythrocyte distribution width (RBC) [Ratio] 41.3 fl 35.1-43.9 [facility] Free T3on 02-14-2025 Free T3 [Mass/Vol] 2.8 pg/mL Normal 2.18-3.98 [facility] Comment on above: Performed By: #### L 501.79407, L100.0100, L501.5200, L501.9520, L506.0400, L501.9985, L500.4100, L500.4050, L506.1001 ####[facility] [address] [place], [place], [id number] Free U4Ffrrnvv By: Noel tomas on 02-14-2025 Free T3 [Mass/Vol] 2.8 pg/mL 2.18-3.98 [facility] Glomerular filtration rate ( GFR) estimation/1.73 sq m using serum, plasma, or whole bOrdered By: Noel Araujo on 02-14-2025 GFR/1.73 sq M.predicted among non-blacks MDRD (S/P/Bld) [Vol rate/Area] 53 mL/min/{1.73_m2} Low >60 [facility] Comment on above: mL/min/1.73m2 CKD-EP I Creatinine Equation (2020) Hematocrit Auto (Bld) [Volum e fraction]Ordered By: Noel Araujo on 02-14-2025 Hematocrit (Bld) [Volume fraction] 40.4 % 37-47 [facility] Hemoglobin A1con 02-14-2025 HbA1c (Bld) [Mass fraction] 6.8 % High <=5.6 [facility] Comment on above: Result Comment: Norm al < 5.7 % Prediabetic 5.7 - 6.4 % Diabetic >or= 6.5 % Please note range changes. Performed By: #### L 501.92333, L100.0100, L501.5200, L501.9520, L506.0400, L501.9985, L500.4100, L500.4050, L506.1001 ####[facility] [address] [place], [place], [phone] Hemoglobin A1c percentageOrd ered By: Noel Araujo on 02-14-2025 HbA1c (Bld) [Mass fraction] 6.8 % High <5.7 [facility] Comment on above: Normal < 5.7 % Predi abetic 5.7 - 6.4 % Diabetic >or= 6.5 % Please note range changes. Hemoglobin measurementOrdere d By: Noel Araujo on 02-14-2025 Hemoglobin (Bld) [Mass/Vol] 13.6 g/dL 12.0-15.0 [facility] Immature granulocytes/100 WB C Auto (Bld)Ordered By: Noel Araujo on 02-14-2025 Immature granulocytes/100 WBC (Bld) 0.300 % 0.0-0.9 [facility] Comment on above: IG% - Immature Granu locytes (promyelocytes, myelocytes and metamyelocytes) > 1% indicates that a LEFT SHIFT is Present. LDL calc ser/plasOrdered By: Noel Araujo on 02-14-2025 Cholesterol in LDL [Mass/Vol] 57 mg/dL [facility] Comment on above: Hehwovodqg=702-371 m g/dL & Higher Avai=273 mg/dL or greater Laboratory - Chemistry and C hemistry - challengeOrdered By: Noel Araujo on 02-14-2025 AST [Catalytic activity/Vol] 19 U/L <32 [facility] Lipid Profileon 02-14-2025 CHOL:HDL 2.91 Normal [facility] Comment on above: Performed By: #### L 501.79201, L100.0100, L501.5200, L501.9520, L506.0400, L501.9985, L500.4100, L500.4050, L506.1001 ####[facility] [address] [place], [place], [phone] Cholesterol [Mass/Vol] 135 mg/dL Normal <=200 [facility] Comment on above: Result Comment: Chol esterol level, Desirable <200 mg/dLBorderline high cholesterol 200-239 mg/dLHigh cholesterol >=240 mg/dLRecommendations of the NCEP Adult Treatment Panel for thefollowing risk-cutoff thresholds for the [place] Americanpulation. Performed By: #### L 501.50085, L100.0100, L501.5200, L501.9520, L506.0400, L501.9985, L500.4100, L500.4050, L506.1001 ####[facility] [address] [place], [address] Cholesterol in HDL [Mass/Vol] 46 mg/dL Normal [facility] Comment on above: Result Comment: Judith onal Cholesterol Education Program (NCEP) guidelines:<40 mg/dL: Low HDL-cholesterol (major risk factor for CHD)>= 60 mg/dL: High HDL-cholesterol (negative risk factor forCHD)HDL-cholesterol is affected by a number of factors, e.g.smoking, exercise, hormones, sex and age. Performed By: #### L 501.20009, L100.0100, L501.5200, L501.9520, L506.0400, L501.9985, L500.4100, L500.4050, L506.1001 ####[facility] [address] [place], [address] Cholesterol in LDL [Mass/Vol] 57 mg/dL Normal [facility] Comment on above: Result Comment: Bord xliluv=796-189 mg/dL Higher Vmom=105 mg/dL or greater Performed By: #### L 501.14903, L100.0100, L501.5200, L501.9520, L506.0400, L501.9985, L500.4100, L500.4050, L506.1001 ####[facility] [address] [place], [place], [phone]) Cholesterol in VLDL [Mass/Vol] 32 mg/dL Normal 5-40 [facility] Comment on above: Performed By: #### L 501.28744, L100.0100, L501.5200, L501.9520, L506.0400, L501.9985, L500.4100, L500.4050, L506.1001 ####[facility] [address] [place], [address] Triglyceride [Mass/Vol] 160 mg/dL Normal [facility] Comment on above: Result Comment: The drugs N-Acetylcysteine and Metamizole may falselydepress this assay.Normal range: <150 mg/dLBorderline High: 150-199 mg/dLHigh: 200-499 mg/dLVery High: >500 mg/dL Performed By: #### L 501.18154, L100.0100, L501.5200, L501.9520, L506.0400, L501.9985, L500.4100, L500.4050, L506.1001 ####[facility] [address] [place], [place], [address] MCV (mean corpuscular volume ) determinationOrdered By: Noel Araujo on 02-14-2025 MCV (RBC) [Entitic vol] 94.4 fL 81-99 [facility] Magnesiumon 02-14-2025 Magnesium [Mass/Vol] 2.2 mg/dL Normal 1.5-2.2 [facility] Comment on above: Performed By: #### L 501.86930, L100.0100, L501.5200, L501.9520, L506.0400, L501.9985, L500.4100, L500.4050, L506.1001 ####[facility] [address] [place], [place], [phone] Magnesium measurement (mass/ volume)Ordered By: Noel Araujo on 02-14-2025 Magnesium (Unsp spec) [Mass/Vol] 2.2 mg/dL 1.5-2.2 [facility] Mean corpuscular hemoglobin (MCH) determinationOrdered By: Noel Araujo on 02-14-2025 MCH (RBC) [Entitic mass] 31.8 pg 27.0-32.0 [facility] Mean corpuscular hemoglobin concentration (MCHC) determinationOrdered By: Noel Araujo on 02-14-2025 MCHC (RBC) [Mass/Vol] 33.7 g/dL 32-36 [facility] Mean platelet volume determi nationOrdered By: Noel Araujo on 02-14-2025 Platelet mean volume (Bld) [Entitic vol] 11.3 fL 6.2-12.0 [facility] Monocyte percentageOrdered B y: Noel Araujo on 02-14-2025 Monocytes/100 WBC (Bld) 6.6 % 0-10 [facility] Neutrophil percentageOrdered By: Noel Araujo on 02-14-2025 Neutrophils/100 WBC (Bld) 71.7 % High 47-70 [facility] No Panel InformationOrdered By: Noel Araujo on 02-14-2025 19 U/L <32 [facility] Nucleated red blood cell per centageOrdered By: Noel Araujo on 02-14-2025 Nucleated RBC/100 WBC (Bld) [Ratio] 0 % 0-5 [facility] Platelet countOrdered By: Sunni Araujo on 02-14-2025 Platelets (Bld) [#/Vol] 229 10*3/uL 150-450 [facility] Potassium measurement (mass/ volume)Ordered By: Noel Araujo on 02-14-2025 Potassium (Unsp spec) [Mass/Vol] 5.7 mmol/L High 3.3-5.1 [facility] RBC Auto (Bld) [#/Vol]Ordere d By: Noel Araujo on 02-14-2025 RBC (Bld) [#/Vol] 4.28 10*6/uL 4.2-5.4 [facility] Screening total cholesterol/ high density lipoprotein (HDL) cholesterol ratioOrdered By: Noel Araujo on 02-14-2025 Cholesterol.total/Cholest yash in HDL [Mass ratio] 2.91 {ratio} [facility] Serum creatinine measurement (mass/volume)Ordered By: Noel Araujo on 02-14-2025 Creatinine [Mass/Vol] 1.19 mg/dL 0.70-1.20 [facility] Serum globulin measurementOr dered By: Noel Araujo on 02-14-2025 Globulin (S) [Mass/Vol] 2.6 g/dL 2.2-4.2 [facility] Serum glucose measurement (m ass/volume)Ordered By: Noel Araujo on 02-14-2025 Glucose [Mass/Vol] 139 mg/dL High 70-99 [facility] Serum or plasma alanine escalante otransferase (ALT) measurementOrdered By: Noel Araujo on 02-14-2025 ALT [Catalytic activity/Vol] 32 U/L <35 [facility] Serum or plasma albumin evie urement (mass/volume)Ordered By: Noel Araujo on 02-14-2025 Albumin [Mass/Vol] 4.4 g/dL 3.5-5.0 [facility] Serum or plasma albumin/glob ulin mass ratioOrdered By: Noel Araujo on 02-14-2025 Albumin/Globulin [Mass ratio] 1.7 {ratio} 0.9-2.4 [facility] Serum or plasma alkaline lee sphatase measurementOrdered By: Noel Araujo on 02-14-2025 ALP [Catalytic activity/Vol] 85 U/L 35-104 [facility] Serum or plasma calcium evie urement (mass/volume)Ordered By: Noel Araujo on 02-14-2025 Calcium [Mass/Vol] 10.3 mg/dL 7.6-11.0 [facility] Serum or plasma cholesterol in HDL measurement (mass/volume)Ordered By: Noel Araujo on 02-14-2025 Cholesterol in HDL [Mass/Vol] 46 mg/dL >40 [facility] Comment on above: National Cholesterol Education Program (NCEP) guidelines:<40 mg/dL: Low HDL-cholesterol (major risk factor for CHD)>= 60 mg/dL: High HDL-cholesterol (negative risk factor for CHD)HDL-cholesterol is affected by a number of factors, e.g. smoking, exercise, hormones, sex and age. Serum or plasma cholesterol measurement (mass/volume)Ordered By: Noel Araujo on 02-14-2025 Cholesterol [Mass/Vol] 135 mg/dL <201 [facility] Comment on above: Cholesterol level, D esirable <200 mg/dLBorderline high cholesterol 200-239 mg/dLHigh cholesterol >=240 mg/dLRecommendations of the NCEP Adult Treatment Panel for the following risk-cutoff thresholds for the [place] population. Serum or plasma urea nitroge n measurement (mass/volume)Ordered By: Noel Araujo on 02-14-2025 Urea nitrogen [Mass/Vol] 23 mg/dL High 4-19 [facility] Sodium levelOrdered By: Yaima Araujo on 02-14-2025 Sodium [Moles/Vol] 139 mmol/L 133-145 [facility] T4 Free Directon 02-14-2025 T4 FREE DIRECT 1.40 ng/dL Normal 0.76-1.46 [facility] Comment on above: Performed By: #### L 501.37370, L100.0100, L501.5200, L501.9520, L506.0400, L501.9985, L500.4100, L500.4050, L506.1001 ####[facility] [address] [place], [address] T4 freeOrdered By: Noel tomas on 02-14-2025 Free T4 [Mass/Vol] 1.40 ng/dL 0.76-1.46 [facility] TSH DL <= 0.005 mIU/L QnOrde red By: Noel Araujo on 02-14-2025 TSH Qn 0.454 uIU/mL 0.300-4.200 [facility] Thyroid Stim Hormone (TSH)on 02-14-2025 TSH 0.454 uIU/mL Normal 0.300-4.200 [facility] Comment on above: Performed By: #### L 501.24373, L100.0100, L501.5200, L501.9520, L506.0400, L501.9985, L500.4100, L500.4050, L506.1001 ####[facility] [address] [place], [place], [id number] Total proteinOrdered By: Berenice Araujo on 02-14-2025 Protein [Mass/Vol] 7.0 g/dL 5.9-8.4 [facility] Triglycerides measurementOrd ered By: Noel Araujo on 02-14-2025 Triglyceride [Mass/Vol] 160 mg/dL <199 [facility] Comment on above: The drugs N-Acetylcy steine and Metamizole may falsely depress this assay. Normal range: <150 mg/dLBorderline High: 150-199 mg/dLHigh: 200-499 mg/dLVery High: >500 mg/dL Vitamin D,25 Hydroxyon 02-14 Vitamin D 25-OH 39.8 ng/mL Normal 30-100 [facility] Comment on above: Result Comment: Mary Alice min D StatusDeficiency: <20 ng/mL (50nmol/L)Insufficiency: 20-30 ng/mL (50-75 nmol/L)Sufficiency: 30-100 ng/mL (75-250 nmol/L)Toxicity: >100 ng/mL (>250 nmol/L) Performed By: #### L 501.83563, L100.0100, L501.5200, L501.9520, L506.0400, L501.9985, L500.4100, L500.4050, L506.1001 ####[facility] [address] [place], [address] White blood cell (WBC) count Ordered By: Noel Araujo on 02-14-2025 WBC (Bld) [#/Vol] 7.1 10*3/uL 4.4-11.0 [facility] EGD Reporton 01-30-2025 EGD Report Normal [facility] MR/POSTOP.ANEon 01-30-2025 MR/POSTOP.ANE Normal [facility] MR/[id number] 01-30-2025 MR/POSTOPAN2 Normal [facility] .GFRon 01-25-2025 Estimated Glomerular Filtration Rate 71 ml/min/1.73sqm Normal [facility] Comment on above: Result Comment: Stages of Chronic Kidney Disease (CKD) Stage Description eGFR(ml/min/1.73 sq.m.) CKD 1 Normal kidney function or >=90 normal kindney function with possible kidney damage (ex. Proteinuria) CKD 2 Kidney damage with mild loss 60-89 of kidney function CKD 3a Mild to moderate loss of kidney 45-59 function CKD 3b Moderate to severe loss of 30-44 of kindey function CKD 4 Severe loss of kidney function 15-29 CKD 5 Kidney failure <15 Note: (go live 2024) the eGFR calculation was updated to the 2020 CKD-EPI creatinine equation without a race factor to calculate the eGFR results. Performed By: #### G , BMP #### [address] [address] [facility] BUN/Creatinine Ratio 18 ratio Normal 7-27 [facility] Comment on above: Performed By: #### G , BMP #### [address] [address] Calcium [Mass/Vol] 9.9 mg/dL Normal 8.4-10.2 [facility] Comment on above: Performed By: #### G , BMP #### [address] [address] Chloride [Moles/Vol] 101 mmol/L Normal 98-107 [place] [facility] Comment on above: Performed By: #### G , BMP #### [address] [address] CO2 [Moles/Vol] 29 mmol/L Normal 22-29 [facility] Comment on above: Performed By: #### G , BMP #### [address] [address] Creatinine [Mass/Vol] 0.93 mg/dL Normal 0.51-0.95 [facility] Comment on above: Performed By: #### G FR, BMP #### [address] [address] Electrolyte Balance 8.0 mEq/L Normal 4.0-15.0 [facility] Comment on above: Performed By: #### G FR, BMP #### [address] [address] Glucose [Mass/Vol] 113 mg/dL High 70-105 [facility] Comment on above: Performed By: #### G FR, BMP #### [address] [address] Potassium [Moles/Vol] 5.1 mmol/L Normal 3.5-5.1 [facility] Comment on above: Performed By: #### Shmuel RENEE, BMP #### [address] [address] Sodium [Moles/Vol] 138 mmol/L Normal 136-145 [facility] Comment on above: Performed By: #### Shmuel RENEE, BMP #### [address] [address] Urea nitrogen [Mass/Vol] 17 mg/dL Normal 7-18 [facility] Comment on above: Performed By: #### Shmuel RENEE, BMP #### [address] [address] MR/PAT.ANEon 01-25-2025 MR/PAT.ANE Normal [facility] Surgery Visit Reporton 01-23 Surgery Visit Report Normal [facility] .GFRon 01-15-2025 Estimated Glomerular Filtration Rate 81 ml/min/1.73sqm Normal [facility] Comment on above: Result Comment: Stages of Chronic Kidney Disease (CKD) Stage Description eGFR(ml/min/1.73 sq.m.) CKD 1 Normal kidney function or >=90 normal kindney function with possible kidney damage (ex. Proteinuria) CKD 2 Kidney damage with mild loss 60-89 of kidney function CKD 3a Mild to moderate loss of kidney 45-59 function CKD 3b Moderate to severe loss of 30-44 of kindey function CKD 4 Severe loss of kidney function 15-29 CKD 5 Kidney failure <15 Note: (go live 2024) the eGFR calculation was updated to the 2020 CKD-EPI creatinine equation without a race factor to calculate the eGFR results. Performed By: #### Shmuel RENEE, BMP #### [address] [address] BMPon 01-15-2025 BUN/Creatinine Ratio 27 ratio Normal 7-27 [facility] Comment on above: Performed By: #### Shmuel RENEE, BMP #### [address] [address] Calcium [Mass/Vol] 9.3 mg/dL Normal 8.4-10.2 [facility] Comment on above: Performed By: #### Shmuel RENEE, BMP #### [address] [address] Chloride [Moles/Vol] 101 mmol/L Normal 98-107 [facility] Comment on above: Performed By: #### Shmuel RENEE, BMP #### [address] [address] CO2 [Moles/Vol] 30 mmol/L High 22-29 [facility] Comment on above: Performed By: #### Shmuel RENEE, BMP #### [address] [address] Creatinine [Mass/Vol] 0.83 mg/dL Normal 0.51-0.95 [facility] Comment on above: Performed By: #### Shmuel RENEE, BMP #### [address] [address] Electrolyte Balance 6.0 mEq/L Normal 4.0-15.0 [facility] Comment on above: Performed By: #### Shmuel RENEE, BMP #### [address] [address] Glucose [Mass/Vol] 140 mg/dL High 70-105 [facility] Comment on above: Performed By: #### Shmuel RENEE, BMP #### [address] [address] Potassium [Moles/Vol] 4.8 mmol/L Normal 3.5-5.1 [facility] Comment on above: Performed By: #### Shmuel RENEE, BMP #### [address] [address] Sodium [Moles/Vol] 137 mmol/L Normal 136-145 [facility] Comment on above: Performed By: #### Shmuel RENEE, BMP #### [address] [address] Urea nitrogen [Mass/Vol] 22 mg/dL High 7-18 [facility] Comment on above: Performed By: #### Shmuel RENEE, BMP #### [address] [address] LABORATORYOrdered By: SYSTEM SYSTEM on 01-15-2025 Calcium [Mass/Vol] 9.3 mg/dL Normal 8.4 - 10. 2 mg/dL AO ADM SS Chloride [Moles/Vol] 101 mmol/L Normal 98 - 10 7 mmol/L AO ADM SS CO2 [Moles/Vol] 30 mmol/L High 22 - 29 mmol/L AO ADM SS Creatinine [Mass/Vol] 0.83 mg/dL Normal 0.51 - 0.95 mg/dL AO ADM SS Electrolyte Balance 6.0 mEq/L Normal 4.0 - 15 .0 mEq/L AO ADM SS Estimated Glomerular Filtration Rate 81 ml/min/1.73sqm Invalid Interpretation Code AO Chemistry S Comment on above: Interpretive Data: Stages of Chronic Kidney Disease (CKD) Stage Description eGFR(ml/min/1.73 sq.m.) CKD 1 Normal kidney function or >=90 normal kindney function with possible kidney damage (ex. Proteinuria) CKD 2 Kidney damage with mild loss 60-89 of kidney function CKD 3a Mild to moderate loss of kidney 45-59 function CKD 3b Moderate to severe loss of 30-44 of kindey function CKD 4 Severe loss of kidney function 15-29 CKD 5 Kidney failure <15 Note: (go live 2024) the eGFR calculation was updated to the 2020 CKD-EPI creatinine equation without a race factor to calculate the eGFR results. Glucose [Mass/Vol] 140 mg/dL High 70 - 105 mg/dL AO ADM SS Potassium [Moles/Vol] 4.8 mmol/L Normal 3.5 - 5.1 mmol/L AO ADM SS Sodium [Moles/Vol] 137 mmol/L Normal 136 - 145 mmol/L AO ADM SS Urea nitrogen [Mass/Vol] 22 mg/dL High 7 - 18 mg/d L AO ADM SS Urea nitrogen/Creatinine [Mass ratio] 27 ratio Normal 7 - 27 ratio AO ADM SS .GFROrdered By: SYSTEM SYSTE M on 01-01-2025 Estimated Glomerular Filtration Rate 86 ml/min/1.73sqm Normal AO Chemistry S Comment on above: Interpretive Data: Stages of Chronic Kidney Disease (CKD) Stage Description eGFR(ml/min/1.73 sq.m.) CKD 1 Normal kidney function or >=90 normal kindney function with possible kidney damage (ex. Proteinuria) CKD 2 Kidney damage with mild loss 60-89 of kidney function CKD 3a Mild to moderate loss of kidney 45-59 function CKD 3b Moderate to severe loss of 30-44 of kindey function CKD 4 Severe loss of kidney function 15-29 CKD 5 Kidney failure <15 Note: ( live 10/10/2024) the eGFR calculation was updated to the 2020 CKD-EPI creatinine equation without a race factor to calculate the eGFR results. Result Comment: Stages of Chronic Kidney Disease (CKD) Stage Description eGFR(ml/min/1.73 sq.m.) CKD 1 Normal kidney function or >=90 normal kindney function with possible kidney damage (ex. Proteinuria) CKD 2 Kidney damage with mild loss 60-89 of kidney function CKD 3a Mild to moderate loss of kidney 45-59 function CKD 3b Moderate to severe loss of 30-44 of kindey function CKD 4 Severe loss of kidney function 15-29 CKD 5 Kidney failure <15 Note: ( live 10/10/2024) the eGFR calculation was updated to the 2020 CKD-EPI creatinine equation without a race factor to calculate the eGFR results. Performed By: #### Shmuel RENEE, BMP #### [address] [address] BMPon 01-01-2025 BUN/Creatinine Ratio 18 ratio Normal 7-27 [facility] Comment on above: Performed By: #### Shmuel RENEE, BMP #### [address] [address] BMPOrdered By: SYSTEM SYSTEM on 01-01-2025 Calcium [Mass/Vol] 9.5 mg/dL Normal 8.4-10.2 AO ADM SS Comment on above: Performed By: #### Shmuel RENEE, BMP #### [address] [address] Chloride [Moles/Vol] 103 mmol/L Normal 98-107 AO A DM SS Comment on above: Performed By: #### Shmuel RENEE, BMP #### [address] [address] CO2 [Moles/Vol] 32 mmol/L High 22-29 AO ADM SS Comment on above: Performed By: #### Shmuel RENEE, BMP #### [address] [address] Creatinine [Mass/Vol] 0.79 mg/dL Normal 0.51-0.95 AO ADM SS Comment on above: Performed By: #### G , BMP #### [address] [address] Electrolyte Balance 4.0 mEq/L Normal 4.0-15.0 AO AD M SS Comment on above: Performed By: #### G , BMP #### [address] [address] Glucose [Mass/Vol] 136 mg/dL High 70-105 AO ADM SS Comment on above: Performed By: #### G , BMP #### [address] [address] Potassium [Moles/Vol] 4.7 mmol/L Normal 3.5-5.1 AO ADM SS Comment on above: Performed By: #### G , BMP #### [address] [address] Sodium [Moles/Vol] 139 mmol/L Normal 136-145 AO ADM SS Comment on above: Performed By: #### G , BMP #### [address] [address] Urea nitrogen [Mass/Vol] 14 mg/dL Normal 7-18 AO ADM SS Comment on above: Performed By: #### Shmuel , BMP #### [address] [address] LABORATORYOrdered By: SYSTEM SYSTEM on 01-01-2025 Urea nitrogen/Creatinine [Mass ratio] 18 ratio Normal 7 - 27 ratio AO ADM SS METPon 01-01-2025 Metanephrine Lvl <25.0 Normal 0.0-88.0 [facility] Comment on above: Result Comment: This test was developed and its performance characteristics determined by [facility]. It has not been cleared or approved by the Food and Drug Administration. Performed At: [address] [id number] Fabian Hong MD Ph:[phone] Performed By: #### G , BMP #### [address] [address] Normetanephrine Lvl 65.6 pg/mL Normal 0.0-244.0 [facility] Comment on above: Result Comment: This test was developed and its performance characteristics determined by [facility]. It has not been cleared or approved by the Food and Drug Administration. Performed By: #### Shmuel RENEE, BMP #### [address] [address] ALDRENon 12-24-2024 Aldosterone. 11.9 ng/dL Normal 0.0-30.0 [facility] Comment on above: Result Comment: This test was developed and its performance characteristics determined by [facility]. It has not been cleared or approved by the Food and Drug Administration. Performed By: #### Shmuel RENEE, BMP #### [address] [address] Aldosterone/Renin Ratio >71.3 High 0.0-30.0 [facility] Comment on above: Result Comment: Unit s: ng/dL per ng/mL/hr Performed At: [facility] [id number] Fabian Hong MD Ph:[phone] Performed By: #### Shmuel RENEE, BMP #### [address] [address] Renin Activity <0.167 Low 0.167-5.380 [facility] Comment on above: Result Comment: This test was developed and its performance characteristics determined by [facility]. It has not been cleared or approved by the Food and Drug Administration. Performed By: #### Shmuel RENEE, BMP #### [address] [address] .GFRon 12-19-2024 Estimated Glomerular Filtration Rate 86 ml/min/1.73sqm Normal [facility] Comment on above: Result Comment: Stages of Chronic Kidney Disease (CKD) Stage Description eGFR(ml/min/1.73 sq.m.) CKD 1 Normal kidney function or >=90 normal kindney function with possible kidney damage (ex. Proteinuria) CKD 2 Kidney damage with mild loss 60-89 of kidney function CKD 3a Mild to moderate loss of kidney 45-59 function CKD 3b Moderate to severe loss of 30-44 of kindey function CKD 4 Severe loss of kidney function 15-29 CKD 5 Kidney failure <15 Note: (go live 2024) the eGFR calculation was updated to the 2020 CKD-EPI creatinine equation without a race factor to calculate the eGFR results. Performed By: #### Shmuel RENEE, BMP #### [address] [address] BMPon 12-19-2024 BUN/Creatinine Ratio 25 ratio Normal 7-27 [facility] Comment on above: Performed By: #### Shmuel RENEE, BMP #### [address] [address] Calcium [Mass/Vol] 9.9 mg/dL Normal 8.4-10.2 [facility] Comment on above: Performed By: #### Shmuel RENEE, BMP #### [address] [address] Chloride [Moles/Vol] 103 mmol/L Normal 98-107 [facility] Comment on above: Performed By: #### Shmuel RENEE, BMP #### [address] [address] CO2 [Moles/Vol] 30 mmol/L High 22-29 [facility] Comment on above: Performed By: #### Shmuel RENEE, BMP #### [address] [address] Creatinine [Mass/Vol] 0.79 mg/dL Normal 0.55-1.02 [facility] Comment on above: Result Comment: Test ing performed on Siemens Dimension EXL analyzer using a modified kinetic Denise technique. Performed By: #### G , BMP #### [address] [address] Electrolyte Balance 7.0 mEq/L Normal 4.0-15.0 [facility] Comment on above: Performed By: #### Shmuel RENEE, BMP #### [address] [address] Glucose [Mass/Vol] 137 mg/dL High 70-105 [facility] Comment on above: Performed By: #### Shmuel RENEE, BMP #### [address] [address] Potassium [Moles/Vol] 3.6 mmol/L Normal 3.5-5.1 [facility] Comment on above: Performed By: #### G , BMP #### [address] [address] Sodium [Moles/Vol] 140 mmol/L Normal 136-145 [facility] Comment on above: Performed By: #### G , BMP #### [address] [address] Urea nitrogen [Mass/Vol] 20 mg/dL High 7-18 [facility] Comment on above: Performed By: #### G , BMP #### [place] [id number] CORTon 12-19-2024 Cortisol Level 8.8 mcg/dL Normal [facility] Comment on above: Result Comment: George isol AM Reference Range 6.5-26.0 mcg/dL Cortisol PM Reference Range 3.5-15.0 mcg/dL Performed By: #### G , BMP #### [address] [address] PBNPon 12-19-2024 Natriuretic peptide B (Bld) [Mass/Vol] 163 pg/mL High 0-125 [facility] Comment on above: Result Comment: NT-p roBNP results of less than 300 pg/mL effectively rules out acute congestive heart failure with 99% negative predictive value. Performed By: #### G , BMP #### [address] [address] MRI CARDIAC MORPHOLOGY AND [facility] W+W/O CONTon 12-17-2024 MRI CARDIAC MORPHOLOGY AND [facility] W+W/O CONT ORIGINAL Indication: cardiomyopathy Technique: SSFP, 2XIR and 2XIR+FS images were obtained. 40 CC Multihance contrast given and First pass perfusion images, EGE and LGE (PSIR and MagIR) images were obtained. Findings: Septal wall thickness:9 mm PW thickness:6 mm LVEDD:59 mm RV Basal diameter:47 mm RV Long [place]:80 mm AORTA (@ level of MPA):29 mm MPA (@ level of Aorta):26 mm RPA:16 mm LPA:24 mm IVC:17 mm Pulmonary Veins:Normal LV Systolic function appears low normal . EF (visual estimation) is 55 % RV systolic function appears normal TREVA: normal No regional wall motion abnormalities noted. There is apparent fluid collection in the left erector spinae muscle extending from the main pulmonary artery level to the level of the diaphragm. Differential diagnosis include paraspinal abscess versus fatty infiltration of the erector spinae. Clinical correlation or dedicated imaging recommended. Quantification: LV mass [g]:106 LV EDV [mL]:196 LV ESV [mL]:85 LV stroke volume [mL]:111 LV EF [%]:57 C.O [L/min]:6.2 RV EDV [mL]:179 RV ESV [mL]:63 RV stroke volume [mL]:116 RV EF [%]:\X09\65 C.O [L/min]:6,5 Valves: Mild MR Masses: Absent Pericardial thickening: Absent Pericardial effusion: Trivial 2XIR images Normal 2XIR+FS images No edema First pass images show Normal perfusion Post contrast images : Minimal mid wall EGE and LGE. Conclusion: 1. Dilated left ventricle with normal biventricular function. LVEF 57%. RVEF 65%. No evidence of myocarditis or sarcoidosis or ischemic cardiomyopathy. No regional wall motion abnormalities identified. No significant LGE burden. No myocardial edema. 2. Trivial pericardial effusion without evidence of pericarditis. 3. There is apparent fluid collection in the left erector spinae muscle extending from the main pulmonary artery level to the level of the diaphragm. No fluid specific sequences [T2] imaging the erector spinae. Differential diagnosis include paraspinal abscess versus fatty infiltration of the left erector spinae. Review of CT images from SPECT study from 11/11/24 suggests this is likely fatty infiltration and less likely an abscess. Clinical correlation recommended. Interpreted By: Rajiv Grant MD Preliminary Report By: Rajiv Grant MD Electronically Signed By: Rajiv Grant MD Dictated Date: 12/17/2024 5:45:46 PM Prelim Date: 12/17/2024 5:45:46 PM Sign Date: 12/17/2024 5:59:34 PM Ordering Provider:Tito Morgan Normal [facility] 12 Lead EKGon 12-11-2024 12 Lead EKG Normal [facility] Absolute lymphocyte countOrd ered By: Morales Eubanks on 12-11-2024 Lymphocytes Auto (Unsp spec) [#/Vol] 2.42 10*3/uL 0.83-4.51 [facility] Absolute neutrophil countOrd ered By: Morales Eubanks on 12-11-2024 Neutrophils (Bld) [#/Vol] 4.2 10*3/uL 2.0-7.7 [facility] Anion gap in Serum or Plasma Ordered By: Morales Eubanks on 12-11-2024 Anion gap [Moles/Vol] 10 mmol/L 5-15 [facility] Automated lymphocyte count a s percentage of total leukocytesOrdered By: Morales Eubanks on 12-11-2024 Lymphocytes/100 WBC Auto (Unsp spec) 32.8 % 19-41 [facility] BUN/creatinine ratioOrdered By: Morales Eubanks on 12-11-2024 Urea nitrogen/Creatinine [Mass ratio] 26.6 mg/mg High 10-20 [facility] Basic Metabolic Profile (BMP )on 12-11-2024 BUN/CRE 26.6 RATIO High 10-20 [facility] Comment on above: Performed By: #### L 501.4021, L500.2500, L100.0100 ####[facility] [address] [place], [address] Calcium [Mass/Vol] 9.6 mg/dL Normal 7.6-11.0 [facility] Comment on above: Performed By: #### L 501.4021, L500.2500, L100.0100 ####[facility] [address] [place], [address] Chloride [Moles/Vol] 103 mmol/L Normal 98-108 [facility] Comment on above: Performed By: #### L 501.4021, L500.2500, L100.0100 ####[facility] [address] [place], [address] CO2 [Moles/Vol] 25.5 mmol/L Normal 21.0-32.0 [facility] Comment on above: Performed By: #### L 501.4021, L500.2500, L100.0100 ####[facility] [address] [place], [address] Creatinine [Mass/Vol] 0.75 mg/dL Normal 0.70-1.20 [facility] Comment on above: Performed By: #### L 501.4021, L500.2500, L100.0100 ####[facility] [address] [place], [address] ECRCL 100.00 ml/min Normal 50-250 [facility] Comment on above: Performed By: #### L 501.4021, L500.2500, L100.0100 ####[facility] [address] [place], [address] GAP 10 Normal 5-15 [facility] Comment on above: Performed By: #### L 501.4021, L500.2500, L100.0100 ####[facility] [address] [place], [address] GFR/1.73 sq M.predicted among non-blacks MDRD (S/P/Bld) [Vol rate/Area] 91 mL/min/{1.73_m2} Normal >60 [facility] Comment on above: Result Comment: mL/m in/1.73m2 CKD-EPI Creatinine Equation (2020) Performed By: #### L 501.4021, L500.2500, L100.0100 ####[facility] [address] [place], [address] Glucose [Mass/Vol] 131 mg/dL High 70-99 [facility] Comment on above: Performed By: #### L 501.4021, L500.2500, L100.0100 ####[facility] [address] [place], [address] Potassium [Moles/Vol] 4.3 mmol/L Normal 3.3-5.1 [facility] Comment on above: Result Comment: Hemo lysis present, Results??could be affected.?? Performed By: #### L 501.4021, L500.2500, L100.0100 ####[facility] [address] [place], [address] Sodium [Moles/Vol] 138 mmol/L Normal 133-145 [facility] Comment on above: Performed By: #### L 501.4021, L500.2500, L100.0100 ####[facility] [address] [place], [address] Urea nitrogen [Mass/Vol] 20 mg/dL High 4-19 [facility] Comment on above: Performed By: #### L 501.4021, L500.2500, L100.0100 ####[facility] [address] [place], [address] Basophil percentageOrdered B y: Morales Eubanks on 12-11-2024 Basophils/100 WBC (Bld) 0.7 % 0-1 [facility] CBC W/Diff, Automatedon - Absolute Lymph 2.42 X10 3/uL Normal 0.83-4.51 [facility] Comment on above: Performed By: #### L 501.4021, L500.2500, L100.0100 ####[facility] [address] [place], [address] Absolute Neut 4.2 X10 3/uL Normal 2.0-7.7 [facility] Comment on above: Performed By: #### L 501.4021, L500.2500, L100.0100 ####[facility] [address] [place], [address] Basophils/100 WBC (Bld) 0.7 % Normal 0-1 [facility] Comment on above: Performed By: #### L 501.4021, L500.2500, L100.0100 ####[facility] [address] [place], [address] Eosinophils/100 WBC (Bld) 2.4 % Normal 0-5 [facility] Comment on above: Performed By: #### L 501.4021, L500.2500, L100.0100 ####[facility] [address] [place], [address] Erythrocyte distribution width (RBC) [Ratio] 13.2 % Normal 11.6-14.6 [facility] Comment on above: Performed By: #### L 501.4021, L500.2500, L100.0100 ####[facility] [address] [place], [address] Hematocrit (Bld) [Volume fraction] 41.1 % Normal 37-47 [facility] Comment on above: Performed By: #### L 501.4021, L500.2500, L100.0100 ####[facility] [address] [place], [address] Hemoglobin (Bld) [Mass/Vol] 14.0 g/dL Normal 12.0-15.0 [facility] Comment on above: Performed By: #### L 501.4021, L500.2500, L100.0100 ####[facility] [address] [place], [address] IG% 0.100 Normal 0.0-0.9 [facility] Comment on above: Result Comment: IG% - Immature Granulocytes (promyelocytes, myelocytes andmetamyelocytes) > 1% indicates that a LEFT SHIFT is Present. Performed By: #### L 501.4021, L500.2500, L100.0100 ####[facility] [address] [place], [address] Lymphocytes/100 WBC (Bld) 32.8 % Normal 19-41 [facility] Comment on above: Performed By: #### L 501.4021, L500.2500, L100.0100 ####[facility] [address] [place], [address] MCH (RBC) [Entitic mass] 31.8 pg Normal 27.0-32.0 [facility] Comment on above: Performed By: #### L 501.4021, L500.2500, L100.0100 ####[facility] [address] [place], [address] MCHC (RBC) [Mass/Vol] 34.1 g/dL Normal 32-36 [facility] Comment on above: Performed By: #### L 501.4021, L500.2500, L100.0100 ####[facility] [address] [place], [address] MCV (RBC) [Entitic vol] 93.4 fL Normal 81-99 [facility] Comment on above: Performed By: #### L 501.4021, L500.2500, L100.0100 ####[facility] [address] [place], [address] Monocytes/100 WBC (Bld) 7.5 % Normal 0-10 [facility] Comment on above: Performed By: #### L 501.4021, L500.2500, L100.0100 ####[facility] [address] [place], [address] Neutrophils/100 WBC (Bld) 56.5 % Normal 47-70 [facility] Comment on above: Performed By: #### L 501.4021, L500.2500, L100.0100 ####[facility] [address] [place], [address] Nucleated RBC (Bld) [#/Vol] 0 10*3/uL Normal 0-5 [facility] Comment on above: Performed By: #### L 501.4021, L500.2500, L100.0100 ####[facility] [address] [place], [address] Platelet mean volume (Bld) [Entitic vol] 10.6 fL Normal 6.2-12.0 [facility] Comment on above: Performed By: #### L 501.4021, L500.2500, L100.0100 ####[facility] [address] [place], [address] Platelets (Bld) [#/Vol] 236 10*3/uL Normal 150-450 [facility] Comment on above: Performed By: #### L 501.4021, L500.2500, L100.0100 ####[facility] [address] [place], [address] RBC (Bld) [#/Vol] 4.40 10*6/uL Normal 4.2-5.4 [facility] Comment on above: Performed By: #### L 501.4021, L500.2500, L100.0100 ####[facility] [address] [place], [address] RDW SD 45.1 fl High 35.1-43.9 [facility] Comment on above: Performed By: #### L 501.4021, L500.2500, L100.0100 ####[facility] [address] [place], [address] WBC (Bld) [#/Vol] 7.4 10*3/uL Normal 4.4-11.0 [facility] Comment on above: Performed By: #### L 501.4021, L500.2500, L100.0100 ####[facility] [address] [place], [address] Carbon dioxide, total [Moles /volume] in Central venous bloodOrdered By: Morales Eubanks on 12-11-2024 CO2 [Moles/Vol] 25.5 mmol/L 21.0-32.0 [facility] Chloride assayOrdered By: Catarino Eubanks on 12-11-2024 Chloride [Moles/Vol] 103 mmol/L 98-108 [facility] Emergency Department Summary on 12-11-2024 Emergency Department Summary Normal [facility] Eosinophil percentageOrdered By: Morales Eubanks on 12-11-2024 Eosinophils/100 WBC (Bld) 2.4 % 0-5 [facility] Erythrocyte distribution wid th (RBC) [Ratio]Ordered By: Morales Eubanks on 12-11-2024 Erythrocyte distribution width (RBC) [Entitic vol] 45.1 fL High 35.1-43.9 [facility] Erythrocyte distribution wid th ratioOrdered By: Morales Eubanks on 12-11-2024 Erythrocyte distribution width (RBC) [Ratio] 13.2 % 11.6-14.6 [facility] Erythrocyte distribution wid th standard deviationOrdered By: Morales Eubanks on 12-11-2024 Erythrocyte distribution width (RBC) [Ratio] 45.1 fl High 35.1-43.9 [facility] Estimation of creatinine irina aranceOrdered By: Morales Eubanks on 12-11-2024 Estimated Creatinine Clearance Calc 100.00 ml/min 50-250 [facility] GFR/1.73 sq M.predicted otd g non-blacks MDRD (S/P/Bld) [Vol rate/Area]Ordered By: Morales Eubanks on 12-11-2024 Estimated GFR (MDRD) Non-Af Amer 91 >60 [facility] Comment on above: mL/min/1.73m2 CKD-EP I Creatinine Equation (2020) Glomerular filtration rate ( GFR) estimation/1.73 sq m using serum, plasma, or whole bOrdered By: Morales Eubanks on 12-11-2024 GFR/1.73 sq M.predicted among non-blacks MDRD (S/P/Bld) [Vol rate/Area] 91 mL/min/{1.73_m2} >60 [facility] Comment on above: mL/min/1.73m2 CKD-EP I Creatinine Equation (2020) Hematocrit Auto (Bld) [Volum e fraction]Ordered By: Morales Eubanks on 12-11-2024 Hematocrit (Bld) [Volume fraction] 41.1 % 37-47 [facility] Hemoglobin measurementOrdere d By: Morales Eubanks on 12-11-2024 Hemoglobin (Bld) [Mass/Vol] 14.0 g/dL 12.0-15.0 [facility] Immature granulocytes/100 WB C Auto (Bld)Ordered By: Morales Eubanks on 12-11-2024 Immature granulocytes/100 WBC (Bld) 0.100 % 0.0-0.9 [facility] Comment on above: IG% - Immature Granu locytes (promyelocytes, myelocytes and metamyelocytes) > 1% indicates that a LEFT SHIFT is Present. L499.0042on 12-11-2024 Trop T High Sen Normal <=14 [facility] Comment on above: Result Comment: Canc elled via OM: Order cancelled - Patient discharged Performed By: #### L 499.0042 ####[facility] [address] [place], [address] L499.0043on 12-11-2024 Trop T High Sen Normal <=14 [facility] Comment on above: Result Comment: Canc elled via OM: Order cancelled - Patient discharged Performed By: #### L 499.0043 ####[facility] [address] [place], [address] L501.4021on 12-11-2024 Trop T High Sen < 6 Normal <=14 [facility] Comment on above: Performed By: #### L 501.4021, L500.2500, L100.0100 ####[facility] [address] [place], [address] Lymphocytes Auto (Unsp spec) [#/Vol]Ordered By: Morales Eubanks on 12-11-2024 Lymphocytes (Bld) [#/Vol] 2.42 10*3/uL 0.83-4.5 1 [facility] Lymphocytes/100 WBC Auto (Un sp spec)Ordered By: Morales Eubanks on 12-11-2024 Lymphocytes/100 WBC (Bld) 32.8 % 19-41 [facility] MCV (mean corpuscular volume ) determinationOrdered By: Morales Eubanks on 12-11-2024 MCV (RBC) [Entitic vol] 93.4 fL 81-99 [facility] Mean corpuscular hemoglobin (MCH) determinationOrdered By: Morales Eubanks on 12-11-2024 MCH (RBC) [Entitic mass] 31.8 pg 27.0-32.0 [facility] Mean corpuscular hemoglobin concentration (MCHC) determinationOrdered By: Morales Eubanks on 12-11-2024 MCHC (RBC) [Mass/Vol] 34.1 g/dL 32-36 [facility] Mean platelet volume determi nationOrdered By: Morales Eubanks on 12-11-2024 Platelet mean volume (Bld) [Entitic vol] 10.6 fL 6.2-12.0 [facility] Monocyte percentageOrdered B y: Morales Eubanks on 12-11-2024 Monocytes/100 WBC (Bld) 7.5 % 0-10 [facility] Neutrophil percentageOrdered By: Morales Eubanks on 12-11-2024 Neutrophils/100 WBC (Bld) 56.5 % 47-70 [facility] Nucleated red blood cell per centageOrdered By: Morales Eubanks on 12-11-2024 Nucleated RBC/100 WBC (Bld) [Ratio] 0 % 0-5 [facility] Platelet countOrdered By: Catarino Eubanks on 12-11-2024 Platelets (Bld) [#/Vol] 236 10*3/uL 150-450 [facility] Potassium (Unsp spec) [Mass/ Vol]Ordered By: Morales Eubanks on 12-11-2024 Potassium [Moles/Vol] 4.3 mmol/L 3.3-5.1 [facility] Comment on above: Hemolysis present, R esults could be affected. Potassium measurement (mass/ volume)Ordered By: Morales Eubanks on 12-11-2024 Potassium (Unsp spec) [Mass/Vol] 4.3 mmol/L 3.3-5.1 [facility] Comment on above: Hemolysis present, R esults could be affected. RBC Auto (Bld) [#/Vol]Ordere d By: Morales Eubanks on 12-11-2024 RBC (Bld) [#/Vol] 4.40 10*6/uL 4.2-5.4 [facility] Serum creatinine measurement (mass/volume)Ordered By: Morales Eubanks on 12-11-2024 Creatinine [Mass/Vol] 0.75 mg/dL 0.70-1.20 [facility] Serum glucose measurement (m ass/volume)Ordered By: Morales Eubanks on 12-11-2024 Glucose [Mass/Vol] 131 mg/dL High 70-99 [facility] Serum or plasma calcium veie urement (mass/volume)Ordered By: Morales Eubanks on 12-11-2024 Calcium [Mass/Vol] 9.6 mg/dL 7.6-11.0 [facility] Serum or plasma urea nitroge n measurement (mass/volume)Ordered By: Morales Eubanks on 12-11-2024 Urea nitrogen [Mass/Vol] 20 mg/dL High 4-19 [facility] Sodium levelOrdered By: Michale Eubanks on 12-11-2024 Sodium [Moles/Vol] 138 mmol/L 133-145 [facility] Troponin T.cardiac High sens itivity method [Mass/Vol]Ordered By: Morales Eubanks on 12-11-2024 Troponin T High Sensitivity < 6 ng/L <14 [facility] Troponin T.cardiac [Mass/vol ume] in Serum or Plasma by High sensitivity methodOrdered By: Morales Eubanks on 12-11-2024 Troponin T.cardiac High sensitivity method [Mass/Vol] < 6 ng/L <14 [facility] White blood cell (WBC) count Ordered By: Morales Eubanks on 12-11-2024 WBC (Bld) [#/Vol] 7.4 10*3/uL 4.4-11.0 [facility] 12 Lead EKGon 11-27-2024 12 Lead EKG Normal [facility] Absolute lymphocyte countOrd ered By: ED PROVIDER on 11-27-2024 Lymphocytes Auto (Unsp spec) [#/Vol] 1.63 10*3/uL 0.83-4.51 [facility] Absolute neutrophil countOrd ered By: ED PROVIDER on 11-27-2024 Neutrophils (Bld) [#/Vol] 4.5 10*3/uL 2.0-7.7 [facility] Anion gap in Serum or Plasma Ordered By: Eric Alba on 11-27-2024 Anion gap [Moles/Vol] 10 mmol/L 5-15 [facility] Automated lymphocyte count a s percentage of total leukocytesOrdered By: ED PROVIDER on 11-27-2024 Lymphocytes/100 WBC Auto (Unsp spec) 23.9 % 19-41 [facility] BUN/creatinine ratioOrdered By: Eric Alba on 11-27-2024 Urea nitrogen/Creatinine [Mass ratio] 20.6 mg/mg High 10-20 [facility] Basic Metabolic Profile (BMP )on 11-27-2024 BUN/CRE 20.6 RATIO High 10- [facility] Comment on above: Performed By: #### L 100.0100, L500.2500, L501.4021 ####[facility] [address] [place], [address] Calcium [Mass/Vol] 9.7 mg/dL Normal 7.6-11.0 [facility] Comment on above: Performed By: #### L 100.0100, L500.2500, L501.4021 ####[facility] [address] [place], [address] Chloride [Moles/Vol] 102 mmol/L Normal 98-108 [facility] Comment on above: Performed By: #### L 100.0100, L500.2500, L501.4021 ####[facility] [address] [place], [address] CO2 [Moles/Vol] 26.5 mmol/L Normal 21.0-32.0 [facility] Comment on above: Performed By: #### L 100.0100, L500.2500, L501.4021 ####[facility] [address] [place], [address] Creatinine [Mass/Vol] 0.77 mg/dL Normal 0.70-1.20 [facility] Comment on above: Performed By: #### L 100.0100, L500.2500, L501.4021 ####[facility] [address] [place], [address] GAP 10 Normal 5-15 [facility] Comment on above: Performed By: #### L 100.0100, L500.2500, L501.4021 ####[facility] [address] [place], [address] GFR/1.73 sq M.predicted among non-blacks MDRD (S/P/Bld) [Vol rate/Area] 89 mL/min/{1.73_m2} Normal >60 [facility] Comment on above: Result Comment: mL/m in/1.73m2 CKD-EPI Creatinine Equation (2020) Performed By: #### L 100.0100, L500.2500, L501.4021 ####[facility] [address] [place], [address] Glucose [Mass/Vol] 100 mg/dL High 70-99 [facility] Comment on above: Performed By: #### L 100.0100, L500.2500, L501.4021 ####[facility] [address] [place], [address] Potassium [Moles/Vol] 4.2 mmol/L Normal 3.3-5.1 [facility] Comment on above: Performed By: #### L 100.0100, L500.2500, L501.4021 ####[facility] [address] [place], [address] Sodium [Moles/Vol] 139 mmol/L Normal 133-145 [facility] Comment on above: Performed By: #### L 100.0100, L500.2500, L501.4021 ####[facility] [address] [place], [address] Urea nitrogen [Mass/Vol] 16 mg/dL Normal 4-19 [facility] Comment on above: Performed By: #### L 100.0100, L500.2500, L501.4021 ####[facility] [address] [place], [address] Basophil percentageOrdered B y: ED PROVIDER on 11-27-2024 Basophils/100 WBC (Bld) 0.6 % 0-1 [facility] CBC W/Diff, Automatedon 11-05 Absolute Lymph 1.63 X10 3/uL Normal 0.83-4.51 [facility] Comment on above: Performed By: #### L 100.0100, L500.2500, L501.4021 ####[facility] [address] [place], [address] Absolute Neut 4.5 X10 3/uL Normal 2.0-7.7 [facility] Comment on above: Performed By: #### L 100.0100, L500.2500, L501.4021 ####[facility] [address] [place], [address] Basophils/100 WBC (Bld) 0.6 % Normal 0-1 [facility] Comment on above: Performed By: #### L 100.0100, L500.2500, L501.4021 ####[facility] [address] [place], [address] Eosinophils/100 WBC (Bld) 1.3 % Normal 0-5 [facility] Comment on above: Performed By: #### L 100.0100, L500.2500, L501.4021 ####[facility] [address] [place], [address] Erythrocyte distribution width (RBC) [Ratio] 13.2 % Normal 11.6-14.6 [facility] Comment on above: Performed By: #### L 100.0100, L500.2500, L501.4021 ####[facility] [address] [place], [address] Hematocrit (Bld) [Volume fraction] 42.6 % Normal 37-47 [facility] Comment on above: Performed By: #### L 100.0100, L500.2500, L501.4021 ####[facility] [address] [place], [address] Hemoglobin (Bld) [Mass/Vol] 14.8 g/dL Normal 12.0-15.0 [facility] Comment on above: Performed By: #### L 100.0100, L500.2500, L501.4021 ####[facility] [address] [place], [address] IG% 0.300 Normal 0.0-0.9 [facility] Comment on above: Result Comment: IG% - Immature Granulocytes (promyelocytes, myelocytes andmetamyelocytes) > 1% indicates that a LEFT SHIFT is Present. Performed By: #### L 100.0100, L500.2500, L501.4021 ####[facility] [address] [place], [address] Lymphocytes/100 WBC (Bld) 23.9 % Normal 19-41 [facility] Comment on above: Performed By: #### L 100.0100, L500.2500, L501.4021 ####[facility] [address] [place], [address] MCH (RBC) [Entitic mass] 32.2 pg High 27.0-32.0 [facility] Comment on above: Performed By: #### L 100.0100, L500.2500, L501.4021 ####[facility] [address] [place], [address] MCHC (RBC) [Mass/Vol] 34.7 g/dL Normal 32-36 [facility] Comment on above: Performed By: #### L 100.0100, L500.2500, L501.4021 ####[facility] [address] [place], [address] MCV (RBC) [Entitic vol] 92.8 fL Normal 81-99 [facility] Comment on above: Performed By: #### L 100.0100, L500.2500, L501.4021 ####[facility] [address] [place], [address] Monocytes/100 WBC (Bld) 7.2 % Normal 0-10 [facility] Comment on above: Performed By: #### L 100.0100, L500.2500, L501.4021 ####[facility] [address] [place], [address] Neutrophils/100 WBC (Bld) 66.7 % Normal 47-70 [facility] Comment on above: Performed By: #### L 100.0100, L500.2500, L501.4021 ####[facility] [address] [place], [address] Nucleated RBC (Bld) [#/Vol] 0 10*3/uL Normal 0-5 [facility] Comment on above: Performed By: #### L 100.0100, L500.2500, L501.4021 ####[facility] [address] [place], [address] Platelet mean volume (Bld) [Entitic vol] 10.3 fL Normal 6.2-12.0 [facility] Comment on above: Performed By: #### L 100.0100, L500.2500, L501.4021 ####[facility] [address] [place], [address] Platelets (Bld) [#/Vol] 226 10*3/uL Normal 150-450 [facility] Comment on above: Performed By: #### L 100.0100, L500.2500, L501.4021 ####[facility] [address] [place], [address] RBC (Bld) [#/Vol] 4.59 10*6/uL Normal 4.2-5.4 [facility] Comment on above: Performed By: #### L 100.0100, L500.2500, L501.4021 ####[facility] [address] [place], [address] RDW SD 44.9 fl High 35.1-43.9 [facility] Comment on above: Performed By: #### L 100.0100, L500.2500, L501.4021 ####[facility] [address] [place], [address] WBC (Bld) [#/Vol] 6.8 10*3/uL Normal 4.4-11.0 [facility] Comment on above: Performed By: #### L 100.0100, L500.2500, L501.4021 ####[facility] [address] [place], [address] Carbon dioxide, total [Moles /volume] in Central venous bloodOrdered By: Eric Alba on 11-27-2024 CO2 [Moles/Vol] 26.5 mmol/L 21.0-32.0 [facility] Chest 1 View (Portable)on Chest 1 View (Portable) Normal [facility] Chloride assayOrdered By: Johann Alba on 11-27-2024 Chloride [Moles/Vol] 102 mmol/L 98-108 [facility] D-Dimer Quantitative (DVT/PE )on 11-27-2024 D-DIMER QUANT 0.34 FEU/ug/m Normal 0.27-0.49 [facility] Comment on above: Result Comment: NORM AL D-Dimer level (<0.50) indicates no DVT or PE. Performed By: #### L 300.8000 ####[facility] [address] [place], [place], [id number] D-dimer measurement for deep venous thrombosisOrdered By: Erci Alba on 11-27-2024 D-Dimer Quantitative (PE/DVT) 0.34 FEU/ug/m 0.27-0.49 [facility] Comment on above: NORMAL D-Dimer level (<0.50) indicates no DVT or PE. Emergency Department Summary on 11-27-2024 Emergency Department Summary Normal [facility] Eosinophil percentageOrdered By: ED PROVIDER on 11-27-2024 Eosinophils/100 WBC (Bld) 1.3 % 0-5 [facility] Erythrocyte distribution wid th ratioOrdered By: ED PROVIDER on 11-27-2024 Erythrocyte distribution width (RBC) [Ratio] 13.2 % 11.6-14.6 [facility] Erythrocyte distribution wid th standard deviationOrdered By: ED PROVIDER on 11-27-2024 Erythrocyte distribution width (RBC) [Entitic vol] 44.9 fL High 35.1-43.9 [facility] Erythrocyte distribution width (RBC) [Ratio] 44.9 fl High 35.1-43.9 [facility] GFR/1.73 sq M.predicted tod g non-blacks MDRD (S/P/Bld) [Vol rate/Area]Ordered By: Eric Alba on 11-27-2024 Estimated GFR (MDRD) Non-Af Amer 89 >60 [facility] Comment on above: mL/min/1.73m2 CKD-EP I Creatinine Equation (2020) Glomerular filtration rate ( GFR) estimation/1.73 sq m using serum, plasma, or whole bOrdered By: Eric Alba on 11-27-2024 GFR/1.73 sq M.predicted among non-blacks MDRD (S/P/Bld) [Vol rate/Area] 89 mL/min/{1.73_m2} >60 [facility] Comment on above: mL/min/1.73m2 CKD-EP I Creatinine Equation (2020) Hematocrit Auto (Bld) [Volum e fraction]Ordered By: ED PROVIDER on 11-27-2024 Hematocrit (Bld) [Volume fraction] 42.6 % 37-47 [facility] Hemoglobin measurementOrdere d By: ED PROVIDER on 11-27-2024 Hemoglobin (Bld) [Mass/Vol] 14.8 g/dL 12.0-15.0 [facility] Immature granulocytes/100 WB C Auto (Bld)Ordered By: ED PROVIDER on 11-27-2024 Immature granulocytes/100 WBC (Bld) 0.300 % 0.0-0.9 [facility] Comment on above: IG% - Immature Granu locytes (promyelocytes, myelocytes and metamyelocytes) > 1% indicates that a LEFT SHIFT is Present. L499.0042on 11-27-2024 Trop T High Sen < 6 Normal <=14 [facility] Comment on above: Performed By: #### L 499.0042 ####[facility] [address] [place], [address] L499.0043on 11-27-2024 Trop T High Sen Normal <=14 [facility] Comment on above: Result Comment: Jose elltona via OM: Ordered Performed By: #### L 499.0043 ####[facility] [address] [place], [address] L501.4021on 11-27-2024 Trop T High Sen < 6 Normal <=14 [facility] Comment on above: Performed By: #### L 100.0100, L500.2500, L501.4021 ####[facility] [address] [place], [address] Lymphocytes Auto (Unsp spec) [#/Vol]Ordered By: ED PROVIDER on 11-27-2024 Lymphocytes (Bld) [#/Vol] 1.63 10*3/uL 0.83-4.5 1 [facility] Lymphocytes/100 WBC Auto (Un sp spec)Ordered By: ED PROVIDER on 11-27-2024 Lymphocytes/100 WBC (Bld) 23.9 % 19-41 [facility] MCV (mean corpuscular volume ) determinationOrdered By: ED PROVIDER on 11-27-2024 MCV (RBC) [Entitic vol] 92.8 fL 81-99 [facility] Mean corpuscular hemoglobin (MCH) determinationOrdered By: ED PROVIDER on 11-27-2024 MCH (RBC) [Entitic mass] 32.2 pg High 27.0-32.0 [facility] Mean corpuscular hemoglobin concentration (MCHC) determinationOrdered By: ED PROVIDER on 11-27-2024 MCHC (RBC) [Mass/Vol] 34.7 g/dL 32-36 [facility] Mean platelet volume determi nationOrdered By: ED PROVIDER on 11-27-2024 Platelet mean volume (Bld) [Entitic vol] 10.3 fL 6.2-12.0 [facility] Monocyte percentageOrdered B y: ED PROVIDER on 11-27-2024 Monocytes/100 WBC (Bld) 7.2 % 0-10 [facility] Neutrophil percentageOrdered By: ED PROVIDER on 11-27-2024 Neutrophils/100 WBC (Bld) 66.7 % 47-70 [facility] No Panel InformationOrdered By: Eric Alba on 11-27-2024 Troponin T High Sensitivity < 6 ng/L <14 [facility] < 6 ng/L <14 [facility] Nucleated red blood cell per centageOrdered By: ED PROVIDER on 11-27-2024 Nucleated RBC/100 WBC (Bld) [Ratio] 0 % 0-5 [facility] Platelet countOrdered By: ED PROVIDER on 11-27-2024 Platelets (Bld) [#/Vol] 226 10*3/uL 150-450 [facility] Potassium (Unsp spec) [Mass/ Vol]Ordered By: Eric Alba on 11-27-2024 Potassium [Moles/Vol] 4.2 mmol/L 3.3-5.1 [facility] Potassium measurement (mass/ volume)Ordered By: Eric Alba on 11-27-2024 Potassium (Unsp spec) [Mass/Vol] 4.2 mmol/L 3.3-5.1 [facility] RBC Auto (Bld) [#/Vol]Ordere d By: ED PROVIDER on 11-27-2024 RBC (Bld) [#/Vol] 4.59 10*6/uL 4.2-5.4 [facility] Serum creatinine measurement (mass/volume)Ordered By: Eric Alba on 11-27-2024 Creatinine [Mass/Vol] 0.77 mg/dL 0.70-1.20 [facility] Serum glucose measurement (m ass/volume)Ordered By: Eric Alba on 11-27-2024 Glucose [Mass/Vol] 100 mg/dL High 70-99 [facility] Serum or plasma calcium evie urement (mass/volume)Ordered By: Eric Matute on 11-27-2024 Calcium [Mass/Vol] 9.7 mg/dL 7.6-11.0 [facility] Serum or plasma urea nitroge n measurement (mass/volume)Ordered By: Eric Alba on 11-27-2024 Urea nitrogen [Mass/Vol] 16 mg/dL 4-19 [facility] Sodium levelOrdered By: Kishan Alba on 11-27-2024 Sodium [Moles/Vol] 139 mmol/L 133-145 [facility] Troponin T.cardiac High sens itivity method [Mass/Vol]Ordered By: Eric Matute on 11-27-2024 Troponin T High Sensitivity 2 Hour < 6 ng/L <14 [facility] Troponin T.cardiac [Mass/vol ume] in Serum or Plasma by High sensitivity methodOrdered By: Eric Alba on 11-27-2024 Troponin T.cardiac High sensitivity method [Mass/Vol] < 6 ng/L <14 [facility] White blood cell (WBC) count Ordered By: ED PROVIDER on 11-27-2024 WBC (Bld) [#/Vol] 6.8 10*3/uL 4.4-11.0 [facility] Urine Cultureon 11-21-2024 [facility] Mixed Gram Pos Gram Neg Org [place] Count 11,000-25,000 [facility] Mixed contaminants. Submit a new specimen if indicated. Normal [facility] Comment on above: Performed By: #### M 100.2200, L400.0001 ####[facility] [address] [place], [address] 12 Lead EKGon 11-20-2024 12 Lead EKG Normal [facility] Absolute lymphocyte countOrd ered By: Amrik Pacheco on 11-20-2024 Lymphocytes Auto (Unsp spec) [#/Vol] 1.99 10*3/uL 0.83-4.51 [facility] Absolute neutrophil countOrd ered By: Amrik Pacheco on 11-20-2024 Neutrophils (Bld) [#/Vol] 4.6 10*3/uL 2.0-7.7 [facility] Anion gap in Serum or Plasma Ordered By: Amrik Pacheco on 11-20-2024 Anion gap [Moles/Vol] 13 mmol/L 5-15 [facility] Automated lymphocyte count a s percentage of total leukocytesOrdered By: Amrik Pacheco on 11-20-2024 Lymphocytes/100 WBC Auto (Unsp spec) 27.0 % 19-41 [facility] BUN/creatinine ratioOrdered By: Amrik Pacheco on 11-20-2024 Urea nitrogen/Creatinine [Mass ratio] 21.2 mg/mg High 10-20 [facility] Basic Metabolic Profile (BMP )on 11-20-2024 BUN/CRE 21.2 RATIO High - [facility] Comment on above: Performed By: #### L 500.2500, L100.0100, L501.9520, L501.5200 ####[facility] [address] [place], [address] Calcium [Mass/Vol] 9.4 mg/dL Normal 7.6-11.0 [facility] Comment on above: Performed By: #### L 500.2500, L100.0100, L501.9520, L501.5200 ####[facility] [address] [place], [address] Chloride [Moles/Vol] 101 mmol/L Normal 98-108 [facility] Comment on above: Performed By: #### L 500.2500, L100.0100, L501.9520, L501.5200 ####[facility] [address] [place], [address] CO2 [Moles/Vol] 25.0 mmol/L Normal 21.0-32.0 [facility] Comment on above: Performed By: #### L 500.2500, L100.0100, L501.9520, L501.5200 ####[facility] [address] [place], [address] Creatinine [Mass/Vol] 0.70 mg/dL Normal 0.70-1.20 [facility] Comment on above: Performed By: #### L 500.2500, L100.0100, L501.9520, L501.5200 ####[facility] [address] [place], [address] ECRCL 106.80 ml/min Normal 50-250 [facility] Comment on above: Performed By: #### L 500.2500, L100.0100, L501.9520, L501.5200 ####[facility] [address] [place], [address] GAP 13 Normal 5-15 [facility] Comment on above: Performed By: #### L 500.2500, L100.0100, L501.9520, L501.5200 ####[facility] [address] [place], [address] GFR/1.73 sq M.predicted among non-blacks MDRD (S/P/Bld) [Vol rate/Area] 99 mL/min/{1.73_m2} Normal >60 [facility] Comment on above: Result Comment: mL/m in/1.73m2 CKD-EPI Creatinine Equation (2020) Performed By: #### L 500.2500, L100.0100, L501.9520, L501.5200 ####[facility] [address] [place], [address] Glucose [Mass/Vol] 121 mg/dL High 70-99 [facility] Comment on above: Performed By: #### L 500.2500, L100.0100, L501.9520, L501.5200 ####[facility] [address] [place], [address] Potassium [Moles/Vol] 4.2 mmol/L Normal 3.3-5.1 [facility] Comment on above: Performed By: #### L 500.2500, L100.0100, L501.9520, L501.5200 ####[facility] [address] [place], [address] Sodium [Moles/Vol] 139 mmol/L Normal 133-145 [facility] Comment on above: Performed By: #### L 500.2500, L100.0100, L501.9520, L501.5200 ####[facility] [address] [place], [address] Urea nitrogen [Mass/Vol] 15 mg/dL Normal 4-19 [facility] Comment on above: Performed By: #### L 500.2500, L100.0100, L501.9520, L501.5200 ####[facility] [address] [place], [address] Basophil percentageOrdered B y: Amrik Pacheco on 11-20-2024 Basophils/100 WBC (Bld) 0.7 % 0-1 [facility] Bilirubin Test strip Ql (U)O rdered By: David Espinoza on 11-20-2024 Bilirubin Ql (U) Negative Negative [facility] CBC W/Diff, Automatedon 11-04 Absolute Lymph 1.99 X10 3/uL Normal 0.83-4.51 [facility] Comment on above: Performed By: #### L 500.2500, L100.0100, L501.9520, L501.5200 ####[facility] [address] [place], [address] Absolute Neut 4.6 X10 3/uL Normal 2.0-7.7 [facility] Comment on above: Performed By: #### L 500.2500, L100.0100, L501.9520, L501.5200 ####[facility] [address] [place], [address] Basophils/100 WBC (Bld) 0.7 % Normal 0-1 [facility] Comment on above: Performed By: #### L 500.2500, L100.0100, L501.9520, L501.5200 ####[facility] [address] [place], [address] Eosinophils/100 WBC (Bld) 2.3 % Normal 0-5 [facility] Comment on above: Performed By: #### L 500.2500, L100.0100, L501.9520, L501.5200 ####[facility] [address] [place], [address] Erythrocyte distribution width (RBC) [Ratio] 13.2 % Normal 11.6-14.6 [facility] Comment on above: Performed By: #### L 500.2500, L100.0100, L501.9520, L501.5200 ####[facility] [address] [place], [address] Hematocrit (Bld) [Volume fraction] 42.1 % Normal 37-47 [facility] Comment on above: Performed By: #### L 500.2500, L100.0100, L501.9520, L501.5200 ####[facility] [address] [place], [address] Hemoglobin (Bld) [Mass/Vol] 14.4 g/dL Normal 12.0-15.0 [facility] Comment on above: Performed By: #### L 500.2500, L100.0100, L501.9520, L501.5200 ####[facility] [address] [place], [address] IG% 0.300 Normal 0.0-0.9 [facility] Comment on above: Result Comment: IG% - Immature Granulocytes (promyelocytes, myelocytes andmetamyelocytes) > 1% indicates that a LEFT SHIFT is Present. Performed By: #### L 500.2500, L100.0100, L501.9520, L501.5200 ####[facility] [address] [place], [address] Lymphocytes/100 WBC (Bld) 27.0 % Normal 19-41 [facility] Comment on above: Performed By: #### L 500.2500, L100.0100, L501.9520, L501.5200 ####[facility] [address] [place], [address] MCH (RBC) [Entitic mass] 31.6 pg Normal 27.0-32.0 [facility] Comment on above: Performed By: #### L 500.2500, L100.0100, L501.9520, L501.5200 ####[facility] [address] [place], [address] MCHC (RBC) [Mass/Vol] 34.2 g/dL Normal 32-36 [facility] Comment on above: Performed By: #### L 500.2500, L100.0100, L501.9520, L501.5200 ####[facility] [address] [place], [address] MCV (RBC) [Entitic vol] 92.3 fL Normal 81-99 [facility] Comment on above: Performed By: #### L 500.2500, L100.0100, L501.9520, L501.5200 ####[facility] [address] [place], [address] Monocytes/100 WBC (Bld) 6.9 % Normal 0-10 [facility] Comment on above: Performed By: #### L 500.2500, L100.0100, L501.9520, L501.5200 ####[facility] [address] [place], [address] Neutrophils/100 WBC (Bld) 62.8 % Normal 47-70 [facility] Comment on above: Performed By: #### L 500.2500, L100.0100, L501.9520, L501.5200 ####[facility] [address] [place], [address] Nucleated RBC (Bld) [#/Vol] 0 10*3/uL Normal 0-5 [facility] Comment on above: Performed By: #### L 500.2500, L100.0100, L501.9520, L501.5200 ####[facility] [address] [place], [address] Platelet mean volume (Bld) [Entitic vol] 10.8 fL Normal 6.2-12.0 [facility] Comment on above: Performed By: #### L 500.2500, L100.0100, L501.9520, L501.5200 ####[facility] [address] [place], [address] Platelets (Bld) [#/Vol] 261 10*3/uL Normal 150-450 [facility] Comment on above: Performed By: #### L 500.2500, L100.0100, L501.9520, L501.5200 ####[facility] [address] [place], [address] RBC (Bld) [#/Vol] 4.56 10*6/uL Normal 4.2-5.4 [facility] Comment on above: Performed By: #### L 500.2500, L100.0100, L501.9520, L501.5200 ####[facility] [address] [place], [address] RDW SD 44.8 fl High 35.1-43.9 [facility] Comment on above: Performed By: #### L 500.2500, L100.0100, L501.9520, L501.5200 ####[facility] [address] [place], [address] WBC (Bld) [#/Vol] 7.4 10*3/uL Normal 4.4-11.0 [facility] Comment on above: Performed By: #### L 500.2500, L100.0100, L501.9520, L501.5200 ####[facility] [address] [place], [address] Calcium oxalate crystals LM Ql (Urine sed)Ordered By: David Espinoza on 11-20-2024 Urine Calcium Oxalate Crystals 2+ /hpf [facility] Calcium oxalate crystals det ection in urine sediment by light microscopyOrdered By: David Espinoza on 11-20-2024 Calcium oxalate crystals LM Ql (Urine sed) 2+ /hpf [facility] Carbon dioxide, total [Moles /volume] in Central venous bloodOrdered By: Amrik Pacheco on 11-20-2024 CO2 [Moles/Vol] 25.0 mmol/L 21.0-32.0 [facility] Chest PA and Lateralon 11-20 Chest PA and Lateral Normal [facility] Chloride assayOrdered By: Enoch Pacheco on 11-20-2024 Chloride [Moles/Vol] 101 mmol/L 98-108 [facility] Emergency Department Summary on 11-20-2024 Emergency Department Summary Normal [facility] Eosinophil percentageOrdered By: Amrik Pacheco on 11-20-2024 Eosinophils/100 WBC (Bld) 2.3 % 0-5 [facility] Epithelial cells.squamous LM Ql (Urine sed)Ordered By: David Espinoza on 11-20-2024 Epithelial cells.squamous LM.HPF (Urine sed) [#/Area] 0 /[HPF] 5-10 [facility] Erythrocyte distribution wid th ratioOrdered By: Amrik Pacheco on 11-20-2024 Erythrocyte distribution width (RBC) [Ratio] 13.2 % 11.6-14.6 [facility] Erythrocyte distribution wid th standard deviationOrdered By: Amrik Pacheco on 11-20-2024 Erythrocyte distribution width (RBC) [Entitic vol] 44.8 fL High 35.1-43.9 [facility] Erythrocyte distribution width (RBC) [Ratio] 44.8 fl High 35.1-43.9 [facility] Estimation of creatinine irina aranceOrdered By: Amrik Pacheco on 11-20-2024 Estimated Creatinine Clearance Calc 106.80 ml/min 50-250 [facility] GFR/1.73 sq M.predicted tod g non-blacks MDRD (S/P/Bld) [Vol rate/Area]Ordered By: Amrik Pacheco on 11-20-2024 Estimated GFR (MDRD) Non-Af Amer 99 >60 [facility] Comment on above: mL/min/1.73m2 CKD-EP I Creatinine Equation (2020) Glomerular filtration rate ( GFR) estimation/1.73 sq m using serum, plasma, or whole bOrdered By: Amrik Pacheco on 11-20-2024 GFR/1.73 sq M.predicted among non-blacks MDRD (S/P/Bld) [Vol rate/Area] 99 mL/min/{1.73_m2} >60 [facility] Comment on above: mL/min/1.73m2 CKD-EP I Creatinine Equation (2020) Glucose Ql (U)Ordered By: Margarita Espinoza on 11-20-2024 Urine Glucose (UA) Normal mg/dl Normal [facility] Hematocrit Auto (Bld) [Volum e fraction]Ordered By: Amrik Pacheco on 11-20-2024 Hematocrit (Bld) [Volume fraction] 42.1 % 37-47 [facility] Hemoglobin measurementOrdere d By: Amrik Pacheco on 11-20-2024 Hemoglobin (Bld) [Mass/Vol] 14.4 g/dL 12.0-15.0 [facility] Immature granulocytes/100 WB C Auto (Bld)Ordered By: Amrik Pacheco on 11-20-2024 Immature granulocytes/100 WBC (Bld) 0.300 % 0.0-0.9 [facility] Comment on above: IG% - Immature Granu locytes (promyelocytes, myelocytes and metamyelocytes) > 1% indicates that a LEFT SHIFT is Present. Ketones Test strip Ql (U)Ord ered By: David Espinoza on 11-20-2024 Ketones Ql (U) Negative Negative [facility] L499.0042on 11-20-2024 Trop T High Sen 9 ng/L Normal <=14 [facility] Comment on above: Performed By: #### L 499.0042 ####[facility] [address] [place], [address] L499.0043on 11-20-2024 Trop T High Sen Normal <=14 [facility] Comment on above: Result Comment: Canc elled via OM: Order cancelled - Patient discharged Performed By: #### L 499.0043 ####[facility] [address] [place], [address] L501.4021on 11-20-2024 Trop T High Sen < 6 Normal <=14 [facility] Comment on above: Performed By: #### L 501.4021 ####[facility] [address] [place], [address] Lymphocytes Auto (Unsp spec) [#/Vol]Ordered By: Amrik Pacheco on 11-20-2024 Lymphocytes (Bld) [#/Vol] 1.99 10*3/uL 0.83-4.5 1 [facility] Lymphocytes/100 WBC Auto (Un sp spec)Ordered By: Amrik Pacheco on 11-20-2024 Lymphocytes/100 WBC (Bld) 27.0 % 19-41 [facility] MCV (mean corpuscular volume ) determinationOrdered By: Amrik Pacheco on 11-20-2024 MCV (RBC) [Entitic vol] 92.3 fL 81-99 [facility] Magnesiumon 11-20-2024 Magnesium [Mass/Vol] 2.0 mg/dL Normal 1.5-2.2 [facility] Comment on above: Performed By: #### L 500.2500, L100.0100, L501.9528, L501.520 ####[facility] [address] [place], [address] Magnesium (Unsp spec) [Mass/ Vol]Ordered By: Amrik Pacheco on 11-20-2024 Magnesium [Mass/Vol] 2.0 mg/dL 1.5-2.2 [facility] Magnesium measurement (mass/ volume)Ordered By: Amrik Pacheco on 11-20-2024 Magnesium (Unsp spec) [Mass/Vol] 2.0 mg/dL 1.5-2.2 [facility] Mean corpuscular hemoglobin (MCH) determinationOrdered By: Amrik Pacheco on 11-20-2024 MCH (RBC) [Entitic mass] 31.6 pg 27.0-32.0 [facility] Mean corpuscular hemoglobin concentration (MCHC) determinationOrdered By: Amrik Pacheco on 11-20-2024 MCHC (RBC) [Mass/Vol] 34.2 g/dL 32-36 [facility] Mean platelet volume determi nationOrdered By: Amrik Pacheco on 11-20-2024 Platelet mean volume (Bld) [Entitic vol] 10.8 fL 6.2-12.0 [facility] Microscopic analysis of urin e for red blood cells (RBC)Ordered By: David Espinoza on 11-20-2024 Microscopic analysis of urine for red blood cells (RBC) 5-10 SEEN /hpf 0-5 [facility] Urine RBC 5-10 SEEN /hpf 0-5 [facility] Monocyte percentageOrdered B y: Amrik Pacheco on 11-20-2024 Monocytes/100 WBC (Bld) 6.9 % 0-10 [facility] Mucus LM Ql (Urine sed)Order ed By: David Espinoza on 11-20-2024 Mucus Ql (Urine sed) 0 SEEN /hpf [facility] Neutrophil percentageOrdered By: Amrik Pacheco on 11-20-2024 Neutrophils/100 WBC (Bld) 62.8 % 47-70 [facility] Nitrite Test strip Ql (U)Ord ered By: David Espinoza on 11-20-2024 Nitrite Ql (U) Negative Negative [facility] No Panel InformationOrdered By: Amrik Pacheco on 11-20-2024 Troponin T High Sensitivity < 6 ng/L <14 [facility] Comment on above: Delta: 7 on 11/07/24020 < 6 ng/L <14 [facility] Nucleated red blood cell per centageOrdered By: Amrik Pacheco on 11-20-2024 Nucleated RBC/100 WBC (Bld) [Ratio] 0 % 0-5 [facility] Platelet countOrdered By: Enoch Pacheco on 11-20-2024 Platelets (Bld) [#/Vol] 261 10*3/uL 150-450 [facility] Potassium (Unsp spec) [Mass/ Vol]Ordered By: Amrik Pacheco on 11-20-2024 Potassium [Moles/Vol] 4.2 mmol/L 3.3-5.1 [facility] Potassium measurement (mass/ volume)Ordered By: Amrik Pacheco on 11-20-2024 Potassium (Unsp spec) [Mass/Vol] 4.2 mmol/L 3.3-5.1 [facility] Protein Test strip Ql (U)Ord ered By: David Espinoza on 11-20-2024 Protein Ql (U) 30 mg/dl High Negative [facility] RBC Auto (Bld) [#/Vol]Ordere d By: Amrik Pacheco on 11-20-2024 RBC (Bld) [#/Vol] 4.56 10*6/uL 4.2-5.4 [facility] Serum creatinine measurement (mass/volume)Ordered By: Amrik Pacheco on 11-20-2024 Creatinine [Mass/Vol] 0.70 mg/dL 0.70-1.20 [facility] Serum glucose measurement (m ass/volume)Ordered By: Amrik Pacheco on 11-20-2024 Glucose [Mass/Vol] 121 mg/dL High 70-99 [facility] Serum or plasma calcium evie urement (mass/volume)Ordered By: Amrik Pacheco on 11-20-2024 Calcium [Mass/Vol] 9.4 mg/dL 7.6-11.0 [facility] Serum or plasma urea nitroge n measurement (mass/volume)Ordered By: Amrik Pacheco on 11-20-2024 Urea nitrogen [Mass/Vol] 15 mg/dL 4-19 [facility] Sodium levelOrdered By: Amrik Pacheco on 11-20-2024 Sodium [Moles/Vol] 139 mmol/L 133-145 [facility] Squamous epithelial cells de tection in urine sediment by light microscopyOrdered By: David Espinoza on 11-20-2024 Epithelial cells.squamous LM Ql (Urine sed) 0-5 SEEN /hpf 5-10 [facility] TSH DL <= 0.005 mIU/L QnOrde red By: Amrik Pacheco on 11-20-2024 Thyroid Stimulating Hormone (TSH) 0.732 uIU/mL 0.300-4.200 [facility] TSH Qn 0.732 uIU/mL 0.300-4.200 [facility] Thyroid Stim Hormone (TSH)on 11-20-2024 TSH 0.732 uIU/mL Normal 0.300-4.200 [facility] Comment on above: Performed By: #### L 500.2500, L100.0100, L501.9520, L501.5200 ####[facility] [address] [place], [place], [id number] Troponin T.cardiac High sens itivity method [Mass/Vol]Ordered By: Amrik Pacheco on 11-20-2024 Troponin T High Sensitivity 2 Hour 9 ng/L <14 [facility] Troponin T.cardiac [Mass/vol ume] in Serum or Plasma by High sensitivity methodOrdered By: Amrik Pacheco on 11-20-2024 Troponin T.cardiac High sensitivity method [Mass/Vol] 9 ng/L <14 [facility] Urinalysis, Completeon 11-20 CA OX CRYSTAL 2+ /hpf Normal [facility] Comment on above: Order Comment: SHELLEY CTOR TO SPECIFY Performed By: #### M 100.2200, L400.0001 ####[facility] [address] [place], [place], [id number] BACTERIA 1+ /hpf Normal None Seen [facility] Comment on above: Order Comment: SHELLEY CTOR TO SPECIFY Performed By: #### M 100.2200, L400.0001 ####[facility] [address] [place], [address] EPI,SQUAMOUS 0-5 SEEN Normal 5-10 [facility] Comment on above: Order Comment: COLLE CTOR TO SPECIFY Performed By: #### M 100.2200, L400.0001 ####[facility] [address] [place], [address] RBC 5-10 SEEN Normal 0-5 [facility] Comment on above: Order Comment: COLLE CTOR TO SPECIFY Performed By: #### M 100.2200, L400.0001 ####[facility] [address] [place], [address] WBC 25-50 SEEN Normal 0-5 [facility] Comment on above: Order Comment: SHELLEY CTOR TO SPECIFY Performed By: #### M 100.2200, L400.0001 ####[facility] [address] [place], [address] Mucus Ql (Urine sed) 0 SEEN Normal [facility] Comment on above: Order Comment: SHELLEY CTOR TO SPECIFY Performed By: #### M 100.2200, L400.0001 ####[facility] [address] [place], [address] Urine blood detectionOrdered By: David Espinoza on 11-20-2024 Urine Occult Blood 150 /ul High Negative [facility] Urine clarityOrdered By: Kamaljit Espinoza on 11-20-2024 Clarity (U) Clear Clear [facility] Urine color determinationOrd ered By: David Espinoza on 11-20-2024 Color (U) Yellow Yellow [facility] Urine cultureOrdered By: Kamaljit Espinoza on 11-20-2024 Bacteria identified Cx Nom (U) Mixed Gram Pos & Gram Neg Org Abnormal [facility] Urine glucose detectionOrder ed By: David Espinoza on 11-20-2024 Glucose Ql (U) Normal mg/dl Normal [facility] Urine leukocyte esterase det ection by dipstickOrdered By: David Espinoza on 11-20-2024 Leukocyte esterase Test strip Ql (U) 500 /ul High Negative [facility] Urine pHOrdered By: David muñoz on 11-20-2024 pH (U) 6.0 [pH] 5.0 - 8.0 [facility] Urine sediment bacteria coun t by microscopy (number/high power field)Ordered By: David Espinoza on 11-20-2024 Bacteria LM.HPF (Urine sed) [#/Area] 1 /[HPF] None Seen [facility] Urine specific gravity measu rementOrdered By: David Espinoza on 11-20-2024 Specific gravity (U) [Rel density] 1.025 1.002-1.030 [facility] Urine urobilinogen measureme ntOrdered By: David Espinoza on 11-20-2024 Urobilinogen Ql (U) Normal mg/dl Normal [facility] Urobilinogen Ql (U)Ordered B y: David Espinoza on 11-20-2024 Urine Urobilinogen Normal mg/dl Normal [facility] White blood cell (WBC) count Ordered By: Amrik Pacheco on 11-20-2024 WBC (Bld) [#/Vol] 7.4 10*3/uL 4.4-11.0 [facility] White blood cell countOrdere d By: David Espinoza on 11-20-2024 Urine WBC 25-50 SEEN /hpf 0-5 [facility] White blood cell count 25-50 SEEN /hpf 0-5 [facility] Laboratory - Chemistry and C hemistry - challengeOrdered By: David Espinoza on 11-19-2024 Bilirubin Ql (U) Negative [facility] Glucose Ql (U) Negative [facility] pH (U) 5.0 [pH] [facility] Specific gravity (U) [Rel density] 1.025 [facility] Laboratory - Hematology and Cell countsOrdered By: David Espinoza on 11-19-2024 Hemoglobin Ql (U) Large [facility] Laboratory - Specimen inform ationOrdered By: David Espinoza on 11-19-2024 Clarity (U) Clear [facility] Color (U) Yellow [facility] Laboratory - UrinalysisOrder ed By: David Espinoza on 11-19-2024 Nitrite Ql (U) Negative [facility] Protein Ql (U) Negative [facility] No Panel InformationOrdered By: David Espinoza on 11-19-2024 Urine Leukocytes Negve [facility] Urine Non-Hemolyzed Blood [facility] Yellow [facility] Clear [facility] Negative [facility] [facility] 1.025 [facility] 5.0 [facility] Large [facility] Negatve [facility] Urgent Care Visit Reporton 0 11-19-2024 Urgent Care Visit Report Normal [facility] MR/BMS.IMBon 11-16-2024 MR/BMS.IMB Normal [facility] .Auto Diffon 11-11-2024 Basophil, Absolute 0.1 10 3/mcL Normal 0.0-0.3 [facility] Comment on above: Performed By: #### M G, ANEU, GFR, CMP, ADIFF, CBC ####[address] [address] Basophils/100 WBC (Bld) 0.8 % Normal 0.0-2.5 [facility] Comment on above: Performed By: #### M G, ANEU, GFR, CMP, ADIFF, CBC ####[address] [address] Eosinophil, Absolute 0.2 10 3/mcL Normal 0.0-0.7 [facility] Comment on above: Performed By: #### M G, ANEU, GFR, CMP, ADIFF, CBC ####[address] [address] Eosinophils/100 WBC (Bld) 3.3 % Normal 0.0-6.0 [facility] Comment on above: Performed By: #### M G, ANEU, GFR, CMP, ADIFF, CBC ####[address] [address] Lymphocyte, Absolute 2.3 10 3/mcL Normal 0.9-4.3 [facility] Comment on above: Performed By: #### M G, ANEU, GFR, CMP, ADIFF, CBC ####[address] [address] Lymphocytes/100 WBC (Bld) 33.1 % Normal 20.0-40.0 [facility] Comment on above: Performed By: #### M G, ANEU, GFR, CMP, ADIFF, CBC ####[address] [address] Monocyte, Absolute 0.6 10 3/mcL Normal 0.1-1.4 [facility] Comment on above: Performed By: #### M G, ANEU, GFR, CMP, ADIFF, CBC ####[address] [address] Monocytes/100 WBC (Bld) 8.6 % Normal 2.0-13.0 [facility] Comment on above: Performed By: #### M G, ANEU, GFR, CMP, ADIFF, CBC ####[address] [address] Neutrophils/100 WBC (Bld) 54.2 % Normal 50.0-75.0 [facility] Comment on above: Performed By: #### M G, ANEU, GFR, CMP, ADIFF, CBC ####[address] [address] .GFRon 11-11-2024 Estimated Glomerular Filtration Rate 92 ml/min/1.73sqm Normal [facility] Comment on above: Result Comment: Stages of Chronic Kidney Disease (CKD) Stage Description eGFR(ml/min/1.73 sq.m.) CKD 1 Normal kidney function or >=90 normal kindney function with possible kidney damage (ex. Proteinuria) CKD 2 Kidney damage with mild loss 60-89 of kidney function CKD 3a Mild to moderate loss of kidney 45-59 function CKD 3b Moderate to severe loss of 30-44 of kindey function CKD 4 Severe loss of kidney function 15-29 CKD 5 Kidney failure <15 Note: (go live 2024) the eGFR calculation was updated to the 2020 CKD-EPI creatinine equation without a race factor to calculate the eGFR results. Performed By: #### M G, ANEU, GFR, CMP, ADIFF, CBC ####[address] [address] .NEUABSon 11-11-2024 Neutrophil, Absolute 3.8 10 3/mcL Normal 2.3-8.1 [facility] Comment on above: Performed By: #### M G, ANEU, GFR, CMP, ADIFF, CBC ####[address] [address] CBCon 11-11-2024 Erythrocyte distribution width (RBC) [Ratio] 13.5 % Normal 11.5-15.5 [facility] Comment on above: Performed By: #### M G, ANEU, GFR, CMP, ADIFF, CBC #### [place] [address] Hematocrit (Bld) [Volume fraction] 43.6 % Normal 34.0-46.0 [facility] Comment on above: Performed By: #### M G, ANEU, GFR, CMP, ADIFF, CBC #### [place] [address] Hgb 15.4 G/dL Normal 12.0-16.0 [facility] Comment on above: Performed By: #### M G, ANEU, GFR, CMP, ADIFF, CBC #### [place] [address] MCH (RBC) [Entitic mass] 32.6 pg Normal 27.0-33.0 [facility] Comment on above: Performed By: #### M G, ANEU, GFR, CMP, ADIFF, CBC #### [place] [address] MCHC 35.3 G/dL Normal 32.0-36.0 [facility] Comment on above: Performed By: #### M G, ANEU, GFR, CMP, ADIFF, CBC #### [place] [address] MCV (RBC) [Entitic vol] 92.4 fL Normal 80.0-99.0 [facility] Comment on above: Performed By: #### M G, ANEU, GFR, CMP, ADIFF, CBC #### [place] [address] Platelet 246 10 3/mcL Normal 150-450 [facility] Comment on above: Performed By: #### M G, ANEU, GFR, CMP, ADIFF, CBC #### [place] [address] Platelet mean volume (Bld) [Entitic vol] 8.5 fL Normal 6.6-10.5 [facility] Comment on above: Performed By: #### M G, ANEU, GFR, CMP, ADIFF, CBC #### [address] [address] RBC 4.72 10 6/mcL Normal 4.10-5.30 [facility] Comment on above: Performed By: #### M G, ANEU, GFR, CMP, ADIFF, CBC #### [address] [address] WBC 7.0 10 3/mcL Normal 4.5-10.8 [facility] Comment on above: Performed By: #### M G, ANEU, GFR, CMP, ADIFF, CBC #### [address] [address] CMPon 11-11-2024 Albumin Level 3.9 G/dL Normal 3.2-4.8 [facility] Comment on above: Performed By: #### M G, ANEU, GFR, CMP, ADIFF, CBC ####[place] [address] Albumin/Globulin [Mass ratio] 1.2 {ratio} Normal 0.9-1.6 [facility] Comment on above: Performed By: #### M G, ANEU, GFR, CMP, ADIFF, CBC ####[address] [address] ALP [Catalytic activity/Vol] 74 U/L Normal 38-126 [facility] Comment on above: Performed By: #### M G, ANEU, GFR, CMP, ADIFF, CBC ####[address] [address] ALT [Catalytic activity/Vol] 78 U/L High 10-49 [facility] Comment on above: Performed By: #### M G, ANEU, GFR, CMP, ADIFF, CBC ####[address] [address] AST [Catalytic activity/Vol] 37 U/L High 8-34 [facility] Comment on above: Performed By: #### M G, ANEU, GFR, CMP, ADIFF, CBC ####[address] [address] Bili Total 0.90 mg/dL Normal 0.20-1.20 [facility] Comment on above: Result Comment: Use of this assay is not recommended for patients undergoing treatment with eltrombopag due to the potential for falsely elevated results. Performed By: #### M G, ANEU, GFR, CMP, ADIFF, CBC ####[place] [address] BUN/Creatinine Ratio 24.0 ratio High 10.0-22.0 [facility] Comment on above: Performed By: #### M G, ANEU, GFR, CMP, ADIFF, CBC ####[place] [address] Calcium [Mass/Vol] 9.8 mg/dL Normal 8.7-10.4 [facility] Comment on above: Performed By: #### M G, ANEU, GFR, CMP, ADIFF, CBC ####[place] [address] Chloride [Moles/Vol] 104 mmol/L Normal 98-110 [facility] Comment on above: Performed By: #### M G, ANEU, GFR, CMP, ADIFF, CBC ####[place] [address] CO2 [Moles/Vol] 28 mmol/L Normal 22-32 [facility] Comment on above: Performed By: #### M G, ANEU, GFR, CMP, ADIFF, CBC ####[place] [address] Creatinine [Mass/Vol] 0.75 mg/dL Normal 0.50-1.20 [facility] Comment on above: Result Comment: Test ing performed on Sonalight analyzer using enzymatic creatinine methodology. Performed By: #### M G, ANEU, GFR, CMP, ADIFF, CBC ####[address] [address] Electrolyte Balance 8.0 mEq/L Normal 4.0-15.0 [facility] Comment on above: Performed By: #### M G, ANEU, GFR, CMP, ADIFF, CBC ####[address] [address] Globulin 3.2 G/dL Normal 1.5-3.8 [facility] Comment on above: Performed By: #### M G, ANEU, GFR, CMP, ADIFF, CBC ####[address] [address] Glucose [Mass/Vol] 127 mg/dL High 70-110 [facility] Comment on above: Performed By: #### M G, ANEU, GFR, CMP, ADIFF, CBC ####[address] [address] Potassium [Moles/Vol] 3.9 mmol/L Normal 3.5-5.0 [facility] Comment on above: Result Comment: Spec imen slightly hemolyzed. Performed By: #### M G, ANEU, GFR, CMP, ADIFF, CBC ####[address] [address] Sodium [Moles/Vol] 140 mmol/L Normal 136-145 [facility] Comment on above: Performed By: #### M G, ANEU, GFR, CMP, ADIFF, CBC ####[address] [address] Total Protein 7.1 G/dL Normal 5.7-8.2 [facility] Comment on above: Performed By: #### M G, ANEU, GFR, CMP, ADIFF, CBC ####[address] [address] Urea nitrogen [Mass/Vol] 18.0 mg/dL Normal 8.0-22.0 [facility] Comment on above: Performed By: #### M G, ANEU, GFR, CMP, ADIFF, CBC ####[address] [address] MGon 11-11-2024 Magnesium [Mass/Vol] 2.1 mg/dL Normal 1.6-2.4 [facility] Comment on above: Performed By: #### M G, ANEU, GFR, CMP, ADIFF, CBC ####[address] [address] NM MYOCARDIAL SPECT STRESS/R ESTon 11-11-2024 NM MYOCARDIAL SPECT STRESS/REST ORIGINAL EXAMINATION: CARDIAC SPECT11/11/2024 10:53 am TECHNIQUE: The patient received an intravenous injection of 9 mCi of Tc-99m Sestamibi and resting emission tomographic (SPECT) images of the myocardium were acquired. The patient then received an intravenous infusion of 0.4 mg regadenoson (Lexiscan) followed by an additional injection of 26.4 mCi of Tc-99m Sestamibi. Stress phase SPECT images of the myocardium were then acquired. These included ECG-gated images to assess and quantify ventricular function. Low dose CT was acquired for attenuation correction. COMPARISON: None HISTORY: ORDERING SYSTEM PROVIDED HISTORY: Reason for Exam: HTN prior to flecainide initiation FINDINGS: Stress and rest images demonstrates grossly normal perfusion through the LV myocardium, without evidence of infarct or stress-induced ischemia. The LV chamber is normal in size. Normal TID value. Gated post-stress images reveals normal myocardial contractility. The estimated LVEF is 64%. Low-dose CT demonstrates hepatic steatosis. There is also a ovoid nodule measuring 1.2 cm in the left lower lung. IMPRESSION: 1. No evidence of infarct or ischemia. 2. LV chamber is normal in size. 3. Normal LV wall motion, with LVEF of 64%. 4. 1.2 cm left lower lung nodule, requires further evaluation. Diagnostic chest CT advised. Interpreted by: Yonny Tobar DO Preliminary Report By: Yonny Tobar DO Electronically signed By Yonny Tobar DO Dictated Date: 11/11/2024 11:10:29 AM Prelim Date: 11/11/2024 11:13:28 AM Sign Date: 11/11/2024 11:13:28 AM Ordering Provider: UVALDO Kirk [facility] .Auto Diffon 11-10-2024 Basophil, Absolute 0.0 10 3/mcL Normal 0.0-0.3 [facility] Comment on above: Performed By: #### C MP, ANEU, LIPID, CBC, GFR, ADIFF, MG #### [address] [address] Basophils/100 WBC (Bld) 0.7 % Normal 0.0-2.5 [facility] Comment on above: Performed By: #### C MP, ANEU, LIPID, CBC, GFR, ADIFF, MG #### [address] [address] Eosinophil, Absolute 0.2 10 3/mcL Normal 0.0-0.7 [facility] Comment on above: Performed By: #### C MP, ANEU, LIPID, CBC, GFR, ADIFF, MG #### [address] [address] Eosinophils/100 WBC (Bld) 3.1 % Normal 0.0-6.0 [facility] Comment on above: Performed By: #### C MP, ANEU, LIPID, CBC, GFR, ADIFF, MG #### [address] [address] Lymphocyte, Absolute 2.1 10 3/mcL Normal 0.9-4.3 [facility] Comment on above: Performed By: #### C MP, ANEU, LIPID, CBC, GFR, ADIFF, MG #### [address] [address] Lymphocytes/100 WBC (Bld) 30.4 % Normal 20.0-40.0 [facility] Comment on above: Performed By: #### C MP, ANEU, LIPID, CBC, GFR, ADIFF, MG #### [address] [address] Monocyte, Absolute 0.6 10 3/mcL Normal 0.1-1.4 [facility] Comment on above: Performed By: #### C MP, ANEU, LIPID, CBC, GFR, ADIFF, MG #### [address] [address] Monocytes/100 WBC (Bld) 9.3 % Normal 2.0-13.0 [facility] Comment on above: Performed By: #### C MP, ANEU, LIPID, CBC, GFR, ADIFF, MG #### [address] [address] Neutrophils/100 WBC (Bld) 56.5 % Normal 50.0-75.0 [facility] Comment on above: Performed By: #### C MP, ANEU, LIPID, CBC, GFR, ADIFF, MG #### [address] [address] .GFRon 11-10-2024 Estimated Glomerular Filtration Rate 89 ml/min/1.73sqm Normal [facility] Comment on above: Result Comment: Stages of Chronic Kidney Disease (CKD) Stage Description eGFR(ml/min/1.73 sq.m.) CKD 1 Normal kidney function or >=90 normal kindney function with possible kidney damage (ex. Proteinuria) CKD 2 Kidney damage with mild loss 60-89 of kidney function CKD 3a Mild to moderate loss of kidney 45-59 function CKD 3b Moderate to severe loss of 30-44 of kindey function CKD 4 Severe loss of kidney function 15-29 CKD 5 Kidney failure <15 Note: (go live 2024) the eGFR calculation was updated to the 2020 CKD-EPI creatinine equation without a race factor to calculate the eGFR results. Performed By: #### C MP, ANEU, LIPID, CBC, GFR, ADIFF, MG #### [place] [address] .NEUABSon 11-10-2024 Neutrophil, Absolute 3.8 10 3/mcL Normal 2.3-8.1 [facility] Comment on above: Performed By: #### C MP, ANEU, LIPID, CBC, GFR, ADIFF, MG #### [place] [address] CBCon 11-10-2024 Erythrocyte distribution width (RBC) [Ratio] 13.4 % Normal 11.5-15.5 [facility] Comment on above: Performed By: #### C MP, ANEU, LIPID, CBC, GFR, ADIFF, MG #### [place] [address] Hematocrit (Bld) [Volume fraction] 42.9 % Normal 34.0-46.0 [facility] Comment on above: Performed By: #### C MP, ANEU, LIPID, CBC, GFR, ADIFF, MG #### [place] [address] Hgb 14.8 G/dL Normal 12.0-16.0 [facility] Comment on above: Performed By: #### C MP, ANEU, LIPID, CBC, GFR, ADIFF, MG #### [place] [address] MCH (RBC) [Entitic mass] 31.9 pg Normal 27.0-33.0 [facility] Comment on above: Performed By: #### C MP, ANEU, LIPID, CBC, GFR, ADIFF, MG #### [place] [address] MCHC 34.4 G/dL Normal 32.0-36.0 [facility] Comment on above: Performed By: #### C MP, ANEU, LIPID, CBC, GFR, ADIFF, MG #### [place] [address] MCV (RBC) [Entitic vol] 92.7 fL Normal 80.0-99.0 [facility] Comment on above: Performed By: #### C MP, ANEU, LIPID, CBC, GFR, ADIFF, MG #### [place] [address] Platelet 217 10 3/mcL Normal 150-450 [facility] Comment on above: Performed By: #### C MP, ANEU, LIPID, CBC, GFR, ADIFF, MG #### [place] [address] Platelet mean volume (Bld) [Entitic vol] 8.6 fL Normal 6.6-10.5 [facility] Comment on above: Performed By: #### C MP, ANEU, LIPID, CBC, GFR, ADIFF, MG #### [place] [address] RBC 4.63 10 6/mcL Normal 4.10-5.30 [facility] Comment on above: Performed By: #### C MP, ANEU, LIPID, CBC, GFR, ADIFF, MG #### [place] [address] WBC 6.8 10 3/mcL Normal 4.5-10.8 [facility] Comment on above: Performed By: #### C MP, ANEU, LIPID, CBC, GFR, ADIFF, MG #### [address] [address] CMPon 11-10-2024 Albumin Level 3.7 G/dL Normal 3.2-4.8 [facility] Comment on above: Performed By: #### C MP, ANEU, LIPID, CBC, GFR, ADIFF, MG #### [place] [address] Albumin/Globulin [Mass ratio] 1.3 {ratio} Normal 0.9-1.6 [facility] Comment on above: Performed By: #### C MP, ANEU, LIPID, CBC, GFR, ADIFF, MG #### [place] [address] ALP [Catalytic activity/Vol] 71 U/L Normal 38-126 [facility] Comment on above: Performed By: #### C MP, ANEU, LIPID, CBC, GFR, ADIFF, MG #### [place] [address] ALT [Catalytic activity/Vol] 76 U/L High 10-49 [facility] Comment on above: Performed By: #### C MP, ANEU, LIPID, CBC, GFR, ADIFF, MG #### [place] [id number] AST [Catalytic activity/Vol] 34 U/L Normal 8-34 [facility] Comment on above: Performed By: #### C MP, ANEU, LIPID, CBC, GFR, ADIFF, MG #### [place] [address] Bili Total 0.90 mg/dL Normal 0.20-1.20 [facility] Comment on above: Result Comment: Use of this assay is not recommended for patients undergoing treatment with eltrombopag due to the potential for falsely elevated results. Performed By: #### C MP, ANEU, LIPID, CBC, GFR, ADIFF, MG #### [place] [address] BUN/Creatinine Ratio 22.1 ratio High 10.0-22.0 [facility] Comment on above: Performed By: #### C MP, ANEU, LIPID, CBC, GFR, ADIFF, MG #### [address] [address] Calcium [Mass/Vol] 9.4 mg/dL Normal 8.7-10.4 [facility] Comment on above: Performed By: #### C MP, ANEU, LIPID, CBC, GFR, ADIFF, MG #### [address] [address] Chloride [Moles/Vol] 106 mmol/L Normal 98-110 [facility] Comment on above: Performed By: #### C MP, ANEU, LIPID, CBC, GFR, ADIFF, MG #### [address] [address] CO2 [Moles/Vol] 27 mmol/L Normal 22-32 [facility] Comment on above: Performed By: #### C MP, ANEU, LIPID, CBC, GFR, ADIFF, MG #### [place] [id number] Creatinine [Mass/Vol] 0.77 mg/dL Normal 0.50-1.20 [facility] Comment on above: Result Comment: Test ing performed on Sonalight analyzer using enzymatic creatinine methodology. Performed By: #### C MP, ANEU, LIPID, CBC, GFR, ADIFF, MG #### [place] [id number] Electrolyte Balance 7.0 mEq/L Normal 4.0-15.0 [facility] Comment on above: Performed By: #### C MP, ANEU, LIPID, CBC, GFR, ADIFF, MG #### [address] [address] Globulin 2.8 G/dL Normal 1.5-3.8 [facility] Comment on above: Performed By: #### C MP, ANEU, LIPID, CBC, GFR, ADIFF, MG #### [place] [id number] Glucose [Mass/Vol] 122 mg/dL High 70-110 [facility] Comment on above: Performed By: #### C MP, ANEU, LIPID, CBC, GFR, ADIFF, MG #### [facility] [address] [place], [place] [address] Potassium [Moles/Vol] 3.6 mmol/L Normal 3.5-5.0 [facility] Comment on above: Performed By: #### C MP, ANEU, LIPID, CBC, GFR, ADIFF, MG #### [address] [address] Sodium [Moles/Vol] 140 mmol/L Normal 136-145 [facility] Comment on above: Performed By: #### C MP, ANEU, LIPID, CBC, GFR, ADIFF, MG #### [address] [address] Total Protein 6.5 G/dL Normal 5.7-8.2 [facility] Comment on above: Performed By: #### C MP, ANEU, LIPID, CBC, GFR, ADIFF, MG #### [address] [address] Urea nitrogen [Mass/Vol] 17.0 mg/dL Normal 8.0-22.0 [facility] Comment on above: Performed By: #### C MP, ANEU, LIPID, CBC, GFR, ADIFF, MG #### [address] [address] LIPIDon 11-10-2024 Cholesterol [Mass/Vol] 137 mg/dL Normal 50-199 [facility] Comment on above: Result Comment: Chol esterol Reference Interval: Less than 200 Desirable 200-239 Borderline high risk 240 and above High risk Performed By: #### C MP, ANEU, LIPID, CBC, GFR, ADIFF, MG #### [address] [address] Cholesterol in HDL [Mass/Vol] 36 mg/dL Low 40-59 [facility] Comment on above: Performed By: #### C MP, ANEU, LIPID, CBC, GFR, ADIFF, MG #### [address] [address] Cholesterol in LDL [Mass/Vol] 73 mg/dL Normal 0-129 [facility] Comment on above: Performed By: #### C MP, ANEU, LIPID, CBC, GFR, ADIFF, MG #### [address] [address] Triglyceride [Mass/Vol] 142 mg/dL Normal 3-149 [facility] Comment on above: Performed By: #### C MP, ANEU, LIPID, CBC, GFR, ADIFF, MG #### [address] [address] MGon 11-10-2024 Magnesium [Mass/Vol] 2.1 mg/dL Normal 1.6-2.4 [facility] Comment on above: Performed By: #### C MP, ANEU, LIPID, CBC, GFR, ADIFF, MG #### [address] [address] .Auto Diffon 11-09-2024 Basophil, Absolute 0.1 10 3/mcL Normal 0.0-0.3 [facility] Comment on above: Performed By: #### C MP, ANEU, LIPID, CBC, GFR, ADIFF, MG #### [place] [id number] Basophils/100 WBC (Bld) 0.7 % Normal 0.0-2.5 [facility] Comment on above: Performed By: #### C MP, ANEU, LIPID, CBC, GFR, ADIFF, MG #### [address] [address] Eosinophil, Absolute 0.2 10 3/mcL Normal 0.0-0.7 [facility] Comment on above: Performed By: #### C MP, ANEU, LIPID, CBC, GFR, ADIFF, MG #### [address] [address] Eosinophils/100 WBC (Bld) 2.8 % Normal 0.0-6.0 [facility] Comment on above: Performed By: #### C MP, ANEU, LIPID, CBC, GFR, ADIFF, MG #### [address] [address] Lymphocyte, Absolute 2.3 10 3/mcL Normal 0.9-4.3 [facility] Comment on above: Performed By: #### C MP, ANEU, LIPID, CBC, GFR, ADIFF, MG #### [address] [address] Lymphocytes/100 WBC (Bld) 29.6 % Normal 20.0-40.0 [facility] Comment on above: Performed By: #### C MP, ANEU, LIPID, CBC, GFR, ADIFF, MG #### [address] [address] Monocyte, Absolute 0.6 10 3/mcL Normal 0.1-1.4 [facility] Comment on above: Performed By: #### C MP, ANEU, LIPID, CBC, GFR, ADIFF, MG #### [address] [address] Monocytes/100 WBC (Bld) 7.9 % Normal 2.0-13.0 [facility] Comment on above: Performed By: #### C MP, ANEU, LIPID, CBC, GFR, ADIFF, MG #### [address] [address] Neutrophils/100 WBC (Bld) 59.0 % Normal 50.0-75.0 [facility] Comment on above: Performed By: #### C MP, ANEU, LIPID, CBC, GFR, ADIFF, MG #### [address] [address] .GFRon 11-09-2024 Estimated Glomerular Filtration Rate 102 ml/min/1.73sqm Normal [facility] Comment on above: Result Comment: Stages of Chronic Kidney Disease (CKD) Stage Description eGFR(ml/min/1.73 sq.m.) CKD 1 Normal kidney function or >=90 normal kindney function with possible kidney damage (ex. Proteinuria) CKD 2 Kidney damage with mild loss 60-89 of kidney function CKD 3a Mild to moderate loss of kidney 45-59 function CKD 3b Moderate to severe loss of 30-44 of kindey function CKD 4 Severe loss of kidney function 15-29 CKD 5 Kidney failure <15 Note: (go live 2024) the eGFR calculation was updated to the 2020 CKD-EPI creatinine equation without a race factor to calculate the eGFR results. Performed By: #### C MP, ANEU, LIPID, CBC, GFR, ADIFF, MG #### [place] [address] .NEUABSon 11-09-2024 Neutrophil, Absolute 4.5 10 3/mcL Normal 2.3-8.1 [facility] Comment on above: Performed By: #### C MP, ANEU, LIPID, CBC, GFR, ADIFF, MG #### [place] [address] CAIONon 11-09-2024 Calcium Ionized 1.20 mmol/L Normal 1.12-1.32 [facility] Comment on above: Performed By: #### C MP, ANEU, LIPID, CBC, GFR, ADIFF, MG #### [place] [address] CBCon 11-09-2024 Erythrocyte distribution width (RBC) [Ratio] 13.4 % Normal 11.5-15.5 [facility] Comment on above: Performed By: #### C MP, ANEU, LIPID, CBC, GFR, ADIFF, MG #### [place] [address] Hematocrit (Bld) [Volume fraction] 44.7 % Normal 34.0-46.0 [facility] Comment on above: Performed By: #### C MP, ANEU, LIPID, CBC, GFR, ADIFF, MG #### [place] [address] Hgb 15.5 G/dL Normal 12.0-16.0 [facility] Comment on above: Performed By: #### C MP, ANEU, LIPID, CBC, GFR, ADIFF, MG #### [place] [address] MCH (RBC) [Entitic mass] 32.2 pg Normal 27.0-33.0 [facility] Comment on above: Performed By: #### C MP, ANEU, LIPID, CBC, GFR, ADIFF, MG #### [place] [address] MCHC 34.8 G/dL Normal 32.0-36.0 [facility] Comment on above: Performed By: #### C MP, ANEU, LIPID, CBC, GFR, ADIFF, MG #### [place] [address] MCV (RBC) [Entitic vol] 92.7 fL Normal 80.0-99.0 [facility] Comment on above: Performed By: #### C MP, ANEU, LIPID, CBC, GFR, ADIFF, MG #### [place] [address] Platelet 238 10 3/mcL Normal 150-450 [facility] Comment on above: Performed By: #### C MP, ANEU, LIPID, CBC, GFR, ADIFF, MG #### [place] [address] Platelet mean volume (Bld) [Entitic vol] 8.9 fL Normal 6.6-10.5 [facility] Comment on above: Performed By: #### C MP, ANEU, LIPID, CBC, GFR, ADIFF, MG #### [place] [address] RBC 4.82 10 6/mcL Normal 4.10-5.30 [facility] Comment on above: Performed By: #### C MP, ANEU, LIPID, CBC, GFR, ADIFF, MG #### [place] [address] WBC 7.6 10 3/mcL Normal 4.5-10.8 [facility] Comment on above: Performed By: #### C MP, ANEU, LIPID, CBC, GFR, ADIFF, MG #### [place] [address] CMPon 11-09-2024 Albumin Level 3.9 G/dL Normal 3.2-4.8 [facility] Comment on above: Performed By: #### C MP, ANEU, LIPID, CBC, GFR, ADIFF, MG #### [place] [address] Albumin/Globulin [Mass ratio] 1.2 {ratio} Normal 0.9-1.6 [facility] Comment on above: Performed By: #### C MP, ANEU, LIPID, CBC, GFR, ADIFF, MG #### [place] [address] ALP [Catalytic activity/Vol] 81 U/L Normal 38-126 [facility] Comment on above: Performed By: #### C MP, ANEU, LIPID, CBC, GFR, ADIFF, MG #### [address] [address] ALT [Catalytic activity/Vol] 88 U/L High 10-49 [facility] Comment on above: Performed By: #### C MP, ANEU, LIPID, CBC, GFR, ADIFF, MG #### [address] [address] AST [Catalytic activity/Vol] 42 U/L High 8-34 [facility] Comment on above: Performed By: #### C MP, ANEU, LIPID, CBC, GFR, ADIFF, MG #### [address] [address] Bili Total 0.80 mg/dL Normal 0.20-1.20 [facility] Comment on above: Result Comment: Use of this assay is not recommended for patients undergoing treatment with eltrombopag due to the potential for falsely elevated results. Performed By: #### C MP, ANEU, LIPID, CBC, GFR, ADIFF, MG #### [address] [address] BUN/Creatinine Ratio 30.3 ratio High 10.0-22.0 [facility] Comment on above: Performed By: #### C MP, ANEU, LIPID, CBC, GFR, ADIFF, MG #### [address] [address] Calcium [Mass/Vol] 10.5 mg/dL High 8.7-10.4 [facility] Comment on above: Performed By: #### C MP, ANEU, LIPID, CBC, GFR, ADIFF, MG #### [address] [address] Chloride [Moles/Vol] 105 mmol/L Normal 98-110 [facility] Comment on above: Performed By: #### C MP, ANEU, LIPID, CBC, GFR, ADIFF, MG #### [address] [address] CO2 [Moles/Vol] 26 mmol/L Normal 22-32 [facility] Comment on above: Performed By: #### C MP, ANEU, LIPID, CBC, GFR, ADIFF, MG #### [address] [address] Creatinine [Mass/Vol] 0.66 mg/dL Normal 0.50-1.20 [facility] Comment on above: Result Comment: Test ing performed on Sonalight analyzer using enzymatic creatinine methodology. Performed By: #### C MP, ANEU, LIPID, CBC, GFR, ADIFF, MG #### [place] [id number] Electrolyte Balance 8.0 mEq/L Normal 4.0-15.0 [facility] Comment on above: Performed By: #### C MP, ANEU, LIPID, CBC, GFR, ADIFF, MG #### [place] [id number] Globulin 3.3 G/dL Normal 1.5-3.8 [facility] Comment on above: Performed By: #### C MP, ANEU, LIPID, CBC, GFR, ADIFF, MG #### [place] [id number] Glucose [Mass/Vol] 141 mg/dL High 70-110 [facility] Comment on above: Performed By: #### C MP, ANEU, LIPID, CBC, GFR, ADIFF, MG #### [address] [address] Potassium [Moles/Vol] 3.9 mmol/L Normal 3.5-5.0 [facility] Comment on above: Performed By: #### C MP, ANEU, LIPID, CBC, GFR, ADIFF, MG #### [address] [address] Sodium [Moles/Vol] 139 mmol/L Normal 136-145 [facility] Comment on above: Performed By: #### C MP, ANEU, LIPID, CBC, GFR, ADIFF, MG #### [place] [id number] Total Protein 7.2 G/dL Normal 5.7-8.2 [facility] Comment on above: Performed By: #### C MP, ANEU, LIPID, CBC, GFR, ADIFF, MG #### [place] [address] Urea nitrogen [Mass/Vol] 20.0 mg/dL Normal 8.0-22.0 [facility] Comment on above: Performed By: #### C MP, ANEU, LIPID, CBC, GFR, ADIFF, MG #### [place] [address] MGon 11-09-2024 Magnesium [Mass/Vol] 1.8 mg/dL Normal 1.6-2.4 [facility] Comment on above: Performed By: #### C MP, ANEU, LIPID, CBC, GFR, ADIFF, MG #### [place] [address] PBNPon 11-09-2024 Natriuretic peptide B (Bld) [Mass/Vol] 114 pg/mL Normal 0-900 [facility] Comment on above: Performed By: #### C MP, ANEU, LIPID, CBC, GFR, ADIFF, MG #### [place] [address] PHOSon 11-09-2024 Phosphate [Mass/Vol] 4.8 mg/dL Normal 2.4-5.1 [facility] Comment on above: Result Comment: No te - New Reference Range in effect 20 Performed By: #### C MP, ANEU, LIPID, CBC, GFR, ADIFF, MG #### [place] [address] TSHon 11-09-2024 TSH 1.111 mIU/mL Normal 0.550-4.780 [facility] Comment on above: Performed By: #### C MP, ANEU, LIPID, CBC, GFR, ADIFF, MG #### [place] [address] UAon 11-09-2024 Color (U) Dark Yellow Normal [facility] Comment on above: Performed By: #### U A ####[place] [address] Glucose (U) [Mass/Vol] Negative Normal Negative [facility] Comment on above: Performed By: #### U A ####[place] [address] Ketones Ql (U) Trace Normal Neg-Trace [facility] Comment on above: Performed By: #### U A ####[place] [address] UA Appear Clear Normal Clear [facility] Comment on above: Performed By: #### U A ####[place] [address] UA Blood Negative Normal Neg-Trace [facility] Comment on above: Performed By: #### U A ####[place] [address] UA Leuk Est Negative Normal Negative [facility] Comment on above: Performed By: #### U A ####[place] [address] UA Nitrite Negative Normal Negative [facility] Comment on above: Performed By: #### U A ####[place] [address] UA pH 5.5 Normal 5.0 - 8.0 [facility] Comment on above: Performed By: #### U A ####[place] [address] UA Protein Negative Normal Negative [facility] Comment on above: Performed By: #### U A ####[place] [address] UA Spec Grav 1.015 Normal 1.006-1.029 [facility] Comment on above: Performed By: #### U A ####[place] [address] UA Specimen Type Clean Catch Normal [facility] Comment on above: Performed By: #### U A ####[place] [address] UA Urobilinogen 0.2 E.U./dL Normal 0.2-1.0 [facility] Comment on above: Performed By: #### U A ####[address] [place] [address] Urobilinogen (U) [Mass/Vol] Negative Normal Neg-Trace [facility] Comment on above: Performed By: #### U A ####[facility] [place] [address] Absolute lymphocyte countOrd ered By: Papito Zeng on 11-08-2024 Lymphocytes Auto (Unsp spec) [#/Vol] 2.26 10*3/uL 0.83-4.51 [facility] Absolute neutrophil countOrd ered By: Papito Zeng on 11-08-2024 Neutrophils (Bld) [#/Vol] 3.0 10*3/uL 2.0-7.7 [facility] Anion gap in Serum or Plasma Ordered By: Papito Zeng on 11-08-2024 Anion gap [Moles/Vol] 14 mmol/L 5- [facility] Automated lymphocyte count a s percentage of total leukocytesOrdered By: Papito Zeng on 11-08-2024 Lymphocytes/100 WBC Auto (Unsp spec) 37.7 % [facility] BUN/creatinine ratioOrdered By: Papito Zeng on 11-08-2024 Urea nitrogen/Creatinine [Mass ratio] 28.8 mg/mg High 10- [facility] Basic Metabolic Profile (BMP )on 11-08-2024 BUN/CRE 28.8 RATIO High 10- [facility] Comment on above: Performed By: #### L 500.2500, L100.0100, L501.9985 ####[facility] [address] [place], [address] Calcium [Mass/Vol] 9.4 mg/dL Normal 7.6-11.0 [facility] Comment on above: Performed By: #### L 500.2500, L100.0100, L501.9985 ####[facility] [address] [place], [address] Chloride [Moles/Vol] 103 mmol/L Normal 98-108 [facility] Comment on above: Performed By: #### L 500.2500, L100.0100, L501.9985 ####[facility] [address] [place], [address] CO2 [Moles/Vol] 21.6 mmol/L Normal 21.0-32.0 [facility] Comment on above: Performed By: #### L 500.2500, L100.0100, L501.9985 ####[facility] [address] [place], [address] Creatinine [Mass/Vol] 0.67 mg/dL Low 0.70-1.20 [facility] Comment on above: Performed By: #### L 500.2500, L100.0100, L501.9985 ####[facility] [address] [place], [address] ECRCL 112.03 ml/min Normal 50-250 [facility] Comment on above: Performed By: #### L 500.2500, L100.0100, L501.9985 ####[facility] [address] [place], [address] GAP 14 Normal 5-15 [facility] Comment on above: Performed By: #### L 500.2500, L100.0100, L501.9985 ####[facility] [address] [place], [address] GFR/1.73 sq M.predicted among non-blacks MDRD (S/P/Bld) [Vol rate/Area] 101 mL/min/{1.73_m2} Normal >60 [facility] Comment on above: Result Comment: mL/m in/1.73m2 CKD-EPI Creatinine Equation (2020) Performed By: #### L 500.2500, L100.0100, L501.9985 ####[facility] [address] [place], [address] Glucose [Mass/Vol] 133 mg/dL High 70-99 [facility] Comment on above: Performed By: #### L 500.2500, L100.0100, L501.9985 ####[facility] [address] [place], [address] Potassium [Moles/Vol] 3.8 mmol/L Normal 3.3-5.1 [facility] Comment on above: Performed By: #### L 500.2500, L100.0100, L501.9985 ####[facility] [address] [place], [address] Sodium [Moles/Vol] 138 mmol/L Normal 133-145 [facility] Comment on above: Performed By: #### L 500.2500, L100.0100, L501.9985 ####[facility] [address] [place], [address] Urea nitrogen [Mass/Vol] 19 mg/dL Normal 4-19 [facility] Comment on above: Performed By: #### L 500.2500, L100.0100, L5.85 ####[facility] [address] [place], [address] Basophil percentageOrdered B y: Papito Zeng on 11-08-2024 Basophils/100 WBC (Bld) 0.8 % 0-1 [facility] CBC W/Diff, Automatedon Absolute Lymph 2.26 X10 3/uL Normal 0.83-4.51 [facility] Comment on above: Performed By: #### L 500.2500, L100.0100, L501.9985 ####[facility] [address] [place], [address] Absolute Neut 3.0 X10 3/uL Normal 2.0-7.7 [facility] Comment on above: Performed By: #### L 500.2500, L100.0100, L501.9985 ####[facility] [address] [place], [address] Basophils/100 WBC (Bld) 0.8 % Normal 0-1 [facility] Comment on above: Performed By: #### L 500.2500, L100.0100, L501.9985 ####[facility] [address] [place], [address] Eosinophils/100 WBC (Bld) 2.7 % Normal 0-5 [facility] Comment on above: Performed By: #### L 500.2500, L100.0100, L501.9985 ####[facility] [address] [place], [address] Erythrocyte distribution width (RBC) [Ratio] 13.2 % Normal 11.6-14.6 [facility] Comment on above: Performed By: #### L 500.2500, L100.0100, L501.9985 ####[facility] [address] [place], [address] Hematocrit (Bld) [Volume fraction] 42.5 % Normal 37-47 [facility] Comment on above: Performed By: #### L 500.2500, L100.0100, L501.9985 ####[facility] [address] [place], [address] Hemoglobin (Bld) [Mass/Vol] 14.8 g/dL Normal 12.0-15.0 [facility] Comment on above: Performed By: #### L 500.2500, L100.0100, L501.9985 ####[facility] [address] [place], [address] IG% 0.500 Normal 0.0-0.9 [facility] Comment on above: Result Comment: IG% - Immature Granulocytes (promyelocytes, myelocytes andmetamyelocytes) > 1% indicates that a LEFT SHIFT is Present. Performed By: #### L 500.2500, L100.0100, L501.9985 ####[facility] [address] [place], [address] Lymphocytes/100 WBC (Bld) 37.7 % Normal 19-41 [facility] Comment on above: Performed By: #### L 500.2500, L100.0100, L501.9985 ####[facility] [address] [place], [address] MCH (RBC) [Entitic mass] 31.8 pg Normal 27.0-32.0 [facility] Comment on above: Performed By: #### L 500.2500, L100.0100, L501.9985 ####[facility] [address] [place], [address] MCHC (RBC) [Mass/Vol] 34.8 g/dL Normal 32-36 [facility] Comment on above: Performed By: #### L 500.2500, L100.0100, L501.9985 ####[facility] [address] [place], [address] MCV (RBC) [Entitic vol] 91.4 fL Normal 81-99 [facility] Comment on above: Performed By: #### L 500.2500, L100.0100, L501.9985 ####[facility] [address] [place], [address] Monocytes/100 WBC (Bld) 9.0 % Normal 0-10 [facility] Comment on above: Performed By: #### L 500.2500, L100.0100, L501.9985 ####[facility] [address] [place], [address] Neutrophils/100 WBC (Bld) 49.3 % Normal 47-70 [facility] Comment on above: Performed By: #### L 500.2500, L100.0100, L501.9985 ####[facility] [address] [place], [address] Nucleated RBC (Bld) [#/Vol] 0 10*3/uL Normal 0-5 [facility] Comment on above: Performed By: #### L 500.2500, L100.0100, L501.9985 ####[facility] [address] [place], [address] Platelet mean volume (Bld) [Entitic vol] 10.2 fL Normal 6.2-12.0 [facility] Comment on above: Performed By: #### L 500.2500, L100.0100, L501.9985 ####[facility] [address] [place], [address] Platelets (Bld) [#/Vol] 234 10*3/uL Normal 150-450 [facility] Comment on above: Performed By: #### L 500.2500, L100.0100, L501.9985 ####[facility] [address] [place], [address] RBC (Bld) [#/Vol] 4.65 10*6/uL Normal 4.2-5.4 [facility] Comment on above: Performed By: #### L 500.2500, L100.0100, L501.9985 ####[facility] [address] [place], [address] RDW SD 43.6 fl Normal 35.1-43.9 [facility] Comment on above: Performed By: #### L 500.2500, L100.0100, L501.9985 ####[facility] [address] [place], [address] WBC (Bld) [#/Vol] 6.0 10*3/uL Normal 4.4-11.0 [facility] Comment on above: Performed By: #### L 500.2500, L100.0100, L501.9985 ####[facility] [address] [place], [address] Carbon dioxide, total [Moles /volume] in Central venous bloodOrdered By: Papito Zeng on 11-08-2024 CO2 [Moles/Vol] 21.6 mmol/L 21.0-32.0 [facility] Chloride assayOrdered By: [place] Zeng on 11-08-2024 Chloride [Moles/Vol] 103 mmol/L 98-108 [facility] Eosinophil percentageOrdered By: Papito Zeng on 11-08-2024 Eosinophils/100 WBC (Bld) 2.7 % 0-5 [facility] Erythrocyte distribution wid th ratioOrdered By: Papito Zeng on 11-08-2024 Erythrocyte distribution width (RBC) [Ratio] 13.2 % 11.6-14.6 [facility] Erythrocyte distribution wid th standard deviationOrdered By: Papito Zeng on 11-08-2024 Erythrocyte distribution width (RBC) [Entitic vol] 43.6 fL 35.1-43.9 [facility] Erythrocyte distribution width (RBC) [Ratio] 43.6 fl 35.1-43.9 [facility] Estimation of creatinine irina aranceOrdered By: Papito Zeng on 11-08-2024 Estimated Creatinine Clearance Calc 112.03 ml/min 50-250 [facility] GFR/1.73 sq M.predicted tod g non-blacks MDRD (S/P/Bld) [Vol rate/Area]Ordered By: Papito Zeng on 11-08-2024 Estimated GFR (MDRD) Non-Af Amer 101 >60 [facility] Comment on above: mL/min/1.73m2 CKD-EP I Creatinine Equation (2020) Glomerular filtration rate ( GFR) estimation/1.73 sq m using serum, plasma, or whole bOrdered By: Papito Zeng on 11-08-2024 GFR/1.73 sq M.predicted among non-blacks MDRD (S/P/Bld) [Vol rate/Area] 101 mL/min/{1.73_m2} >60 [facility] Comment on above: mL/min/1.73m2 CKD-EP I Creatinine Equation (2020) Hematocrit Auto (Bld) [Volum e fraction]Ordered By: Papito Zeng on 11-08-2024 Hematocrit (Bld) [Volume fraction] 42.5 % 37-47 [facility] Hemoglobin A1con 11-08-2024 HbA1c (Bld) [Mass fraction] 6.9 % Normal <=5.6 [facility] Comment on above: Order Comment: ADD T O H29DR GAYLE ORDERED THE A1C Performed By: #### L 500.2500, L100.0100, L501.9985 ####[facility] [address] [place], [address] Hemoglobin A1c percentageOrd ered By: Papito Zeng on 11-08-2024 HbA1c (Bld) [Mass fraction] 6.9 % >5.7 [facility] Hemoglobin measurementOrdere d By: Papito Zeng on 11-08-2024 Hemoglobin (Bld) [Mass/Vol] 14.8 g/dL 12.0-15.0 [facility] Immature granulocytes/100 WB C Auto (Bld)Ordered By: Papito Zeng on 11-08-2024 Immature granulocytes/100 WBC (Bld) 0.500 % 0.0-0.9 [facility] Comment on above: IG% - Immature Granu locytes (promyelocytes, myelocytes and metamyelocytes) > 1% indicates that a LEFT SHIFT is Present. Lymphocytes Auto (Unsp spec) [#/Vol]Ordered By: Papito Zeng on 11-08-2024 Lymphocytes (Bld) [#/Vol] 2.26 10*3/uL 0.83-4.5 1 [facility] Lymphocytes/100 WBC Auto (Un sp spec)Ordered By: Papito Zeng on 11-08-2024 Lymphocytes/100 WBC (Bld) 37.7 % 19-41 [facility] MCV (mean corpuscular volume ) determinationOrdered By: Papito Zeng on 11-08-2024 MCV (RBC) [Entitic vol] 91.4 fL 81-99 [facility] Mean corpuscular hemoglobin (MCH) determinationOrdered By: Papito Zeng on 11-08-2024 MCH (RBC) [Entitic mass] 31.8 pg 27.0-32.0 [facility] Mean corpuscular hemoglobin concentration (MCHC) determinationOrdered By: Papito Zeng on 11-08-2024 MCHC (RBC) [Mass/Vol] 34.8 g/dL 32-36 [facility] Mean platelet volume determi nationOrdered By: Papito Zeng on 11-08-2024 Platelet mean volume (Bld) [Entitic vol] 10.2 fL 6.2-12.0 [facility] Monocyte percentageOrdered B y: Papito Zeng on 11-08-2024 Monocytes/100 WBC (Bld) 9.0 % 0-10 [facility] Neutrophil percentageOrdered By: Papito Zeng on 11-08-2024 Neutrophils/100 WBC (Bld) 49.3 % 47-70 [facility] Nucleated red blood cell per centageOrdered By: Papito Zeng on 11-08-2024 Nucleated RBC/100 WBC (Bld) [Ratio] 0 % 0-5 [facility] Platelet countOrdered By: [place] Zeng on 11-08-2024 Platelets (Bld) [#/Vol] 234 10*3/uL 150-450 [facility] Potassium (Unsp spec) [Mass/ Vol]Ordered By: Papito Zeng on 11-08-2024 Potassium [Moles/Vol] 3.8 mmol/L 3.3-5.1 [facility] Potassium measurement (mass/ volume)Ordered By: Papito Zeng on 11-08-2024 Potassium (Unsp spec) [Mass/Vol] 3.8 mmol/L 3.3-5.1 [facility] RBC Auto (Bld) [#/Vol]Ordere d By: Papito Zeng on 11-08-2024 RBC (Bld) [#/Vol] 4.65 10*6/uL 4.2-5.4 [facility] Serum creatinine measurement (mass/volume)Ordered By: Papito Zeng on 11-08-2024 Creatinine [Mass/Vol] 0.67 mg/dL Low 0.70-1.20 [facility] Serum glucose measurement (m ass/volume)Ordered By: Papito Zeng on 11-08-2024 Glucose [Mass/Vol] 133 mg/dL High 70-99 [facility] Serum or plasma calcium evie urement (mass/volume)Ordered By: Papito Zeng on 11-08-2024 Calcium [Mass/Vol] 9.4 mg/dL 7.6-11.0 [facility] Serum or plasma urea nitroge n measurement (mass/volume)Ordered By: Papito Zeng on 11-08-2024 Urea nitrogen [Mass/Vol] 19 mg/dL 4-19 [facility] Sodium levelOrdered By: Papito Zeng on 11-08-2024 Sodium [Moles/Vol] 138 mmol/L 133-145 [facility] White blood cell (WBC) count Ordered By: Papito Zeng on 11-08-2024 WBC (Bld) [#/Vol] 6.0 10*3/uL 4.4-11.0 [facility] Basic Metabolic Profile (BMP )on 11-07-2024 BUN/CRE 28.1 RATIO High 10-20 [facility] Comment on above: Performed By: #### L 100.0100, L501.4021, L500.2500 ####[facility] [address] [place], [address] Calcium [Mass/Vol] 10.3 mg/dL Normal 7.6-11.0 [facility] Comment on above: Performed By: #### L 100.0100, L501.4021, L500.2500 ####[facility] [address] [place], [address] Chloride [Moles/Vol] 98 mmol/L Normal 98-108 [facility] Comment on above: Performed By: #### L 100.0100, L501.4021, L500.2500 ####[facility] [address] [place], [address] CO2 [Moles/Vol] 24.7 mmol/L Normal 21.0-32.0 [facility] Comment on above: Performed By: #### L 100.0100, L501.4021, L500.2500 ####[facility] [address] [place], [address] Creatinine [Mass/Vol] 0.64 mg/dL Low 0.70-1.20 [facility] Comment on above: Performed By: #### L 100.0100, L501.4021, L500.2500 ####[facility] [address], [address] ECRCL 118.80 ml/min Normal 50-250 [facility] Comment on above: Performed By: #### L 100.0100, L501.4021, L500.2500 ####[facility] [address] [place], [address] GAP 15 Normal 5-15 [facility] Comment on above: Performed By: #### L 100.0100, L501.4021, L500.2500 ####[facility] [address] [place], [address] GFR/1.73 sq M.predicted among non-blacks MDRD (S/P/Bld) [Vol rate/Area] 102 mL/min/{1.73_m2} Normal >60 [facility] Comment on above: Result Comment: mL/m in/1.73m2 CKD-EPI Creatinine Equation (2020) Performed By: #### L 100.0100, L501.4021, L500.2500 ####[facility] [address] [place], [address] Glucose [Mass/Vol] 138 mg/dL High 70-99 [facility] Comment on above: Performed By: #### L 100.0100, L501.4021, L500.2500 ####[facility] [address] [place], [address] Potassium [Moles/Vol] 4.1 mmol/L Normal 3.3-5.1 [facility] Comment on above: Result Comment: Hemo lysis present, Results??could be affected.?? Performed By: #### L 100.0100, L501.4021, L500.2500 ####[facility] [address] [place], [address] Sodium [Moles/Vol] 137 mmol/L Normal 133-145 [facility] Comment on above: Performed By: #### L 100.0100, L501.4021, L500.2500 ####[facility] [address] [place], [address] Urea nitrogen [Mass/Vol] 18 mg/dL Normal 4-19 [facility] Comment on above: Performed By: #### L 100.0100, L501.4021, L500.2500 ####[facility] [address] [place], [address] CBC W/Diff, Automatedon 03-0 PLT EST ADEQUATE Normal ADEQ [facility] Comment on above: Performed By: #### L 100.0100, L501.4021, L500.2500 ####[facility] [address] [place], [address] Consultation - Cardiologyon 11-07-2024 Consultation - Cardiology Normal [facility] Echo Completeon 11-07-2024 Echo Complete Normal [facility] Emergency Department Summary on 11-07-2024 Emergency Department Summary Normal [facility] L499.0042on 11-07-2024 Trop T Delta 1 Normal [facility] Comment on above: Result Comment: If c linical suspicion for ACS is high, suggest getting athird troponin. Otherwise, stress test or CTCA. Performed By: #### L 499.0042 ####[facility] [address] [place], [address] Trop T High Sen 8 ng/L Normal <=14 [facility] Comment on above: Performed By: #### L 499.0042 ####[facility] [address] [place], [address] L499.0043on 11-07-2024 Trop T Delta Normal [facility] Comment on above: Result Comment: @OK TO CANCEL PER KELLI BABIN RN Performed By: #### L 499.0043 ####[facility] [address] [place], [address] Trop T High Sen Normal <=14 [facility] Comment on above: Result Comment: @OK TO CANCEL PER KELLI BABIN RN Performed By: #### L 499.0043 ####[facility] [address] [place], [address] L501.4021on 11-07-2024 Trop T High Sen 7 ng/L Normal <=14 [facility] Comment on above: Performed By: #### L 100.0100, L501.4021, L500.2500 ####[facility] [address] [place], [place], [id number] No Panel InformationOrdered By: Halima Ray on 11-07-2024 Troponin T Hi Sensitivity 2Hr Delta 1 [facility] Comment on above: If clinical suspicio n for ACS is high, suggest getting a third troponin. Otherwise, stress test or CTCA. 1 [facility] Troponin T High Sensitivity 7 ng/L <14 [facility] Comment on above: Delta: < 6 on -1100 7 ng/L <14 [facility] Platelet estimateOrdered By: Halima Ray on 11-07-2024 Platelets LM Ql (Bld) ADEQUATE ADEQ [facility] Platelets LM Ql (Bld)Ordered By: Halima Ray on 11-07-2024 Platelet Estimate ADEQUATE [facility] Troponin T.cardiac High sens itivity method [Mass/Vol]Ordered By: Halima Ray on 11-07-2024 Troponin T High Sensitivity 2 Hour 8 ng/L <14 [facility] Troponin T.cardiac [Mass/vol ume] in Serum or Plasma by High sensitivity methodOrdered By: Halima Ray on 11-07-2024 Troponin T.cardiac High sensitivity method [Mass/Vol] 8 ng/L <14 [facility] D-Dimer Quantitative (DVT/PE )on 11-06-2024 D-DIMER QUANT 0.27 FEU/ug/m Normal 0.27-0.49 [facility] Comment on above: Result Comment: NORM AL D-Dimer level (<0.50) indicates no DVT or PE. Performed By: #### L 300.8000 ####[facility] [address] [place], [address] D-dimer measurement for deep venous thrombosisOrdered By: Noel Araujo on 11-06-2024 D-Dimer Quantitative (PE/DVT) 0.27 FEU/ug/m 0.27-0.49 [facility] Comment on above: NORMAL D-Dimer level (<0.50) indicates no DVT or PE. MR/BMS.IMBon 11-06-2024 MR/BMS.IMB Normal [facility] 12 Lead EKGon 11-05-2024 12 Lead EKG Normal [facility] Absolute lymphocyte countOrd ered By: Eric Alba on 11-05-2024 Lymphocytes Auto (Unsp spec) [#/Vol] 1.66 10*3/uL 0.83-4.51 [facility] Absolute neutrophil countOrd ered By: Eric Alba on 11-05-2024 Neutrophils (Bld) [#/Vol] 3.7 10*3/uL 2.0-7.7 [facility] Automated blood erythrocyte countOrdered By: Eric Alba on 11-05-2024 RBC (Bld) [#/Vol] 4.69 10*6/uL Normal 4.2-5.4 [facility] Comment on above: Performed By: #### L 503.7505, L100.0100, L500.2500 ####[facility] [address] [place], [place], [address] Automated blood hematocrit ( percentage)Ordered By: Eric Alba on 11-05-2024 Hematocrit (Bld) [Volume fraction] 42.6 % Normal 37-47 [facility] Comment on above: Performed By: #### L 503.7505, L100.0100, L500.2500 ####[facility] [address] [place], [place], [address] Automated lymphocyte count a s percentage of total leukocytesOrdered By: Eric Alba on 11-05-2024 Lymphocytes/100 WBC (Bld) 26.9 % Normal - [facility] Comment on above: Performed By: #### L 503.7505, L100.0100, L500.2500 ####[facility] [address] [place], [address] Lymphocytes/100 WBC Auto (Unsp spec) 26.9 % - [facility] BUN/creatinine ratioOrdered By: Eric Alba on 11-05-2024 Urea nitrogen/Creatinine [Mass ratio] 24.9 mg/mg High - [facility] Basic Metabolic Profile (BMP )on 11-05-2024 BUN/CRE 24.9 RATIO High - [facility] Comment on above: Performed By: #### L 503.7505, L100.0100, L500.2500 ####[facility] [address] [place], [address] ECRCL 121.50 ml/min Normal 50-250 [facility] Comment on above: Performed By: #### L 503.7505, L100.0100, L500.2500 ####[facility] [address] [place], [address] Basophil percentageOrdered B y: Eric Alba on 11-05-2024 Basophils/100 WBC (Bld) 0.5 % Normal 0-1 [facility] Comment on above: Performed By: #### L 503.7505, L100.0100, L500.2500 ####[facility] [address] [place], [address] Bilirubin Test strip Ql (U)O rdered By: Eric Alba on 11-05-2024 Bilirubin Ql (U) Negative Negative [facility] Brain/Head without Contrasto n 11-05-2024 Brain/Head without Contrast Normal [facility] CBC W/Diff, Automatedon Absolute Lymph 1.66 X10 3/uL Normal 0.83-4.51 [facility] Comment on above: Performed By: #### L 503.7505, L100.0100, L500.2500 ####[facility] [address] [place], [address] Absolute Neut 3.7 X10 3/uL Normal 2.0-7.7 [facility] Comment on above: Performed By: #### L 503.7505, L100.0100, L500.2500 ####[facility] [address] [place], [address] IG% 0.200 Normal 0.0-0.9 [facility] Comment on above: Result Comment: IG% - Immature Granulocytes (promyelocytes, myelocytes andmetamyelocytes) > 1% indicates that a LEFT SHIFT is Present. Performed By: #### L 503.7505, L100.0100, L500.2500 ####[facility] [address] [place], [address] Nucleated RBC (Bld) [#/Vol] 0 10*3/uL Normal 0-5 [facility] Comment on above: Performed By: #### L 503.7505, L100.0100, L500.2500 ####[facility] [address] [place], [address] RDW SD 42.5 fl Normal 35.1-43.9 [facility] Comment on above: Performed By: #### L 503.7505, L100.0100, L500.2500 ####[facility] [address] [place], [address] Carbon dioxide measurementOr dered By: Eric Alba on 11-05-2024 CO2 [Moles/Vol] 25.8 mmol/L Normal 22.0-29.0 [facility] Comment on above: Performed By: #### L 503.7505, L100.0100, L500.2500 ####[facility] [address] [place], [address] Chest PA and Lateralon 11-05 Chest PA and Lateral Normal [facility] Chloride measurementOrdered By: Eric Alba on 11-05-2024 Chloride [Moles/Vol] 100 mmol/L Normal 96-108 [facility] Comment on above: Performed By: #### L 503.7505, L100.0100, L500.2500 ####[facility] [address] [place], [address] Emergency Department Summary on 11-05-2024 Emergency Department Summary Normal [facility] Eosinophil percentageOrdered By: Eric Alba on 11-05-2024 Eosinophils/100 WBC (Bld) 2.8 % Normal 0-5 [facility] Comment on above: Performed By: #### L 503.7505, L100.0100, L500.2500 ####[facility] [address] [place], [address] Epithelial cells.squamous LM Ql (Urine sed)Ordered By: Eric Alba on 11-05-2024 Epithelial cells.squamous LM.HPF (Urine sed) [#/Area] 0 /[HPF] 5-10 [facility] Erythrocyte distribution wid th ratioOrdered By: Eric Alba on 11-05-2024 Erythrocyte distribution width (RBC) [Ratio] 13.0 % Normal 11.6-14.6 [facility] Comment on above: Performed By: #### L 503.7505, L100.0100, L500.2500 ####[facility] [address] [place], [address] Erythrocyte distribution wid th standard deviationOrdered By: Eric Matute on 11-05-2024 Erythrocyte distribution width (RBC) [Entitic vol] 42.5 fL 35.1-43.9 [facility] Erythrocyte distribution width (RBC) [Ratio] 42.5 fl 35.1-43.9 [facility] Estimation of creatinine irina aranceOrdered By: Eric Alba on 11-05-2024 Estimated Creatinine Clearance Calc 121.50 ml/min 50-250 [facility] GFR/1.73 sq M.predicted tod g non-blacks MDRD (S/P/Bld) [Vol rate/Area]Ordered By: Eric Alba on 11-05-2024 Estimated GFR (MDRD) Non-Af Amer 103 >60 [facility] Comment on above: mL/min/1.73m2 CKD-EP I Creatinine Equation (2020) Glomerular filtration rate ( GFR) estimation/1.73 sq m using serum, plasma, or whole bOrdered By: Eric Alba on 11-05-2024 GFR/1.73 sq M.predicted among non-blacks MDRD (S/P/Bld) [Vol rate/Area] 103 mL/min/{1.73_m2} Normal >60 [facility] Comment on above: mL/min/1.73m2 CKD-EP I Creatinine Equation (2020) Result Comment: mL/m in/1.73m2 CKD-EPI Creatinine Equation (2020) Performed By: #### L 503.7505, L100.0100, L500.2500 ####[facility] [address] [place], [address] Glucose Ql (U)Ordered By: Johann Alba on 11-05-2024 Urine Glucose (UA) Normal mg/dl Normal [facility] Hemoglobin measurementOrdere d By: Eric Alba on 11-05-2024 Hemoglobin (Bld) [Mass/Vol] 15.0 g/dL Normal 12.0-15.0 [facility] Comment on above: Performed By: #### L 503.7505, L100.0100, L500.2500 ####[facility] [address] [place], [address] Immature granulocytes/100 WB C Auto (Bld)Ordered By: Eric Alba on 11-05-2024 Immature granulocytes/100 WBC (Bld) 0.200 % 0.0-0.9 [facility] Comment on above: IG% - Immature Granu locytes (promyelocytes, myelocytes and metamyelocytes) > 1% indicates that a LEFT SHIFT is Present. Ketones Test strip Ql (U)Ord ered By: Eric aWldent on 11-05-2024 Ketones Ql (U) Negative Negative [facility] L499.0042on 11-05-2024 Trop T Delta UNABLE TO CALCULATE Normal [facility] Comment on above: Result Comment: Helen ble to calculate due to result outside of linear rangeUNABLE TO CALCULATE Performed By: #### L 501.9520, L501.5200, L506.0400, L499.0042 ####[facility] [address] [place], [address] Trop T High Sen < 6 Normal <=14 [facility] Comment on above: Performed By: #### L 501.9520, L501.5200, L506.0400, L499.0042 ####[facility] [address] [place], [address] Trop T Delta Normal [facility] Comment on above: Result Comment: This specimen has been REJECTED due to Laboratory criteria:Hemolyzed.AARTI (ED) has been notified of need of recollection.11/05/24 [address] Performed By: #### L 499.0042 ####[facility] [address] [place], [address] Trop T High Sen Normal <=14 [facility] Comment on above: Result Comment: This specimen has been REJECTED due to Laboratory criteria:Hemolyzed.AARTI (ED) has been notified of need of recollection.11/05/24 1259 [facility] Performed By: #### L 499.0042 ####[facility] [address] [place], [address] L501.4021on 11-05-2024 Trop T High Sen < 6 Normal <=14 [facility] Comment on above: Performed By: #### L 501.4021 ####[facility] [address] [place], [address] L503.7505on 11-05-2024 proBNP < 36 Normal <=900 [facility] Comment on above: Result Comment: Hear t Failure Unlikely: < 300 pg/mLHeart Failure Likely< 50 Years: > 450 pg/mL50-75 Years: > 900 pg/mL>75 Years: > 1800 pg/mL Performed By: #### L 503.7505, L100.0100, L500.2500 ####[facility] [address] [place], [address] Lymphocytes Auto (Unsp spec) [#/Vol]Ordered By: Eric Alba on 11-05-2024 Lymphocytes (Bld) [#/Vol] 1.66 10*3/uL 0.83-4.5 1 [facility] MCV (mean corpuscular volume ) determinationOrdered By: Eric Alba on 11-05-2024 MCV (RBC) [Entitic vol] 90.8 fL Normal 81-99 [facility] Comment on above: Performed By: #### L 503.7505, L100.0100, L500.2500 ####[facility] [address] [place], [address] Magnesiumon 11-05-2024 Magnesium [Mass/Vol] 1.7 mg/dL Normal 1.5-2.2 [facility] Comment on above: Performed By: #### L 501.9520, L501.5200, L506.0400, L499.0042 ####[facility] [address] [place], [address] Magnesium (Unsp spec) [Mass/ Vol]Ordered By: Eric Alba on 11-05-2024 Magnesium [Mass/Vol] 1.7 mg/dL 1.5-2.2 [facility] Magnesium measurement (mass/ volume)Ordered By: Eric Alba on 11-05-2024 Magnesium (Unsp spec) [Mass/Vol] 1.7 mg/dL 1.5-2.2 [facility] Mean corpuscular hemoglobin (MCH) determinationOrdered By: Eric Alba on 11-05-2024 MCH (RBC) [Entitic mass] 32.0 pg Normal 27.0-32.0 [facility] Comment on above: Performed By: #### L 503.7505, L100.0100, L500.2500 ####[facility] [address] [place], [place], [address] Mean corpuscular hemoglobin concentration (MCHC) determinationOrdered By: Eric Alba on 11-05-2024 MCHC (RBC) [Mass/Vol] 35.2 g/dL Normal 32-36 [facility] Comment on above: Performed By: #### L 503.7505, L100.0100, L500.2500 ####[facility] [address] [place], [place], [address] Mean platelet volume determi nationOrdered By: Eric Alba on 11-05-2024 Platelet mean volume (Bld) [Entitic vol] 10.4 fL Normal 6.2-12.0 [facility] Comment on above: Performed By: #### L 503.7505, L100.0100, L500.2500 ####[facility] [address] [place], [place], [address] Microscopic analysis of urin e for red blood cells (RBC)Ordered By: Eric Alba on 11-05-2024 Microscopic analysis of urine for red blood cells (RBC) 0 SEEN /hpf 0-5 [facility] Urine RBC 0 SEEN /hpf 0-5 [facility] Monocyte percentageOrdered B y: Eric Alba on 11-05-2024 Monocytes/100 WBC (Bld) 9.7 % Normal 0-10 [facility] Comment on above: Performed By: #### L 503.7505, L100.0100, L500.2500 ####[facility] [address] [place], [address] Mucus LM Ql (Urine sed)Order ed By: Eric Alba on 11-05-2024 Mucus Ql (Urine sed) 0 SEEN /hpf [facility] Neutrophil percentageOrdered By: Eric Alba on 11-05-2024 Neutrophils/100 WBC (Bld) 59.9 % Normal 47-70 [facility] Comment on above: Performed By: #### L 503.7505, L100.0100, L500.2500 ####[facility] [address] [facility] [place], [place], [address] Nitrite Test strip Ql (U)Ord ered By: Eric Alba on 11-05-2024 Nitrite Ql (U) Negative Negative [facility] No Panel InformationOrdered By: Eric Alba on 11-05-2024 Troponin T Hi Sensitivity 2Hr Delta UNABLE TO CALCULATE [facility] Comment on above: Unable to calculate due to result outside of linear rangeUNABLE TO CALCULATE UNABLE TO CALCULATE [facility] CI-BilY-Qows Natriuretic Peptide II < 36 pg/mL <900 [facility] Comment on above: Heart Failure Unlike ly: < 300 pg/mLHeart Failure Likely< 50 Years: > 450 pg/mL50-75 Years: > 900 pg/mL>75 Years: > 1800 pg/mL Troponin T High Sensitivity < 6 ng/L <14 [facility] < 6 ng/L <14 [facility] < 36 pg/mL <900 [facility] Nucleated red blood cell per centageOrdered By: Eric Alba on 11-05-2024 Nucleated RBC/100 WBC (Bld) [Ratio] 0 % 0-5 [facility] Platelet countOrdered By: Johann Alba on 11-05-2024 Platelets (Bld) [#/Vol] 205 10*3/uL Normal 150-450 [facility] Comment on above: Performed By: #### L 503.7505, L100.0100, L500.2500 ####[facility] [address] [place], [address] Protein Test strip Ql (U)Ord ered By: Eric Alba on 11-05-2024 Protein Ql (U) Negative Negative [facility] Serum creatinine measurement (mass/volume)Ordered By: Eric Alba on 11-05-2024 Creatinine [Mass/Vol] 0.62 mg/dL Low 0.70-1.20 [facility] Comment on above: Performed By: #### L 503.7505, L100.0100, L500.2500 ####[facility] [address] [place], [address] Serum glucose measurement (m ass/volume)Ordered By: Eric Alba on 11-05-2024 Glucose [Mass/Vol] 165 mg/dL High 70-99 [facility] Comment on above: Performed By: #### L 503.7505, L100.0100, L500.2500 ####[facility] [address] [place], [address] Serum or plasma anion gap de termination (moles/volume)Ordered By: Eric Alba on 11-05-2024 Anion gap [Moles/Vol] 13 mmol/L Normal 5-15 [facility] Comment on above: Performed By: #### L 503.7505, L100.0100, L500.2500 ####[facility] [address] [place], [address] Serum or plasma calcium evie urement (mass/volume)Ordered By: Eric Matute on 11-05-2024 Calcium [Mass/Vol] 9.9 mg/dL Normal 7.6-11.0 [facility] Comment on above: Performed By: #### L 503.7505, L100.0100, L500.2500 ####[facility] [address] [place], [address] Serum or plasma potassium me asurementOrdered By: Eric Alba on 11-05-2024 Potassium [Moles/Vol] 3.8 mmol/L Normal 3.3-5.1 [facility] Comment on above: Performed By: #### L 503.7505, L100.0100, L500.2500 ####[facility] [address] [place], [address] Serum or plasma sodium measu rement (moles/volume)Ordered By: Eric karime Juju on 11-05-2024 Sodium [Moles/Vol] 138 mmol/L Normal 133-145 [facility] Comment on above: Performed By: #### L 503.7505, L100.0100, L500.2500 ####[facility] [address] [place], [address] Serum or plasma urea nitroge n measurement (mass/volume)Ordered By: Eric Alba on 11-05-2024 Urea nitrogen [Mass/Vol] 15 mg/dL Normal 4-19 [facility] Comment on above: Performed By: #### L 503.7505, L100.0100, L500.2500 ####[facility] [address] [place], [address] Squamous epithelial cells de tection in urine sediment by light microscopyOrdered By: Eric Alba on 11-05-2024 Epithelial cells.squamous LM Ql (Urine sed) 0-5 SEEN /hpf 5-10 [facility] T4 Free Directon 11-05-2024 T4 FREE DIRECT 1.40 ng/dL Normal 0.76-1.46 [facility] Comment on above: Order Comment: Y Performed By: #### L 501.9520, L501.5200, L506.0400, L499.0042 ####[facility] [address] [place], [address] T4 freeOrdered By: Eric Herzog on 11-05-2024 Free T4 [Mass/Vol] 1.40 ng/dL 0.76-1.46 [facility] TSH DL <= 0.005 mIU/L QnOrde red By: Eric Alba on 11-05-2024 Thyroid Stimulating Hormone (TSH) 0.357 uIU/mL 0.300-4.200 [facility] TSH Qn 0.357 uIU/mL 0.300-4.200 [facility] Thyroid Stim Hormone (TSH)on 11-05-2024 TSH 0.357 uIU/mL Normal 0.300-4.200 [facility] Comment on above: Performed By: #### L 501.9520, L501.5200, L506.0400, L499.0042 ####[facility] [address] [place], [address] Troponin T.cardiac High sens itivity method [Mass/Vol]Ordered By: Eric Matute on 11-05-2024 Troponin T High Sensitivity 2 Hour < 6 ng/L <14 [facility] Troponin T.cardiac [Mass/vol ume] in Serum or Plasma by High sensitivity methodOrdered By: Eric Alba on 11-05-2024 Troponin T.cardiac High sensitivity method [Mass/Vol] < 6 ng/L <14 [facility] Urinalysis, Completeon 11-05 RBC 0 SEEN Normal 0-5 [facility] Comment on above: Order Comment: CLEAN CATCH Performed By: #### L 400.0001 ####[facility] [address] [place], [address] Urine blood detectionOrdered By: Eric Alba on 11-05-2024 Urine Occult Blood Negative Negative [facility] Urine clarityOrdered By: Maldonado Alba on 11-05-2024 Clarity (U) Clear Clear [facility] Urine color determinationOrd ered By: Eric Alba on 11-05-2024 Color (U) Yellow Yellow [facility] Urine glucose detectionOrder ed By: Eric Alba on 11-05-2024 Glucose Ql (U) Normal mg/dl Normal [facility] Urine leukocyte esterase det ection by dipstickOrdered By: Eric Alba on 11-05-2024 Leukocyte esterase Test strip Ql (U) Negative Negative [facility] Urine pHOrdered By: Eric Rea on 11-05-2024 pH (U) 7.0 [pH] 5.0 - 8.0 [facility] Urine sediment bacteria coun t by microscopy (number/high power field)Ordered By: Eric Alba on 11-05-2024 Bacteria LM.HPF (Urine sed) [#/Area] 0 /[HPF] None Seen [facility] Urine specific gravity measu rementOrdered By: Eric Alba on 11-05-2024 Specific gravity (U) [Rel density] 1.010 1.002-1.030 [facility] Urine urobilinogen measureme ntOrdered By: Eric Alba on 11-05-2024 Urobilinogen Ql (U) Normal mg/dl Normal [facility] Urobilinogen Ql (U)Ordered B y: Eric Alba on 11-05-2024 Urine Urobilinogen Normal mg/dl Normal [facility] White blood cell (WBC) count Ordered By: Eric Alba on 11-05-2024 WBC (Bld) [#/Vol] 6.2 10*3/uL Normal 4.4-11.0 [facility] Comment on above: Performed By: #### L 503.3554, L100.0100, L500.2500 ####[facility] [address] [place], [place], [id number] White blood cell countOrdere d By: Eric Alba on 11-05-2024 Urine WBC 0 SEEN /hpf 0-5 [facility] White blood cell count 0 SEEN /hpf 0-5 [facility] Urgent Care Visit Reporton 0 10-27-2024 Urgent Care Visit Report Normal [facility] Laboratory - Microbiology an d Antimicrobial susceptibilityOrdered By: Jean Baxter on 10-13-2024 SARS-CoV-2 (COVID-19) RNA CARA+probe Ql (Unsp spec) Not detected [facility] No Panel InformationOrdered By: Jean Baxter on 10-13-2024 Influenza Types A,B Rapid (Clinic) Detected [facility] Urgent Care Visit Reporton 0 10-13-2024 Urgent Care Visit Report Normal [facility] Breast Limited Unilateralon 10-10-2024 Breast Limited Unilateral Normal [facility] MR/BMS.IMBon 08-17-2024 MR/BMS.IMB Normal [facility] 06-HV-Qvmkmsr DOrdered By: Sandi Araujo on 08-15-2024 Vitamin D 25-Hydroxy 42.1 ng/mL [facility] Comment on above: Vitamin D 25(OH) Sta tus Range Deficiency <20 ng/mL (50nmol/L) Insufficiency 20 - 30 ng/mL (50 - 75 nmol/L) Sufficiency 30 - 100 ng/mL (75 - 250 nmol/L) Toxicity >100 ng/mL (>250 nmol/L) Albumin to globulin ratioOrd ered By: Noel Araujo on 08-15-2024 Albumin/Globulin [Mass ratio] 1.2 {ratio} 0.9-2.4 [facility] Bilirubin, totalOrdered By: Noel Araujo on 08-15-2024 Bilirubin [Mass/Vol] 0.70 mg/dL 0.20-1.00 [facility] Comment on above: For patients on eltr ombopag therapy, use of Dimension [place] TBIL is not recommended. Blood urea nitrogen (BUN)/cr eatinine ratioOrdered By: Noel Araujo on 08-15-2024 Urea nitrogen/Creatinine [Mass ratio] 17.9 mg/mg 06-25 [facility] Carbon dioxide measurementOr dered By: Noel Araujo on 08-15-2024 CO2 [Moles/Vol] 26.0 mmol/L 21.0-32.0 [facility] Chloride measurementOrdered By: Noel Araujo on 08-15-2024 Chloride [Moles/Vol] 104 mmol/L 98-107 [facility] Comprehensive Metabolic Prof ilon 08-15-2024 Albumin [Mass/Vol] 3.9 g/dL Normal 3.2-5.0 [facility] Comment on above: Performed By: #### L 501.9985, L501.5200, L500.4050, L506.1000, L506.0400, L501.9520, L501.46412 ####[facility] [address] [place], [address] Albumin/Globulin [Mass ratio] 1.2 {ratio} Normal 0.9-2.4 [facility] Comment on above: Performed By: #### L 501.9985, [id number], L500.4050, L506.1000, L506.0400, L501.9520, L501.55081 ####[facility] [address] [place], [address] ALK P 89 U/L Normal 45-117 [facility] Comment on above: Performed By: #### L [id number], [id number], L500.4050, L506.1000, L506.0400, L501.9520, L501.58857 ####[facility] [address] [place], [address] ALT [Catalytic activity/Vol] 42 U/L Normal 13-56 [facility] Comment on above: Performed By: #### L [id number], [id number], L500.4050, L506.1000, L506.0400, L501.9520, L501.73376 ####[facility] [address] [place], [address] AST [Catalytic activity/Vol] 23 U/L Normal 15-37 [facility] Comment on above: Performed By: #### L [id number], [id number], L500.4050, L506.1000, L506.0400, L501.9520, L501.77959 ####[facility] [address] [place], [address] Bilirubin [Mass/Vol] 0.70 mg/dL Normal 0.20-1.00 [facility] Comment on above: Result Comment: For patients on eltrombopag therapy, use of Dimension [place] TBIL is not recommended. Performed By: #### L 501.9985, L501.5200, L500.4050, L506.1000, L506.0400, L501.9520, L501.58872 ####[facility] [address] [place], [address] BUN/CRE 17.9 RATIO Normal 10-20 [facility] Comment on above: Performed By: #### L [id number], [id number], L500.4050, L506.1000, L506.0400, L501.9520, L501.45784 ####[facility] [address] [place], [address] CA,Total 9.6 mg/dL Normal 8.5-10.1 [facility] Comment on above: Performed By: #### L [id number], [id number], L500.4050, L506.1000, L506.0400, L501.9520, L501.95728 ####[facility] [address] [place], [address] Chloride [Moles/Vol] 104 mmol/L Normal 98-107 [facility] Comment on above: Performed By: #### L 501.9985, [id number], L500.4050, L506.1000, L506.0400, L501.9520, L501.01250 ####[facility] [address] [place], [address] CO2 [Moles/Vol] 26.0 mmol/L Normal 21.0-32.0 [facility] Comment on above: Performed By: #### L 501.9985, L501.5200, L500.4050, L506.1000, L506.0400, L501.9520, L501.89843 ####[facility] [address] [place], [address] Creatinine [Mass/Vol] 0.78 mg/dL Normal 0.55-1.02 [facility] Comment on above: Result Comment: The validity of the calculated GFR GFRAA in patients over70 years has not been determined. Clinical correlation isessential. Performed By: #### L 501.9985, L501.5200, L500.4050, L506.1000, L506.0400, L501.9520, L501.79369 ####[facility] [address] [place], [place], [phone] EST GFR - AA 97 mL/min Normal >60 [facility] Comment on above: Result Comment: Afri can [place] GFR Calc Performed By: #### L 501.9985, L501.5200, L500.4050, L506.1000, L506.0400, L501.9520, L501.15953 ####[facility] [address] [place], [address] GAP 8 Normal 5-15 [facility] Comment on above: Performed By: #### L 501.9985, L501.5200, L500.4050, L506.1000, L506.0400, L501.9520, L501.88300 ####[facility] [address] [place], [place], [phone]) GFR/1.73 sq M.predicted among non-blacks MDRD (S/P/Bld) [Vol rate/Area] 80 mL/min/{1.73_m2} Normal >60 [facility] Comment on above: Result Comment: Non- GFR Calc Performed By: #### L 501.9985, L501.5200, L500.4050, L506.1000, L506.0400, L501.9520, L501.37854 ####[facility] [address] [place], [address] Globulin (S) [Mass/Vol] 3.3 g/dL Normal 2.2-4.2 [facility] Comment on above: Performed By: #### L 501.9985, L501.5200, L500.4050, L506.1000, L506.0400, L501.9520, L501.78337 ####[facility] [address] [place], [address] Glucose [Mass/Vol] 173 mg/dL High 74-106 [facility] Comment on above: Result Comment: Fast ing Glucose result greater than or equal to 126 mg/dLsuggests DIABETES MELLITUS per A.D.A. criteria. Performed By: #### L 501.9985, L501.5200, L500.4050, L506.1000, L506.0400, L501.9520, L501.50038 ####[facility] [address] [place], [address] Potassium [Moles/Vol] 3.5 mmol/L Normal 3.5-5.1 [facility] Comment on above: Performed By: #### L 501.9985, L501.5200, L500.4050, L506.1000, L506.0400, L501.9520, L501.04747 ####[facility] [address] [place], [address] Sodium [Moles/Vol] 138 mmol/L Normal 136-145 [facility] Comment on above: Performed By: #### L 501.9985, L501.5200, L500.4050, L506.1000, L506.0400, L501.9520, L501.48650 ####[facility] [address] [place], [place], [phone] T PROT 7.2 g/dL Normal 6.4-8.2 [facility] Comment on above: Performed By: #### L 501.9985, L501.5200, L500.4050, L506.1000, L506.0400, L501.9520, L501.34568 ####[facility] [address] [place], [place], [id number] Urea nitrogen [Mass/Vol] 14 mg/dL Normal 7-18 [facility] Comment on above: Performed By: #### L 501.9985, L501.5200, L500.4050, L506.1000, L506.0400, L501.9520, L501.06817 ####[facility] [address] [place], [place], [id number] Direct serum free thyroxine (FT4) measurementOrdered By: Noel Araujo on 08-15-2024 Free T4 [Mass/Vol] 1.37 ng/dL 0.76-1.46 [facility] Estimated glomerular filtrat ion rate (GFR) AmericanOrdered By: Noel Araujo on 08-15-2024 Estimated GFR (MDRD) Amer 97 mL/min >60 [facility] Comment on above: GFR Calc Free T3on 08-15-2024 Free T3 [Mass/Vol] 2.6 pg/mL Normal 2.18-3.98 [facility] Comment on above: Performed By: #### L 501.9985, L501.5200, L500.4050, L506.1000, L506.0400, L501.9520, L501.65787 ####[facility] [address] [place], [place], [phone] Free F9Xaxalqr By: Noel tomas on 08-15-2024 Free Triiodothyronine (T3) pg/dL 2.6 pg/mL 2.18-3.98 [facility] Glomerular filtration rate ( GFR) estimationOrdered By: Noel Araujo on 08-15-2024 Estimated GFR (MDRD) Non-Af Amer 80 mL/min >60 [facility] Comment on above: Non- GFR Calc Glucose measurementOrdered B y: Noel Araujo on 08-15-2024 Glucose [Mass/Vol] 173 mg/dL High 74-106 [facility] Comment on above: Fasting Glucose resu lt greater than or equal to 126 mg/dL suggests DIABETES MELLITUS per A.D.A. criteria. Hemoglobin A1con 08-15-2024 HbA1c (Bld) [Mass fraction] 6.2 % High 3.8-5.6 [facility] Comment on above: Result Comment: Norm al < 5.7 % Prediabetic 5.7 - 6.4 % Diabetic >or= 6.5 % Please note range changes. Performed By: #### L 501.9985, L501.5200, L500.4050, L506.1000, L506.0400, L501.9520, L501.98919 ####[facility] [address] [place], [address] Hemoglobin A1c percentageOrd ered By: Noel Araujo on 08-15-2024 HbA1c (Bld) [Mass fraction] 6.2 % High 3.8-5.6 [facility] Comment on above: Normal < 5.7 % Predi abetic 5.7 - 6.4 % Diabetic >or= 6.5 % Please note range changes. Laboratory - Chemistry and C hemistry - challengeOrdered By: Noel Araujo on 08-15-2024 AST [Catalytic activity/Vol] 23 U/L 15-37 [facility] Magnesiumon 08-15-2024 Magnesium [Mass/Vol] 2.0 mg/dL Normal 1.6-2.6 [facility] Comment on above: Performed By: #### L 501.9985, L501.5200, L500.4050, L506.1000, L506.0400, L501.9520, L501.35303 ####[facility] [address] [place], [address] Magnesium measurementOrdered By: Noel Araujo on 08-15-2024 Magnesium [Mass/Vol] 2.0 mg/dL 1.6-2.6 [facility] Potassium measurementOrdered By: Noel Araujo on 08-15-2024 Potassium [Moles/Vol] 3.5 mmol/L 3.5-5.1 [facility] Serum anion gap measurementO rdered By: Noel Araujo on 08-15-2024 Anion gap [Moles/Vol] 8 mmol/L 5-15 [facility] Serum globulin measurementOr dered By: Noel Araujo on 08-15-2024 Globulin (S) [Mass/Vol] 3.3 g/dL 2.2-4.2 [facility] Serum or plasma alanine escalante otransferase (ALT) measurementOrdered By: Noel Araujo on 08-15-2024 ALT [Catalytic activity/Vol] 42 U/L 13-56 [facility] Serum or plasma albumin evie urement (mass/volume)Ordered By: Noel Araujo on 08-15-2024 Albumin [Mass/Vol] 3.9 g/dL 3.2-5.0 [facility] Serum or plasma alkaline lee sphatase measurementOrdered By: Noel Araujo on 08-15-2024 ALP [Catalytic activity/Vol] 89 U/L 45-117 [facility] Serum or plasma calcium evie urement (mass/volume)Ordered By: Noel Araujo on 08-15-2024 Calcium [Mass/Vol] 9.6 mg/dL 8.5-10.1 [facility] Serum or plasma creatinine m easurement (mass/volume)Ordered By: Noel Araujo on 08-15-2024 Creatinine [Mass/Vol] 0.78 mg/dL 0.55-1.02 [facility] Comment on above: The validity of the calculated GFR & GFRAA in patients over 70 years has not been determined. Clinical correlation is essential. Serum or plasma urea nitroge n measurement (mass/volume)Ordered By: Noel Araujo on 08-15-2024 Urea nitrogen [Mass/Vol] 14 mg/dL 7-18 [facility] Sodium levelOrdered By: Yaima Araujo on 08-15-2024 Sodium [Moles/Vol] 138 mmol/L 136-145 [facility] T4 Free Directon 08-15-2024 T4 FREE DIRECT 1.37 ng/dL Normal 0.76-1.46 [facility] Comment on above: Performed By: #### L 501.9985, L501.5200, L500.4050, L506.1000, L506.0400, L501.9520, L501.07059 ####[facility] [address] [place], [place], [phone] TSH QnOrdered By: Noel Nagel hner on 08-15-2024 Thyroid Stimulating Hormone (TSH) 1.310 uIU/mL 0.358-3.740 [facility] Thyroid Stim Hormone (TSH)on 08-15-2024 TSH 1.310 uIU/mL Normal 0.358-3.740 [facility] Comment on above: Performed By: #### L 501.9985, L501.5200, L500.4050, L506.1000, L506.0400, L501.9520, L501.94075 ####[facility] [address] [place], [place], [id number] Total proteinOrdered By: Berenice Araujo on 08-15-2024 Protein [Mass/Vol] 7.2 g/dL 6.4-8.2 [facility] Vitamin D,25 Hydroxyon 08-15 Vitamin D 25-OH 42.1 ng/mL Normal [facility] Comment on above: Result Comment: Mary Alice min D 25(OH) Status Range Deficiency <20 ng/mL (50nmol/L) Insufficiency 20 - 30 ng/mL (50 - 75 nmol/L) Sufficiency 30 - 100 ng/mL (75 - 250 nmol/L) Toxicity >100 ng/mL (>250 nmol/L) Performed By: #### L 501.9985, L501.5200, L500.4050, L506.1000, L506.0400, L501.9520, L501.54873 ####[facility] [address] [place], [address] Inital Evaluation (1) - PTon 06-28-2024 Inital Evaluation (1) - PT Normal [facility] Elbow min 3 Viewson 05-25-20 24 Elbow min 3 Views Normal [facility] MR/BMS.IMBon 05-25-2024 MR/BMS.IMB Normal [facility] 04-[facility] MR/BMS.IMB Normal [facility] Absolute lymphocyte countOrd ered By: Noel Araujo on 03-30-2023 Lymphocytes Auto (Unsp spec) [#/Vol] 1.52 10*3/uL 0.83-4.51 [facility] Basophil percentageOrdered B y: Noel Araujo on 03-30-2023 Basophils/100 WBC (Bld) 0.8 % 0-1 [facility] Bilirubin [Mass/Vol] 0.80 mg/dL 0.20-1.00 [facility] Comment on above: For patients on eltr ombopag therapy, use of Dimension [place] TBIL is not recommended. Chloride [Moles/Vol] 103 mmol/L 98-107 [facility] Cholesterol [Mass/Vol] 133 mg/dL <200 [facility] Comment on above: <200 mg/dL Desirable 200-240 mg/dL Borderline >240 mg/dL High Risk Eosinophils/100 WBC (Bld) 1.7 % 0-5 [facility] Glucose [Mass/Vol] 140 mg/dL 74-106 [facility] Comment on above: Fasting Glucose resu lt greater than or equal to 126 mg/dL suggests DIABETES MELLITUS per A.D.A. criteria. Neutrophils (Bld) [#/Vol] 4.4 10*3/uL 2.0-7.7 [facility] Neutrophils/100 WBC (Bld) 66.6 % 47-70 [facility] Potassium [Moles/Vol] 3.8 mmol/L 3.5-5.1 [facility] Protein [Mass/Vol] 7.1 g/dL 6.4-8.2 [facility] Sodium [Moles/Vol] 136 mmol/L 136-145 [facility] Triglyceride [Mass/Vol] 138 mg/dL <199 [facility] Comment on above: The drugs N-Acetylcy steine and Metamizole may falsely depress this assay.Serum Triglycerides Reference Interval Normal <150 mg/dL Borderline high 150 - 199 mg/dL High 200 - 499 mg/dL Very High > or = 500 mg/dL WBC (Bld) [#/Vol] 6.5 10*3/uL 4.4-11.0 [facility] Blood erythrocytes count (nu mber/volume)Ordered By: Noel Araujo on 03-30-2023 RBC (Bld) [#/Vol] 4.51 10*6/uL 4.2-5.4 [facility] Blood hemoglobin measurement (mass/volume)Ordered By: Noel Araujo on 03-30-2023 Hemoglobin (Bld) [Mass/Vol] 14.1 g/dL 12.0-15.0 [facility] Blood lymphocytes/100 leukoc ytesOrdered By: Noel Araujo on 03-30-2023 Lymphocytes/100 WBC (Bld) 23.3 % 19-41 [facility] Blood monocytes/100 leukocyt esOrdered By: Noel Araujo on 03-30-2023 Monocytes/100 WBC (Bld) 7.1 % 0-10 [facility] Blood platelet mean volumeOr dered By: Noel Araujo on 03-30-2023 Platelet mean volume (Bld) [Entitic vol] 10.4 fL 6.2-12.0 [facility] Determination of erythrocyte mean corpuscular volume (MCV)Ordered By: Noel Araujo on 03-30-2023 MCV (RBC) [Entitic vol] 95.1 fL 81-99 [facility] Hematocrit Auto (Bld) [Volum e fraction]Ordered By: Noel Araujo on 03-30-2023 Hematocrit (Bld) [Volume fraction] 42.9 % 37-47 [facility] Laboratory - Chemistry and C hemistry - challengeOrdered By: Noel Araujo on 03-30-2023 ALP [Catalytic activity/Vol] 83 U/L 45-117 [facility] ALT [Catalytic activity/Vol] 57 U/L 13-56 [facility] CO2 [Moles/Vol] 26.0 mmol/L 21.0-32.0 [facility] Free T4 [Mass/Vol] 1.27 ng/dL 0.76-1.46 [facility] Globulin (S) [Mass/Vol] 3.6 g/dL 2.2-4.2 [facility] Urea nitrogen/Creatinine [Mass ratio] 18.1 mg/mg 10-20 [facility] Laboratory - Hematology and Cell countsOrdered By: Noel Araujo on 03-30-2023 Erythrocyte distribution width (RBC) [Entitic vol] 43.4 fL 35.1-43.9 [facility] Erythrocyte distribution width (RBC) [Ratio] 12.5 % 11.6-14.6 [facility] Immature granulocytes/100 WBC (Bld) 0.500 % 0.0-0.9 [facility] Comment on above: IG% - Immature Granu locytes (promyelocytes, myelocytes and metamyelocytes) > 1% indicates that a LEFT SHIFT is Present. MCH (RBC) [Entitic mass] 31.3 pg 27.0-32.0 [facility] Nucleated RBC/100 WBC (Bld) [Ratio] 0 % 0-5 [facility] MCHC Auto (RBC) [Mass/Vol]Or dered By: Noel Araujo on 03-30-2023 MCHC (RBC) [Mass/Vol] 32.9 g/dL 32-36 [facility] No Panel InformationOrdered By: Noel Araujo on 03-30-2023 Insulin Level 21.7 mU/L 2.6-37.6 [facility] Estimated GFR (MDRD) Amer 108 mL/min >60 [facility] Comment on above: GFR Calc Estimated GFR (MDRD) Non-Af Amer 89 mL/min >60 [facility] Comment on above: Non- GFR Calc Free Triiodothyronine (T3) pg/dL 2.4 pg/mL 2.18-3.98 [facility] Thyroid Stimulating Hormone (TSH) 1.46 uIU/mL 0.358-3.74 [facility] Vitamin D 25-Hydroxy 40.6 ng/mL [facility] Comment on above: Vitamin D 25(OH) Sta tus Range Deficiency <20 ng/mL (50nmol/L) Insufficiency 20 - 30 ng/mL (50 - 75 nmol/L) Sufficiency 30 - 100 ng/mL (75 - 250 nmol/L) Toxicity >100 ng/mL (>250 nmol/L) Platelets bldOrdered By: Berenice Araujo on 03-30-2023 Platelets (Bld) [#/Vol] 268 10*3/uL 150-450 [facility] Serum or plasma albumin evie urement (mass/volume)Ordered By: Noel Araujo on 03-30-2023 Albumin [Mass/Vol] 3.5 g/dL 3.2-5.0 [facility] Serum or plasma albumin/glob ulin mass ratioOrdered By: Noel Araujo on 03-30-2023 Albumin/Globulin [Mass ratio] 1.0 {ratio} 0.9-2.4 [facility] Serum or plasma calcium evie urement (mass/volume)Ordered By: Noel Araujo on 03-30-2023 Calcium [Mass/Vol] 8.8 mg/dL 8.5-10.1 [facility] Serum or plasma cholesterol in HDL measurement (mass/volume)Ordered By: Noel Araujo on 03-30-2023 Cholesterol in HDL [Mass/Vol] 51 mg/dL >40 [facility] Comment on above: The drugs N-Acetylcy steine and Metamizole may falsely depress this assay. Reference Range HDL <40 mg/dL Low HDL Cholesterol HDL >or= 60 mg/dL High HDL Cholesterol Serum or plasma cholesterol in VLDL measurement (mass/volume)Ordered By: Noel Araujo on 03-30-2023 Cholesterol in VLDL [Mass/Vol] 28 mg/dL 5-40 [facility] Serum or plasma creatinine m easurement (mass/volume)Ordered By: Noel Araujo on 03-30-2023 Creatinine [Mass/Vol] 0.72 mg/dL 0.55-1.02 [facility] Comment on above: The validity of the calculated GFR & GFRAA in patients over 70 years has not been determined. Clinical correlation is essential. Serum or plasma low density lipoprotein (LDL) cholesterol measurement (mass/volume)Ordered By: Noel Araujo on 03-30-2023 Cholesterol in LDL [Mass/Vol] 54 mg/dL 0-130 [facility] Serum or plasma urea nitroge n measurement (mass/volume)Ordered By: Noel Araujo on 03-30-2023 Urea nitrogen [Mass/Vol] 13 mg/dL 7-18 [facility] Thin prep Papanicolaou smear with manual screeningOrdered By: Noel Araujo on 03-30-2023 Thin prep Papanicolaou smear with manual screening 19 U/L 15-37 [facility] Thin prep Papanicolaou smear with manual screening 7 5-15 [facility] Whole blood hemoglobin A1c/t otal hemoglobin ratio (mass fraction)Ordered By: Noel Araujo on 03-30-2023 HbA1c (Bld) [Mass fraction] 6.4 % 3.8-5.6 [facility] Comment on above: Normal < 5.7 % Predi abetic 5.7 - 6.4 % Diabetic >or= 6.5 % Please note range changes. Laboratory - Chemistry and C hemistry - challengeOrdered By: Dr. Araujo on 01-06-2023 Free T4 [Mass/Vol] 1.09 ng/dL 0.76-1.46 [facility] No Panel InformationOrdered By: Dr. Araujo on 01-06-2023 Free Triiodothyronine (T3) pg/dL 2.4 pg/mL 2.18-3.98 [facility] Thyroid Stimulating Hormone (TSH) 1.24 uIU/mL 0.358-3.74 [facility] Glucose Glucometer (BldC) [M ass/Vol]Ordered By: Dr. Hernández on 11-09-2022 Glucose [Mass/Vol] 162 mg/dL 74-106 [facility] Comment on above: MANAGEMENT OF PATIEN T CARE PER NURSING PROTOCOL Basophil percentageOrdered B y: Dr. Hernández on 10-23-2022 WBC (Bld) [#/Vol] 7.3 10*3/uL 4.4-11.0 [facility] Basophil percentageOrdered B y: Dr. Muro on 10-23-2022 Chloride [Moles/Vol] 102 mmol/L 98-107 [facility] Glucose [Mass/Vol] 143 mg/dL 74-106 [facility] Comment on above: Fasting Glucose resu lt greater than or equal to 126 mg/dL suggests DIABETES MELLITUS per A.D.A. criteria. Potassium [Moles/Vol] 3.7 mmol/L 3.5-5.1 [facility] Sodium [Moles/Vol] 139 mmol/L 136-145 [facility] Blood erythrocytes count (nu mber/volume)Ordered By: Dr. Hernández on 10-23-2022 RBC (Bld) [#/Vol] 4.65 10*6/uL 4.2-5.4 [facility] Blood hemoglobin measurement (mass/volume)Ordered By: Dr. Hernández on 10-23-2022 Hemoglobin (Bld) [Mass/Vol] 14.5 g/dL 12.0-15.0 [facility] [facility] Blood platelet mean volumeOr dered By: Dr. Hernández on 10-23-2022 Platelet mean volume (Bld) [Entitic vol] 10.4 fL 6.2-12.0 [facility] Determination of erythrocyte mean corpuscular volume (MCV)Ordered By: Dr. Hernández on 10-23-2022 MCV (RBC) [Entitic vol] 92.9 fL 81-99 [facility] Hematocrit Auto (Bld) [Volum e fraction]Ordered By: Dr. Hernández on 10-23-2022 Hematocrit (Bld) [Volume fraction] 43.2 % 37-47 [facility] Laboratory - Chemistry and C hemistry - challengeOrdered By: Dr. Muro on 10-23-2022 CO2 [Moles/Vol] 31.0 mmol/L 21.0-32.0 [facility] Magnesium [Mass/Vol] 2.0 mg/dL 1.6-2.6 [facility] Urea nitrogen/Creatinine [Mass ratio] 17.2 mg/mg 10-20 [facility] Laboratory - Hematology and Cell countsOrdered By: Dr. Hernández on 10-23-2022 Erythrocyte distribution width (RBC) [Entitic vol] 43.7 fL 35.1-43.9 [facility] Erythrocyte distribution width (RBC) [Ratio] 12.7 % 11.6-14.6 [facility] MCH (RBC) [Entitic mass] 31.2 pg 27.0-32.0 [facility] MCHC Auto (RBC) [Mass/Vol]Or dered By: Dr. Hernández on 10-23-2022 MCHC (RBC) [Mass/Vol] 33.6 g/dL 32-36 [facility] No Panel InformationOrdered By: Dr. Muro on 10-23-2022 Estimated GFR (MDRD) Amer 102 mL/min >60 [facility] Comment on above: GFR Calc Estimated GFR (MDRD) Non-Af Amer 84 mL/min >60 [facility] Comment on above: Non- GFR Calc Thyroid Stimulating Hormone (TSH) 5.24 uIU/mL 0.358-3.74 [facility] Platelets bldOrdered By: Dr. Henrández on 10-23-2022 Platelets (Bld) [#/Vol] 244 10*3/uL 150-450 [facility] Serum or plasma calcium evie urement (mass/volume)Ordered By: Dr. Muro on 10-23-2022 Calcium [Mass/Vol] 9.5 mg/dL 8.5-10.1 [facility] Serum or plasma creatinine m easurement (mass/volume)Ordered By: Dr. Muro on 10-23-2022 Creatinine [Mass/Vol] 0.75 mg/dL 0.55-1.02 [facility] Comment on above: The validity of the calculated GFR & GFRAA in patients over 70 years has not been determined. Clinical correlation is essential. Serum or plasma urea nitroge n measurement (mass/volume)Ordered By: Dr. Muro on 10-23-2022 Urea nitrogen [Mass/Vol] 13 mg/dL 7-18 [facility] Thin prep Papanicolaou smear with manual screeningOrdered By: Dr. Muro on 10-23-2022 Thin prep Papanicolaou smear with manual screening 6 5-15 [facility] Absolute lymphocyte countOrd ered By: Dr. Hernández on 09-10-2022 Lymphocytes Auto (Unsp spec) [#/Vol] 1.62 10*3/uL 0.83-4.51 [facility] Basophil percentageOrdered B y: Dr. Hernández on 09-10-2022 Basophils/100 WBC (Bld) 0.7 % 0-1 [facility] Eosinophils/100 WBC (Bld) 1.3 % 0-5 [facility] Neutrophils (Bld) [#/Vol] 5.4 10*3/uL 2.0-7.7 [facility] Neutrophils/100 WBC (Bld) 70.9 % 47-70 [facility] WBC (Bld) [#/Vol] 7.7 10*3/uL 4.4-11.0 [facility] Blood erythrocytes count (nu mber/volume)Ordered By: Dr. Hernández on 09-10-2022 RBC (Bld) [#/Vol] 4.72 10*6/uL 4.2-5.4 [facility] Blood hemoglobin measurement (mass/volume)Ordered By: Dr. Hernández on 09-10-2022 Hemoglobin (Bld) [Mass/Vol] 15.1 g/dL 12.0-15.0 [facility] Blood lymphocytes/100 leukoc ytesOrdered By: Dr. Hernández on 09-10-2022 Lymphocytes/100 WBC (Bld) 21.2 % 19-41 [facility] Blood monocytes/100 leukocyt esOrdered By: Dr. Hernández on 09-10-2022 Monocytes/100 WBC (Bld) 5.6 % 0-10 [facility] Blood platelet mean volumeOr dered By: Dr. Hernández on 09-10-2022 Platelet mean volume (Bld) [Entitic vol] 10.6 fL 6.2-12.0 [facility] Determination of erythrocyte mean corpuscular volume (MCV)Ordered By: Dr. Hernández on 09-10-2022 MCV (RBC) [Entitic vol] 93.4 fL 81-99 [facility] Hematocrit Auto (Bld) [Volum e fraction]Ordered By: Dr. Hernández on 09-10-2022 Hematocrit (Bld) [Volume fraction] 44.1 % 37-47 [facility] Laboratory - Chemistry and C hemistry - challengeOrdered By: Dr. Hernández on 09-10-2022 Free T4 [Mass/Vol] 1.07 ng/dL 0.76-1.46 [facility] Laboratory - Hematology and Cell countsOrdered By: Dr. Hernández on 09-10-2022 Erythrocyte distribution width (RBC) [Entitic vol] 43.8 fL 35.1-43.9 [facility] Erythrocyte distribution width (RBC) [Ratio] 12.7 % 11.6-14.6 [facility] Immature granulocytes/100 WBC (Bld) 0.300 % 0.0-0.9 [facility] Comment on above: IG% - Immature Granu locytes (promyelocytes, myelocytes and metamyelocytes) > 1% indicates that a LEFT SHIFT is Present. MCH (RBC) [Entitic mass] 32.0 pg 27.0-32.0 [facility] Nucleated RBC/100 WBC (Bld) [Ratio] 0 % 0-5 [facility] MCHC Auto (RBC) [Mass/Vol]Or dered By: Dr. Hernández on 09-10-2022 MCHC (RBC) [Mass/Vol] 34.2 g/dL 32-36 [facility] No Panel InformationOrdered By: Dr. Hernández on 09-10-2022 Follicle Stimulating Hormone 29.0 mIU/mL [facility] Comment on above: NORMAL REFERENCE [facility] FEMALE FOLLICULAR 2.3 - 12.6 mIU/mL MID-CYCLE PEAK 5.2 - 17.5 mIU/mL LUTEAL 1.7 - 12.9 mIU/mL POST-MENOPAUSAL ON MHT 5.9 - 72.8 mIU/mL NOT ON MHT 12.7 - 132.2 mlU/mL MALE 0.7 - 10.8 mIU/mL Luteinizing Hormone 19.8 mIU/mL [facility] Comment on above: NORMAL REFERENCE [facility] FEMALE FOLLICULAR 1.9 - 26.2 mIU/mL MID-CYCLE PEAK 22.8 - 76.1 mIU/mL LUTEAL 0.6 - 16.6 mIU/mL POST-MENOPAUSAL ON MHT 1.1 - 52.4 mIU/mL NOT ON MHT 8.6 - 61.8 mIU/mL MALE 1.2 - 10.6 mIU/mL Thyroid Stimulating Hormone (TSH) 2.83 uIU/mL 0.358-3.74 [facility] Platelets bldOrdered By: Dr. Hernández on 09-10-2022 Platelets (Bld) [#/Vol] 244 10*3/uL 150-450 [facility] Serum or plasma estradiol (E 2) measurement (mass/volume)Ordered By: Dr. Hernández on 09-10-2022 E2 [Mass/Vol] 27.3 pg/mL [facility] Comment on above: NORMAL REFERENCE RAN GES FEMALE FOLLICULAR 21.4 - 164.8 pg/mL MID-CYCLE PEAK 49.9 - 367.2 pg/mL LUTEAL 40.2 - 259.0 pg/mL POST-MENOPAUSAL ON MHT <11.0 - 462.1 pg/mL NOT ON MHT <11.0 - 58.3 pg/mL MALE <11.0 - 52.5 pg/mL NOTE:[employer] HAS CONFIRMED THE DRUG FULVETRANT (FASLODEX) MAY CAUSE FALSELY ELEVATED ESTRADIOL RESULTS WHEN USING THIS TEST METHOD. IF PATIENT IS TAKING FULVESTRANT AN ALTERNATIVE METHOD SHOULD BE USED TO DETERMINE ESTRADIOL CONCENTRATION. No Panel Informationon 04-20 Thyroid Stimulating Hormone (TSH) 0.65 uIU/mL 0.358-3.74 [facility] Work Phone: Laboratory - Chemistry and C hemistry - challengeon 02-18-2022 Free T4 [Mass/Vol] 1.33 ng/dL 0.76-1.46 [facility] Work Phone: No Panel Informationon 02-18 Free Triiodothyronine (T3) pg/dL 2.7 pg/mL 2.18-3.98 [facility] Work Phone: Thyroid Stimulating Hormone (TSH) 0.29 uIU/mL 0.358-3.74 [facility] Work Phone: Laboratory - Chemistry and C hemistry - challengeon 01-27-2022 Free T4 [Mass/Vol] 1.28 ng/dL 0.76-1.46 [facility] Work Phone: No Panel Informationon 01-27 Free Triiodothyronine (T3) pg/dL 2.5 pg/mL 2.18-3.98 [facility] Work Phone: Thyroid Stimulating Hormone (TSH) 0.21 uIU/mL 0.358-3.74 [facility] Work Phone: Laboratory - Chemistry and C hemistry - challengeon 12-09-2021 Free T4 [Mass/Vol] 1.20 ng/dL 0.76-1.46 [facility] Work Phone: No Panel Informationon 12-09 Free Triiodothyronine (T3) pg/dL 2.1 pg/mL 2.18-3.98 [facility] Work Phone: Thyroid Stimulating Hormone (TSH) 0.97 uIU/mL 0.358-3.74 [facility] Work Phone: Absolute lymphocyte counton 11-18-2021 Lymphocytes Auto (Unsp spec) [#/Vol] 1.62 10*3/uL 0.83-4.51 [facility] Work Phone: Basophil percentageon 2021 Basophils/100 WBC (Bld) 0.7 % 0-1 [facility] Work Phone: Cholesterol [Mass/Vol] 149 mg/dL <200 [facility] Work Phone: Comment on above: <200 mg/dL Desirable 200-240 mg/dL Borderline >240 mg/dL High Risk Eosinophils/100 WBC (Bld) 1.7 % 0-5 [facility] Work Phone: Glucose [Mass/Vol] 132 mg/dL 74-106 [facility] Work Phone: Comment on above: Fasting Glucose resu lt greater than or equal to 126 mg/dL suggests DIABETES MELLITUS per A.D.A. criteria. Neutrophils (Bld) [#/Vol] 4.8 10*3/uL 2.0-7.7 [facility] Work Phone: Neutrophils/100 WBC (Bld) 68.1 % 47-70 [facility] Work Phone: Triglyceride [Mass/Vol] 138 mg/dL <199 [facility] Work Phone: Comment on above: The drugs N-Acetylcy steine and Metamizole may falsely depress this assay.Serum Triglycerides Reference Interval Normal <150 mg/dL Borderline high 150 - 199 mg/dL High 200 - 499 mg/dL Very High > or = 500 mg/dL WBC (Bld) [#/Vol] 7.0 10*3/uL 4.4-11.0 [facility] Work Phone: Blood erythrocytes count (nu mber/volume)on 11-18-2021 RBC (Bld) [#/Vol] 4.53 10*6/uL 4.2-5.4 [facility] Work Phone: Blood hemoglobin measurement (mass/volume)on 11-18-2021 Hemoglobin (Bld) [Mass/Vol] 14.9 g/dL 12.0-15.0 [facility] Work Phone: Blood lymphocytes/100 leukoc yteson 11-18-2021 Lymphocytes/100 WBC (Bld) 23.2 % 19-41 [facility] Work Phone: [phone] Blood monocytes/100 leukocyt eson 11-18-2021 Monocytes/100 WBC (Bld) 6.0 % 0-10 [facility] Work Phone: [phone] Blood platelet mean volumeon 11-18-2021 Platelet mean volume (Bld) [Entitic vol] 11.1 fL 6.2-12.0 [facility] Work Phone: [phone] Determination of erythrocyte mean corpuscular volume (MCV)on 11-18-2021 MCV (RBC) [Entitic vol] 95.4 fL 81-99 [facility] Work Phone: [phone] Hematocrit Auto (Bld) [Volum e fraction]on 11-18-2021 Hematocrit (Bld) [Volume fraction] 43.2 % 37-47 [facility] Work Phone: [phone] Laboratory - Hematology and Cell countson 11-18-2021 Erythrocyte distribution width (RBC) [Entitic vol] 45.6 fL 35.1-43.9 [facility] Work Phone: [phone] Erythrocyte distribution width (RBC) [Ratio] 12.9 % 11.6-14.6 [facility] Work Phone: [phone] Immature granulocytes/100 WBC (Bld) 0.300 % 0.0-0.9 [facility] Work Phone: [phone] Comment on above: IG% - Immature Granu locytes (promyelocytes, myelocytes and metamyelocytes) > 1% indicates that a LEFT SHIFT is Present. MCH (RBC) [Entitic mass] 32.9 pg 27.0-32.0 [facility] Work Phone: Nucleated RBC/100 WBC (Bld) [Ratio] 0 % 0-5 [facility] Work Phone: [phone] MCHC Auto (RBC) [Mass/Vol]on 11-18-2021 MCHC (RBC) [Mass/Vol] 34.5 g/dL 32-36 [facility] Work Phone: Platelets bldon 11-18-2021 Platelets (Bld) [#/Vol] 223 10*3/uL 150-450 [facility] Work Phone: [phone] Serum or plasma cholesterol in HDL measurement (mass/volume)on 11-18-2021 Cholesterol in HDL [Mass/Vol] 58 mg/dL >40 [facility] Work Phone: Comment on above: The drugs N-Acetylcy steine and Metamizole may falsely depress this assay. Reference Range HDL <40 mg/dL Low HDL Cholesterol HDL >or= 60 mg/dL High HDL Cholesterol Serum or plasma cholesterol in VLDL measurement (mass/volume)on 11-18-2021 Cholesterol in VLDL [Mass/Vol] 28 mg/dL 5-40 [facility] Work Phone: [phone] Serum or plasma low density lipoprotein (LDL) cholesterol measurement (mass/volume)on 11-18-2021 Cholesterol in LDL [Mass/Vol] 63 mg/dL 0-130 [facility] Work Phone: [phone] Laboratory - Chemistry and C hemistry - challengeon 10-15-2021 Free T4 [Mass/Vol] 1.09 ng/dL 0.76-1.46 [facility] Work Phone: No Panel Informationon 10-15 Free Triiodothyronine (T3) pg/dL 2.0 pg/mL 2.18-3.98 [facility] Work Phone: Thyroid Stimulating Hormone (TSH) 3.59 uIU/mL 0.358-3.74 [facility] Work Phone: Laboratory - Microbiology an d Antimicrobial susceptibilityon 08-14-2021 SARS-CoV-2 (COVID-19) RNA CARA+probe Ql (Unsp spec) Detected Not Detect [facility] Work Phone: Comment on above: Normal Reference Ran ge: Not DetectedMethod:(RT-PCR) real-time reverse transcriptase PCRLuminex [employer] Instrument*The Food and Drug Administration (FDA) has issued an Emergency Use Authorization (EAU) for the [employer] SARS-CoV-2 Assay for the rapid detection of the virus that causes COVID-19. This test has been validated, but the FDAs independent review of this validation is pending.*Negative results do not preclude infection and should not be used as the sole basis for treatment or patient management. Optimum specimen types and timing for peak viral levels during infections caused by SARS-CoV-2 have not been determined. Collection of multiple specimens from the same patient may be necessary to detect the virus. The possibility of a false negative result should be considered if the patient has clinical presentation or has had recent exposure. Vital Signs Date Time Vital Sign Value Performing Clinician Faci lity 03-07-2025 08:03-0400 Body height 162.[address] Noel Araujo MD Work Phone: [facility] 03-07-2025 08:03-0400 Body mass index (BMI) [Ratio] 43.8 kg/m2 Dr. Noel Araujo MD Work Phone: [facility] 03-07-2025 08:03-0400 Body temperature 98.2 [degF] Dr. Noel Araujo MD Work Phone: [facility] 03-07-2025 08:03-0400 Body weight 115.[address] Noel Araujo MD Work Phone: [facility] 03-07-2025 08:03-0400 Diastolic blood pressure 57 mm[Hg] Dr. Noel Araujo MD Work Phone: [facility] 03-07-2025 08:03-0400 Heart rate 56 /min Dr. Noel Araujo MD Work Phone: [facility] 03-07-2025 08:03-0400 Respiratory rate 16 /min Dr. Noel Araujo MD Work Phone: [facility] 03-07-2025 08:03-0400 SaO2% (BldA) [Mass fraction] 96 % Dr. Noel Araujo MD Work Phone: [facility] 03-07-2025 08:03-0400 Systolic blood pressure 113 mm[Hg] Dr. Noel Araujo MD Work Phone: [facility] 03-06-2025 00:10-0400 Body temperature 97.8 [degF] Dr. Noel Araujo MD Work Phone: [facility] 03-06-2025 00:10-0400 Diastolic blood pressure 65 mm[Hg] Dr. Noel Araujo MD Work Phone: [facility] 03-06-2025 00:10-0400 Heart rate 67 /min Dr. Noel Araujo MD Work Phone: [facility] 03-06-2025 00:10-0400 Respiratory rate 16 /min Dr. Noel Araujo MD Work Phone: [facility] 03-06-2025 00:10-0400 SaO2% (BldA) [Mass fraction] 100 % Dr. Noel Araujo MD Work Phone: [facility] 03-06-2025 00:10-0400 Systolic blood pressure 144 mm[Hg] Dr. Noel Araujo MD Work Phone: [facility] 03-05-2025 15:42-0400 Body mass index (BMI) [Ratio] 43.9 kg/m2 Dr. Noel Araujo MD Work Phone: [facility] 03-05-2025 15:42-0400 Body weight 116.[address] Noel Araujo MD Work Phone: [facility] 03-05-2025 15:39-0400 Body height 162.[address] Noel Araujo MD Work Phone: [facility] 01-30-2025 10:25-0400 Body temperature 97.1 [degF] Dr. Noel Araujo MD Work Phone: [facility] 01-30-2025 10:25-0400 Diastolic blood pressure 71 mm[Hg] Dr. Noel Araujo MD Work Phone: [facility] 01-30-2025 10:25-0400 Heart rate 56 /min Dr. Noel Araujo MD Work Phone: [facility] 01-30-2025 10:25-0400 Respiratory rate 16 /min Dr. Noel Araujo MD Work Phone: [facility] 01-30-2025 10:25-0400 SaO2% (BldA) [Mass fraction] 96 % Dr. Noel Araujo MD Work Phone: [facility] 01-30-2025 10:25-0400 Systolic blood pressure 113 mm[Hg] Dr. Noel Araujo MD Work Phone: [facility] 01-30-2025 08:48-0400 Body height 162.[address] Noel Araujo MD Work Phone: [facility] 01-30-2025 08:48-0400 Body mass index (BMI) [Ratio] 43.2 kg/m2 Dr. Nole Araujo MD Work Phone: [facility] 01-30-2025 08:48-0400 Body weight 114.[address] Noel Araujo MD Work Phone: [facility] 01-23-2025 09:05-0400 Body height 162.[address] Noel Araujo MD Work Phone: [facility] 01-23-2025 09:05-0400 Body mass index (BMI) [Ratio] 43.6 kg/m2 Dr. Noel Araujo MD Work Phone: [facility] 01-23-2025 09:05-0400 Body weight 115.[address] Noel Araujo MD Work Phone: [facility] 01-23-2025 09:05-0400 Diastolic blood pressure 85 mm[Hg] Dr. Noel Araujo MD Work Phone: [facility] 01-23-2025 09:05-0400 Heart rate 58 /min Dr. Noel Araujo MD Work Phone: [facility] 01-23-2025 09:05-0400 Respiratory rate 17 /min Dr. Noel Araujo MD Work Phone: [facility] 01-23-2025 09:05-0400 SaO2% (BldA) [Mass fraction] 98 % Dr. Noel Araujo MD Work Phone: [facility] 01-23-2025 09:05-0400 Systolic blood pressure 131 mm[Hg] Dr. Noel Araujo MD Work Phone: [facility] 12-11-2024 01:50-0400 Body temperature 98.1 [degF] Dr. Noel Araujo MD Work Phone: [facility] 12-11-2024 01:50-0400 Diastolic blood pressure 72 mm[Hg] Dr. Noel Araujo MD Work Phone: [facility] 12-11-2024 01:50-0400 Heart rate 56 /min Dr. Noel Araujo MD Work Phone: [facility] 12-11-2024 01:50-0400 Respiratory rate 16 /min Dr. Noel Araujo MD Work Phone: [facility] 12-11-2024 01:50-0400 SaO2% (BldA) [Mass fraction] 97 % Dr. Noel Araujo MD Work Phone: [facility] 12-11-2024 01:50-0400 Systolic blood pressure 147 mm[Hg] Dr. Noel Araujo MD Work Phone: [facility] 12-10-2024 23:14-0400 Body height 162.[address] Noel Araujo MD Work Phone: [facility] 12-10-2024 23:14-0400 Body mass index (BMI) [Ratio] 43.1 kg/m2 Dr. Noel Araujo MD Work Phone: [facility] 12-10-2024 23:14-0400 Body weight 114.[address] Noel Araujo MD Work Phone: [facility] 11-27-2024 18:00-0400 Diastolic blood pressure 67 mm[Hg] Dr. Noel Araujo MD Work Phone: [facility] 11-27-2024 18:00-0400 Heart rate 57 /min Dr. Noel Araujo MD Work Phone: [facility] 11-27-2024 18:00-0400 Respiratory rate 20 /min Dr. Nole Araujo MD Work Phone: [facility] 11-27-2024 18:00-0400 SaO2% (BldA) [Mass fraction] 96 % Dr. Noel Araujo MD Work Phone: [facility] 11-27-2024 18:00-0400 Systolic blood pressure 139 mm[Hg] Dr. Noel Araujo MD Work Phone: [facility] 11-27-2024 13:46-0400 Body height 162.[address] Noel Araujo MD Work Phone: [facility] 11-27-2024 13:46-0400 Body temperature 97.3 [degF] Dr. Noel Araujo MD Work Phone: [facility] 11-20-2024 21:25-0400 Body temperature 98 [degF] Dr. Noel Araujo MD Work Phone: [facility] 11-20-2024 21:25-0400 Diastolic blood pressure 81 mm[Hg] Dr. Noel Araujo MD Work Phone: [facility] 11-20-2024 21:25-0400 Heart rate 52 /min Dr. Noel Araujo MD Work Phone: [facility] 11-20-2024 21:25-0400 Respiratory rate 16 /min Dr. Noel Araujo MD Work Phone: [facility] 11-20-2024 21:25-0400 SaO2% (BldA) [Mass fraction] 94 % Dr. Noel Araujo MD Work Phone: [facility] 11-20-2024 21:25-0400 Systolic blood pressure 165 mm[Hg] Dr. Noel Araujo MD Work Phone: [facility] 11-20-2024 16:50-0400 Body height 162.[address] Noel Araujo MD Work Phone: [facility] 11-20-2024 16:50-0400 Body mass index (BMI) [Ratio] 42.9 kg/m2 Dr. Noel Araujo MD Work Phone: [facility] 11-20-2024 16:50-0400 Body weight 113.[address] Noel Araujo MD Work Phone: [facility] 11-19-2024 08:06-0400 Body mass index (BMI) [Ratio] 43 kg/m2 Dr. Noel Araujo MD Work Phone: [facility] 11-19-2024 08:06-0400 Body temperature 98.1 [degF] Dr. Noel Araujo MD Work Phone: [facility] 11-19-2024 08:06-0400 Body weight 113.[address] Noel Araujo MD Work Phone: [facility] 11-19-2024 08:06-0400 Diastolic blood pressure 72 mm[Hg] Dr. Noel Araujo MD Work Phone: [facility] 11-19-2024 08:06-0400 Heart rate 52 /min Dr. Noel Araujo MD Work Phone: [facility] 11-19-2024 08:06-0400 Respiratory rate 16 /min Dr. Noel Araujo MD Work Phone: [facility] 11-19-2024 08:06-0400 SaO2% (BldA) [Mass fraction] 98 % Dr. Noel Araujo MD Work Phone: [facility] 11-19-2024 08:06-0400 Systolic blood pressure 146 mm[Hg] Dr. Noel Araujo MD Work Phone: [facility] 11-16-2024 10:39-0400 Body height 162.[address] Noel Araujo MD Work Phone: [facility] 11-16-2024 10:39-0400 Body mass index (BMI) [Ratio] 43.2 kg/m2 Dr. Noel Araujo MD Work Phone: [facility] 11-16-2024 10:39-0400 Body temperature 98.4 [degF] Dr. Noel Araujo MD Work Phone: [facility] 11-16-2024 10:39-0400 Body weight 114.[address] Noel Araujo MD Work Phone: [facility] 11-16-2024 10:39-0400 Diastolic blood pressure 87 mm[Hg] Dr. Noel Araujo MD Work Phone: [facility] 11-16-2024 10:39-0400 Heart rate 59 /min Dr. Noel Araujo MD Work Phone: [facility] 11-16-2024 10:39-0400 Respiratory rate 16 /min Dr. Noel Araujo MD Work Phone: [facility] 11-16-2024 10:39-0400 SaO2% (BldA) [Mass fraction] 95 % Dr. Noel Araujo MD Work Phone: [facility] 11-16-2024 10:39-0400 Systolic blood pressure 153 mm[Hg] Dr. Noel Araujo MD Work Phone: [facility] 11-08-2024 21:08-0500 Diastolic blood pressure 93 mm[Hg] Dr. Noel Araujo MD Work Phone: [facility] 11-08-2024 21:08-0500 Heart rate 84 /min Dr. Noel Araujo MD Work Phone: [facility] 11-08-2024 21:08-0500 Systolic blood pressure 134 mm[Hg] Dr. Noel Araujo MD Work Phone: [facility] 11-08-2024 21:07-0500 Body temperature 98.6 [degF] Dr. Noel Araujo MD Work Phone: [facility] 11-08-2024 21:07-0500 Respiratory rate 16 /min Dr. Noel Araujo MD Work Phone: [facility] 11-08-2024 21:07-0500 SaO2% (BldA) [Mass fraction] 96 % Dr. Noel Araujo MD Work Phone: [facility] 11-08-2024 11:41-0500 Body weight 111.[address] Noel Araujo MD Work Phone: [facility] 11-07-2024 05:44-0500 Body mass index (BMI) [Ratio] 42.3 kg/m2 Dr. Noel Araujo MD Work Phone: [facility] 11-06-2024 12:32-0500 Diastolic blood pressure 67 mm[Hg] Dr. Noel Araujo MD Work Phone: [facility] 11-06-2024 12:32-0500 Heart rate 81 /min Dr. Noel Araujo MD Work Phone: [facility] 11-06-2024 12:32-0500 Systolic blood pressure 130 mm[Hg] Dr. Noel Araujo MD Work Phone: [facility] 11-06-2024 11:32-0500 Body mass index (BMI) [Ratio] 43.3 kg/m2 Dr. Noel Araujo MD Work Phone: [facility] 11-06-2024 11:32-0500 Body temperature 98.6 [degF] Dr. Noel Araujo MD Work Phone: [facility] 11-06-2024 11:32-0500 Body weight 114.[address] Noel Araujo MD Work Phone: [facility] 11-06-2024 11:32-0500 Respiratory rate 16 /min Dr. Noel Araujo MD Work Phone: [facility] 11-06-2024 11:32-0500 SaO2% (BldA) [Mass fraction] 92 % Dr. Noel Araujo MD Work Phone: [facility] 11-05-2024 14:41-0500 Diastolic blood pressure 76 mm[Hg] Dr. Noel Araujo MD Work Phone: [facility] 11-05-2024 14:41-0500 Systolic blood pressure 142 mm[Hg] Dr. Noel Araujo MD Work Phone: [facility] 11-05-2024 13:29-0500 Heart rate 75 /min Dr. Noel Araujo MD Work Phone: [facility] 11-05-2024 13:29-0500 Respiratory rate 17 /min Dr. Noel Araujo MD Work Phone: [facility] 11-05-2024 13:29-0500 SaO2% (BldA) [Mass fraction] 97 % Dr. Noel Araujo MD Work Phone: [facility] 11-05-2024 10:31-0500 Body mass index (BMI) [Ratio] 42.5 kg/m2 Dr. Noel Araujo MD Work Phone: [facility] 11-05-2024 10:31-0500 Body temperature 98.2 [degF] Dr. Noel Araujo MD Work Phone: [facility] 11-05-2024 10:31-0500 Body weight 112.[address] Noel Araujo MD Work Phone: [facility] 10-27-2024 14:10-0500 Body temperature 99.4 [degF] Dr. Noel Araujo MD Work Phone: [facility] 10-27-2024 14:10-0500 Diastolic blood pressure 82 mm[Hg] Dr. Noel Araujo MD Work Phone: [facility] 10-27-2024 14:10-0500 Heart rate 80 /min Dr. Noel Araujo MD Work Phone: [facility] 10-27-2024 14:10-0500 SaO2% (BldA) [Mass fraction] 98 % Dr. Noel Araujo MD Work Phone: [facility] 10-27-2024 14:10-0500 Systolic blood pressure 132 mm[Hg] Dr. Noel Araujo MD Work Phone: [facility] 10-13-2024 10:10-0500 Body temperature 98.2 [degF] Dr. Noel Araujo MD Work Phone: [facility] 10-13-2024 10:10-0500 Diastolic blood pressure 78 mm[Hg] Dr. Noel Araujo MD Work Phone: [facility] 10-13-2024 10:10-0500 Heart rate 82 /min Dr. Noel Araujo MD Work Phone: [facility] 10-13-2024 10:10-0500 Respiratory rate 16 /min Dr. Noel Araujo MD Work Phone: [facility] 10-13-2024 10:10-0500 SaO2% (BldA) [Mass fraction] 97 % Dr. Noel Araujo MD Work Phone: [facility] 10-13-2024 10:10-0500 Systolic blood pressure 132 mm[Hg] Dr. Noel Araujo MD Work Phone: [facility] 08-17-2024 09:28-0500 Body mass index (BMI) [Ratio] 43.6 kg/m2 Dr. Noel Araujo MD Work Phone: [facility] 08-17-2024 09:28-0500 Body temperature 98.4 [degF] Dr. Noel Araujo MD Work Phone: [facility] 08-17-2024 09:28-0500 Body weight 115.[address] Noel Araujo MD Work Phone: [facility] 08-17-2024 09:28-0500 Diastolic blood pressure 80 mm[Hg] Dr. Noel Araujo MD Work Phone: [facility] 08-17-2024 09:28-0500 Heart rate 64 /min Dr. Noel Araujo MD Work Phone: [facility] 08-17-2024 09:28-0500 Respiratory rate 16 /min Dr. Noel Araujo MD Work Phone: [facility] 08-17-2024 09:28-0500 SaO2% (BldA) [Mass fraction] 97 % Dr. Noel Araujo MD Work Phone: [facility] 08-17-2024 09:28-0500 Systolic blood pressure 140 mm[Hg] Dr. Noel Araujo MD Work Phone: [facility] 2023 08:51-0400 Body height 162.[address] Noel Araujo Work Phone: [facility] 2023 08:51-0400 Body mass index (BMI) [Ratio] 43.7 kg/m2 Dr. Noel Araujo Work Phone: [facility] 2023 08:51-0400 Body temperature 98.2 [degF] Dr. Noel Araujo Work Phone: [facility] 2023 08:51-0400 Body weight 115.[address] Noel Araujo Work Phone: [facility] 2023 08:51-0400 Diastolic blood pressure 79 mm[Hg] Dr. Noel Araujo Work Phone: [facility] 2023 08:51-0400 Heart rate 72 /min Dr. Noel Araujo Work Phone: [facility] 2023 08:51-0400 SaO2% (BldA) [Mass fraction] 98 % Dr. Noel Araujo Work Phone: [facility] 2023 08:51-0400 Systolic blood pressure 134 mm[Hg] Dr. Noel Araujo Work Phone: [facility] 10-11-2023 16:00-0500 Body height 162.[address] Noel Araujo Work Phone: [facility] 10-11-2023 16:00-0500 Body mass index (BMI) [Ratio] 43.2 kg/m2 Dr. Noel Araujo Work Phone: [facility] 10-11-2023 16:00-0500 Body temperature 98.4 [degF] Dr. Noel Araujo Work Phone: [facility] 10-11-2023 16:00-0500 Body weight 114.[address] Noel Araujo Work Phone: [facility] 10-11-2023 16:00-0500 Diastolic blood pressure 96 mm[Hg] Dr. Noel Araujo Work Phone: [facility] 10-11-2023 16:00-0500 Heart rate 68 /min Dr. Noel Araujo Work Phone: [facility] 10-11-2023 16:00-0500 Respiratory rate 16 /min Dr. Noel Araujo Work Phone: [facility] 10-11-2023 16:00-0500 SaO2% (BldA) [Mass fraction] 97 % Dr. Noel Araujo Work Phone: [facility] 10-11-2023 16:00-0500 Systolic blood pressure 138 mm[Hg] Dr. Noel Araujo Work Phone: [facility] 01-27-2023 09:54-0400 Body height 162.[address] Noel Araujo Work Phone: [facility] 01-27-2023 09:54-0400 Body mass index (BMI) [Ratio] 43.9 kg/m2 Dr. Noel Araujo Work Phone: [facility] 01-27-2023 09:54-0400 Body temperature 98 [degF] Dr. Noel Araujo Work Phone: [facility] 01-27-2023 09:54-0400 Body weight 116.[address] Noel Araujo Work Phone: [facility] 01-27-2023 09:54-0400 Diastolic blood pressure 72 mm[Hg] Dr. Noel Araujo Work Phone: [facility] 01-27-2023 09:54-0400 Heart rate 70 /min Dr. Noel Araujo Work Phone: [facility] 01-27-2023 09:54-0400 Respiratory rate 16 /min Dr. Noel Araujo Work Phone: [facility] 01-27-2023 09:54-0400 SaO2% (BldA) [Mass fraction] 97 % Dr. Noel Araujo Work Phone: [facility] 01-27-2023 09:54-0400 Systolic blood pressure 140 mm[Hg] Dr. Noel Araujo Work Phone: [facility] 11-09-2022 14:08-0500 Body temperature 98.3 [degF] Dr. Noel Araujo Work Phone: [facility] 11-09-2022 14:08-0500 Diastolic blood pressure 81 mm[Hg] Dr. Noel Araujo Work Phone: [facility] 11-09-2022 14:08-0500 Heart rate 53 /min Dr. Noel Araujo Work Phone: [facility] 11-09-2022 14:08-0500 Respiratory rate 16 /min Dr. Noel Araujo Work Phone: [facility] 11-09-2022 14:08-0500 SaO2% (BldA) [Mass fraction] 98 % Dr. Noel Araujo Work Phone: [facility] 11-09-2022 14:08-0500 Systolic blood pressure 128 mm[Hg] Dr. Noel Araujo Work Phone: [facility] 11-09-2022 13:25-0500 Inhaled oxygen flow rate 4 L/min Dr. Noel Araujo Work Phone: [facility] 11-09-2022 08:18-0500 Body height 162.[address] Noel Araujo Work Phone: [facility] 11-09-2022 08:18-0500 Body mass index (BMI) [Ratio] 42.9 kg/m2 Dr. Noel Araujo Work Phone: [facility] 11-09-2022 08:18-0500 Body weight 113.[address] Noel Araujo Work Phone: [facility] 10-16-2022 09:01-0500 Body mass index (BMI) [Ratio] 0.3 kg/m2 Dr. Noel Araujo Work Phone: [facility] 10-16-2022 09:01-0500 Body temperature 97.5 [degF] Dr. Noel Araujo Work Phone: [facility] 10-16-2022 09:01-0500 Body weight 113.[address] Noel Araujo Work Phone: [facility] 10-16-2022 09:01-0500 Diastolic blood pressure 84 mm[Hg] Dr. Noel Araujo Work Phone: [facility] 10-16-2022 09:01-0500 Heart rate 78 /min Dr. Noel Araujo Work Phone: [facility] 10-16-2022 09:01-0500 Respiratory rate 17 /min Dr. Noel Araujo Work Phone: [facility] 10-16-2022 09:01-0500 SaO2% (BldA) [Mass fraction] 95 % Dr. Noel Araujo Work Phone: [facility] 10-16-2022 09:01-0500 Systolic blood pressure 142 mm[Hg] Dr. Noel Araujo Work Phone: [facility] 07-28-2022 17:54-0500 Body height 162.[address] Noel Araujo Work Phone: [facility] 07-28-2022 17:54-0500 Body weight 112.[address] Noel Araujo Work Phone: [facility] 06-02-2022 11:32-0400 Body height 162.[address] Noel Araujo Work Phone: [facility] Work Phone: 06-02-2022 11:32-0400 Body weight 110.[address] Noel Araujo Work Phone: [facility] 05-04-2022 13:12-0400 Body height 162.[address] Noel Araujo Work Phone: [facility] Work Phone: 05-04-2022 13:12-0400 Body weight 111.[address] Noel Araujo Work Phone: [facility] Work Phone: 04-30-2022 15:00-0400 Body temperature 97.8 [degF] Dr. Noel Araujo Work Phone: [facility] Work Phone: 04-30-2022 15:00-0400 Body weight 110.[address] Noel Araujo Work Phone: [facility] Work Phone: 04-30-2022 15:00-0400 Diastolic blood pressure 86 mm[Hg] Dr. Noel Araujo Work Phone: [facility] Work Phone: 04-30-2022 15:00-0400 Heart rate 78 /min Dr. Noel Araujo Work Phone: [facility] Work Phone: 04-30-2022 15:00-0400 Respiratory rate 16 /min Dr. Noel Araujo Work Phone: [facility] Work Phone: 04-30-2022 15:00-0400 SaO2% (BldA) [Mass fraction] 98 % Dr. Noel Araujo Work Phone: [facility] Work Phone: 04-30-2022 15:00-0400 Systolic blood pressure 134 mm[Hg] Dr. Noel Araujo Work Phone: [facility] Work Phone: 03-31-2022 16:13-0400 Body height 162.56 cm [facility] Work Phone: 03-31-2022 16:13-0400 Body weight 111.58 kg [facility] Work Phone: 01-20-2022 10:30-0400 Body height 162.[address] Noel Araujo Work Phone: [facility] Work Phone: 01-20-2022 10:30-0400 Body weight 112.[address] Noel Araujo Work Phone: [facility] Work Phone: 12-23-2021 16:57-0400 Body height 162.[address] Noel Araujo Work Phone: [facility] Work Phone: 12-23-2021 16:57-0400 Body weight 115.[address] Noel Araujo Work Phone: [facility] Work Phone: 12-02-2021 16:44-0400 Body weight 117.[address] Noel Araujo Work Phone: [facility] Work Phone: 10-29-2021 09:07-0500 Body mass index (BMI) [Ratio] 44.7 kg/m2 Dr. Noel Araujo Work Phone: [facility] Work Phone: 10-29-2021 09:07-0500 Body weight 120.[address] Noel Araujo Work Phone: [facility] Work Phone: 10-29-2021 08:07-0500 Body height 163.[address] Noel Araujo Work Phone: [facility] Work Phone: 10-29-2021 08:07-0500 Body mass index (BMI) [Ratio] 44.7 kg/m2 Dr. Noel Araujo Work Phone: [facility] Work Phone: 10-29-2021 08:07-0500 Body weight 120.[address] Noel Araujo Work Phone: [facility] Work Phone: 09-18-2021 07:11-0500 Body mass index (BMI) [Ratio] 44.9 kg/m2 Dr. Noel Araujo Work Phone: [facility] Work Phone: 09-18-2021 07:11-0500 Body temperature 98.1 [degF] Dr. Noel Araujo Work Phone: [facility] Work Phone: 09-18-2021 07:11-0500 Body weight 118.[address] Noel Araujo Work Phone: [facility] Work Phone: 09-18-2021 07:11-0500 Diastolic blood pressure 80 mm[Hg] Dr. Noel Araujo Work Phone: [facility] Work Phone: 09-18-2021 07:11-0500 Heart rate 80 /min Dr. Noel Araujo Work Phone: [facility] Work Phone: 09-18-2021 07:11-0500 Respiratory rate 16 /min Dr. Noel Araujo Work Phone: [facility] Work Phone: 09-18-2021 07:11-0500 SaO2% (BldA) [Mass fraction] 99 % Dr. Noel Araujo Work Phone: [facility] Work Phone: 09-18-2021 07:11-0500 Systolic blood pressure 142 mm[Hg] Dr. Noel Araujo Work Phone: [facility] Work Phone: 08-16-2021 16:11-0500 Body temperature 99.1 [degF] Dr. Noel Araujo Work Phone: [facility] Work Phone: 08-16-2021 16:11-0500 Diastolic blood pressure 88 mm[Hg] Dr. Noel Araujo Work Phone: [facility] Work Phone: 08-16-2021 16:11-0500 Heart rate 68 /min Dr. Noel Araujo Work Phone: [facility] Work Phone: 08-16-2021 16:11-0500 Respiratory rate 16 /min Dr. Noel Araujo Work Phone: [facility] Work Phone: 08-16-2021 16:11-0500 SaO2% (BldA) [Mass fraction] 98 % Dr. Noel Araujo Work Phone: [facility] Work Phone: 08-16-2021 16:11-0500 Systolic blood pressure 175 mm[Hg] Dr. Noel Araujo Work Phone: [facility] Work Phone: 08-16-2021 14:38-0500 Body mass index (BMI) [Ratio] 42.9 kg/m2 Dr. Noel Araujo Work Phone: [facility] Work Phone: 08-16-2021 14:38-0500 Body weight 113.[address] Noel Araujo Work Phone: [facility] Work Phone: 08-15-2021 10:46-0500 Body mass index (BMI) [Ratio] 43.9 kg/m2 Dr. Noel Araujo Work Phone: [facility] Work Phone: 08-15-2021 10:46-0500 Body weight 116.[address] Noel Araujo Work Phone: [facility] Work Phone: Encounters Encounter Date Encounter Type Care Provider Facility Start: 04-07-2025 ambulatory Noel Araujo Facility :[facility] Start: 04-04-2025 ambulatory NOEL ARAUJO MD Facil ity:A Start: 03-20-2025 ambulatory NOEL ARAUJO MD Facil ity:[facility] Start: 03-07-2025 End: 03-07-[address] Noel Araujo MD -[facility] Work Phone: Start: 03-07-2025 End: 03-07-[address] Noel Araujo MD Work Phone: -[facility] Start: 03-05-2025 End: 03-06-2025 Emergency department patient visit Dr. Noel Araujo MD Work Phone: -Emergency Department Work Phone: Start: 03-05-2025 End: 03-05-[address] DHRUV BOOKER MD Facility:A Start: 03-05-2025 End: 03-05-[address] DHRUV BOOKER MD [facility] Start: 03-03-2025 End: 03-03-2025 ambulatory NOEL ARAUJO MD Facility:[facility] Start: 03-03-2025 End: 03-03-2025 Patient encounter procedure PURA JAIME PA-C [facility] Start: 02-15-2025 End: 02-15-2025 ambulatory NOEL ARAUJO MD Facility: Start: 02-15-2025 End: 02-15-2025 Patient encounter procedure TITO MORGAN MD [facility] Start: 02-14-2025 End: 02-14-[address] Noel Araujo MD Work Phone: [facility] Work Phone: Start: 02-14-2025 End: 02-14-[address] Noel Araujo MD -[facility] Start: 02-14-2025 End: 02-14-2025 Dr. Noel Araujo MD -[facility] Start: 02-14-2025 End: 02-14-2025 ambulatory Noel Araujo Facility:[facility] Start: 01-30-2025 Non-patient / Non-visit Dr. Alba Stein MD -[facility] Start: 01-30-2025 End: 01-30-2025 Admission to same day surgery center Dr. Abner Stein MD -Endoscopy Work Phone: Start: 01-30-2025 End: 01-30-2025 Dr. Abner Stein MD -Endoscopy Work Phone: Start: 01-30-2025 End: 01-30-[address] Noel Araujo MD Work Phone: [facility] Work Phone: Start: 01-25-2025 End: 01-25-2025 ambulatory NOEL ARAUJO MD Facility:[facility] Start: 01-23-2025 End: 01-23-[address] Abner Stein MD -[facility] Work Phone: Start: 01-23-2025 End: 01-23-2025 Dr. Abner Stein MD -[facility] Work Phone: Start: 01-23-2025 End: 01-23-[address] Noel Araujo MD Work Phone: [facility] Work Phone: Start: 01-15-2025 End: 01-15-2025 ambulatory NOEL ARAUJO MD Facility:[facility] Start: 01-15-2025 End: 01-15-2025 Patient encounter procedure PURA JAIME PA-C [facility] Start: 01-01-2025 End: 01-01-2025 ambulatory NOEL ARAUJO MD Facility:[facility] Start: 01-01-2025 End: 01-01-2025 Patient encounter procedure TITO MORGAN MD [facility] Start: 12-25-2024 End: 12-25-2024 ambulatory TITO MORGAN MD Facility:[facility] Start: 12-19-2024 End: 12-19-2024 ambulatory NOEL ARAUJO MD Facility:[facility] Start: 12-15-2024 End: 12-15-2024 ambulatory NOEL ARAUJO MD Facility: Start: 12-15-2024 End: 12-15-2024 Patient encounter procedure TITO MORGAN MD [facility] Start: 12-10-2024 End: 12-11-2024 Dr. Morales Eubanks MD -Emergency Departm ent Work Phone: Start: 12-10-2024 End: 12-11-2024 Emergency department patient visit Dr. Noel Araujo MD Work Phone: -Emergency Department Work Phone: Start: 12-04-2024 Non-patient / Non-visit Dr. Argenis LANDRY -[facility] Work Phone: Start: 12-04-2024 End: 12-04-[address] Noel Araujo MD Work Phone: [facility] Work Phone: Start: 12-04-2024 End: 12-04-[address] Eric Alba DO -Pulmonary Services/Neurology Work Phone: Start: 12-04-2024 End: 12-04-2024 Dr. Orlin Salvador MD -[facility] Work Phone: Start: 12-04-2024 End: 12-04-2024 ambulatory [facility] Facility:[facility] Start: 12-01-2024 Encounter for genera l adult medical examination without abnormal findings [facility] Start: 11-27-2024 End: 11-27-[address] Noel Araujo MD Work Phone: [facility] Work Phone: Start: 11-27-2024 End: 11-27-[address] Eric Alba DO -Cardiovascular Services Work Phone: Start: 11-27-2024 End: 11-27-2024 Dr. Eric Alba DO -Cardiovascular Services Work Phone: Start: 11-27-2024 End: 11-27-2024 Dr. Eric Alba DO -Emergency Department Work Phone: Start: 11-27-2024 End: 11-27-2024 Emergency department patient visit Dr. Noel Araujo MD Work Phone: -Emergency Department Work Phone: Start: 11-27-2024 End: 11-27-2024 ambulatory Noel Araujo Facility:[facility] Start: 11-20-2024 End: 11-20-2024 [facility] Work [facility] Start: 11-20-2024 End: 11-20-2024 Emergency department patient visit Dr. Noel Araujo MD Work Phone: -Emergency Department Work Phone: Start: 11-20-2024 End: 11-20-[address] Noel Araujo MD Work Phone: [facility] Work Phone: Start: 11-20-2024 End: 11-20-2024 Patient encounter procedure David Espinoza DEPARTMENT OPERATIONS MANAGER-C -Laboratory, Specimen Work Phone: Start: 11-20-2024 End: 11-20-2024 David Espinoza DEPARTMENT OPERATIONS MANAGER-C -Laboratory Specimen Work Phone: Start: 11-19-2024 End: 11-19-2024 [facility] Work Phone: Start: 11-19-2024 End: 11-19-2024 David Espinoza DEPARTMENT OPERATIONS MANAGER-C -[facility] Work Phone: Start: 11-19-2024 End: 11-20-2024 ambulatory David Espinoza DEPARTMENT OPERATIONS MANAGER Facility:[facility] Start: 11-16-2024 End: 11-16-[address] Noel Araujo MD -[facility] Work Phone: Start: 11-16-2024 End: 11-16-2024 Dr. Noel Araujo MD -[facility] Work Phone: Start: 11-16-2024 End: 11-16-2024 ambulatory Noel Gayle Facility:[facility] Start: 11-11-2024 Non-patient / Non-visit Dr. Lee Ann manuel MD -[facility] Work Phone: Start: 11-11-2024 ambulatory Noel Gayle Facility :[facility] Start: 11-11-[address] Noel de dios MD -Cardiovascular Services Work Phone: Start: 11-11-2024 Dr. Lee Ann Mayfield MD -[facility] Work Phone: Start: 11-09-2024 Non-patient / Non-visit Dr. Amanda Anthony MD -[facility] Work Phone: Start: 11-09-2024 Dr. Amanda Anthony MD - [facility] Work Phone: Start: 11-09-2024 End: 11-11-2024 Evaluation and management of inpatient HALEY DAVIS MD Facility:A Start: 11-08-2024 Non-patient / Non-visit Dr. Amanda Anthony MD -[facility] Work Phone: Start: 11-08-2024 Dr. Amanda Anthony MD - [facility] Work Phone: Start: 11-08-2024 Non-patient / Non-visit Dr. Angel Covarrubias MD [facility] Start: 11-08-2024 Dr. Angel Covarrubias MD [facility] Start: 11-07-2024 ambulatory Lee Ann Mayfield Facility:[facility] Start: 11-07-2024 Non-patient / Non-visit Dr. Lee Ann manuel MD [facility] Start: 11-07-2024 Dr. Lee Ann Mayfield MD [facility] Start: 11-07-2024 Non-patient / Non-visit Dr. Angel Covarrubias MD [facility] Start: 11-07-2024 Dr. Angel Covarrubias MD [facility] Start: 11-07-2024 End: 11-09-2024 Evaluation and management of inpatient Dr. Amanda Anthony MD -[facility] 2 Work Phone: Start: 11-07-2024 ambulatory Angel Covarrubias Facility :[facility] Start: 11-07-2024 Non-patient / Non-visit Dr. Papito garza MD -[facility] Work Phone: Start: 11-07-2024 End: 11-09-2024 Dr. Amanda Anthony MD -[facility] 2 Work Phone: Start: 11-06-2024 End: 11-06-[address] Noel Araujo MD Work Phone: [facility] Work Phone: Start: 11-06-2024 End: 11-06-[address] Noel Araujo MD -Laboratory Work Phone: Start: 11-06-2024 End: 11-06-2024 Dr. Noel Araujo MD -Laboratory Work Phone: Start: 11-06-2024 End: 11-06-[address] Noel Araujo MD [facility] at [facility] Work Phone: Start: 11-06-2024 End: 11-06-2024 Dr. Noel Araujo MD -[facility] ed at [facility] Work Phone: Start: 11-06-2024 End: 11-06-2024 ambulatory Noel Araujo [place] [place] Start: 11-06-2024 End: 11-06-2024 ambulatory Noel Araujo Facility:[facility] Start: 11-05-2024 End: 11-05-2024 Dr. Eric Alba DO -Emergency Department Work Phone: Start: 11-05-2024 End: 11-05-2024 Emergency department patient visit Dr. Eric Alba DO -Emergency Department Work Phone: Start: 10-27-2024 End: 10-27-2024 Patient encounter procedure Jean Baxter [facility] -[facility] Work Phone: Start: 10-27-2024 End: 10-27-2024 Jean Baxter PA -[facility] Work Phone: Start: 10-27-2024 End: 10-27-2024 ambulatory Noel Araujo Facility:[facility] Start: 10-13-2024 End: 10-13-2024 Patient encounter procedure Jean Baxter PA -[facility] Work Phone: Start: 10-13-2024 End: 10-13-2024 ambulatory Jean BOYLE Facility:[facility] Start: 10-10-2024 End: 10-10-[address] Abner Stein MD -[facility] Work Phone: Start: 10-10-2024 End: 10-10-2024 ambulatory Abner Stein Facility:[facility] Start: 08-17-2024 End: 08-17-2024 ambulatory Noel Araujo [place] [place] Start: 08-17-2024 End: 08-17-[address] Noel Araujo MD -[facility] Work Phone: Start: 08-16-2024 End: 08-16-2024 ambulatory Noeljackeline Araujo Facility:[facility] Start: 08-16-2024 End: 08-16-[address] Noel Araujo MD -Physical Therapy Work Phone: Start: 08-15-2024 End: 08-15-[address] Noel Araujo MD -Laboratory, [place] Start: 08-15-2024 End: 08-15-2024 ambulatory Noeljackeline Araujo Facility:[facility] Start: 05-25-2024 End: 05-25-2024 ambulatory [facility] [place] [place] Start: 05-25-2024 End: 05-25-2024 [facility] Start: 04-17-2024 End: 04-17-2024 ambulatory Noel Araujo Facility:[facility] [place] Start: 01-06-2024 End: 01-06-[address] Noel Araujo Work Phone: [facility] Work Phone: Start: 01-06-2024 End: 01-06-[address] Noel Araujo Work Phone: [facility]-Ultrasound, [facility] Work Phone: Start: 2023 End: [address] Noel Araujo Work Phone: [facility] Work Phone: Start: 10-11-2023 End: 10-11-[address] Noel Araujo Work Phone: [facility] Work Phone: Start: 10-11-2023 End: 10-11-[address] Noel Araujo Work Phone: [facility] Work Phone: Start: 03-30-2023 End: 03-30-[address] Noel Araujo Work Phone: [facility] Work Phone: Start: 03-30-2023 End: 03-30-[address] Noel Araujo Work Phone: [facility]-Laboratory, [facility] Start: 01-27-2023 End: 01-27-[address] Noel Araujo Work Phone: [facility] at [facility] Work Phone: Start: 01-06-2023 End: 01-06-[address] Noel Araujo Work Phone: [facility] Work Phone: Start: 01-06-2023 End: 01-06-[address] Noel Araujo Work Phone: [facility]-Laboratory, [facility] Start: 11-09-2022 End: 11-09-2022 Admission to same day surgery center Dr. Noel Araujo Work Phone: [facility]-Surgical Day Care Start: 11-09-2022 End: 11-09-[address] Noel Araujo Work Phone: [facility] Work Phone: Start: 10-23-2022 End: 10-23-2022 Non-patient / Non-visit Dr. Noel Araujo Work Phone: [facility] Start: 10-16-2022 End: 10-16-[address] Noel Araujo Work Phone: [facility] Start: 09-10-2022 End: 09-10-2022 ambulatory [facility] Work Phone: Start: 09-10-2022 End: 09-10-2022 Patient encounter procedure [facility]-Laboratory, [facility] Start: 07-28-2022 End: 08-05-[address] Noel Araujo Work Phone: [facility] Work Phone: Start: 07-28-2022 End: 08-05-[address] Noel Araujo Work Phone: [facility]-Nutritional Services Start: 07-14-[address] Noel Araujo Work Phone: [facility]-Physical Therapy Start: 07-09-2022 End: 07-09-[address] Noel Araujo Work Phone: [facility] Work Phone: Start: 07-09-2022 End: 07-09-[address] Noel Araujo Work Phone: [facility], [facility] Start: 07-09-[address] Noel Araujo Work Phone: [facility]-Physical Therapy Start: 06-02-2022 End: 06-05-[address] Noel Araujo Work Phone: [facility] Work Phone: Start: 06-02-2022 End: 06-05-[address] Noel Araujo Work Phone: [facility]-Nutritional Services Start: 05-04-2022 End: 05-06-[address] Noel Araujo Work Phone: [facility] Work Phone: Start: 05-04-2022 End: 05-06-[address] [facility] Start: 04-30-2022 End: 04-30-[address] Noel Araujo Work Phone: [facility] Start: 04-20-2022 End: 04-20-2022 [facility] Start: 03-31-2022 End: 04-05-2022 [facility] Start: 02-18-2022 End: 02-18-[address] [facility] Start: 01-27-2022 End: 01-27-[address] [facility]oj [facility] Start: 01-20-2022 End: 02-03-[address] [facility] Start: 01-20-[address] [facility] Start: 12-23-2021 End: 01-03-[address] [facility] Start: 12-09-2021 End: 12-09-[address] [facility] Start: 12-02-2021 End: 12-04-[address] [facility] Start: 11-18-2021 End: 11-18-[address] [facility] Start: 11-05-2021 Non-patient / Non-visit Dr. Sunni Araujo Work Phone: [facility] Start: 11-03-2021 Non-patient / Non-visit Dr. Sunni Araujo Work Phone: [facility] Start: 10-29-2021 End: 10-29-[address] Noel Araujo Work Phone: [facility] Orthopaedic Specia Start: 10-15-2021 End: 10-15-[address] [facility] Start: 10-08-2021 End: 10-08-[address] Noel Araujo Work Phone: [facility]-Radiology, [facility] Start: 09-18-2021 Non-patient / Non-visit Dr. Sunni Araujo Work Phone: [facility] Start: 09-18-2021 End: 09-18-[address] Noel Araujo Work Phone: [facility]-Cardiovascula r Services Start: 09-18-2021 End: 09-18-[address] Noel Araujo Work Phone: [facility] Internal Medicine Start: 08-16-2021 End: 08-16-[address] Noel Araujo Work Phone: [facility]-Medical Surgical 3 Outp Start: 08-15-2021 End: 08-15-[address] Noel Araujo Work Phone: [facility]-Pulmonary Med [facility] Start: 08-14-2021 End: 08-14-[address] Noel Araujo Work Phone: [facility]-Laboratory, Specimen Start: 08-14-2021 End: 08-14-[address] Noel Araujo Work Phone: [facility] Internal Medicine Procedures Date Procedure Procedure Detail Performing Clinician Start: 03-05-2025 D-dimer assay, quantitative Dr. Noel cruz MD Work Phone: Comment on above: NORMAL D-Dimer level (<0.50) indicates n o DVT or PE. Start: 02-14-2025 Blood count smear mcrscp w/mnl difrntl wbc count Dr. Noel Araujo MD Work Phone: Start: 02-14-2025 Mean corpuscular hemoglobin concentration determination Dr. Noel Araujo MD Work Phone: Start: 02-14-2025 Nucleated red blood cell count procedure Dr. Noel Araujo MD Work Phone: Start: 02-14-2025 Platelet mean volume determination Dr. Sandi Araujo MD Work Phone: Start: 02-14-2025 Total cholesterol:HDL ratio measurement Dr. Noel Araujo MD Work Phone: Start: 02-14-2025 Vitamin D, 25-hydroxy measurement Dr. Sunni Araujo MD Work Phone: Comment on above: Vitamin D StatusDeficiency: <20 ng/mL (5 0nmol/L)Insufficiency: 20-30 ng/mL (50-75 nmol/L)Sufficiency: 30-100 ng/mL (75-250 nmol/L)Toxicity: >100 ng/mL (>250 nmol/L) Start: 01-30-[address] Noel tomas MD Work Phone: Start: 12-15-2024 Cardiac MRI TITO MORGAN MD Start: 12-11-2024 Blood count smear mcrscp w/mnl difrntl wbc count Dr. Noel Araujo MD Work Phone: Start: 12-11-[address] Noel Araujo MD Work Phone: Start: 12-11-2024 Mean corpuscular hemoglobin concentration determination Dr. Noel Araujo MD Work Phone: Start: 12-11-2024 Nucleated red blood cell count procedure Dr. Noel Araujo MD Work Phone: Start: 12-11-2024 Platelet mean volume determination Dr. Sandi Araujo MD Work Phone: Start: 11-27-2024 D-dimer assay, quantitative Dr. Noel cruz MD Work Phone: Comment on above: NORMAL D-Dimer level (<0.50) indicates n o DVT or PE. Start: 11-27-2024 Plain chest X-ray Dr. Noel Araujo MD Work Phone: Start: 11-27-2024 Blood count smear mcrscp w/mnl difrntl wbc count Dr. Noel Araujo MD Work Phone: Start: 11-27-2024 Mean corpuscular hemoglobin concentration determination Dr. Noel Araujo MD Work Phone: Start: 11-27-2024 Nucleated red blood cell count procedure Dr. Noel Araujo MD Work Phone: Start: 11-27-2024 Platelet mean volume determination Dr. Sandi Araujo MD Work Phone: Start: 11-20-2024 X-ray of chest, PA and lateral views Dr. Noel Araujo MD Work Phone: Start: 11-20-2024 Blood count smear mcrscp w/mnl difrntl wbc count Dr. Noel Araujo MD Work Phone: Start: 11-20-[address] oNel Araujo MD Work Phone: Start: 11-20-2024 Mean corpuscular hemoglobin concentration determination Dr. Noel Araujo MD Work Phone: Start: 11-20-2024 Nucleated red blood cell count procedure Dr. Noel Araujo MD Work Phone: Start: 11-20-2024 Platelet mean volume determination Dr. Sandi Araujo MD Work Phone: Start: 11-20-[address] Noel Araujo MD Work Phone: Start: 11-20-2024 Urine microscopy: red cells Dr. Noel cruz MD Work Phone: Start: 11-20-2024 Urnls dip stick/tablet reagent auto microscopy Dr. Noel Araujo MD Work Phone: Start: 11-08-2024 Blood count smear mcrscp w/mnl difrntl wbc count Dr. Noel Araujo MD Work Phone: Start: 11-08-[address] Noel Araujo MD Work Phone: Start: 11-08-2024 Mean corpuscular hemoglobin concentration determination Dr. Noel Araujo MD Work Phone: Start: 11-08-2024 Nucleated red blood cell count procedure Dr. Noel Araujo MD Work Phone: Start: 11-08-2024 Platelet mean volume determination Dr. Sandi Araujo MD Work Phone: Start: 11-06-2024 D-dimer assay, quantitative Dr. Noel cruz MD Work Phone: Comment on above: NORMAL D-Dimer level (<0.50) indicates n o DVT or PE. Start: 11-05-2024 Urine microscopy: red cells Dr. Noel cruz MD Work Phone: Start: 11-05-2024 Urnls dip stick/tablet reagent auto microscopy Dr. Noel Araujo MD Work Phone: Start: 11-05-2024 X-ray of chest, PA and lateral views Dr. Noel Araujo MD Work Phone: Start: 11-05-2024 CT of head without contrast Dr. Noel cruz MD Work Phone: Start: 11-05-2024 Blood count smear mcrscp w/mnl difrntl wbc count Dr. Noel Araujo MD Work Phone: Start: 11-05-[address] Noel Araujo MD Work Phone: Start: 11-05-2024 Mean corpuscular hemoglobin concentration determination Dr. Noel Araujo MD Work Phone: Start: 11-05-2024 Nucleated red blood cell count procedure Dr. Noel Araujo MD Work Phone: Start: 11-05-2024 Platelet mean volume determination Dr. Sandi Araujo MD Work Phone: Start: 10-10-[address] Noel coppola MD Work Phone: Start: 01-06-2024 US scan of thyroid Dr. Noel Araujo Work Phone: Start: 10-11-2023 Radiologic examination of knee Dr. Noel Araujo Work Phone: Start: 11-09-2022 Total abdominal hysterectomy with bilateral salpingo-oophorectomy Dr. Noel Araujo Work Phone: Start: 07-09-2022 US scan of thyroid Dr. Noel Araujo Work Phone: Start: 10-08-2021 Radiologic examination of knee Dr. Noel Araujo Work Phone: Colonoscopy [facility] DR DHRUV BOOKER MD H/O: surgery S/P wrist surgery Dr. Noel Araujo Work Phone: Hysterectomy [facility] Plan of Treatment Date Care Activity Detail Author Start: 03-05-2025 End: 03-05-2025 [facility] Start: 01-30-2025 Egd balloon dilation esophagus <30 mm diam [facility] Start: 01-30-2025 Patient discharge [facility] Start: 12-11-2024 [facility] Start: 12-11-2024 [facility] Start: 11-27-2024 [facility] Start: 11-27-2024 End: 11-27-2024 [facility] Start: 11-20-2024 [facility] Start: 11-20-2024 [facility] Start: 11-20-2024 Bacteria identified in Urine by Culture Urine Culture [facility] Start: 11-20-2024 [facility] Start: 11-09-2024 Patient discharge [facility] Start: 11-07-2024 Following clinical pathway protocol [facility] Start: 11-07-2024 Ambulation without limitation [facility] Start: 11-07-2024 Assessment of risk of venous thromboembolism [facility] Start: 11-07-2024 Insertion of catheter into peripheral vein [facility] Start: 11-07-2024 Measuring intake and output [facility] Start: 11-07-2024 Oxygen therapy [facility] Start: 11-07-2024 Providing care according to standard [facility] Start: 11-07-2024 Referral to screening nurse [facility] Start: 11-07-2024 [facility] Start: 11-07-2024 Admission procedure [facility] Start: 11-07-2024 End: 11-07-2024 [facility] Start: 11-06-2024 Evaluation of diagnostic study results [facility] Start: 11-05-2024 End: 11-05-2024 [facility] Start: 11-05-2024 [facility] Start: 10-11-2023 Patient referral [facility] Work Phone: Start: 11-09-2022 Anesthesia intraperitoneal lower abd w/laps nos ANESTH SURG LOWER ABDOMEN [facility] Start: 11-09-2022 Cystourethroscopy CYSTOSCOPY [facility] Start: 11-09-2022 Laps total hysterect 250 gm/< w/rmvl tube/ovary TLH W/T/O 250 G OR LESS [facility] Start: 11-09-2022 Introduction of urinary catheter [facility] Start: 11-09-2022 Patient discharge [facility] Start: 11-09-2022 Ambulation therapy management [facility] Start: 11-09-2022 Continuous pulse oximetry [facility] Start: 11-09-2022 Elevation of head of bed [facility] Start: 11-09-2022 Incentive spirometry [facility] Start: 11-09-2022 Measuring intake and output [facility] Start: 11-09-2022 Notification of physician [facility] Start: 11-09-2022 End: 11-09-2022 Oxygen therapy [facility] Start: 11-09-2022 Patient education [facility] Start: 11-09-2022 Procedures relating to eating and drinking [facility] Start: 11-09-2022 Taking patient vital signs [facility] Start: 11-09-2022 Wound care [facility] Start: 11-09-2022 [facility] Start: 04-30-2022 Patient referral [facility] Work Phone: Start: 11-05-2021 Patient referral [facility] Work Phone: Start: 11-03-2021 Patient referral [facility] Work Phone: Ambulatory ECG [facility] Ambulatory ECG [facility] CBC W Auto Different ial panel - Blood [facility] CBC W Auto Different ial panel - Blood [facility] Comprehensive metabo lic 1999 panel - Serum or Plasma [facility] CT Chest WO contrast [facility] Hemoglobin A1c/Hemoglobin.total in Blood [facility] Hemoglobin A1c/Hemoglobin.total in Blood [facility] Lipid 1995 panel - S mitch or Plasma [facility] Lipid 1995 panel - S mitch or Plasma [facility] Patient Education [facility] Work Phone: Patient referral [facility] Work Phone: Radionuclide imaging of perfusion of myocardium under exercise stress [facility] Serum insulin measurement [facility] T4 free measurement [facility] T4 free measurement [facility] Thyroid stimulating hormone measurement [facility] Thyroid stimulating hormone measurement [facility] Triiodothyronine, fr ee measurement [facility] Triiodothyronine, fr ee measurement [facility] Urine culture [facility] Vitamin D, 25-hydrox y measurement [facility] Immunizations Immunization Date Immunization Notes Care Provider Fa cility 12-16-2020 SARS-CoV-2 (COVID-19 ) mRNA-1273 vaccine TITO MORGAN MD [facility] Comment on above: Result Comment: 2020: [id number] 11-18-2020 SARS-CoV-2 (COVID-19 ) mRNA-1273 vaccine TITO OMRGAN MD [facility] Vaccine [facility] Comment on above: Result Comment: 2020: [id number] Payers Date Payer Category Payer Private Health Insurance [id number] 2024 Unknown [id number] 2024 Unknown [id number] 2024 Self-pay [id number] 2023 Unknown [id number] 2014 Unknown [id number] 1965 Unknown [id number] .16.840.1.521006.3.579.2 .627 1965 Unknown [id number] ..840.1.911996.3.579.2 .627 1965 Unknown [id number] 2.16.840.1.614860.3.579.2 .627 1965 Unknown [id number] 2.16.840.1.418888.3.579.2 .1965 Unknown [id number] 2.16.840.1.591378.3.579.2 .62 1965 Unknown [id number] 2.16.840.1.931263.3.579.2 .62 1965 Unknown [id number] 2.16.840.1.377823.3.579.2 .62 1965 Unknown [id number] 2.16.840.1.327896.3.579.2 .1965 Unknown [id number] 2.840.1.045693.3.579.2 .1965 Unknown [id number] 2.840.1.912555.3.579.2 .1965 Unknown [id number] 2.840.1.240230.3.579.2 .1965 Unknown [id number] 2..840.1.982458.3.579.2 .627 Self-pay SELF PAY BY [employer]UC[employer] REQUEST [id number] Unknown [id number] 2.16.840.1.099736.3.579.2 .462 Unknown [id number] 2.16.840.1.165373.3.579.2 .462 Unknown [id number] 2.16.840.1.748342.3.579.2 .462 Unknown [id number] 2.16.840.1.382673.3.579.2 .462 Unknown [id number] 2.16.840.1.290629.3.579.2 .462 Unknown [id number] 2.16.840.1.315152.3.579.2 .462 Unknown [id number] 2.16.840.1.229344.3.579.2 .462 Unknown [id number] 2.16.840.1.606163.3.579.2 .462 Unknown [id number] 2.16.840.1.398012.3.579.2 .462 Unknown [id number] 2.16.840.1.371415.3.579.2 .462 Unknown [id number] 2.16.840.1.949827.3.579.2 .462 Unknown [id number] 2.16.840.1.528025.3.579.2 .462 Unknown [id number] 2.16.840.1.673584.3.579.2 .462 Unknown [id number] 2.16.840.1.023052.3.579.2 .462 Unknown [id number] 2.16.840.1.033190.3.579.2 .462 Unknown [id number] 2.16.840.1.561852.3.579.2 .462 Unknown [id number] 2.16.840.1.787764.3.579.2 .462 Unknown [id number] 2.16.840.1.033276.3.579.2 .462 Unknown [id number] 2.16.840.1.192968.3.579.2 .462 Unknown [id number] 2.16.840.1.799988.3.579.2 .462 Unknown [id number] 2.16.840.1.650228.3.579.2 .462 Unknown [id number] 2.16.840.1.439219.3.579.2 .462 Unknown [id number] 2.16.840.1.980784.3.579.2 .462 Unknown [id number] 2.16.840.1.646485.3.579.2 .462 Unknown [id number] 2.16.840.1.284665.3.579.2 .462 Unknown [id number] 2.16.840.1.974705.3.579.2 .462 Unknown [id number] 2.16.840.1.622340.3.579.2 .462 Unknown [id number] 2.16.840.1.865729.3.579.2 .462 Unknown [id number] 2.16.840.1.228837.3.579.2 .462 Unknown [id number] 2.16.840.1.843521.3.579.2 .462 Unknown [id number] 2.16.840.1.840036.3.579.2 .462 Unknown [id number] 2.16.840.1.303309.3.579.2 .462 Unknown [id number] 2.16.840.1.672336.3.579.2 .462 Unknown [id number] 2.16.840.1.191739.3.579.2 .462 Unknown [id number] 2.16.840.1.098979.3.579.2 .462 Unknown [id number] 2.16.840.1.113721.3.579.2 .462 Unknown [id number] 2.16.840.1.520232.3.579.2 .462 Unknown [id number] 2.16.840.1.159842.3.579.2 .462 Social History Date Type Detail Facility Start: 10-29-2021 End: 2023 Tobacco smoking status NHIS Unknown if ever smoked [facility] Start: 1965 Sex Assigned At Female [facility] Start: 11-07-2024 End: 03-05-2025 Tobacco smoking status NHIS Never smoked tobacco (finding) [facility] Start: 11-19-2020 End: 11-17-2024 Sex Female (finding) [facility] Sexual Orientation [facility] NEGATED: Highlighted row Not [facility] Goals Date Patient Goal Desired Activity /State Functional Status Date Assessment Result Facility 11-08-2024 Functional status Ambulates;Bath room Privilege;Back to bed [facility] Work Phone: Mental Status Date Assessment Result Facility 01-30-2025 Cognitive function Voice/Name [facility] Work Phone: 11-27-2024 Cognitive function Voice/Name [facility] Work Phone: 11-20-2024 Cognitive function Voice/Name [facility] Work Phone: 11-08-2024 Cognitive function Voice/Name [facility] Work Phone: 11-05-2024 Cognitive function Awake;Alert;A ppropriate;Follow s Commands [facility] Work Phone: 11-09-2022 Cognitive function Level Of Cons ciousness Appropriate;Drowsy [facility] Work Phone: 11-09-2022 Cognitive function Voice/Name [facility] Work Phone: 08-16-2021 Cognitive function Awake;Alert;A ppropriate;Follow s Commands [facility] Work Phone: Clinical Notes 03-05-2020 to 03-05-2025 Note Date & Type Note Facility 03-05-2025 Hospital Discharg e instructions Patient Education 03/05/2025 12:12:52 3- Heart Cath/PCI radial (06/2018) (CUSTOM) HEART CATHETERIZATION/PCI (radial) Discharge Instructions DIET Drink plenty of fluids for the next 48 hours to help your kidneys flush the heart cath dye out of your system ACTIVITY For the next 48 hours: Do not deep bend the wrist Do not lift, push, or pull anything over 5 pounds Do not use the hand/arm to support your weight when rising from a chair or bed Do not drive For the next 7 days: Do not submerse your procedure site in water Do not swim, wash dishes, or take tub baths You may write, eat, type, and shower WOUND CARE You will go home with a dressing over your procedure site. After 24 hours, remove dressing, shower, and replace with Band-Aid. Keep a Band-Aid on your procedure site for the next 3-4 days Change the Band-Aid daily or if it gets wet/soiled AFTER YOU GO HOME, CALL YOUR DOCTOR FOR: Any increase in bruising or tenderness from the procedure site Any redness, pus, or other signs of infection at the site A temperature above 100.5 Severe pain at the site DIAL 911 AND RETURN TO THE HOSPITAL FOR: Any bleeding from the procedure site. The site may be bruised or tender, but it should not be bleeding at any time. If your site begins to bleed, hold firm pressure on it and dial 911 to return to the hospital Any increase in swelling at the procedure site. An increase in swelling could mean the area is bleeding under the skin. Hold firm pressure to the site and dial 911 to return to the hospital Document Released: 08/23/2006 Document Revised: 08/09/2013 Document Reviewed: 08/24/2014 [facility] Patient Information 2015 [employer]. This information is not intended to replace advice given to you by your health care provider. Make sure you discuss any questions you have with your health care provider. 03/05/2025 12:11:47 Moderate Conscious Sedation, Adult, Care After Moderate Conscious Sedation, Adult, Care After These instructions provide you with information about caring for yourself after your procedure. Your health care provider may also give you more specific instructions. Your treatment has been planned according to current medical practices, but problems sometimes occur. Call your health care provider if you have any problems or questions after your procedure. What can I expect after the procedure? After your procedure, it is common: To feel sleepy for several hours. To feel clumsy and have poor balance for several hours. To have poor judgment for several hours. To vomit if you eat too soon. Follow these instructions at home: For at least 24 hours after the procedure: Do not: ?Participate in activities where you could fall or become injured. ?Drive. ?Use heavy machinery. ?Drink alcohol. ?Take sleeping pills or medicines that cause drowsiness. ?Make important decisions or sign legal documents. ?Take care of children on your own. Rest. Eating and drinking Follow the diet recommended by your health care provider. If you vomit: ?Drink water, juice, or soup when you can drink without vomiting. ?Make sure you have little or no nausea before eating solid foods. General instructions Have a responsible adult stay with you until you are awake and alert. Take khrk-hef-dgkmmcm and prescription medicines only as told by your health care provider. If you smoke, do not smoke without supervision. Keep all follow-up visits as told by your health care provider. This is important. Contact a health care provider if: You keep feeling nauseous or you keep vomiting. You feel light-headed. You develop a rash. You have a fever. Get help right away if: You have trouble breathing. This information is not intended to replace advice given to you by your health care provider. Make sure you discuss any questions you have with your health care provider. Document Released: 06/13/2014 Document Revised: 08/05/2018 Document Reviewed: 12/12/2016 [email or web address] Patient Education 2020 [employer]. Follow Up Care 02/15/2025 11:12:08 With:TITO MORGAN MD Address: [address] [place] [address] [address] [place] [address]- [phone] When:03/27/2025 09:00:00 [facility] 03-05-2025 Summary of episod e note Discharge Instructions Thank you for allowing [facility] to assist you with your healthcare needs. The following is important discharge information regarding your hospital visit. Your Care Team NOEL ARAUJO MD What to do next Scheduled Follow-Up Appointments Appointment Type When With Where Contact Information StatusCV OV 03/27/2025 09:00 AM EDT [facility] CVC Confirmed CV OV CHF 03/27/2025 11:15 AM EDT [facility] C[facility] Confirmed CV OV 03/30/2025 03:30 PM EDT NELLI LEON [facility] Confirmed CV OV 05/04/2025 01:30 PM EDT [facility] App[facility]ments Follow Up with TITO MORGAN MD When:03/27/2025 09:00 AM EDT [facility] [address] [facility] [place] [address]- [phone] Allergies bromodiphenhydramine rash codeine pt cannot remember erythromycin rash nystatin rash sulfamethoxazole rash tetracyclines rash trimethoprim rash Medications Please ask your primary doctor or pharmacist before taking any other medication not listed, including over the counter drugs, herbal medications, vitamins and or supplements as they may interact with your home medications. What How Much When Instructions Last Dose Unchanged aspirin (aspirin 81 mg oral delayed release tablet) 1 tab(s) by mouth Every day Unchanged atorvastatin (atorvastatin 40 mg oral tablet) 1 tab(s) by mouth Every day Unchanged cholecalciferol (cholecalciferol 50 mcg (2000 intl units) oral capsule) 1 cap by mouth Every day Unchanged famotidine (famotidine 20 mg oral tablet) 1 tab(s) by mouth Two (2) times a day Unchanged flecainide (flecainide 100 mg oral tablet) 1 tab(s) by mouth Two (2) times a day Unchanged FLUoxetine (PROzac 20 mg oral capsule) 1 cap by mouth Once a day Unchanged levothyroxine (levothyroxine 125 mcg (0.125 mg) oral tablet) 1 tab(s) by mouth Once a day Unchanged lisinopril (lisinopril 40 mg oral tablet) 1 tab(s) by mouth Once a day Unchanged loratadine (loratadine 10 mg oral capsule) 1 cap by mouth Once a day Unchanged magnesium oxide (Magnesium 250 mg tablet) 1 tab(s) by mouth Once a day Unchanged metoprolol (Toprol-XL 25 mg oral tablet, extended release) 1 tab(s) by mouth Once a day Unchanged multivitamin (Vitamin B Complex oral tablet) 1 tab(s) by mouth Every day Unchanged spironolactone (spironolactone 25 mg oral tablet) 1 tab(s) by mouth Two (2) times a day Unchanged zinc gluconate (zinc (as gluconate) 50 mg oral tablet) 1 tab(s) by mouth Every day Please take this list to your next doctor s visit. Bring all medications you take, including over the counter medications, herbals and other supplements with you to your doctor s visit. Patients and families are reminded to discard old lists and to update any records with all medication providers or retail pharmacies. Education Materials HEART CATHETERIZATION/PCI (radial) Discharge Instructions DIET Drink plenty of fluids for the next 48 hours to help your kidneys flush the heart cath dye out of your system ACTIVITY For the next 48 hours: Do not deep bend the wrist Do not lift, push, or pull anything over 5 pounds Do not use the hand/arm to support your weight when rising from a chair or bed Do not drive For the next 7 days: Do not submerse your procedure site in water Do not swim, wash dishes, or take tub baths You may write, eat, type, and shower WOUND CARE You will go home with a dressing over your procedure site. After 24 hours, remove dressing, shower, and replace with Band-Aid. Keep a Band-Aid on your procedure site for the next 3-4 days Change the Band-Aid daily or if it gets wet/soiled AFTER YOU GO HOME, CALL YOUR DOCTOR FOR: Any increase in bruising or tenderness from the procedure site Any redness, pus, or other signs of infection at the site A temperature above 100.5 Severe pain at the site DIAL 911 AND RETURN TO THE HOSPITAL FOR: Any bleeding from the procedure site. The site may be bruised or tender, but it should not be bleeding at any time. If your site begins to bleed, hold firm pressure on it and dial 911 to return to the hospital Any increase in swelling at the procedure site. An increase in swelling could mean the area is bleeding under the skin. Hold firm pressure to the site and dial 911 to return to the hospital Document Released: 08/23/2006 Document Revised: 08/09/2013 Document Reviewed: 08/24/2014 [employer]Care Patient Information 2015 Access [employer]. This information is not intended to replace advice given to you by your health care provider. Make sure you discuss any questions you have with your health care provider. Moderate Conscious Sedation, Adult, Care After These instructions provide you with information about caring for yourself after your procedure. Your health care provider may also give you more specific instructions. Your treatment has been planned according to current medical practices, but problems sometimes occur. Call your health care provider if you have any problems or questions after your procedure. What can I expect after the procedure? After your procedure, it is common: To feel sleepy for several hours. To feel clumsy and have poor balance for several hours. To have poor judgment for several hours. To vomit if you eat too soon. Follow these instructions at home: For at least 24 hours after the procedure: Do not: ? Participate in activities where you could fall or become injured. ? Drive. ? Use heavy machinery. ? Drink alcohol. ? Take sleeping pills or medicines that cause drowsiness. ? Make important decisions or sign legal documents. ? Take care of children on your own. Rest. Eating and drinking Follow the diet recommended by your health care provider. If you vomit: ? Drink water, juice, or soup when you can drink without vomiting. ? Make sure you have little or no nausea before eating solid foods. General instructions Have a responsible adult stay with you until you are awake and alert. Take bjgu-lne-lcvxkvx and prescription medicines only as told by your health care provider. If you smoke, do not smoke without supervision. Keep all follow-up visits as told by your health care provider. This is important. Contact a health care provider if: You keep feeling nauseous or you keep vomiting. You feel light-headed. You develop a rash. You have a fever. Get help right away if: You have trouble breathing. This information is not intended to replace advice given to you by your health care provider. Make sure you discuss any questions you have with your health care provider. Document Released: 06/13/2014 Document Revised: 08/05/2018 Document Reviewed: 12/12/2016 [email or web address] Patient Education 2020 [email or web address] Additional Information VACCINATE! IT SAVES LIVES! Members of the community who have not yet received the COVID-19 vaccine and would like to receive it can visit one of [facility] vaccine clinics. There are many vaccine clinic locations within the [facility]. For locations and available times, please visit https://gettheshot.coronavirus.o hio.gov/. It is important to note that some COVID mobile vaccine clinics are held outdoors and may be canceled in rainy or stormy conditions. To learn more about pediatric vaccinations (ages 5-11), we invite you to visit the [facility] webpage. https://www.[employer].org/p ages/1523-Zdlef-Kmbvemnziqs-Freq owoyuc-Zckub-Zbcqunjfw.html To learn more about the COVID-19 vaccine, we invite you to visit the CDC website for a list of frequently asked questions.https://www.cdc.gov/co ronavirus/2019-ncov/vaccines/faq .html [facility] Patient Portal Access Instructions: Stay connected with your healthcare team and access your personal medical information anytime with the [facility] Patient Portal. Please follow the directions below to create your [facility] account: 1.Access the email account you provided upon registration to the hospital/physician office.2.Look for an invitation email from [facility].3.Open the email and access the invitation link: Accept Invitation to [facility].4.Fill in the required armas to create your account. To access your account, visit [facility]. Click the blue button labeled Access Patient Portal and then log in with the username and password that you created in the steps above. You will be able to view your test results, lab results, a summary of your visits, upcoming appointments and more. There is also a convenient messaging option where you can send secure messages to your provider. In addition, you will have the ability to download any documents or summaries to your computer and/or send the information securely to a physician. Remember that your healthcare information is confidential, so carefully consider who you will allow to register on the [facility] Patient Portal for access to your information. You can also access the [facility] Patient Portal on the [facility] nettie. Simply click on Patient Portal and then log into your account. If you would like to receive a full copy of your medical records, please contact the [facility] Medical Records Department by calling [phone], Wednesday through Wednesday between 8 a.m. and 4:30 p.m. HOW TO SAFELY DISPOSE OF PRESCRIPTION MEDICATIONS Please use one of the following methods to safely dispose of your unused medications. 1.Use a drug disposal kit: the drug disposal pouch allows you to safely discard your old and unused drugs. Ask your nurse to give you one when you are discharged.2.Visit a local take-back location: Many local pharmacies and police departments have programs that collect old and unwanted prescription drugs. Call your local pharmacy or go to http://bit.[employer]/2P8Pd6a to find one close to you.3.Make use of household items: Use cat litter or old coffee grounds to dispose medications if other options are not available. Mix your drugs with these household products, seal them in an airtight container and throw it into the garbage. Call [facility]: [phone] to be sure your drugs can be disposed of in this way. Some medicines may require a different approach.4.Never flush your medications down the toilet. IF YOU HAVE BEEN PRESCRIBED AN OPIOID FOR PAIN If you have been prescribed an opioid (such as hydrocodone, oxycodone or morphine), it is critical to understand the possible side effects and risks of opioid pain medications. Even when taken as directed, opioids can have several side effects including: Tolerance, meaning you might need to take more of a medication for the same pain relief. Nausea, vomiting and/or constipation. Sleepiness, dizziness, dry mouth, confusion, depression or itching. Physical dependence, meaning you have withdrawal symptoms when a medication is stopped, can develop within a few days. KNOW YOUR RESPONSIBILITIES It is important to know exactly how much and how often to take the opioid pain medications you are prescribed. Never take opioids in higher amounts or more often than prescribed. Do not combine opioids with alcohol or other drugs that cause drowsiness, such as benzodiazepines, also known as benzos, including diazepam and alprazolam, muscle relaxants or sleep aids. Never sell or share prescription opioids. This is illegal. Store opioids in a secure place and out of reach of others (including children, family, friends and visitors). The last page of this document has been signed and retained as a CHART COPY. Signatures Patient Education Materials 3- Heart Cath/PCI radial (06/2018) (CUSTOM) Moderate Conscious Sedation, Adult, Care After Medication Leaflets My discharge plan and instructions have been reviewed and explained to me and ISTALIN DONNA L understand my current condition and have read and understand these discharge instructions. I have received a written copy of the plan/instructions. If I have questions, I am aware that I should contact my doctor. 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 Moderate CAD Hospital Course Patient developed a cardiac catheterization due to concerns of chest pain. Cardiac at that incision showed moderate CAD in proximal LAD. This would be managed medically upfront. Allergies bromodiphenhydramine rash codeine pt cannot remember erythromycin rash nystatin rash sulfamethoxazole rash tetracyclines rash trimethoprim rash Consults No qualifying data available. Objective Vitals and Measurements T: 36.5 C (Oral) HR: 55 (Apical) RR: 14 BP: 111/71 SpO2: 94% HT: 162.5 cm WT: 114.5 kg Weight Dosing Weight: 114.5 kg (03/05/25) Code Status No qualifying data available. Medications Unchanged aspirin (aspirin 81 mg oral delayed release tablet)1 tab(s) by mouth every day. atorvastatin (atorvastatin 40 mg oral tablet)1 tab(s) by mouth every day. cholecalciferol (cholecalciferol 50 mcg (2000 intl units) oral capsule)1 cap by mouth every day. famotidine (famotidine 20 mg oral tablet)1 tab(s) by mouth two (2) times a day. flecainide (flecainide 100 mg oral tablet)1 tab(s) by mouth two (2) times a day. Refills: 3. FLUoxetine (PROzac 20 mg oral capsule)1 cap by mouth once a day. levothyroxine (levothyroxine 125 mcg (0.125 mg) oral tablet)1 tab(s) by mouth once a day. lisinopril (lisinopril 40 mg oral tablet)1 tab(s) by mouth once a day. Refills: 3. loratadine (loratadine 10 mg oral capsule)1 cap by mouth once a day. magnesium oxide (Magnesium 250 mg tablet)1 tab(s) by mouth once a day. metoprolol (Toprol-XL 25 mg oral tablet, extended release)1 tab(s) by mouth once a day. Refills: 3. multivitamin (Vitamin B Complex oral tablet)1 tab(s) by mouth every day. spironolactone (spironolactone 25 mg oral tablet)1 tab(s) by mouth two (2) times a day. zinc gluconate (zinc (as gluconate) 50 mg oral tablet)1 tab(s) by mouth every day. Follow Up Follow Up with TITO MORGAN MD When:03/27/2025 09:00 AM EDT Where:[address] [facility] [facility] [address] [place] [address]- [phone] Follow Up Appointments No qualifying data available. Follow Up Labs/Studies Discharge Labs No Follow-up Labs Discharge Studies No Follow-up Studies Discharge Diet No qualifying data available. Discharge Activity No qualifying data available. Readmission Risk/Palliative Score No qualifying data available. Digitally Signed by DHRUV LEHMAN MD on 03/05/2025 12:07 PM [facility] 01-30-2025 Consult note Note Date/Time January 30, 2025 2:01p [facility] Medical Records Department [address] [place] [address] Anesthesia Postop Eval II 01/30/25 1401 MR#: [id number] Acct: [id number] Name: JAMIE GANT Rep #:[id number] 1 : 1965 59 From: Florinda blake CRNA PCP: Dr. Noel Araujo MD Status:REG [facility] Y Race: C Location: [place] [address] Anesthesia Postop Eval I Sum Postop Eval Completion status Anesthesia document: Postop Eval 1 completed: Yes Anesthesia Postop Eval I Summary Anesthesia Postop Eval I Summary: Anesthesia Postop Eval I: Assessment Summary Airway patent Yes 01/30/25 10:21 [email or web address] Spontaneous unlabored Yes 01/30/25 10:21 [email or web address] respirations Mental status Awake,Calm 01/30/25 10:21 [email or web address] nausea No 01/30/25 10:21 [email or web address] Vomiting No 01/30/25 10:21 [email or web address] Anesthesia Postop Eval I: Fluid Summary Crystalloid volume administer 500 01/30/25 10:21 [email or web address] (ml) Colloids volume administered ( ml) Blood Product volume administered (ml) Total IV fluid infused 500 01/30/25 10:21 [email or web address] Anesthesia Postop Eval I: Summary Notes Anesthesia Complication No 01/30/25 10:21 [email or web address] Anesthesia Complication Comment: Post-operative progress note Anesthesia: Postop Eval II Evaluation Mental status: Awake and Calm Pain Level: 0 nausea: No Vomiting: No Complications Anesthesia Complication: No 01/30/25 1401 <Electronically signed by lForinda to CRNA> Date _ Florinda Mojica CRNA Cosigner Signature: Date CC: ~ Signed [facility] Work Phone: 1(526) 218-381905-27-2025 Consult note [facility] Medical Records Department [address] [place] [address] Anesthesia Postop Eval II 01/30/25 1401 MR#: [id number] Acct: [id number] Name: JAMIE GANT Rep #:[id number] 1 : 1965 59 From: Florinda blake CRNA PCP: Dr. Noel Araujo MD Status:REG [facility] Y Race: C Location: [place] [address] Anesthesia Postop Eval I Sum Postop Eval Completion status Anesthesia document: Postop Eval 1 completed: Yes Anesthesia Postop Eval I Summary Anesthesia Postop Eval I Summary: Anesthesia Postop Eval I: Assessment Summary Airway patent Yes 01/30/25 10:21 [email or web address] Spontaneous unlabored Yes 01/30/25 10:21 [email or web address] respirations Mental status Awake,Calm 01/30/25 10:21 [email or web address] nausea No 01/30/25 10:21 [email or web address] Vomiting No 01/30/25 10:21 [email or web address] Anesthesia Postop Eval I: Fluid Summary Crystalloid volume administer 500 01/30/25 10:21 [email or web address] (ml) Colloids volume administered ( ml) Blood Product volume administered (ml) Total IV fluid infused 500 01/30/25 10:21 [email or web address] Anesthesia Postop Eval I: Summary Notes Anesthesia Complication No 01/30/25 10:21 [email or web address] Anesthesia Complication Comment: Post-operative progress note Anesthesia: Postop Eval II Evaluation Mental status: Awake and Calm Pain Level: 0 nausea: No Vomiting: No Complications Anesthesia Complication: No 01/30/25 1401 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 Noel Araujo MD Status:REG SDC Y Race: C Location: [place] [address] Anesthesia: Postop Eval I Current Vital Signs Temperature: 97.4 F Pulse Rate: 55 Blood Pressure: 101/59 Respiratory Rate: 16 Pulse Ox: 96 Oxygen Delivery Method: Room Air Assessment Airway patent: Yes Spontaneous unlabored respirations: Yes Mental status: Awake and Calm nausea: No Vomiting: No Anesthesia Complication: No Fluid Hydration Crystalloid volume administer (ml): 500 Total IV fluid infused: 500 Progress Note Anesthesia document: Postop Eval 1 completed: Yes 01/30/25 1021 <Electronically signed by Sameer Fuentes > Date _ Sameer Fuentes Cosigner Signature: Date CC: ~ Signed [facility] Work Phone: 1(351) 906-844305-27-2025 Consult note Author Bao Sarmiento [facility] Note Date/Time January 30, 2025 9:32a m [facility] Medical Records Department [address] [place] [address] Pre-Anesthesia Evaluation 01/30/25 0922 MR#: [id number] Acct: [id number] Name: JAMIE GANT Rep #:[id number] 7 : 1965 59 From: Bao Sarmiento MD PCP: Dr. Noel Araujo MD Status:REG [facility] Y Race: C Location: [place] [address] ASA Classification* ASA Classification ASA Classification: 3 Assessment & Plan Anesthesia* Anesthesia Assessment Anesthesia Assessment: Discussed sedation and/or anesthesia options, risks, benefits, and alternatives with patient/parents/legal guardian/POA. Questions invited. The patient/parents/legal guardian/POA seems to understand and agrees to proceedwith anesthesia plan. Reviewed the physical assessment, medical history, allergy history and patient home medications list prior to surgery/procedure/anesthetic and documented any changes. Performed airway and anesthesia risk assessments. Anesthesia Type Anesthesia Type: MAC History Source History Obtained from:: Patient and Chart Anesthesia Focused Assessment* Temperature: 97.7 F Pulse Rate: 58 Blood Pressure: 134/62 Respiratory Rate: 16 Pulse Ox: 100 Oxygen Delivery Method: Room Air Airway Assessment Mouth opens: >3 cm Mallampati Score: III Teeth Condition: Caps/Crowns (Patient has couple crowns. They are tight.) Neck Range of motion (ROM): Limited ROM (slight decrease in extension) Focused Labs Anesthesia Preop lab: CBC WBC 7.4 K/mm3 (4.4-11.0) 12/11/24 00:30 12/11/24 RBC 4.40 M/mm3 (4.2-5.4) 12/11/24 00:30 12/11/24 Hgb 14.0 g/dL (12.0-15.0) 12/11/24 00:30 12/11/24 Hct 41.1 % (37-47) 12/11/24 00:30 12/11/24 Plt Count 236 K/mm3 (150-450) 12/11/24 00:30 12/11/24 CHEMISTRY Potassium 4.3 mmol/L (3.3-5.1) 12/11/24 00:30 12/11/24 Sodium 138 mmol/L (133-145) 12/11/24 00:30 12/11/24 Magnesium 2.0 mg/dL (1.5-2.2) 11/20/24 17:25 11/20/24 BUN 20 mg/dL (4-19) H 12/11/24 00:30 12/11/24 Creatinine 0.75 mg/dL (0.70-1.20) 12/11/24 00:30 12/11/24 Glucose 131 mg/dL (70-99) H 12/11/24 00:30 12/11/24 POC Glucose 162 mg/dL (74-106) H 11/09/22 08:22 11/09/22 TSH 0.732 uIU/mL (0.300-4.200) 11/20/24 17:25 11/04 03/30 COAG Urine Test Negative Negative 02/07/21 07:10 02/07/21 Pre-Assessment Diagnosis/Proposed Procedure Planned Operative Procedure(s): EGD POSS DILATION Anesthesia History Anesthesia History - specification consultant: Anesthesia History - specification consultant Hx Hospitalization Yes: 11/2024 [facility] HEART RATE 01/25/25 08:56 /HYPERTENSION UNCONTROLLED Any Problems With Anesthesia Yes: SLOW TO AWAKEN 01/25/25 08:56 Cholinesterase deficiency No 01/25/25 08:56 You/Your Family Experience No 01/25/25 08:56 fever (hyperthermia) with Relationship Recent Exposure to Contagious No 01/30/25 08:48 Disease Does patient have nerve No 01/25/25 08:56 stimulator Patient instructed to have device shut off --Does patient have Pacemaker No 01/30/25 08:48 or ICD? When Was Last Pacemaker Check QUESTION #4 FULL TEXT: You/Your Family Experience fever (hyperthermia) with Anesthesia Last Oral Intake Last Oral intake: Last Oral Intake NPO since 06:00 01/30/25 08:48 Meds taken in AM with sips of Yes 01/30/25 08:48 water? Meds patient instructed to see medlist 01/30/25 08:48 take am of surgery Any additional information?: Yes Meds taken in AM with sips of water?: Yes PONV PONV - specification consultant: PONV - specification consultant Female Yes 01/25/25 08:56 HX of Motion Sickness No 01/25/25 08:56 HX of N/V After Surgery No 01/25/25 08:56 Non-Smoker Yes 01/25/25 08:56 Duration of Surgery greater No 01/25/25 08:56 than 60 minutes Number of Risk Factors 2 01/25/25 08:56 PONV Score Moderate Risk 01/25/25 08:56 Height & Weight Height & Weight: Anesthesia: Height & Weight Height 5 ft 4 in 01/30/25 08:48 Weight: 114.3 kg 01/30/25 08:48 Body Mass Index (BMI) 43.2 01/30/25 08:48 Respiratory Assessment Respiratory Assessment - specification consultant: Respiratory Tract Infection Hx - specification consultant Hx Respiratory Tract Infection No 01/25/25 08:56 STOP Sleep Apnea STOP Sleep Apnea - specification consultant: STOP Sleep Apnea - specification consultant Hx Hypertension Yes: CONTROLLED WITH MEDS 01/25/25 08:56 Hx Sleep Apnea No 01/25/25 08:56 CPAP No 11/06/24 08:21 BIPAP Do you snore loudly (louder Yes 01/25/25 08:56 than talking or can be heard Do you often feel tired/ Yes 01/25/25 08:56 fatigued/ sleepy during daytime? Has anyone observed you stop No 01/25/25 08:56 breathing during sleep? STOP Results Positive 01/25/25 08:56 QUESTION #5 FULL TEXT : Do you snore loudly (louder than talking or can be heard through closed doors)? 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 Specify any problems Hx of Preganancy in last 3 No 01/25/25 08:56 Months Nurse Filling Out Transfusion DSCHRIBER 01/25/25 08:56 & Questions: Date: 01/25/25 01/25/25 08:56 Time: 08:58 01/25/25 08:56 Patient unable to answer at this time (ie. confused, unrespo /Reproduction History /Reproductive History - specification consultant: /Reproductive Hx- specification consultant Hx Now No 01/25/25 08:56 Gestational Age (in weeks): EDC: Hx Hx Para Hx Section SAB No 01/25/25 08:56 Active Medications Active Medications: Current Medications Generic Name Dose Route Start Last Admin Trade Name Freq PRN Reason Stop Dose Admin Lactated Ringer's 1,000 mls @ 15 mls/hr 01/30/25 08:45 01/30/25 09:00 IV 15 mls/hr .Q48H AG Administration PFSH Medical History Diabetes High cholesterol Easy bruising Syncope Difficulty swallowing Gastric reflux Shortness of breath on exertion Hypertension Cardiology follow-up encounter Normal Holter exam History of echocardiogram Esophageal stenosis Atrial tachycardia PAC (premature atrial contraction) Tachyarrhythmia Chest pain Episodic lightheadedness Left foot pain Right elbow pain Fall Fatigue Strain of left knee Contusion of left knee Insulin resistance Thyroid disease Migraine headache History of hiatal hernia Non-smoker Wears glasses Arthritis Dysphagia Depression Other and unspecified hyperlipidemia Hypothyroidism Home Medications ?Medication ?Instructions ?Recorded ?Last Taken ?Type aspirin 81 mg tablet,delayed 81 mg PO DAILY 08/07/20 0 01/24/25 History release cholecalciferol (vitamin D3) 50 50 mcg PO DAILY 02/06/21 09:00 History mcg (2,000 unit) capsule famotidine 20 mg tablet (Pepcid AC) 20 mg PO BID #60 t abs 03/13/21 01/30/25 Rx loratadine 10 mg tablet 10 mg PO DAILY PRN allergy s ymptoms 10/29/21 Unknown History zinc gluconate 50 mg tablet 50 mg PO DAILY 02/23/24 Un known History vitamin B complex 1 tab PO DAILY 03/29/24 Unkn own History atorvastatin 40 mg tablet 40 mg PO DAILY #90 tabs 09/06 11/28 Unknown Rx fluoxetine 20 mg capsule (Prozac) 20 mg PO DAILY #90 c aps 10/23/24 01/30/25 Rx flecainide 100 mg tablet 100 mg PO BID 11/16/2401/30 History metoprolol succinate 25 mg 25 mg PO DAILY #1 TAB 12/1101/30/25 Rx tablet,extended release 24 hr levothyroxine 125 mcg tablet 125 mcg PO DAILY #90 tabs 01/17/25 01/30/25 Rx lisinopril 40 mg tablet 40 mg PO QDAY 01/23/25 Unkno wn History spironolactone 25 mg tablet 25 mg PO QDAY 01/23/25 Unk nown History magnesium 200 mg tablet 400 mg PO DAILY 01/25/25 Unk nown History Allergy/AdvReac Type Severity Reaction Status Date / Time bromodiphenhydramine (From Allergy Mild unknown Verified 01/30/25 08:47 Ambenyl) codeine (From Ambenyl) Allergy Mild unknown Verified 01/30/25 08:47 erythromycin base (From Allergy Mild unknown Verified 01/30/25 08:47 Kayden-Tab) nystatin Allergy Mild unknown Verified 01/25/25 08:53 sulfamethoxazole (From Allergy Mild Rash Verified 01/30/25 08:47 Bactrim) Tetracyclines Allergy Mild unknown Verified 01/30/25 08:47 trimethoprim (From Bactrim) Allergy Mild Rash Verified 01/30/25 08:47 Family History Mother Myocardial infarction Thyroid disorder Heart disease Hypertension Lung cancer Diabetes CVA (cerebral vascular accident) Grandmother Myocardial infarction Sister Breast cancer Diabetes Father Leukemia Diabetes Other Cancer Surgical History History of breast biopsy H/O total hysterectomy Hx of colonoscopy S/P thyroid biopsy S/P colonoscopy S/P tonsillectomy S/P wrist surgery RIGHT WRIST Social History household members: spouse number of children: 3 current occupational status: employed current occupation: [employer] Smoking Status: Never smoker Electronic Cigarette Use: not used second hand exposure: No alcohol intake: current alcohol intake frequency: holidays/special occasions only Alcohol type: wine substance use type: does not use caffeine: Yes what type of physical activity do you participate in: none frequency: decline to answer elma/spiritism: Rastafari seatbelt use: always do you feel safe at home: Yes Review of Systems (Anesthesia) ROS Narrative System reviewed and no additional complaints, except as documented. 01/30/25 0932 <Electronically signed by Bao trinidad MD> Date _ Bao Sarmiento MD Cosigner Signature: Date CC: ~ Signed [facility] Work Phone: 1(713) 951-224105-27-2025 History and physical note Author Abner Stein [facility] Note Date/Time January 30, 2025 9:17a m [facility] Medical Records Department [address] [place] [address] History & Physical Exam 01/30/2516 MR#: [id number] Acct: [id number] Name: JAMIE GANT Rep #:[id number] : 1965 59 From: Abner love MD PCP: Dr. Noel Araujo MD Status:[facility] Location: [place] [address] History and Physical Date of Admission: 01/30/25 Intake Vital Signs 12/10/2522:14 01/23/2509:05 Height 5 ft 4 in 5 ft 4 in Weight: 251 lb 6.4 oz 254 lb BMI 43.1 43.6 BP 169/80 H 131/85 H Blood Pressure Location Rt brachial Position Sitting Respiration 16 17 Pulse 56 L 58 L Pulse Source Monitor Temp 98.3 F Temp Source Oral Pulse Oximetry (%) 98 98 Oxygen Delivery Method room air Intake Visit Reasons: DIFFICULTY SWALLOWING Chief Complaint: difficulty swallowing Is patient in pain?: No Allergies bromodiphenhydramine (From Ambenyl) Allergy (Mild, Verified 01/23/25 09:06) unknowncodeine (From Ambenyl) Allergy (Mild, Verified 01/23/25 09:06) unknownerythromycin base (From Kayden-Tab) Allergy (Mild, Verified 01/23/25 09:06) unknownnystatin Allergy (Mild, Verified 01/23/25 09:06) unknownsulfamethoxazole (From Bactrim) Allergy (Mild, Verified 01/23/25 09:06) RashTetracyclines Allergy (Mild, Verified 01/23/25 09:06) unknowntrimethoprim (From Bactrim) Allergy (Mild, Verified 01/23/25 09:06) Rash Medications ?Medication ?Instructions ?Recorded ?Confirmed ?Type aspirin 81 mg tablet,delayed 81 mg PO DAILY 08/07/20 01/23/25 History release cholecalciferol (vitamin D3) 50 50 mcg PO DAILY 08/07/20 01/23/25 Histor y mcg (2,000 unit) capsule famotidine 20 mg tablet (Pepcid AC) 20 mg PO BID #60 tabs 03/13/21 01/23/25 Rx loratadine 10 mg tablet 10 mg PO DAILY PRN allergy symptoms 10/0801/23/25 History zinc gluconate 50 mg tablet 50 mg PO DAILY 02/23/24 01/23/25 History vitamin B complex 1 tab PO DAILY 03/29/24 01/23/25 History atorvastatin 40 mg tablet 40 mg PO DAILY #90 tabs 09/18/24 5 Rx fluoxetine 20 mg capsule (Prozac) 20 mg PO DAILY #90 caps 10/23/24 5 Rx flecainide 100 mg tablet 100 mg PO BID 11/16/24 01/23/25 History metoprolol succinate 25 mg 25 mg PO DAILY #1 TAB 12/11/24 01/23/25 Rx tablet,extended release 24 hr levothyroxine 125 mcg tablet 125 mcg PO DAILY #90 tabs 01/17/2501/23 Rx lisinopril 40 mg tablet 40 mg PO QDAY 01/23/25 01/23/25 History spironolactone 25 mg tablet 25 mg PO QDAY 01/23/25 01/23/25 History PFSH Medical History Esophageal stenosis Insulin resistance Essential hypertension Atrial tachycardia PAC (premature atrial contraction) Tachyarrhythmia Chest pain Episodic lightheadedness Left foot pain Right elbow pain Fall Fatigue Strain of left knee Contusion of left knee Thyroid disease Migraine headache History of hiatal hernia Non-smoker History of pain when walking History of edema Wears glasses Alcohol use Difficulty swallowing Difficulty chewing Gastric reflux Arthritis Dysphagia Depression Other and unspecified hyperlipidemia Hypothyroidism Surgical History History of breast biopsy H/O total hysterectomy Hx of colonoscopy S/P thyroid biopsy S/P colonoscopy S/P tonsillectomy S/P wrist surgery RIGHT WRIST Family History Mother Myocardial infarction Thyroid disorder Heart disease Hypertension Lung cancer Diabetes CVA (cerebral vascular accident)Grandmother Myocardial infarctionSister Breast cancer DiabetesFather Leukemia DiabetesOther Cancer Social History household members: spouse number of children: 3 current occupational status: employed current occupation: [employer] Smoking Status: Never smoker Electronic Cigarette Use: not used second hand exposure: No alcohol intake: current alcohol intake frequency: holidays/special occasions only Alcohol type: wine substance use type: does not use caffeine: Yes what type of physical activity do you participate in: none frequency: decline to answer elma/spiritism: Rastafari seatbelt use: always do you feel safe at home: Yes Female Reproductive History Menstrual Ab induced: 0 Ab spontaneous: 0 Ectopics: 0 HPI HPI HPI: Patient is a 59-year-old female with dysphagia. She reports that she does have hiatal hernia. She reports that she had a EGD in 2020 with dilation. She says that the dysphagia has been getting worse but last Wednesday about a week ago she had a chicken that got stuck for 20 minutes and it was the worst that she has had. It eventually passed on its own. ROS General General: No weight change, appetite, fatigue, colon cancer, breast cancer or weakness HEENT HEENT: Yes difficulty swallowing; No eye injury, eye surgery, swollen glands or hoarseness Endo Endocrine: Yes thyroid disease; No diabetes mellitus, thyroid cancer, Hair loss, heat intolerance or cold intolerance Skin Skin: No rash or changing moles Musc Musculoskeletal: Yes arthritis; No back problems, rheumatoid arthritis, gout or joint pain Cardio Cardiovascular: Yes heart disease, atrial fibrillation and high blood pressure; No murmur, pacemaker, heart attack, heart stent, palpitations, shortness of breath with exertion or chest pain Psych Psychiatric: No depression, anxiety or hearing voices Resp Respiratory: Yes shortness of breath, No sleep apnea, No cough, No COPD, No asthma, No emphysema and No wheezing Gastro Gastrointestinal: No abdominal pain, No nausea or vomiting, Yes diarrhea, No constipation, No blood in stool, Yes acid reflux, No hemorrhoids, No ulcers, No gallbladder problem and No black,tarry stools Zeyad Hematologic: No blood thinners, No blood disorders, No bleeding, No anemia and No blood clots Neuro Neurologic: No system reviewed and no additional complaints, except as documented, No as per HPI, No abnormal gait, No abnormal hearing, No abnormal movements, No abnormal speech, No behavioral changes, No burning sensations, No confusion, No convulsions, No disequilibrium, No dizziness, No localized weakness, No frequent falls, No headache(s), No lack of coordination, No loss ofvision, No memory loss, No numbness, No other visual disturbances, No radicular pain, No restless legs, No sensory deficit, No syncope, No tingling, No tremor(s), No weakness and No other Exam Const General: cooperative Orientation: alert and oriented x3 HENMT Head: normal to inspection Neck Neck: normal visual inspection and full ROM Chest Chest palpation & inspection: normal inspection of the chest Resp Effort & Inspection: normal respiratory effort Auscultation: clear to auscultation bilaterally Cardio Rate: regular rate Rhythm: regular rhythm GI Inspection: non-distended Palpation: soft and nontender Skin General: no rashes or lesions noted Neuro General: patient alert and patient oriented x3 Extrem General: full ROM Psych Appearance: grossly normal Mental Status: mental status grossly normal Assessment and Plan Assessment and Plan (1) Esophageal stenosis: Status: Acute Plan: Patient is having dysphagia. I would like to perform an EGD with possible dilation. I discussed the risks including but not limited to bleeding, infection, perforation of the esophagus. Patient understands the risks and is willing to proceed. I did inform her that the risk of perforation and bleeding go up with dilation. She will stop her aspirin for 5 days. Abner Stein MD Pager: [facility] [address] [place] [address], [address] [place] [address] Office: I have examined the patient and the H&P has been reviewed. There are no clinicalchanges since date of exam. 01/30/25 09 <Electronically signed by Abner Stein MD> Cosigner Signature (if applicable): CC: Dr. Abner Stein MD; Dr. Noel Araujo MD~ Signed [facility] Work Phone: 1(125) 870-331305-27-2025 Consult note [facility] Medical Records Department [address] [place] [address] Anesthesia Postop Eval I 01/30/25 1020 MR#: [id number] Acct: [id number] Name: JAMIE GANT Rep #:[id number] : 1965 59 From: Sameer Fuentes PCP: Dr. Noel Araujo MD Status:REG SDC Y Race: C Location: [place] [address] Anesthesia: Postop Eval I Current Vital Signs Temperature: 97.4 F Pulse Rate: 55 Blood Pressure: 101/59 Respiratory Rate: 16 Pulse Ox: 96 Oxygen Delivery Method: Room Air Assessment Airway patent: Yes Spontaneous unlabored respirations: Yes Mental status: Awake and Calm nausea: No Vomiting: No Anesthesia Complication: No Fluid Hydration Crystalloid volume administer (ml): 500 Total IV fluid infused: 500 Progress Note Anesthesia document: Postop Eval 1 completed: Yes 01/30/25 1021 > Date _ Sameer Marquez Signature: Date CC: ~ Signed [facility]05-27-2025 Procedure note [facility] Medical Records Department [address] [place] [address] EGD Report MR#: [id number] Acct: [id number] Name: JAMIE GANT Rep #:[id number] : 1965 59 From: Abner love MD PCP: Dr. Noel Araujo MD Status:[facility] Patient Name: Jamie Gant Procedure Date: 01/30/2025 9:52 AM Date of : 1965 Age: 59 Procedure: Upper GI endoscopy Indications: Dysphagia Providers: Abner Stein MD Medicines: Propofol per Anesthesia Patient Profile: This is a 59 year old female. Refer to note in patient chart for documentation of history and physical. Complications: No immediate complications. Estimated blood loss: Minimal. Procedure: Pre-Anesthesia Assessment: - Prior to the procedure, a History and Physical was performed, and patient medications and allergies were reviewed. The patient's tolerance of previous anesthesia was also reviewed. The risks and benefits of the procedure and the sedation options and risks were discussed with the patient. All questions were answered, and informed consent was obtained. Prior Anticoagulants: The patient has taken no anticoagulant or antiplatelet agents. After reviewing the risks and benefits, the patient was deemed in satisfactory condition to undergo the procedure. After obtaining informed consent, the endoscope was passed under direct vision. Throughout the procedure, the patient's blood pressure, pulse, and oxygen saturations were monitored continuously. The gastroscope was introduced through the mouth, and advanced to the third part of duodenum. The upper GI endoscopy was accomplished without difficulty. The patient tolerated the procedure well. Scope In: 10:04:25 AM Scope Out: 10:09:22 AM Total Procedure Duration Time 0 hours 4 minutes 57 seconds Findings: One benign-appearing, intrinsic moderate (circumferential scarring or stenosis; an endoscope may pass) stenosis was found at the gastroesophageal junction. The stenosis was traversed. A TTS dilator was passed through the scope. Dilation with a 15-16.5-18 mm balloon dilator was performed to 18 mm. The dilation site was examined following endoscope reinsertion and showed moderate improvement in luminal narrowing. Estimated blood loss was minimal. The stomach was normal. The examined duodenum was normal. Impression: - Benign-appearing esophageal stenosis. Dilated. - Normal stomach. - Normal examined duodenum. - No specimens collected. Recommendation: - Discharge patient to home. - Resume previous diet. - Continue present medications. Procedure Code(s): --- Professional --- 69033, Esophagogastroduodenoscopy, flexible, transoral; with transendoscopic balloon dilation of esophagus (less than 30 mm diameter) Diagnosis Code(s): --- Professional --- K22.2, Esophageal obstruction R13.10, Dysphagia, unspecified CPT copyright 2021 [employer]. All rights reserved. The codes documented in this report are preliminary and upon classroom coordinator review may be revised to meet current compliance requirements. Abner Stein MD 01/30/2025 10:12:00 AM This report has been signed electronically. Number of Addenda: 0 Note Initiated On: 01/30/2025 9:52 AM 01/30/25 1012 Date _ Abner Stein MD Cosigner Signature: Date (if indicated) CC: Dr. Abner Stein MD; Dr. Noel Araujo MD ~ Date Dictated: 01/30/25951 Date Transcribed: Oracle E Business Developer: VARGHESE Signed [facility]05-27-2025 Procedure note [facility] Medical Records Department [address] [place] [address] Operative Report - CC Letter MR#: [id number] Acct: [id number] Name: JAMIE GANT Rep #:[id number] : 1965 59 From: Abner love MD PCP: Dr. Noel Araujo MD Status:REG [facility] 01/30/2025 Noel Araujo [facility] [address] [place] [id number] Re : Upper GI endoscopy procedure for Jamie Gant Dear Dr. Araujo This procedure was performed on Thursday, January 30, 2025. My impressions and recommendations are as follows: Impressions : - Benign-appearing esophageal stenosis. Dilated. - Normal stomach. - Normal examined duodenum. - No specimens collected. Recommendations : - Discharge patient to home. - Resume previous diet. - Continue present medications. My findings are described in the full procedure note, which is enclosed. If I can be of further assistance, please feel free to contact me at Doctor phone number(s): , Work: . Sincerely, Abner Stein MD 01/30/2025 10:12:00 AM This report has been signed electronically. 01/30/25 1012 Date _ Abner Stein MD Cosigner Signature: Date (if indicated) CC: Dr. Abner Stein MD; Dr. Noel Araujo MD ~ Date Dictated: 01/30/25 0952 Date Transcribed: [employer] E Business Developer: VARGHESE Signed [facility]05-27-2025 Consult note [facility] Medical Records Department [address] [place] [address] Pre-Anesthesia Evaluation 01/30/25 0922 MR#: [id number] Acct: [id number] Name: JAMIE GANT Rep #:[id number] : 1965 59 From: Bao Sarmiento MD PCP: Dr. Noel Arajuo MD Status:REG SDC Y Race: C Location: [place] [address] ASA Classification* ASA Classification ASA Classification: 3 Assessment & Plan Anesthesia* Anesthesia Assessment Anesthesia Assessment: Discussed sedation and/or anesthesia options, risks, benefits, and alternatives with patient/parents/legal guardian/POA. Questions invited. The patient/parents/legal guardian/POA seems to understand and agrees to proceedwith anesthesia plan. Reviewed the physical assessment, medical history, allergy history and patient home medications list prior to surgery/procedure/anesthetic and documented any changes. Performed airway and anesthesia risk assessments. Anesthesia Type Anesthesia Type: MAC History Source History Obtained from:: Patient and Chart Anesthesia Focused Assessment* Temperature: 97.7 F Pulse Rate: 58 Blood Pressure: 134/62 Respiratory Rate: 16 Pulse Ox: 100 Oxygen Delivery Method: Room Air Airway Assessment Mouth opens: >3 cm Mallampati Score: III Teeth Condition: Caps/Crowns (Patient has couple crowns. They are tight.) Neck Range of motion (ROM): Limited ROM (slight decrease in extension) Focused Labs Anesthesia Preop lab: CBC WBC 7.4 K/mm3 (4.4-11.0) 12/11/24 00:30 12/11/24 RBC 4.40 M/mm3 (4.2-5.4) 12/11/24 00:30 12/11/24 Hgb 14.0 g/dL (12.0-15.0) 12/11/24 00:30 12/11/24 Hct 41.1 % (37-47) 12/11/24 00:30 12/11/24 Plt Count 236 K/mm3 (150-450) 12/11/24 00:30 12/11/24 CHEMISTRY Potassium 4.3 mmol/L (3.3-5.1) 12/11/24 00:30 12/11/24 Sodium 138 mmol/L (133-145) 12/11/24 00:30 12/11/24 Magnesium 2.0 mg/dL (1.5-2.2) 11/20/24 17:25 11/20/24 BUN 20 mg/dL (4-19) H 12/11/24 00:30 12/11/24 Creatinine 0.75 mg/dL (0.70-1.20) 12/11/24 00:30 12/11/24 Glucose 131 mg/dL (70-99) H 12/11/24 00:30 12/11/24 POC Glucose 162 mg/dL (74-106) H 11/09/22 08:22 11/09/22 TSH 0.732 uIU/mL (0.300-4.200) 11/20/24 17:25 11/04 03/30 COAG Urine Test Negative Negative 02/07/21 07:10 02/07/21 Pre-Assessment Diagnosis/Proposed Procedure Planned Operative Procedure(s): EGD POSS DILATION Anesthesia History Anesthesia History - specification consultant: Anesthesia History - specification consultant Hx Hospitalization Yes: 11/2024 [facility] R[facility] 01/25/25 08:56 /HYPERTENSION UNCONTROLLED Any Problems With Anesthesia Yes: SLOW TO AWAKEN 01/25/25 08:56 Cholinesterase deficiency No 01/25/25 08:56 You/Your Family Experience No 01/25/25 08:56 fever (hyperthermia) with Relationship Recent Exposure to Contagious No 01/30/25 08:48 Disease Does patient have nerve No 01/25/25 08:56 stimulator Patient instructed to have device shut off --Does patient have Pacemaker No 01/30/25 08:48 or ICD? When Was Last Pacemaker Check QUESTION #4 FULL TEXT: You/Your Family Experience fever (hyperthermia) with Anesthesia Last Oral Intake Last Oral intake: Last Oral Intake NPO since 06:00 01/30/25 08:48 Meds taken in AM with sips of Yes 01/30/25 08:48 water? Meds patient instructed to see medlist 01/30/25 08:48 take am of surgery Any additional information?: Yes Meds taken in AM with sips of water?: Yes PONV PONV - specification consultant: PONV - specification consultant Female Yes 01/25/25 08:56 HX of Motion Sickness No 01/25/25 08:56 HX of N/V After Surgery No 01/25/25 08:56 Non-Smoker Yes 01/25/25 08:56 Duration of Surgery greater No 01/25/25 08:56 than 60 minutes Number of Risk Factors 2 01/25/25 08:56 PONV Score Moderate Risk 01/25/25 08:56 Height & Weight Height & Weight: Anesthesia: Height & Weight Height 5 ft 4 in 01/30/25 08:48 Weight: 114.3 kg 01/30/25 08:48 Body Mass Index (BMI) 43.2 01/30/25 08:48 Respiratory Assessment Respiratory Assessment - specification consultant: Respiratory Tract Infection Hx - specification consultant Hx Respiratory Tract Infection No 01/25/25 08:56 STOP Sleep Apnea STOP Sleep Apnea - specification consultant: STOP Sleep Apnea - specification consultant Hx Hypertension Yes: CONTROLLED WITH MEDS 01/25/25 08:56 Hx Sleep Apnea No 01/25/25 08:56 CPAP No 11/06/24 08:21 BIPAP Do you snore loudly (louder Yes 01/25/25 08:56 than talking or can be heard Do you often feel tired/ Yes 01/25/25 08:56 fatigued/ sleepy during daytime? Has anyone observed you stop No 01/25/25 08:56 breathing during sleep? STOP Results Positive 01/25/25 08:56 QUESTION #5 FULL TEXT : Do you snore loudly (louder than talking or can be heard through closeddoors)? 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 Specify any problems Hx of Preganancy in last 3 No 01/25/25 08:56 Months Nurse Filling Out Transfusion DSCHRIBER 01/25/25 08:56 & Questions: Date: 01/25/25 01/25/25 08:56 Time: 08:58 01/25/25 08:56 Patient unable to answer at this time (ie. confused, unrespo /Reproduction History /Reproductive History - specification consultant: /Reproductive Hx- specification consultant Hx Now No 01/25/25 08:56 Gestational Age (in weeks): EDC: Hx Hx Para Hx Section SAB No 01/25/25 08:56 Active Medications Active Medications: Current Medications Generic Name Dose Route Start Last Admin Trade Name Freq PRN Reason Stop Dose Admin Lactated Ringer's 1,000 mls @ 15 mls/hr 01/30/25 08:45 01/30/25 09:00 IV 15 mls/hr .Q48H AG Administration PFSH Medical History Diabetes High cholesterol Easy bruising Syncope Difficulty swallowing Gastric reflux Shortness of breath on exertion Hypertension Cardiology follow-up encounter Normal Holter exam History of echocardiogram Esophageal stenosis Atrial tachycardia PAC (premature atrial contraction) Tachyarrhythmia Chest pain Episodic lightheadedness Left foot pain Right elbow pain Fall Fatigue Strain of left knee Contusion of left knee Insulin resistance Thyroid disease Migraine headache History of hiatal hernia Non-smoker Wears glasses Arthritis Dysphagia Depression Other and unspecified hyperlipidemia Hypothyroidism Home Medications ?Medication ?Instructions ?Recorded ?Last Taken ?Type aspirin 81 mg tablet,delayed 81 mg PO DAILY 08/07/20 0 01/24/25 History release cholecalciferol (vitamin D3) 50 50 mcg PO DAILY 02/06/21 09:00 History mcg (2,000 unit) capsule famotidine 20 mg tablet (Pepcid AC) 20 mg PO BID #60 t abs 03/13/21 01/30/25 Rx loratadine 10 mg tablet 10 mg PO DAILY PRN allergy s ymptoms 10/29/21 Unknown History zinc gluconate 50 mg tablet 50 mg PO DAILY 02/23/24 Un known History vitamin B complex 1 tab PO DAILY 03/29/24 Unkn own History atorvastatin 40 mg tablet 40 mg PO DAILY #90 tabs 09/06 11/28 Unknown Rx fluoxetine 20 mg capsule (Prozac) 20 mg PO DAILY #90 c aps 10/23/24 01/30/25 Rx flecainide 100 mg tablet 100 mg PO BID 11/16/2401/30 History metoprolol succinate 25 mg 25 mg PO DAILY #1 TAB 12/1101/30/25 Rx tablet,extended release 24 hr levothyroxine 125 mcg tablet 125 mcg PO DAILY #90 tabs 01/17/25 01/30/25 Rx lisinopril 40 mg tablet 40 mg PO QDAY 01/23/25 Unkno wn History spironolactone 25 mg tablet 25 mg PO QDAY 01/23/25 Unk nown History magnesium 200 mg tablet 400 mg PO DAILY 01/25/25 Unk nown History Allergy/AdvReac Type Severity Reaction Status Date / Time bromodiphenhydramine (From Allergy Mild unknown Verified 01/30/25 08:47 Ambenyl) codeine (From Ambenyl) Allergy Mild unknown Verified 01/30/25 08:47 erythromycin base (From Allergy Mild unknown Verified 01/30/25 08:47 Kayden-Tab) nystatin Allergy Mild unknown Verified 01/25/25 08:53 sulfamethoxazole (From Allergy Mild Rash Verified 01/30/25 08:47 Bactrim) Tetracyclines Allergy Mild unknown Verified 01/30/25 08:47 trimethoprim (From Bactrim) Allergy Mild Rash Verified 01/30/25 08:47 Family History Mother Myocardial infarction Thyroid disorder Heart disease Hypertension Lung cancer Diabetes CVA (cerebral vascular accident) Grandmother Myocardial infarction Sister Breast cancer Diabetes Father Leukemia Diabetes Other Cancer Surgical History History of breast biopsy H/O total hysterectomy Hx of colonoscopy S/P thyroid biopsy S/P colonoscopy S/P tonsillectomy S/P wrist surgery RIGHT WRIST Social History household members: spouse number of children: 3 current occupational status: employed current occupation: [employer] Smoking Status: Never smoker Electronic Cigarette Use: not used second hand exposure: No alcohol intake: current alcohol intake frequency: holidays/special occasions only Alcohol type: wine substance use type: does not use caffeine: Yes what type of physical activity do you participate in: none frequency: decline to answer elma/spiritism: Rastafari seatbelt use: always do you feel safe at home: Yes Review of Systems (Anesthesia) ROS Narrative System reviewed and no additional complaints, except as documented. 01/30/25931 vivi LANDRY> Date _ Bao Sarmiento MD Cosigner Signature: Date CC: ~ Signed [facility]05-27-[address] [facility] Medical Records Department [address] [place] [address] History & Physical Exam 01/30/25915 MR#: [id number] Acct: [id number] Name: JAMIE GANT Rep #:[id number] : 1965 59 From: Abner love MD PCP: Dr. Noel Araujo MD Status:[facility] Location: [place] [address] History and Physical Date of Admission: 01/30/25 Intake Vital Signs 12/10/2522:14 01/23/2509:05 Height 5 ft 4 in 5 ft 4 in Weight: 251 lb 6.4 oz 254 lb BMI 43.1 43.6 BP 169/80 H 131/85 H Blood Pressure Location Rt brachial Position Sitting Respiration 16 17 Pulse 56 L 58 L Pulse Source Monitor Temp 98.3 F Temp Source Oral Pulse Oximetry (%) 98 98 Oxygen Delivery Method room air Intake Visit Reasons: DIFFICULTY SWALLOWING Chief Complaint: difficulty swallowing Is patient in pain?: No Allergies bromodiphenhydramine (From Ambenyl) Allergy (Mild, Verified 01/23/25 09:06) unknowncodeine (From Ambenyl) Allergy (Mild, Verified 01/23/25 09:06) unknownerythromycin base (From Kayden-Tab) Allergy (Mild, Verified 01/23/25 09:06) unknownnystatin Allergy (Mild, Verified 01/23/25 09:06) unknownsulfamethoxazole (From Bactrim) Allergy (Mild, Verified 01/23/25 09:06) RashTetracyclines Allergy (Mild, Verified 01/23/25 09:06) unknowntrimethoprim (From Bactrim) Allergy (Mild, Verified 01/23/25 09:06) Rash Medications ?Medication ?Instructions ?Recorded ?Confirmed ?Type aspirin 81 mg tablet,delayed 81 mg PO DAILY 08/07/20 01/23/25 History release cholecalciferol (vitamin D3) 50 50 mcg PO DAILY 08/07/20 01/23/25 Histor y mcg (2,000 unit) capsule famotidine 20 mg tablet (Pepcid AC) 20 mg PO BID #60 tabs 03/13/21 01/23/25 Rx loratadine 10 mg tablet 10 mg PO DAILY PRN allergy symptoms 10/0801/23/25 History zinc gluconate 50 mg tablet 50 mg PO DAILY 02/23/24 01/23/25 History vitamin B complex 1 tab PO DAILY 03/29/24 01/23/25 History atorvastatin 40 mg tablet 40 mg PO DAILY #90 tabs 09/18/24 5 Rx fluoxetine 20 mg capsule (Prozac) 20 mg PO DAILY #90 caps 10/23/24 5 Rx flecainide 100 mg tablet 100 mg PO BID 11/16/24 01/23/25 History metoprolol succinate 25 mg 25 mg PO DAILY #1 TAB 12/11/24 01/23/25 Rx tablet,extended release 24 hr levothyroxine 125 mcg tablet 125 mcg PO DAILY #90 tabs 01/17/2501/23 Rx lisinopril 40 mg tablet 40 mg PO QDAY 01/23/25 01/23/25 History spironolactone 25 mg tablet 25 mg PO QDAY 01/23/25 01/23/25 History PFSH Medical History Esophageal stenosis Insulin resistance Essential hypertension Atrial tachycardia PAC (premature atrial contraction) Tachyarrhythmia Chest pain Episodic lightheadedness Left foot pain Right elbow pain Fall Fatigue Strain of left knee Contusion of left knee Thyroid disease Migraine headache History of hiatal hernia Non-smoker History of pain when walking History of edema Wears glasses Alcohol use Difficulty swallowing Difficulty chewing Gastric reflux Arthritis Dysphagia Depression Other and unspecified hyperlipidemia Hypothyroidism Surgical History History of breast biopsy H/O total hysterectomy Hx of colonoscopy S/P thyroid biopsy S/P colonoscopy S/P tonsillectomy S/P wrist surgery RIGHT WRIST Family History Mother Myocardial infarction Thyroid disorder Heart disease Hypertension Lung cancer Diabetes CVA (cerebral vascular accident)Grandmother Myocardial infarctionSister Breast cancer DiabetesFather Leukemia DiabetesOther Cancer Social History household members: spouse number of children: 3 current occupational status: employed current occupation: [employer] Smoking Status: Never smoker Electronic Cigarette Use: not used second hand exposure: No alcohol intake: current alcohol intake frequency: holidays/special occasions only Alcohol type: wine substance use type: does not use caffeine: Yes what type of physical activity do you participate in: none frequency: decline to answer elma/spiritism: Rastafari seatbelt use: always do you feel safe at home: Yes Female Reproductive History Menstrual Ab induced: 0 Ab spontaneous: 0 Ectopics: 0 HPI HPI HPI: Patient is a 59-year-old female with dysphagia. She reports that she does have hiatal hernia. She reports that she had a EGD in 2020 with dilation. She says that the dysphagia has been getting worse but last Wednesday about a week ago she had a chicken that got stuck for 20 minutes and it was the worst that she has had. It eventually passed on its own. ROS General General: No weight change, appetite, fatigue, colon cancer, breast cancer or weakness HEENT HEENT: Yes difficulty swallowing; No eye injury, eye surgery, swollen glands or hoarseness Endo Endocrine: Yes thyroid disease; No diabetes mellitus, thyroid cancer, Hair loss, heat intolerance or cold intolerance Skin Skin: No rash or changing moles Musc Musculoskeletal: Yes arthritis; No back problems, rheumatoid arthritis, gout or joint pain Cardio Cardiovascular: Yes heart disease, atrial fibrillation and high blood pressure; No murmur, pacemaker, heart attack, heart stent, palpitations, shortness of breath with exertion orchest pain Psych Psychiatric: No depression, anxiety or hearing voices Resp Respiratory: Yes shortness of breath, No sleep apnea, No cough, No COPD, No asthma, No emphysema and No wheezing Gastro Gastrointestinal: No abdominal pain, No nausea or vomiting, Yes diarrhea, No constipation, No bloodin stool, Yes acid reflux, No hemorrhoids, No ulcers, No gallbladder problem and No black,tarry stools Zeyad Hematologic: No blood thinners, No blood disorders, No bleeding, No anemia and No blood clots Neuro Neurologic: No system reviewed and no additional complaints, except as documented, No as per HPI, No abnormal gait, No abnormal hearing, No abnormal movements, No abnormal speech, No behavioral changes, No burning sensations, No confusion, No convulsions, No disequilibrium, No dizziness, No localized weakness, No frequent falls, No headache(s), No lack of coordination, No loss ofvision, No memoryloss, No numbness, No other visual disturbances, No radicular pain, No restless legs, No sensory deficit, No syncope, No tingling, No tremor(s), No weakness and No other Exam Const General: cooperative Orientation: alert and oriented x3 HENMT Head: normal to inspection Neck Neck: normal visual inspection and full ROM Chest Chest palpation & inspection: normal inspection of the chest Resp Effort & Inspection: normal respiratory effort Auscultation: clear to auscultation bilaterally Cardio Rate: regular rate Rhythm: regular rhythm GI Inspection: non-distended Palpation: soft and nontender Skin General: no rashes or lesions noted Neuro General: patient alert and patient oriented x3 Extrem General: full ROM Psych Appearance: grossly normal Mental Status: mental status grossly normal Assessment and Plan Assessment and Plan (1) Esophageal stenosis: Status: Acute Plan: Patient is having dysphagia. I would like to perform an EGD with possible dilation. I discussed therisks including but not limited to bleeding, infection, perforation of the esophagus. Patient understands the risks and is willing to proceed. I did inform her that the risk of perforation and bleeding go up with dilation. She will stop her aspirin for 5 days. Abner Stein MD Pager: [facility] [address] [place] [address], [address] [place] [phone] Office: I have examined the patient and the H&P has been reviewed. There are no clinicalchanges since date of exam. 01/30/25 [id number] Cosigner Signature (if applicable): CC: Dr. Abner Stein MD; Dr. Noel Araujo MD~ Signed [facility]05-27-2025 [facility] [facility] Medical Records Department [address] [place] [address] Emergency Department Summary 12/11/24 MR#: [id number] Acct: [id number] Name: JAMIE GANT Rep #:[id number] : 1965 59 From: Morales Eubanks MD PCP: Dr. Noel Araujo MD Status:REG ER Location: ED HPI History of Present Illness Chief Complaint: Shortness of Breath Informant: patient and spouse/S.O. Narrative Narrative: 59-year-old female has had dyspnea with exertion for about 5 weeks now. She states she has occasionally had chest discomfort with exertion, and lightheadedness, she has never had any syncopal episodes. She denies any leg painor swelling, history of DVT or PE, she was hospitalized at [facility] for short period of time at the beginning of all of this, after she was seen in the ED andhad a negative workup, and saw EP cardiology, she had Holter monitor, event monitor, none of which show dysrhythmia, she was tachycardic at 1 point and toldthat she may have had a dysrhythmia but they were not sure according to her and her , she is currently on metoprolol and has been dyspneic with exertion ever since. She states she is scheduled for an MRI of her heart and following up after that. She has been checking her pulse ox occasionally at home. Today around 12 hours ago she felt dyspneic after light activity and checked her pulseox and it was 85%. She states it recovered into the 90s after half a minute or so. Usually she feels better with resting for a minute or so. She has no new symptoms.She is been seen here in the ER several times for this and had negative workups. As above she is seeing cardiology and getting worked up for all of this. She was awakened by her son-in-law who is a fourth-year medical student [employer], who told them when he found out about her transient hypoxemia, that she may have a blood clot and that she should come to the ER immediately manohar evaluated. Right now at rest, as usual at home, she is asymptomatic. [facility] Medical History Insulin resistance Essential hypertension Atrial tachycardia PAC (premature atrial contraction) Tachyarrhythmia Chest pain Episodic lightheadedness Left foot pain Right elbow pain Fall Fatigue Strain of left knee Contusion of left knee Thyroid disease Migraine headache History of hiatal hernia Non-smoker History of pain when walking History of edema Wears glasses Alcohol use Difficulty swallowing Difficulty chewing Gastric reflux Arthritis Dysphagia Depression Other and unspecified hyperlipidemia Hypothyroidism Home Medications ?Medication ?Instructions ?Recorded ?Last Taken ?Type aspirin 81 mg tablet,delayed 81 mg PO DAILY 08/07/20 0 02/01/21 09:00 History release cholecalciferol (vitamin D3) 50 50 mcg PO DAILY 02/06/21 09:00 History mcg (2,000 unit) capsule famotidine 20 mg tablet (Pepcid AC) 20 mg PO BID #60 t abs 03/13/21 11/09/22 04:45 Rx loratadine 10 mg tablet 10 mg PO DAILY PRN allergy s ymptoms 10/29/21 Unknown History zinc gluconate 50 mg tablet 50 mg PO DAILY 02/23/24 Un known History levothyroxine 125 mcg tablet 125 mcg PO DAILY #90 tabs 03/27/24 Unknown Rx vitamin B complex 1 tab PO DAILY 03/29/24 Unkn own History atorvastatin 40 mg tablet 40 mg PO DAILY #90 tabs 09/06 11/28 Unknown Rx fluoxetine 20 mg capsule (Prozac) 20 mg PO DAILY #90 c aps 10/23/24 Unknown Rx flecainide 100 mg tablet 100 mg PO BID 11/16/24 Unkno wn History metoprolol succinate 25 mg 25 mg PO DAILY #1 TAB 12/11 Unknown Rx tablet,extended release 24 hr Allergy/AdvReac Type Severity Reaction Status Date / Time bromodiphenhydramine (From Allergy Mild unknown Verified 12/10/24 23:15 Ambenyl) codeine (From Ambenyl) Allergy Mild unknown Verified 12/10/24 23:15 erythromycin base (From Allergy Mild unknown Verified 12/10/24 23:15 Kayden-Tab) nystatin Allergy Mild unknown Verified 12/10/24 23:15 sulfamethoxazole (From Allergy Mild Rash Verified 12/10/24 23:15 Bactrim) Tetracyclines Allergy Mild unknown Verified 12/10/24 23:15 trimethoprim (From Bactrim) Allergy Mild Rash Verified 12/10/24 23:15 Family History Mother Myocardial infarction Thyroid disorder Heart disease Hypertension Lung cancer Diabetes CVA (cerebral vascular accident) Grandmother Myocardial infarction Sister Breast cancer Diabetes Father Leukemia Diabetes Other Cancer Surgical History History of breast biopsy H/O total hysterectomy Hx of colonoscopy S/P thyroid biopsy S/P colonoscopy S/P tonsillectomy S/P wrist surgery RIGHT WRIST Social History household members: spouse number of children: 3 current occupational status: employed current occupation: [employer] Smoking Status: Never smoker Electronic Cigarette Use: not used second hand exposure: No alcohol intake: current alcohol intake frequency: holidays/special occasions only Alcohol type: wine substance use type: does not use caffeine: Yes what type of physical activity do you participate in: none frequency: decline to answer elma/spiritism: Rastafari seatbelt use: always do you feel safe at home: Yes ROS ROS ED Constitutional Constitutional ED: Denies chills or fever(s) Eyes Eyes: Denies change in vision or diplopia ENT ENT ED: Denies rhinorrhea or sore throat Cardiovascular Cardiovascular: Reports chest pain and lightheadedness; Denies orthopnea, palpitations or syncope Respiratory/Chest Respiratory/Chest: Reports dyspnea on exertion; Denies cough, dyspnea or orthopnea Gastrointestinal Gastrointestinal: Denies abdominal pain, diarrhea, nausea or vomiting Genitourinary Genitourinary ED: Denies dysuria or hematuria Musculoskeletal Musculoskeletal: Denies back pain or neck pain Integumentary Denies abscess or rash Neurologic Neurologic: Denies headache(s), paresthesias or weakness Psychiatric Psychiatric: Denies anxiety or suicidal thoughts EXAM Physical Exam Const Vital Signs: 12/10/24 23:14 12/10/24 23:37 12/11/24 01:07 Temperature 98.3 F 98 F Temperature Source Oral Oral Pulse Rate 56 L 53 L Respiratory Rate 16 16 Respiratory Effort Normal Respiratory Depth Normal Respiratory Pattern Normal Blood Pressure 169/80 H 163/76 H Blood Pressure Mean 109 105 Pulse Ox 98 95 Oxygen Delivery Method Room Air Room Air Positive well nourished and well developed General Appearance ED: well developed and NAD HEENT Reports moist mucous membranes normocephalic and atraumatic Eyes PERRL and EOMs intact bilaterally Neck full ROM, no lymphadenopathy, supple and no JVD Resp normal respiratory effort and clear to auscultation bilaterally Cardio regular rate, regular rhythm and no murmurs Cardio Narrative: Borderline bradycardia GI non-tender and non-distended Auscultation: normoactive bowel sounds Palpation: soft Back/Spine no CVA tenderness General Back: other FROM Extremity normal to inspection General Extremety ED: Negative for edema, pulses abnormal or tenderness General Extremity: Negative for edema or pulses abnormal Neuro oriented x3, CN's II-XII intact bilaterally and no sensory deficits noted Sensorium / Orientation: awake and alert Motor Exam: strength 5/5 throughout Psych mental status grossly normal Skin no rashes or lesions noted and no wounds MDM MDM MDM Narrative Medical decision making narrative: I reviewed the prior workup that the patient had which included a negative D- dimer less than 2 weeks ago, the patient confirms that she had the same symptomsthen and denies any new symptoms now. She has no objective findings of a DVT here clinically, and I do not think this needs to be repeated. I discussed withthem, I do not think she has a PE given the fact she was already ruled out for that. This could be an electrical issue, she also is fairly bradycardic and is on metoprolol 25 mg twice daily, and she may be on too much metoprolol and not able to increase her heart rate with demand making her feel dyspneic. I did some labs and an EKG, I do not really feel that I need to repeat her chest x- raysince she has had 3 in the last month and they were all normal and her lungs areclear right now and her pulse ox is normal at rest. With ambulation she did notdesat here, no lower than 95%, andall of the above are unremarkable. It is also possible that her low reading at home was not accurate. I recommend cutting her metoprolol in half and following up with her screening nurse to see if that makes a difference. I confirmed with her and her that she is indeed is on metoprolol succinatetwice daily. We are cutting it back to once daily. They are amenable to that plan. History & Record Review Additional record(s) reviewed:: Prior ED visit Lab Data Attestation: I reviewed the patient's lab results. Labs: Laboratory Results - last 24 hr 12/11/24 00:30 WBC 7.4 RBC 4.40 Hgb 14.0 Hct 41.1 MCV 93.4 MCH 31.8 MCHC 34.1 RDW Std Deviation 45.1 H RDW Coeff of Anegl 13.2 Plt Count 236 MPV 10.6 Immature Gran % (Auto) 0.100 Neut % (Auto) 56.5 Lymph % (Auto) 32.8 Mercer % (Auto) 7.5 Eos % (Auto) 2.4 Baso % (Auto) 0.7 Absolute Neuts (auto) 4.2 Absolute Lymphs (auto) 2.42 Nucleated RBC % 0 Sodium 138 Potassium 4.3 Chloride 103 Carbon Dioxide 25.5 Anion Gap 10 BUN 20 H Creatinine 0.75 Estim Creat Clear Calc 100.00 Est GFR (MDRD) Non-Af 91 BUN/Creatinine Ratio 26.6 H Glucose 131 H Calcium 9.6 Troponin T High Sens < 6 Rhythm Strip Rhythm Strip: sinus bry Rate: 55 Ectopy: None EKG Initial EKG: Attestation: I personally reviewed and interpreted this EKG as follows: Interpretation: No Acute Injury Pattern, Sinus Bradycardia and AV Block (1st deg) Comments: diffuse precordial T-wave flattening - nonspecific Prior EKG tracings: available for review Prior: Unchanged Discharge Plan Triage Chief Complaint: Shortness of Breath ED Provider: Morales Eubanks Dx/Rx/DC Orders Clinical Impression: Dyspnea on exertion, Bradycardia, drug induced Instructions: Understanding Bradycardia, ED Dyspnea Prescriptions: Continued aspirin 81 mg tablet,delayed release (DR/EC) 81 mg PO DAILY cholecalciferol (vitamin D3) 50 mcg (2,000 unit) capsule 50 mcg PO DAILY famotidine [Pepcid AC] 20 mg tablet 20 mg PO BID Qty: 60 6RF loratadine 10 mg tablet 10 mg PO DAILY PRN (Reason: allergy symptoms) zinc gluconate 50 mg tablet 50 mg PO DAILY vitamin B complex Tablet 1 tab PO DAILY flecainide 100 mg tablet 100 mg PO BID levothyroxine 125 mcg tablet 125 mcg PO DAILY Qty: 90 3RF atorvastatin 40 mg tablet 40 mg PO DAILY Qty: 90 3RF fluoxetine [Prozac] 20 mg capsule 20 mg PO DAILY Qty: 90 3RF Changed metoprolol succinate 25 mg tablet extended release 24 hr 25 mg PO DAILY Qty: 1 0RF Primary Care Provider: Noel Araujo Referrals: your screening nurse [Other] - Keep Ag appointment Noel Araujo MD [Primary Care Provider] - Print Language: Scottish Disposition Disposition: Home, Self Care What to do if you have Problems For any increased pain, shortness of breath, bleeding, nausea or vomiting, chestpain, or any unexpected problems, contact your Primary Care Provider. Call [facility] ([phone]) or report tothe closest Emergency Room. Call 911 if necessary. 12/11/24 0148 Cosigner Signature (if applicable): CC: Dr. Noel Araujo MD ~ Signed [facility]03-24-2025 Radiology Diagnostic study note [facility] Imaging Services [address] [place] [id number] Chest 1 View (Portable) MR#: [id number] Acct: [id number] Name: JAMIE GANT Rep #: [id number] : 1965 F 59 From: Eneida Pacheco MD PCP: Dr. Noel Araujo MD Status: PRE ER Study:Chest 1 View (Portable) Date of Exam: 11/27/24 Exam# [id number] Ordering Dr: Eric Castaneda DO EXAM: XR Chest, 1 View CLINICAL INDICATION: CHEST PAIN TECHNIQUE: Frontal view of the chest. COMPARISON: No relevant prior studies available. FINDINGS: LUNGS AND PLEURAL SPACES: Unremarkable. No consolidation. No pneumothorax. HEART: Unremarkable. No cardiomegaly. MEDIASTINUM: Unremarkable. Normal mediastinal contour. BONES/JOINTS: Unremarkable. No acute fracture. RAD/Chest 1 View (Portable) IMPRESSION: No acute cardiopulmonary process. Reading [facility] CC: Dr. Eric Alba DO; Dr. Noel Araujo MD ~ [employer] E Business Developer: Signed [facility]03-17-2025 Radiology Diagnostic study note [facility] Imaging Services [address] [place], [place] [id number] Chest PA and Lateral MR#: [id number] Acct: [id number] Name: JAMIE GANT Rep #: [id number] : 1965 F 59 From: Eneida Miranda MD PCP: Dr. Noel Araujo MD Status: REG ER Study:Chest PA and Lateral Date of Exam: 11/20/24 Exam# [id number] Ordering Dr: Amrik Pahceco DO PROCEDURE: CHEST PA AND LATERAL (RADCXR), 11/20/2024 REASON FOR EXAM: CHEST PAIN TECHNIQUE: PA and lateral views of the chest were obtained. COMPARISON: 11/05/2024 FINDINGS: Heart: Unremarkable. Mediastinum: Unremarkable. Lungs/pleura: Trace linear bibasilar likely atelectasis/scarring.. No effusion or visible pneumothorax. Redemonstrated roughly 13 mm nodule in the left. Bones: Multilevel spondylosis. Suspect demineralization.. Lines and support devices: None. RAD/Chest PA and Lateral IMPRESSION: 1. No visible acute cardiopulmonary findings.Trace linear bibasilar likely atelectasis/scarring 2. Redemonstrated roughly 13 mm nodule on the left. Recommend outpatient CT chest. Comparison with any available outside imaging may also be helpful. 3. Additional description as above. Reading Location: [id number] CC: Dr. Noel Araujo MD; Dr. Amrik Pacheco DO ~ [employer] E Business Developer: Signed [facility]03-06-[facility] Evaluation note* Diagnosis Onset Date Resolution Status Admit Date Essential hypertension acute [facility] 2024 4:51am Insulin resistance acute November 07, 2024 4:51am Chest pain inactive November 07 4:51am Episodic lightheadedness inactive November 07, 2024 4:51am Hypothyroidism inactive November 07, 2024 4:51am Other and unspecified hyperlipidemia inactive November 07, 2024 4:51am PAC (premature atrial contraction) inactive November 07, 2024 4:51am Tachyarrhythmia inactive November 4:51am Atrial tachycardia acute November 16, 2024 10:28am Episodic lightheadedness acute November 16, 2024 10:28am Essential hypertension acute [facility] 2024 10:28am Insulin resistance acute November 16, 2024 10:28am Nodule of left lung acute November 16, 2024 10:28am UTI (urinary tract infection) acute November 19, 2024 7:58am Esophageal stenosis acute January 052024 8:52am [facility] Work Phone: 1([phone]) 540-580103-04-2025 [facility]03-03-2025 Evaluation note* Diagnosis Onset Date Resolution Status Admit Date Episodic lightheadedness inactive November 06, 2024 11:25am Essential hypertension acute [facility] 2024 11:25am Obesity acute November 06 11:25am Chest pain inactive November 06 11:25am Hypothyroidism inactive November 06, 2024 11:25am Orthostatic hypotension inactive [facility] 2024 11:25am Essential hypertension acute [facility] 2024 4:51am Insulin resistance acute November 07, 2024 4:51am Chest pain inactive November 07 4:51am Episodic lightheadedness inactive November 07, 2024 4:51am Hypothyroidism inactive November 07, 2024 4:51am Other and unspecified hyperlipidemia inactive November 07, 2024 4:51am PAC (premature atrial contraction) inactive November 07, 2024 4:51am Tachyarrhythmia inactive November 4:51am Atrial tachycardia acute November 16, 2024 10:28am Episodic lightheadedness acute November 16, 2024 10:28am Essential hypertension acute [facility] 2024 10:28am Insulin resistance acute November 16, 2024 10:28am Nodule of left lung acute November 16, 2024 10:28am UTI (urinary tract infection) acute November 19, 2024 7:58am Esophageal stenosis acute January 052024 8:52am [facility] Work Phone: 1(921) 382-321702-21-2025 Evaluation note* Diagnosis Onset Date Resolution Status Admit Date Acute sinusitis acute October 27, 2024 2:04pm Episodic lightheadedness inactive November 06, 2024 11:25am Essential hypertension acute [facility] 2024 11:25am Obesity acute November 06 11:25am Chest pain inactive November 06 11:25am Hypothyroidism inactive November 06, 2024 11:25am Orthostatic hypotension inactive [facility] 2024 11:25am Essential hypertension acute [facility] 2024 4:51am Insulin resistance acute November 07, 2024 4:51am Chest pain inactive November 07 4:51am Episodic lightheadedness inactive November 07, 2024 4:51am Hypothyroidism inactive November 07, 2024 4:51am Other and unspecified hyperlipidemia inactive November 07, 2024 4:51am PAC (premature atrial contraction) inactive November 07, 2024 4:51am Tachyarrhythmia inactive November 4:51am Atrial tachycardia acute November 16, 2024 10:28am Episodic lightheadedness acute November 16, 2024 10:28am Essential hypertension acute [facility] 2024 10:28am Insulin resistance acute November 16, 2024 10:28am Nodule of left lung acute November 16, 2024 10:28am UTI (urinary tract infection) acute November 19, 2024 7:58am Esophageal stenosis acute January 052024 8:52am [facility] Work Phone: 1(846) 880-241402-07-2025 Evaluation note* Diagnosis Onset Date Resolution Status Admit Date Acute bronchitis acute October 13, 2024 10:04am Influenza due to influenza virus, type A, human acute October 10:04am Acute sinusitis acute October 27, 2024 2:04pm Episodic lightheadedness inactive November 06, 2024 11:25am Essential hypertension acute [facility] 2024 11:25am Obesity acute November 06 11:25am Chest pain inactive November 06 11:25am Hypothyroidism inactive November 06, 2024 11:25am Orthostatic hypotension inactive [facility] 2024 11:25am Essential hypertension acute [facility] 2024 4:51am Insulin resistance acute November 07, 2024 4:51am Chest pain inactive November 07 4:51am Episodic lightheadedness inactive November 07, 2024 4:51am Hypothyroidism inactive November 07, 2024 4:51am Other and unspecified hyperlipidemia inactive November 07, 2024 4:51am PAC (premature atrial contraction) inactive November 07, 2024 4:51am Tachyarrhythmia inactive November 4:51am Atrial tachycardia acute November 16, 2024 10:28am Episodic lightheadedness acute November 16, 2024 10:28am Essential hypertension acute [facility] 2024 10:28am Insulin resistance acute November 16, 2024 10:28am Nodule of left lung acute November 16, 2024 10:28am UTI (urinary tract infection) acute November 19, 2024 7:58am [facility] Work Phone: 1(950) 205-446902-07-2025 Evaluation note* Diagnosis Onset Date Resolution Status Admit Date Acute bronchitis acute October 13, 2024 10:04am Influenza due to influenza virus, type A, human acute October 10:04am Acute sinusitis acute October 27, 2024 2:04pm Episodic lightheadedness inactive November 06, 2024 11:25am Essential hypertension acute [facility] 2024 11:25am Obesity acute November 06 11:25am Chest pain inactive November 06 11:25am Hypothyroidism inactive November 06, 2024 11:25am Orthostatic hypotension inactive [facility] 2024 11:25am Essential hypertension acute [facility] 2024 4:51am Insulin resistance acute November 07, 2024 4:51am Chest pain inactive November 07 4:51am Episodic lightheadedness inactive November 07, 2024 4:51am Hypothyroidism inactive November 07, 2024 4:51am Other and unspecified hyperlipidemia inactive November 07, 2024 4:51am PAC (premature atrial contraction) inactive November 07, 2024 4:51am Tachyarrhythmia inactive November 4:51am Atrial tachycardia acute November 16, 2024 10:28am Episodic lightheadedness acute November 16, 2024 10:28am Essential hypertension acute [facility] 2024 10:28am Insulin resistance acute November 16, 2024 10:28am Nodule of left lung acute November 16, 2024 10:28am UTI (urinary tract infection) acute November 19, 2024 7:58am Esophageal stenosis acute January 052024 8:52am [facility] Work Phone: 1(988) 142-857012-12-2024 Evaluation note* Diagnosis Onset Date Resolution Status Admit Date Essential hypertension acute [facility]2023 9:19am Insulin resistance acute [facility] 2023 9:19am Depression chronic August 17, 2024 9:19am Hypothyroidism inactive August 062023 9:19am Other and unspecified hyperlipidemia inactive August 17 9:19am Acute bronchitis acute October 13, 2024 10:04am Influenza due to influenza virus, type A, human acute October 10:04am Acute sinusitis acute October 27, 2024 2:04pm Episodic lightheadedness inactive November 06, 2024 11:25am Essential hypertension acute [facility] 2024 11:25am Obesity acute November 06 11:25am Chest pain inactive November 06 11:25am Hypothyroidism inactive November 06, 2024 11:25am Orthostatic hypotension inactive [facility] 2024 11:25am Essential hypertension acute [facility] 2024 4:51am Insulin resistance acute November 07, 2024 4:51am Chest pain inactive November 07 4:51am Episodic lightheadedness inactive November 07, 2024 4:51am Hypothyroidism inactive November 07, 2024 4:51am Other and unspecified hyperlipidemia inactive November 07, 2024 4:51am PAC (premature atrial contraction) inactive November 07, 2024 4:51am Tachyarrhythmia inactive November 4:51am Atrial tachycardia acute November 16, 2024 10:28am Episodic lightheadedness acute November 16, 2024 10:28am Essential hypertension acute [facility] 2024 10:28am Insulin resistance acute November 16, 2024 10:28am Nodule of left lung acute November 16, 2024 10:28am [facility] Work Phone: 1(692) 554-593112-12-2024 Evaluation note* Diagnosis Onset Date Resolution Status Admit Date Essential hypertension acute De cem2023 9:19am Insulin resistance acute [facility] 2023 9:19am Depression chronic August 17, 2024 9:19am Hypothyroidism inactive August 062023 9:19am Other and unspecified hyperlipidemia inactive August 17 9:19am Acute bronchitis acute October 13, 2024 10:04am Influenza due to influenza virus, type A, human acute October 10:04am Acute sinusitis acute October 27, 2024 2:04pm Episodic lightheadedness inactive November 06, 2024 11:25am Essential hypertension acute [facility] 2024 11:25am Obesity acute November 06 11:25am Chest pain inactive November 06 11:25am Hypothyroidism inactive November 06, 2024 11:25am Orthostatic hypotension inactive [facility] 2024 11:25am Essential hypertension acute [facility] 2024 4:51am Insulin resistance acute November 07, 2024 4:51am Chest pain inactive November 07 4:51am Episodic lightheadedness inactive November 07, 2024 4:51am Hypothyroidism inactive November 07, 2024 4:51am Other and unspecified hyperlipidemia inactive November 07, 2024 4:51am PAC (premature atrial contraction) inactive November 07, 2024 4:51am Tachyarrhythmia inactive November 4:51am Atrial tachycardia acute November 16, 2024 10:28am Episodic lightheadedness acute November 16, 2024 10:28am Essential hypertension acute [facility] 2024 10:28am Insulin resistance acute November 16, 2024 10:28am Nodule of left lung acute November 16, 2024 10:28am UTI (urinary tract infection) acute November 19, 2024 7:58am [facility] Work Phone: 1(368) 491-673903-06-[address] Hernández [facility] November 09, 2022 11:33am Note Date/Time November 09, 2022 11:3 3am [facility] Medical Records Department [address] [facility] [place] [address] Instructions for Home/Discharge Instructions 11/09/22 1133 MR#: [id number] Acct: [id number] Name: JAMIE GANT Rep #:[id number] : 1965 56 From: Cooper Hernández MD PCP: Dr. Noel Araujo MD Status:REG [facility] Discharge Instructions Diet Discharge Diet: No restrictions Activity Discharge Activity: Return to Normal Activity, May Drive, May Shower and - (No tub baths for 2 weeks) May resume sexual activity in: 4-6 weeks Lifting Restrictions: No lifting over 25 pounds for 2-3 Dressing / Incision Call your doctor if your incision/area has: Continuous Slow Oozing and Foul Smelling Discharge Call your doctor if you observe: Fever of 101 or Higher, Shortness of breath andChest pain Follow Up Care Please Follow Up With: Cooper Hernández MD When: 2 weeks postoperatively Test Results: Test results from this visit will be discussed in further detail at your follow- up appointment, if applicable. Discharge Plan Admission Attending Provider: Cooper Hernández Primary Care Provider: Noel Araujo Discharge Orders/Prescriptions Prescriptions: New oxycodone-acetaminophen [Percocet] 5-325 mg tablet 1 tab PO Q6H PRN (Reason: pain (scale score 7-10)) 5 Days Qty: 20 0RF Continued aspirin 81 mg tablet,delayed release (DR/EC) 81 mg PO DAILY cholecalciferol (vitamin D3) 50 mcg (2,000 unit) capsule 50 mcg PO DAILY famotidine [Pepcid AC] 20 mg tablet 20 mg PO BID Qty: 60 6RF zinc 50 mg tablet 50 mg PO DAILY ascorbate calcium (vitamin C) 500 mg tablet 500 mg PO DAILY loratadine 10 mg tablet 10 mg PO DAILY PRN (Reason: allergy symptoms) calcium carbonate 500 mg calcium (1,250 mg) Tablet 500 mg PO DAILY lisinopril 10 mg tablet 10 mg PO DAILY Qty: 90 3RF hydrochlorothiazide 25 mg tablet 25 mg PO DAILY Qty: 90 3RF fluoxetine [Prozac] 20 mg capsule 20 mg PO DAILY Qty: 90 3RF levothyroxine 112 mcg tablet 112 mcg PO DAILY Qty: 90 3RF atorvastatin 40 mg tablet 40 mg PO DAILY Qty: 90 3RF Referrals / Follow Up: Noel Araujo MD [Primary Care Provider] - Disposition Disposition (needs filled in before D/C Order can be placed): Home, Self Care 11/09/22 1133<Electronically signed by Cooper Hernández MD>Cooper Hernández MD CC: Dr. Noel Araujo MD ~ Signed [facility] Work Phone: 1(661) 461-129803-06-2023 Procedure [facility] 11-09-2022 History and physical note Author Dr. Hernández [facility] November 09, 2022 8:19am Note Date/Time November 09, 2022 8:19 am [facility] Medical Records Department [address] [place] [address] H&P Exam - [employer] 11/09/22 0816 MR#: [id number] Acct: [id number] Name: JAMIE GANT Rep #:[id number] : 1965 56 From: Cooper Hernández MD PCP: Dr. Noel Araujo MD Status:[facility] Location: [place] [address] History and Physical Date of Admission: 11/09/22 Chief complaint: Abnormal uterine bleeding History present illness: 56-year-old arrives for robotic assisted total laparoscopic hysterectomy bilateral salpingo-oophorectomy and cystoscopy for abnormal uterine bleeding. No medical changes since last seen. All questions answered and consent signed. Obstetric history: with a history of vaginal deliveries Past medical history: Hypertension, hyperlipidemia, GERD, hypothyroid Medications: Aspirin, atorvastatin, famotidine, fluoxetine, hydrochlorothiazide,levothyroxine, lisinopril, loratadine Past surgical history: Ablation, wisdom tooth extraction, wrist surgery Allergies: Codeine, erythromycin, nystatin, Bactrim, tetracycline Family history: Denies history DVT or PE Social history: Denies smoking, alcohol use, drug use Review of systems: Besides above pertinent positives a full review of systems was performed and found to be negative Physical exam: Vitals: Pending General: Normal-appearing no acute distress HEENT: Normocephalic/atraumatic no cervical lymphadenopathy Cardiac/respiratory: No use accessory muscles, nonlabored breathing Abdomen: Soft, nontender, obese Extremities: No peripheral edema normal peripheral pulses Psych: Normal affect and remainder nonpressured speech Assessment and plan: 56-year-old elects for robotic assisted total laparoscopic hysterectomy bilateral salpingo-oophorectomy and cystoscopy for abnormal uterine bleeding. Patient understands the risk of the procedure include but are not limited to visceral or vascular injury, prolonged hospitalization, blood loss and need for transfusion, reoperation. Patient state understanding wish to proceed. All questions were answered and consent was signed 11/09/22818 <Electronically signed by Cooper Hernández MD> Cosigner Signature (if applicable): CC: Dr. Cooper Hernández MD; Dr. Noel Araujo MD~ Signed [facility] Work Phone: 1(374) 862-214107-23-2021 NotePatient Outreach (NETNAV) JAMIE GANT ([id number]) 1965 F Date Time Provider Department 03/28/21 SOCO KENYON (PSS) NETNAV During your visit today, we recorded the following information about you: Soco [facility] 03/28/2021 8:10 AM Signed POPULATION HEALTH NAVIGATION OUTREACH Action/FYI Spoke w/patient regarding Cervical Cancer screening-she see a provider outside of [facility] for that. She has not had it [...] future healthcare decisions with a power of assistant prosecuting attorney, living will, or advance directives? Referrals: Message Sent to Practice: Navigation Signature: Soco [facility] March 28, 2021 8:09 AM Allergies As [...] Visit: Population Health Navigation Outreach [3910] Cmt: [facility] ANNUAL EXAM Prescriptions as of 03/28/2021 [...] 05/08/2020 Encounter Status:Closed by SOCO LIMA on 03/28/21[facility] 03-28-2021 NoteHNO ID: [id number] Author: Soco [place] Service: ? Author Type: ? Type: Progress Notes Filed: 03/28/2021 8:10 AM Note Text: POPULATION HEALTH NAVIGATION OUTREACH Action/FYI Spoke w/patient regarding Cervical Cancer screening-she see a provider outside of [facility] for that. She has not had it [...] future healthcare decisions with a power of assistant prosecuting attorney, living will, or advance directives? Referrals: Message Sent to Practice: Navigation Signature: Soco De Leon March 28, 2021 8:09 [facility]05-27-2021 NotePatient Outreach (MIQ) JAMIE GANT ([id number]) 1965 F Date Time Provider Department 01/30/21 GILMA PHELAN MIJeromy During your visit today, we recorded the following information about you: Gilma Phelan 01/30/2021 11:54 AM Signed Care Gap Reviewed: Controlling Blood Pressure Phone call placed to patient. Pt identified by name and : NO Outreach Outcome/Action: Outreached was completed 01/21. If patient deferred or declined to schedule appointment, please indicate the reason(s): Gilma Phelan Allergies As of Date: 01/30/2021 Noted [...] Hypothyroidism, acquired [E03.9] 05/08/2020 Encounter Status:Closed by GILMA PHELAN on 01/30/21[facility]05-27-2021 NoteHNO ID: [id number] Author: Gilma Phelan Service: ? Author Type: ? Type: Progress Notes Filed: 01/30/2021 11:54 AM Note Text: Care Gap Reviewed: Controlling Blood Pressure Phone call placed to patient. Pt identified by name and : NO Outreach Outcome/Action: Outreached was completed 01/21. If patient deferred or declined to schedule appointment, please indicate the reason(s): [facility] NotePatient Outreach (FAMPWS) JAMIE GANT ([id number]) 1965 F Date Time Provider Department 01/21/21 KENZIE FLORIAN (RAZ) CARLENEPWS During your visit today, we recorded the following information about you: Kenzie Clark LPN 01/21/2021 10:53 AM Signed POPULATION HEALTH NAVIGATION OUTREACH Action/FYI 6 month [...] on 12/15/2010 PAP TESTING due on 05/21/2019 Kenzie Clark LPN January 21, 2021 10:49 AM Allergies As of Date: 01/21/2021 Noted Allergy Reaction ambenyl [Other] 06/13/2005 16 - Unknown BACTRIM (SULFAMETHOXAZOLE-TRIMETH*03/15/2015 2 - Rash ERYTHROMYCIN 06/13/2005 16 - Unknown mysteclin [Other] 06/13/2005 16 - Unknown NYSTATIN 06/13/2005 16 - Unknown TETRACYCLINE 06/13/2005 16 - Unknown Date Reviewed: 08/19/2020 Reviewed by: Mariann Michaels LPN - Fully Assessed Reason for Visit: PHMA/Care Gap Outreach [[id number]] Prescriptions as of 01/21/2021 Sig: HYDROCHLOROTHIAZIDE 25 [...] Hypothyroidism, acquired [E03.9] 05/08/2020 Encounter Status:Closed by KENZIE CLARK LPN on 01/21/21[facility]05-18-2021 NoteHNO ID: [id number] Author: Kenzie Clark LPN Service: ? Author Type: ? Type: [...] on 12/15/2010 PAP TESTING due on 05/21/2019 Kenzie ChangAdrianaSeveriano RAZ January 21, 2021 10:49 [facility]06-30-2020 Evaluation + Plan note Future Appointments Appointment Date:12/19/2024 09:30:00 AM Scheduled Provider: Location:[facility] Appointment Type:CV OV CHF Appointment Date:03/05/2025 11:15:00 AM Scheduled Provider:NELLI LEON Location:[facility] Appointment Type:CV OV [facility] Chief complaint+Reason for visit Narrative* Chief Complaint covid test COVID-19 covid positive R LEG PAIN, BEHIND KNEE RIGHT LEG SWELLING AND PAIN/STAT EORDER right knee/leg OBESITY Reason for Visit COVID Calf swelling Right calf pain Obesity Right knee DJD [facility] Work Phone: Discharge summary Author Morales Eubanks [facility] Note Date/Time December 11, 2024 1:48 am [facility] Medical Records Department [address] [place] [address] Emergency Department Summary 12/11/24 MR#: [id number] Acct: [id number] Name: JAMIE GANT Rep #:[id number] 2 : 1965 59 From: Morales Eubanks MD PCP: Dr. Noel Araujo MD Status:REG ER Location: ED HPI History of Present Illness Chief Complaint: Shortness of Breath Informant: patient and spouse/S.O. Narrative Narrative: 59-year-old female has had dyspnea with exertion for about 5 weeks now. She states she has occasionally had chest discomfort with exertion, and lightheadedness, she has never had any syncopal episodes. She denies any leg painor swelling, history of DVT or PE, she was hospitalized at [facility] for short period of time at the beginning of all of this, after she was seen in the ED andhad a negative workup, and saw EP cardiology, she had Holter monitor, event monitor, none of which show dysrhythmia, she was tachycardic at 1 point and toldthat she may have had a dysrhythmia but they were not sure according to her and her , she is currently on metoprolol and has been dyspneic with exertion ever since. She states she is scheduled for an MRI of her heart and following up after that. She has been checking her pulse ox occasionally at home. Today around 12 hours ago she felt dyspneic after light activity and checked her pulseox and it was 85%. She states it recovered into the 90s after half a minute or so. Usually she feels better with resting for a minute or so. She has no new symptoms. She is been seen here in the ER several times for this and had negative workups. As above she is seeing cardiology and getting worked up for all of this. She was awakened by her son-in-law who is a fourth-year medical student [employer], who told them when he found out about her transient hypoxemia, that she may have a blood clot and that she should come to the ER immediately manohar evaluated. Right now at rest, as usual at home, she is asymptomatic. [facility] Medical History Insulin resistance Essential hypertension Atrial tachycardia PAC (premature atrial contraction) Tachyarrhythmia Chest pain Episodic lightheadedness Left foot pain Right elbow pain Fall Fatigue Strain of left knee Contusion of left knee Thyroid disease Migraine headache History of hiatal hernia Non-smoker History of pain when walking History of edema Wears glasses Alcohol use Difficulty swallowing Difficulty chewing Gastric reflux Arthritis Dysphagia Depression Other and unspecified hyperlipidemia Hypothyroidism Home Medications ?Medication ?Instructions ?Recorded ?Last Taken ?Type aspirin 81 mg tablet,delayed 81 mg PO DAILY 08/07/20 0 02/01/21 09:00 History release cholecalciferol (vitamin D3) 50 50 mcg PO DAILY 02/06/21 09:00 History mcg (2,000 unit) capsule famotidine 20 mg tablet (Pepcid AC) 20 mg PO BID #60 t abs 03/13/21 11/09/22 04:45 Rx loratadine 10 mg tablet 10 mg PO DAILY PRN allergy s ymptoms 10/29/21 Unknown History zinc gluconate 50 mg tablet 50 mg PO DAILY 02/23/24 Un known History levothyroxine 125 mcg tablet 125 mcg PO DAILY #90 tabs 03/27/24 Unknown Rx vitamin B complex 1 tab PO DAILY 03/29/24 Unkn own History atorvastatin 40 mg tablet 40 mg PO DAILY #90 tabs 09/06 11/28 Unknown Rx fluoxetine 20 mg capsule (Prozac) 20 mg PO DAILY #90 c aps 10/23/24 Unknown Rx flecainide 100 mg tablet 100 mg PO BID 11/16/24 Unkno wn History metoprolol succinate 25 mg 25 mg PO DAILY #1 TAB 12/11 Unknown Rx tablet,extended release 24 hr Allergy/AdvReac Type Severity Reaction Status Date / Time bromodiphenhydramine (From Allergy Mild unknown Verified 12/10/24 23:15 Ambenyl) codeine (From Ambenyl) Allergy Mild unknown Verified 12/10/24 23:15 erythromycin base (From Allergy Mild unknown Verified 12/10/24 23:15 Kayden-Tab) nystatin Allergy Mild unknown Verified 12/10/24 23:15 sulfamethoxazole (From Allergy Mild Rash Verified 12/10/24 23:15 Bactrim) Tetracyclines Allergy Mild unknown Verified 12/10/24 23:15 trimethoprim (From Bactrim) Allergy Mild Rash Verified 12/10/24 23:15 Family History Mother Myocardial infarction Thyroid disorder Heart disease Hypertension Lung cancer Diabetes CVA (cerebral vascular accident) Grandmother Myocardial infarction Sister Breast cancer Diabetes Father Leukemia Diabetes Other Cancer Surgical History History of breast biopsy H/O total hysterectomy Hx of colonoscopy S/P thyroid biopsy S/P colonoscopy S/P tonsillectomy S/P wrist surgery RIGHT WRIST Social History household members: spouse number of children: 3 current occupational status: employed current occupation: [employer] Smoking Status: Never smoker Electronic Cigarette Use: not used second hand exposure: No alcohol intake: current alcohol intake frequency: holidays/special occasions only Alcohol type: wine substance use type: does not use caffeine: Yes what type of physical activity do you participate in: none frequency: decline to answer elma/spiritism: Rastafari seatbelt use: always do you feel safe at home: Yes ROS ROS ED Constitutional Constitutional ED: Denies chills or fever(s) Eyes Eyes: Denies change in vision or diplopia ENT ENT ED: Denies rhinorrhea or sore throat Cardiovascular Cardiovascular: Reports chest pain and lightheadedness; Denies orthopnea, palpitations or syncope Respiratory/Chest Respiratory/Chest: Reports dyspnea on exertion; Denies cough, dyspnea or orthopnea Gastrointestinal Gastrointestinal: Denies abdominal pain, diarrhea, nausea or vomiting Genitourinary Genitourinary ED: Denies dysuria or hematuria Musculoskeletal Musculoskeletal: Denies back pain or neck pain Integumentary Denies abscess or rash Neurologic Neurologic: Denies headache(s), paresthesias or weakness Psychiatric Psychiatric: Denies anxiety or suicidal thoughts EXAM Physical Exam Const Vital Signs: 12/10/24 23:14 12/10/24 23:37 12/11/24 01:07 Temperature 98.3 F 98 F Temperature Source Oral Oral Pulse Rate 56 L 53 L Respiratory Rate 16 16 Respiratory Effort Normal Respiratory Depth Normal Respiratory Pattern Normal Blood Pressure 169/80 H 163/76 H Blood Pressure Mean 109 105 Pulse Ox 98 95 Oxygen Delivery Method Room Air Room Air Positive well nourished and well developed General Appearance ED: well developed and NAD HEENT Reports moist mucous membranes normocephalic and atraumatic Eyes PERRL and EOMs intact bilaterally Neck full ROM, no lymphadenopathy, supple and no JVD Resp normal respiratory effort and clear to auscultation bilaterally Cardio regular rate, regular rhythm and no murmurs Cardio Narrative: Borderline bradycardia GI non-tender and non-distended Auscultation: normoactive bowel sounds Palpation: soft Back/Spine no CVA tenderness General Back: other FROM Extremity normal to inspection General Extremety ED: Negative for edema, pulses abnormal or tenderness General Extremity: Negative for edema or pulses abnormal Neuro oriented x3, CN's II-XII intact bilaterally and no sensory deficits noted Sensorium / Orientation: awake and alert Motor Exam: strength 5/5 throughout Psych mental status grossly normal Skin no rashes or lesions noted and no wounds MDM MDM MDM Narrative Medical decision making narrative: I reviewed the prior workup that the patient had which included a negative D- dimer less than 2 weeks ago, the patient confirms that she had the same symptomsthen and denies any new symptoms now. She has no objective findings of a DVT here clinically, and I do not think this needs to be repeated. I discussed withthem, I do not think she has a PE given the fact she was already ruled out for that. This could be an electrical issue, she also is fairly bradycardic and is on metoprolol 25 mg twice daily, and she may be on too much metoprolol and not able to increase her heart rate with demand making her feel dyspneic. I did some labs and an EKG, I do not really feel that I need to repeat her chest x-raysince she has had 3 in the last month and they were all normal and her lungs areclear right now and her pulse ox is normal at rest. With ambulation she did notdesat here, no lower than 95%, and all of the above are unremarkable. It is also possible that her low reading at home was not accurate. I recommend cutting her metoprolol in half and following up with her screening nurse to see if that makes a difference. I confirmed with her and her that she is indeed is on metoprolol succinate twice daily. We are cutting it back to once daily. They are amenable to that plan. History & Record Review Additional record(s) reviewed:: Prior ED visit Lab Data Attestation: I reviewed the patient's lab results. Labs: Laboratory Results - last 24 hr 12/11/24 00:30 WBC 7.4 RBC 4.40 Hgb 14.0 Hct 41.1 MCV 93.4 MCH 31.8 MCHC 34.1 RDW Std Deviation 45.1 H RDW Coeff of Angel 13.2 Plt Count 236 MPV 10.6 Immature Gran % (Auto) 0.100 Neut % (Auto) 56.5 Lymph % (Auto) 32.8 Mercer % (Auto) 7.5 Eos % (Auto) 2.4 Baso % (Auto) 0.7 Absolute Neuts (auto) 4.2 Absolute Lymphs (auto) 2.42 Nucleated RBC % 0 Sodium 138 Potassium 4.3 Chloride 103 Carbon Dioxide 25.5 Anion Gap 10 BUN 20 H Creatinine 0.75 Estim Creat Clear Calc 100.00 Est GFR (MDRD) Non-Af 91 BUN/Creatinine Ratio 26.6 H Glucose 131 H Calcium 9.6 Troponin T High Sens < 6 Rhythm Strip Rhythm Strip: sinus bry Rate: 55 Ectopy: None EKG Initial EKG: Attestation: I personally reviewed and interpreted this EKG as follows: Interpretation: No Acute Injury Pattern, Sinus Bradycardia and AV Block (1st deg) Comments: diffuse precordial T-wave flattening - nonspecific Prior EKG tracings: available for review Prior: Unchanged Discharge Plan Triage Chief Complaint: Shortness of Breath ED Provider: Morales Eubanks Dx/Rx/DC Orders Clinical Impression: Dyspnea on exertion, Bradycardia, drug induced Instructions: Understanding Bradycardia, ED Dyspnea Prescriptions: Continued aspirin 81 mg tablet,delayed release (DR/EC) 81 mg PO DAILY cholecalciferol (vitamin D3) 50 mcg (2,000 unit) capsule 50 mcg PO DAILY famotidine [Pepcid AC] 20 mg tablet 20 mg PO BID Qty: 60 6RF loratadine 10 mg tablet 10 mg PO DAILY PRN (Reason: allergy symptoms) zinc gluconate 50 mg tablet 50 mg PO DAILY vitamin B complex Tablet 1 tab PO DAILY flecainide 100 mg tablet 100 mg PO BID levothyroxine 125 mcg tablet 125 mcg PO DAILY Qty: 90 3RF atorvastatin 40 mg tablet 40 mg PO DAILY Qty: 90 3RF fluoxetine [Prozac] 20 mg capsule 20 mg PO DAILY Qty: 90 3RF Changed metoprolol succinate 25 mg tablet extended release 24 hr 25 mg PO DAILY Qty: 1 0RF Primary Care Provider: Noel Araujo Referrals: your screening nurse [Other] - Keep Ag appointment Noel Araujo MD [Primary Care Provider] - Print Language: Scottish Disposition Disposition: Home, Self Care What to do if you have Problems For any increased pain, shortness of breath, bleeding, nausea or vomiting, chestpain, or any unexpected problems, contact your Primary Care Provider. Call [facility] ([phone]) or report to the closest Emergency Room. Call 911 if necessary. 12/11/24 0148 <Electronically signed by Morales Eubanks MD> Cosigner Signature (if applicable): CC: Dr. Noel Araujo MD ~ Signed [facility] Work Phone: Evaluation + Plan note Future Appointments Appointment Date:01/17/2025 09:45:00 AM Scheduled Provider: Location:[facility] Appointment Type:CV OV Appointment Date:03/05/2025 11:15:00 AM Scheduled Provider:NELLI LEON Location:[facility] Appointment Type:CV OV [facility] Evaluation + Plan note Future Appointments Appointment Date:01/17/2025 09:45:00 AM Scheduled Provider: Location:[facility] Appointment Type:CV OV Appointment Date:03/05/2025 11:15:00 AM Scheduled Provider:NELLI LEON Location:[facility] Appointment Type:CV OV Future Scheduled Tests Laboratory* Basic Metabolic Panel 01/02/25 * Basic Metabolic Panel 03/04/25 * Basic Metabolic Panel 04/03/25 * Basic Metabolic Panel 05/04/25 * Basic Metabolic Panel 06/04/25 * Basic Metabolic Panel 07/04/25 * Basic Metabolic Panel 08/04/25 * Basic Metabolic Panel 09/03/25 * Basic Metabolic Panel 10/04/25 * Basic Metabolic Panel 11/03/25 * Basic Metabolic Panel 12/02/25 [facility] Evaluation + Plan note Future Appointments Appointment Date:03/05/2025 09:00:00 AM Scheduled Provider: Location:[facility] Lab Appointment Type:CV Procedure - Heart Lab/Hybrid OR Appointment Date:03/27/2025 09:00:00 AM Scheduled Provider: Location:[facility] Appointment Type:CV OV Appointment Date:03/27/2025 11:15:00 AM Scheduled Provider: Location:[facility] Appointment Type:CV OV CHF Appointment Date:03/30/2025 03:30:00 PM Scheduled Provider:NELLI LEON Location:[facility] Appointment Type:CV OV Appointment Date:05/04/2025 01:30:00 PM Scheduled Provider:NELLI LEON Location:[facility] Appointment Type:CV OV Future Scheduled Tests Laboratory* Basic Metabolic Panel 01/02/25 * Basic Metabolic Panel 03/04/25 * Basic Metabolic Panel 04/03/25 * Basic Metabolic Panel 05/04/25 * Basic Metabolic Panel 06/04/25 * Basic Metabolic Panel 07/04/25 * Basic Metabolic Panel 08/04/25 * Basic Metabolic Panel 09/03/25 * Basic Metabolic Panel 10/04/25 * Basic Metabolic Panel 11/03/25 * Basic Metabolic Panel 12/02/25 [facility] Evaluation + Plan note Future Appointments Appointment Date:03/05/2025 11:30:00 AM Scheduled Provider: Location:Heart Lab Appointment Type:CV Procedure - Heart Lab/Hybrid OR Appointment Date:03/27/2025 09:00:00 AM Scheduled Provider: Location:[facility] Appointment Type:CV OV Appointment Date:03/27/2025 11:15:00 AM Scheduled Provider: Location:[facility] Appointment Type:CV OV CHF Appointment Date:03/30/2025 03:30:00 PM Scheduled Provider:NELLI LEON Location:[facility] Appointment Type:CV OV Appointment Date:05/04/2025 01:30:00 PM Scheduled Provider:NELLI LEON Location:[facility] Appointment Type:CV OV Future Scheduled Tests Laboratory* Basic Metabolic Panel 01/02/25 * Basic Metabolic Panel 04/03/25 * Basic Metabolic Panel 05/04/25 * Basic Metabolic Panel 06/04/25 * Basic Metabolic Panel 07/04/25 * Basic Metabolic Panel 08/04/25 * Basic Metabolic Panel 09/03/25 * Basic Metabolic Panel 10/04/25 * Basic Metabolic Panel 11/03/25 * Basic Metabolic Panel 12/02/25 [facility] Evaluation + Plan note Future Appointments Appointment Date:03/27/2025 09:00:00 AM Scheduled Provider: Location:[facility] Appointment Type:CV OV Appointment Date:03/27/2025 11:15:00 AM Scheduled Provider: Location:[facility] Appointment Type:CV OV CHF Appointment Date:03/30/2025 03:30:00 PM Scheduled Provider:NELLI LEON Location:[facility] Appointment Type:CV OV Appointment Date:05/04/2025 01:30:00 PM Scheduled Provider:NELLI LEON Location:[facility] Appointment Type:CV OV Future Scheduled Tests Laboratory* Basic Metabolic Panel 01/02/25 * Basic Metabolic Panel 04/03/25 * Basic Metabolic Panel 05/04/25 * Basic Metabolic Panel 06/04/25 * Basic Metabolic Panel 07/04/25 * Basic Metabolic Panel 08/04/25 * Basic Metabolic Panel 09/03/25 * Basic Metabolic Panel 1/29/26 * Basic Metabolic Panel 11/03/25 * Basic Metabolic Panel 12/02/25 [facility] Evaluation note* Diagnosis Onset Date Resolution Status COVID acute Calf swelling acute Right calf pain acute Obesity acute Right knee DJD acute [facility] Work Phone: Evaluation note* Diagnosis Onset Date Resolution Status Calf swelling acute Right calf pain acute Obesity acute Right knee DJD acute [facility] Work Phone: Evaluation note* Diagnosis Onset Date Resolution Status Obesity acute Right knee DJD acute [facility] Work Phone: Evaluation noteNo assessment information available [facility] Work Phone: Evaluation note* Diagnosis Onset Date Resolution Status Addison's deformity of right heel acute Pain of right heel acute [facility] Work Phone: Evaluation note* Diagnosis Onset Date Resolution Status Acute bronchitis acute [facility] Work Phone: Evaluation note* Diagnosis Onset Date Resolution Status Obesity acute Depression chronic Essential hypertension chron ic Hypothyroidism chronic Other and unspecified hyperlipidemia chronic [facility] Work Phone: Evaluation note* Diagnosis Onset Date Resolution Status Contusion of left knee acute Strain of left knee acute [facility] Work Phone: Evaluation note* Diagnosis Onset Date Resolution Status Contusion of left knee acute Strain of left knee acute Insulin resistance acute Obesity acute Essential hypertension chron ic Hypothyroidism chronic Other and unspecified hyperlipidemia chronic [facility] Work Phone: Hospital course Narrative No data available for this section [facility] Hospital Discharge instructions Additional Instructions Implant Used?: [facility] Work Phone: Hospital Discharge instructions Additional Instructions Your cardiac workup negative. Electrolytes normal. Chest x-ray negative. Continue your flecainide and your metoprolol. Follow-up with your sling operator. If you have recurrent symptoms that is prolonged, return to the ED for reevaluation.[facility] Work Phone: Hospital Discharge instructions No data available for this section [facility] Hospital Discharge instructionsAdditional Instructions Call your screening nurse tomorrow to schedule follow-up appointment.[facility] Work Phone: Progress note No data available for this section [facility] Reason for referral (narrative)No reason for referral information availableWRegency [facility] Company Work Phone: Summary Purpose Family History No Family History Records Found Relationship Condition Age at Onset Recorded Date/T anamika Not Specified Malignant neoplasm Unknown mother Myocardial infarction Unknown Disorder of thyroid Unknown Cardiac disease Unknown Hypertension Unknown Malignant neoplasm of lung Unknown Diabetes mellitus Unknown Cerebrovascular accident (CVA) Unknown grandmother Myocardial infarction Unknown sister Malignant neoplasm of breast Unknown father Leukemia Unknown Advance Directives No Advanced Directives Records Found Advance Directive Response Recorded Date/ Time Living Will No January 30, 2021 2 :47pm Power of Motorized Squad Captain No January 30, 2021 2:47pm Advance Directive Response Recorded Date/ Time Living Will No January 30, 2021 1 :47pm Power of Motorized Squad Captain No January 30, 2021 1:47pm Advance Directive Response Recorded Date/ Time Living Will No October 20 023 10:19am Power of Motorized Squad Captain No October 20, 2022 10:19am Advance Directive Response Recorded Date/ Time Living Will No October 20 023 11:19am Power of Motorized Squad Captain No October 20, 2022 11:19am Advance Directive Response Recorded Date/ Time Living Will No October 20 023 11:19am Power of Motorized Squad Captain No October 20, 2022 11:19am Living Will No May 24, 2024 1:33pm Power of Motorized Squad Captain No May 1:33pm Living Will No November 07, 2024 6:44am Power of Motorized Squad Captain No November 07 6:44am Living Will No November 05, 2024 11:54am Power of Motorized Squad Captain No November 05 11:54am Advance Directive Response Recorded Date/ Time Living Will No October 20 11:19am Power of Motorized Squad Captain No October 20, 2022 11:19am Living Will No May 24, 2024 1:33pm Power of Motorized Squad Captain No May 1:33pm Living Will No November 07, 2024 6:44am Power of Motorized Squad Captain No November 07 6:44am Living Will No November 05, 2024 11:54am Power of Motorized Squad Captain No November 05 11:54am Living Will No November 20, 2024 5:13pm Power of Motorized Squad Captain No November 20 5:13pm Advance Directive Response Recorded Date/ Time Living Will No October 20, 2 023 11:19am Do you have a Healthcare Power of Motorized Squad Captain? No October 20, 2022 11:19am Living Will No May 24, 2024 1:33pm Do you have a Healthcare Power of Motorized Squad Captain? No May 24, 2024 1:33pm Living Will No November 07, 2024 6:44am Do you have a Healthcare Power of Motorized Squad Captain? No November 07, 2024 6:44am Living Will No November 27, 2024 3:05pm Do you have a Healthcare Power of Motorized Squad Captain? No November 27, 2024 3:05pm Living Will No November 05, 2024 11:54am Do you have a Healthcare Power of Motorized Squad Captain? No November 05, 2024 11:54am Living Will No November 20, 2024 5:13pm Do you have a Healthcare Power of Motorized Squad Captain? No November 20, 2024 5:13pm Advance Directive Response Recorded Date/ Time Living Will No October 20 11:19am Do you have a Healthcare Power of Motorized Squad Captain? No October 20, 2022 11:19am Living Will No May 24, 2024 1:33pm Do you have a Healthcare Power of Motorized Squad Captain? No May 24, 2024 1:33pm Living Will No November 07, 2024 6:44am Do you have a Healthcare Power of Motorized Squad Captain? No November 07, 2024 6:44am Living Will No November 27, 2024 3:05pm Do you have a Healthcare Power of Motorized Squad Captain? No November 27, 2024 3:05pm Living Will No December 10, 2024 11:14pm Do you have a Healthcare Power of Motorized Squad Captain? No December 10, 2024 11:14pm Living Will No November 05, 2024 11:54am Do you have a Healthcare Power of Motorized Squad Captain? No November 05, 2024 11:54am Living Will No November 20, 2024 5:13pm Do you have a Healthcare Power of Motorized Squad Captain? No November 20, 2024 5:13pm Advance Directive Response Recorded Date/ Time Living Will No October 20, 2 023 11:19am Do you have a Healthcare Power of Motorized Squad Captain? No October 20, 2022 11:19am Living Will No November 07, 2024 6:44am Do you have a Healthcare Power of Motorized Squad Captain? No November 07, 2024 6:44am Living Will No November 27, 2024 3:05pm Do you have a Healthcare Power of Motorized Squad Captain? No November 27, 2024 3:05pm Living Will No December 10, 2024 11:14pm Do you have a Healthcare Power of Motorized Squad Captain? No December 10, 2024 11:14pm Living Will No November 05, 2024 11:54am Do you have a Healthcare Power of Motorized Squad Captain? No November 05, 2024 11:54am Living Will No November 20, 2024 5:13pm Do you have a Healthcare Power of Motorized Squad Captain? No November 20, 2024 5:13pm Advance Directive Response Recorded Date/ Time Living Will No October 20 11:19am Do you have a Healthcare Power of Motorized Squad Captain? No October 20, 2022 11:19am Living Will No November 07, 2024 6:44am Do you have a Healthcare Power of Motorized Squad Captain? No November 07, 2024 6:44am Living Will No November 27, 2024 3:05pm Do you have a Healthcare Power of Motorized Squad Captain? No November 27, 2024 3:05pm Living Will No December 10, 2024 11:14pm Do you have a Healthcare Power of Motorized Squad Captain? No December 10, 2024 11:14pm Living Will No November 05, 2024 11:54am Do you have a Healthcare Power of Motorized Squad Captain? No November 05, 2024 11:54am Living Will No November 20, 2024 5:13pm Do you have a Healthcare Power of Motorized Squad Captain? No November 20, 2024 5:13pm Do you have a Healthcare Power of Motorized Squad Captain? No January 25, 2025 8:56am Advance Directive Response Recorded Date/ Time Living Will No November 07, 2024 6:44am Do you have a Healthcare Power of Motorized Squad Captain? No November 07, 2024 6:44am Living Will No November 27, 2024 3:05pm Do you have a Healthcare Power of Motorized Squad Captain? No November 27, 2024 3:05pm Living Will No December 10, 2024 11:14pm Do you have a Healthcare Power of Motorized Squad Captain? No December 10, 2024 11:14pm Living Will No November 05, 2024 11:54am Do you have a Healthcare Power of Motorized Squad Captain? No November 05, 2024 11:54am Living Will No November 20, 2024 5:13pm Do you have a Healthcare Power of Motorized Squad Captain? No November 20, 2024 5:13pm Do you have a Healthcare Power of Motorized Squad Captain? No January 25, 2025 8:56am Advance Directive Response Recorded Date/ Time Living Will No November 07, 2024 6:44am Do you have a Healthcare Power of Motorized Squad Captain? No November 07, 2024 6:44am Living Will No November 27, 2024 3:05pm Do you have a Healthcare Power of Motorized Squad Captain? No November 27, 2024 3:05pm Living Will No December 10, 2024 11:14pm Do you have a Healthcare Power of Motorized Squad Captain? No December 10, 2024 11:14pm Do you have a Healthcare Power of Motorized Squad Captain? No March 05, 2025 5:37pm Living Will No November 20, 2024 5:13pm Do you have a Healthcare Power of Motorized Squad Captain? No November 20, 2024 5:13pm Do you have a Healthcare Power of Motorized Squad Captain? No January 25, 2025 8:56am Chief Complaint and Reason for Visit Chief Complaint R LEG PAIN, BEHIND K NEE RIGHT LEG SWELLING AND PAIN/STAT EORDER right knee/leg OBESITY OBESITY Reason for Visit Calf swelling Right calf pain Obesity Right knee DJD Chief Complaint EORDER right knee/leg OBESITY OBESITY OBESITY Reason for Visit Obesity Right knee DJD Chief Complaint right knee/leg OBESITY OBESITY OBESITY Reason for Visit Obesity Right knee DJD Chief Complaint OBESITY OBESITY OBESITY Chief Complaint OBESITY OBESITY Chief Complaint OBESITY OBESITY bump on inside of foot OBESITY Reason for Visit Addison's deformity of right heel Pain of right heel Chief Complaint OBESITY bump on inside of foot OBESITY OBESITY Reason for Visit Addison's deformity of right heel Pain of right heel Chief Complaint OBESITY bump on inside of foot OBESITY OBESITY RT ACHILLES TENDONITIS, HEEL SPUR/RX HERE THYROID NODULE Reason for Visit Addison's deformity of right heel Pain of right heel Chief Complaint bump on inside of fo ot OBESITY OBESITY THYROID NODULE RT ACHILLES TENDONITIS, HEEL SPUR/RX HERE OBESITY Reason for Visit Addison's deformity of right heel Pain of right heel Chief Complaint OBESITY THYROID NODULE RT ACHILLES TENDONITIS, HEEL SPUR/RX HERE OBESITY Chief Complaint RT ACHILLES TENDONIT IS, HEEL SPUR/RX HERE OBESITY COUGH, RT EAR PAIN, PREOP lap robotic hysster bso, cysto Reason for Visit Acute bronchitis Chief Complaint COUGH, RT EAR PAIN, PREOP lap robotic hysster bso, cysto Reason for Visit Acute bronchitis Chief Complaint Annual Reason for Visit Obesity Depression Essential hypertension Hypothyroidism Other and unspecified hyperlipidemia Chief Complaint LEFT KNEE PAIN/INJUR Y/POST 1MONTH EORDER Reason for Visit Contusion of left kn ee Strain of left knee Chief Complaint LEFT KNEE PAIN/INJUR Y/POST 1MONTH EORDER Biometric Result Questions NODULE Reason for Visit Contusion of left kn ee Strain of left knee Insulin resistance Obesity Essential hypertension Hypothyroidism Other and unspecified hyperlipidemia Chief Complaint Admit Date PN IN R ELBOW AFTER FALL/RX HERE [facility] 2023 9:30am 6 M FU August 17, 2024 9:19am FOLLOW UP October 10, 2024 1 0:38am COUGH, WHEEZING October 13, 2024 1 0:04am EAR PAIN October 27, 2024 2:04pm DIZZINESS November 05, 2024 10:3 0am [facility] ER FU November 06, 2024 11:2 5am CHEST PAIN November 07, 2024 4:42 am DIZZINESS LIGHTHEADEDNESS, CHEST PAIN [facility] 2024 4:51am DIZZINESS LIGHTHEADEDNESS, CHEST PAIN [facility] 2024 8:35am DIZZINESS LIGHTHEADEDNESS, CHEST PAIN [facility] 2024 8:18am DIZZINESS LIGHTHEADEDNESS, CHEST PAIN [facility] 2024 4:07pm DIZZINESS LIGHTHEADEDNESS, CHEST PAIN [facility] 2024 7:07am NEAR SYNCOPE November 11, 2024 6:14 am [facility] Discharge FU November [id number] 10:28am Reason for Visit Admit Date Essential hypertension August 17 9:19am Insulin resistance August 17, 2024 9:19am Depression August 17, 2024 9:19am Hypothyroidism August 17, 2024 9:19am Other and unspecified hyperlipidemia Dec ember 2023 9:19am Acute bronchitis October 13, 2024 1 0:04am Influenza due to influenza virus, type A , human October 13, 2024 10:04am Acute sinusitis October 27, 2024 2:04pm Episodic lightheadedness November 06, 2024 11:25am Essential hypertension November 06, 2024 1 1:25am Obesity November 06, 2024 11:2 5am Chest pain November 06, 2024 11:2 5am Hypothyroidism November 06, 2024 11:2 5am Orthostatic hypotension November 06, 2024 11:25am Essential hypertension November 07, 2024 4 :51am Insulin resistance November 07, 2024 4:51 am Chest pain November 07, 2024 4:51 am Episodic lightheadedness November 07, 2024 4:51am Hypothyroidism November 07, 2024 4:51 am Other and unspecified hyperlipidemia [facility] 2024 4:51am PAC (premature atrial contraction) November 07, 2024 4:51am Tachyarrhythmia November 07, 2024 4:51 am Atrial tachycardia November 16, 2024 10: 28am Episodic lightheadedness November 16 10:28am Essential hypertension November 16, 2024 10:28am Insulin resistance November 16, 2024 10: 28am Nodule of left lung November 16, 2024 10: 28am Chief Complaint Admit Date PN IN R ELBOW AFTER FALL/RX HERE [facility] 2023 9:30am 6 M FU August 17, 2024 9:19am FOLLOW UP October 10, 2024 1 0:38am COUGH, WHEEZING October 13, 2024 1 0:04am EAR PAIN October 27, 2024 2:04pm DIZZINESS November 05, 2024 10:3 0am [facility] ER FU November 06, 2024 11:2 5am CHEST PAIN November 07, 2024 4:42 am DIZZINESS LIGHTHEADEDNESS, CHEST PAIN [facility] 2024 4:51am DIZZINESS LIGHTHEADEDNESS, CHEST PAIN [facility] 2024 8:35am DIZZINESS LIGHTHEADEDNESS, CHEST PAIN [facility] 2024 8:18am DIZZINESS LIGHTHEADEDNESS, CHEST PAIN [facility] 2024 4:07pm DIZZINESS LIGHTHEADEDNESS, CHEST PAIN [facility] 2024 7:07am NEAR SYNCOPE November 11, 2024 6:14 am [facility] Discharge FU November [id number] 10:28am POSSIBLE UTI November 19, 2024 7:5 8am DIZZINESS November 20, 2024 4:5 0pm Reason for Visit Admit Date Essential hypertension August 17 9:19am Insulin resistance August 17, 2024 9:19am Depression August 17, 2024 9:19am Hypothyroidism August 17, 2024 9:19am Other and unspecified hyperlipidemia Dec emb2023 9:19am Acute bronchitis October 13, 2024 1 0:04am Influenza due to influenza virus, type A , human October 13, 2024 10:04am Acute sinusitis October 27, 2024 2:04pm Episodic lightheadedness November 06, 2024 11:25am Essential hypertension November 06, 2024 1 1:25am Obesity November 06, 2024 11:2 5am Chest pain November 06, 2024 11:2 5am Hypothyroidism November 06, 2024 11:2 5am Orthostatic hypotension November 06, 2024 11:25am Essential hypertension November 07, 2024 4 :51am Insulin resistance November 07, 2024 4:51 am Chest pain November 07, 2024 4:51 am Episodic lightheadedness November 07, 2024 4:51am Hypothyroidism November 07, 2024 4:51 am Other and unspecified hyperlipidemia [facility] 2024 4:51am PAC (premature atrial contraction) November 07, 2024 4:51am Tachyarrhythmia November 07, 2024 4:51 am Atrial tachycardia November 16, 2024 10: 28am Episodic lightheadedness November 16 10:28am Essential hypertension November 16, 2024 10:28am Insulin resistance November 16, 2024 10: 28am Nodule of left lung November 16, 2024 10: 28am UTI (urinary tract infection) November 7:58am Chief Complaint Admit Date PN IN R ELBOW AFTER FALL/RX HERE [facility] 2023 9:30am 6 M FU August 17, 2024 9:19am FOLLOW UP October 10, 2024 1 0:38am COUGH, WHEEZING October 13, 2024 1 0:04am EAR PAIN October 27, 2024 2:04pm DIZZINESS November 05, 2024 10:3 0am [facility] ER FU November 06, 2024 11:2 5am CHEST PAIN November 07, 2024 4:42 am DIZZINESS LIGHTHEADEDNESS, CHEST PAIN [facility] 2024 4:51am DIZZINESS LIGHTHEADEDNESS, CHEST PAIN [facility] 2024 8:35am DIZZINESS LIGHTHEADEDNESS, CHEST PAIN [facility] 2024 8:18am DIZZINESS LIGHTHEADEDNESS, CHEST PAIN [facility] 2024 4:07pm DIZZINESS LIGHTHEADEDNESS, CHEST PAIN [facility] 2024 7:07am NEAR SYNCOPE November 11, 2024 6:14 am [facility] Discharge FU November [id number] 10:28am POSSIBLE UTI November 19, 2024 7:5 8am DIZZINESS November 20, 2024 4:5 0pm chest pain November 27, 2024 1:4 4pm CARDIAC HOLTER MONITOR 48 HR November 27, 2024 5:50pm Chief Complaint Admit Date PN IN R ELBOW AFTER FALL/RX HERE [facility] r 2023 9:30am 6 M FU August 17, 2024 9:19am FOLLOW UP October 10, 2024 1 0:38am COUGH, WHEEZING October 13, 2024 1 0:04am EAR PAIN October 27, 2024 2:04pm DIZZINESS November 05, 2024 10:3 0am [facility] ER FU November 06, 2024 11:2 5am CHEST PAIN November 07, 2024 4:42 am DIZZINESS LIGHTHEADEDNESS, CHEST PAIN [facility] 2024 4:51am DIZZINESS LIGHTHEADEDNESS, CHEST PAIN [facility] 2024 8:35am DIZZINESS LIGHTHEADEDNESS, CHEST PAIN [facility] 2024 8:18am DIZZINESS LIGHTHEADEDNESS, CHEST PAIN [facility] 2024 4:07pm DIZZINESS LIGHTHEADEDNESS, CHEST PAIN [facility] 2024 7:07am NEAR SYNCOPE November 11, 2024 6:14 am [facility] Discharge FU November [id number] 10:28am POSSIBLE UTI November 19, 2024 7:5 8am DIZZINESS November 20, 2024 4:5 0pm chest pain November 27, 2024 1:4 4pm CARDIAC HOLTER MONITOR 48 HR November 27, 2024 5:50pm DIZZINESS December 04, 2024 8:2 2am Chief Complaint Admit Date PN IN R ELBOW AFTER FALL/RX HERE [facility] 2023 9:30am 6 M FU August 17, 2024 9:19am FOLLOW UP October 10, 2024 1 0:38am COUGH, WHEEZING October 13, 2024 1 0:04am EAR PAIN October 27, 2024 2:04pm DIZZINESS November 05, 2024 10:3 0am [facility] ER FU November 06, 2024 11:2 5am CHEST PAIN November 07, 2024 4:42 am DIZZINESS LIGHTHEADEDNESS, CHEST PAIN [facility] 2024 4:51am DIZZINESS LIGHTHEADEDNESS, CHEST PAIN [facility] 2024 8:35am DIZZINESS LIGHTHEADEDNESS, CHEST PAIN [facility] 2024 8:18am DIZZINESS LIGHTHEADEDNESS, CHEST PAIN [facility] 2024 4:07pm DIZZINESS LIGHTHEADEDNESS, CHEST PAIN [facility] 2024 7:07am NEAR SYNCOPE November 11, 2024 6:14 am [facility] Discharge FU November [id number] 10:28am POSSIBLE UTI November 19, 2024 7:5 8am DIZZINESS November 20, 2024 4:5 0pm chest pain November 27, 2024 1:4 4pm CARDIAC HOLTER MONITOR 48 HR November 27, 2024 5:50pm DIZZINESS December 04, 2024 8:2 2am SOB December 10, 2024 11:1 4pm Chief Complaint Admit Date FOLLOW UP October 10, 2024 1 0:38am COUGH, WHEEZING October 13, 2024 1 0:04am EAR PAIN October 27, 2024 2:04pm DIZZINESS November 05, 2024 10:3 0am [facility] ER FU November 06, 2024 11:2 5am CHEST PAIN November 07, 2024 4:42 am DIZZINESS LIGHTHEADEDNESS, CHEST PAIN [facility] 2024 4:51am DIZZINESS LIGHTHEADEDNESS, CHEST PAIN [facility] 2024 8:35am DIZZINESS LIGHTHEADEDNESS, CHEST PAIN [facility] 2024 8:18am DIZZINESS LIGHTHEADEDNESS, CHEST PAIN [facility] 2024 4:07pm DIZZINESS LIGHTHEADEDNESS, CHEST PAIN [facility] 2024 7:07am NEAR SYNCOPE November 11, 2024 6:14 am 30 DAY MONITOR November 11, 2024 9:00 am [facility] Discharge FU November 162024 10:28am POSSIBLE UTI November 19, 2024 7:5 8am DIZZINESS November 20, 2024 4:5 0pm chest pain November 27, 2024 1:4 4pm CARDIAC HOLTER MONITOR 48 HR November 27, 2024 5:50pm DIZZINESS December 04, 2024 8:2 2am Dizziness (cardiology) December 04, 2024 8:53am SOB December 10, 2024 11:1 4pm DIFFICULTY SWALLOWING January 23, 2025 8:5 2am Reason for Visit Admit Date Acute bronchitis October 13, 2024 1 0:04am Influenza due to influenza virus, type A , human October 13, 2024 10:04am Acute sinusitis October 27, 2024 2:04pm Episodic lightheadedness November 06, 2024 11:25am Essential hypertension November 06, 2024 1 1:25am Obesity November 06, 2024 11:2 5am Chest pain November 06, 2024 11:2 5am Hypothyroidism November 06, 2024 11:2 5am Orthostatic hypotension November 06, 2024 11:25am Essential hypertension November 07, 2024 4 :51am Insulin resistance November 07, 2024 4:51 am Chest pain November 07, 2024 4:51 am Episodic lightheadedness November 07, 2024 4:51am Hypothyroidism November 07, 2024 4:51 am Other and unspecified hyperlipidemia [facility] 2024 4:51am PAC (premature atrial contraction) November 07, 2024 4:51am Tachyarrhythmia November 07, 2024 4:51 am Atrial tachycardia November 16, 2024 10: 28am Episodic lightheadedness November 16 10:28am Essential hypertension November 16, 2024 10:28am Insulin resistance November 16, 2024 10: 28am Nodule of left lung November 16, 2024 10: 28am UTI (urinary tract infection) November 7:58am Reason for Visit Admit Date Acute bronchitis October 13, 2024 1 0:04am Influenza due to influenza virus, type A , human October 13, 2024 10:04am Acute sinusitis October 27, 2024 2:04pm Episodic lightheadedness November 06, 2024 11:25am Essential hypertension November 06, 2024 1 1:25am Obesity November 06, 2024 11:2 5am Chest pain November 06, 2024 11:2 5am Hypothyroidism November 06, 2024 11:2 5am Orthostatic hypotension November 06, 2024 11:25am Essential hypertension November 07, 2024 4 :51am Insulin resistance November 07, 2024 4:51 am Chest pain November 07, 2024 4:51 am Episodic lightheadedness November 07, 2024 4:51am Hypothyroidism November 07, 2024 4:51 am Other and unspecified hyperlipidemia [facility] 2024 4:51am PAC (premature atrial contraction) November 07, 2024 4:51am Tachyarrhythmia November 07, 2024 4:51 am Atrial tachycardia November 16, 2024 10: 28am Episodic lightheadedness November 16 10:28am Essential hypertension November 16, 2024 10:28am Insulin resistance November 16, 2024 10: 28am Nodule of left lung November 16, 2024 10: 28am UTI (urinary tract infection) November 7:58am Esophageal stenosis January 23, 2025 8:52a m Chief Complaint Admit Date EAR PAIN October 27, 2024 2:04pm DIZZINESS November 05, 2024 10:3 0am [facility] ER FU November 06, 2024 11:2 5am CHEST PAIN November 07, 2024 4:42 am DIZZINESS LIGHTHEADEDNESS, CHEST PAIN [facility] 2024 4:51am DIZZINESS LIGHTHEADEDNESS, CHEST PAIN [facility] 2024 8:35am DIZZINESS LIGHTHEADEDNESS, CHEST PAIN [facility] 2024 8:18am DIZZINESS LIGHTHEADEDNESS, CHEST PAIN [facility] 2024 4:07pm DIZZINESS LIGHTHEADEDNESS, CHEST PAIN [facility] 2024 7:07am NEAR SYNCOPE March 8th, 2025 6:14 am 30 DAY MONITOR November 11, 2024 9:00 am [facility] Discharge FU November 162024 10:28am POSSIBLE UTI November 19, 2024 7:5 8am DIZZINESS November 20, 2024 4:5 0pm chest pain November 27, 2024 1:4 4pm CARDIAC HOLTER MONITOR 48 HR November 27, 2024 5:50pm DIZZINESS December 04, 2024 8:2 2am Dizziness (cardiology) December 04, 2024 8:53am SOB December 10, 2024 11:1 4pm DIFFICULTY SWALLOWING January 23, 2025 8:5 2am Reason for Visit Admit Date Acute sinusitis October 27, 2024 2:04pm Episodic lightheadedness November 06, 2024 11:25am Essential hypertension November 06, 2024 1 1:25am Obesity November 06, 2024 11:2 5am Chest pain November 06, 2024 11:2 5am Hypothyroidism November 06, 2024 11:2 5am Orthostatic hypotension November 06, 2024 11:25am Essential hypertension November 07, 2024 4 :51am Insulin resistance November 07, 2024 4:51 am Chest pain November 07, 2024 4:51 am Episodic lightheadedness November 07, 2024 4:51am Hypothyroidism November 07, 2024 4:51 am Other and unspecified hyperlipidemia [facility] 2024 4:51am PAC (premature atrial contraction) November 07, 2024 4:51am Tachyarrhythmia November 07, 2024 4:51 am Atrial tachycardia November 16, 2024 10: 28am Episodic lightheadedness November 16 10:28am Essential hypertension November 16, 2024 10:28am Insulin resistance November 16, 2024 10: 28am Nodule of left lung November 16, 2024 10: 28am UTI (urinary tract infection) November 7:58am Esophageal stenosis January 23, 2025 8:52a m Chief Complaint Admit Date [facility] ER FU November 06, 2024 11:2 5am CHEST PAIN November 07, 2024 4:42 am DIZZINESS LIGHTHEADEDNESS, CHEST PAIN [facility] 2024 4:51am DIZZINESS LIGHTHEADEDNESS, CHEST PAIN [facility] 2024 8:35am DIZZINESS LIGHTHEADEDNESS, CHEST PAIN [facility] 2024 8:18am DIZZINESS LIGHTHEADEDNESS, CHEST PAIN [facility] 2024 4:07pm DIZZINESS LIGHTHEADEDNESS, CHEST PAIN [facility] 2024 7:07am NEAR SYNCOPE November 11, 2024 6:14 am 30 DAY MONITOR November 11, 2024 9:00 am [facility] Discharge FU November 162024 10:28am POSSIBLE UTI November 19, 2024 7:5 8am DIZZINESS November 20, 2024 4:5 0pm chest pain November 27, 2024 1:4 4pm CARDIAC HOLTER MONITOR 48 HR November 27, 2024 5:50pm DIZZINESS December 04, 2024 8:2 2am Dizziness (cardiology) December 04, 2024 8:53am SOB December 10, 2024 11:1 4pm DIFFICULTY SWALLOWING January 23, 2025 8:5 2am sob March 05, 2025 3:38 pm Reason for Visit Admit Date Episodic lightheadedness November 06, 2024 11:25am Essential hypertension November 06, 2024 1 1:25am Obesity November 06, 2024 11:2 5am Chest pain November 06, 2024 11:2 5am Hypothyroidism November 06, 2024 11:2 5am Orthostatic hypotension November 06, 2024 11:25am Essential hypertension November 07, 2024 4 :51am Insulin resistance November 07, 2024 4:51 am Chest pain November 07, 2024 4:51 am Episodic lightheadedness November 07, 2024 4:51am Hypothyroidism November 07, 2024 4:51 am Other and unspecified hyperlipidemia [facility] 2024 4:51am PAC (premature atrial contraction) November 07, 2024 4:51am Tachyarrhythmia November 07, 2024 4:51 am Atrial tachycardia November 16, 2024 10: 28am Episodic lightheadedness November 16 10:28am Essential hypertension November 16, 2024 10:28am Insulin resistance November 16, 2024 10: 28am Nodule of left lung November 16, 2024 10: 28am UTI (urinary tract infection) November 7:58am Esophageal stenosis January 23, 2025 8:52a m Chief Complaint Admit Date CHEST PAIN November 07, 2024 4:42 am DIZZINESS LIGHTHEADEDNESS, CHEST PAIN [facility] 2024 4:51am DIZZINESS LIGHTHEADEDNESS, CHEST PAIN [facility] 2024 8:35am DIZZINESS LIGHTHEADEDNESS, CHEST PAIN [facility] 2024 8:18am DIZZINESS LIGHTHEADEDNESS, CHEST PAIN [facility] 2024 4:07pm DIZZINESS LIGHTHEADEDNESS, CHEST PAIN [facility] 2024 7:07am NEAR SYNCOPE November 11, 2024 6:14 am 30 DAY MONITOR November 11, 2024 9:00 am [facility] Discharge FU November 162024 10:28am POSSIBLE UTI November 19, 2024 7:5 8am DIZZINESS November 20, 2024 4:5 0pm chest pain November 27, 2024 1:4 4pm CARDIAC HOLTER MONITOR 48 HR November 27, 2024 5:50pm DIZZINESS December 04, 2024 8:2 2am Dizziness (cardiology) December 04, 2024 8:53am SOB December 10, 2024 11:1 4pm DIFFICULTY SWALLOWING January 23, 2025 8:5 2am sob March 05, 2025 3:38 pm 6 M FU March 07, 2025 7:53a m Reason for Visit Admit Date Essential hypertension November 07, 2024 4 :51am Insulin resistance November 07, 2024 4:51 am Chest pain November 07, 2024 4:51 am Episodic lightheadedness November 07, 2024 4:51am Hypothyroidism November 07, 2024 4:51 am Other and unspecified hyperlipidemia [facility] 2024 4:51am PAC (premature atrial contraction) November 07, 2024 4:51am Tachyarrhythmia November 07, 2024 4:51 am Atrial tachycardia November 16, 2024 10: 28am Episodic lightheadedness November 16 10:28am Essential hypertension November 16, 2024 10:28am Insulin resistance November 16, 2024 10: 28am Nodule of left lung November 16, 2024 10: 28am UTI (urinary tract infection) November 7:58am Esophageal stenosis January 23, 2025 8:52a m Additional Source Comments INFORMATION SOURCE (unrecogn ized section and content) DATE CREATED AUTHOR 10/22/2021 [facility] DATE CREATED AUTHOR AUTHOR'S STEVEN ATLOIDA 03/23/2025 [facility] DATE CREATED AUTHOR AUTHOR'S ORGANIZ ATION 04/04/2025 [facility] DATE CREATED AUTHOR AUTHOR'S ORGANIZ ATION 04/06/2025 [facility] Goals (unrecognized section and content) Goals may be documented in a n alternate sectionGoals may be documented in an alternate sectionGoals may be documented in an alternate sectionGoals may be documented in an alternate sectionGoals may be documented in an alternate sectionGoals may be documented in an alternate sectionGoals may be documented in an alternate sectionGoals may be documented in an alternate sectionGoals may be documented in an alternate sectionGoals may be documented in an alternate sectionGoals may be documented in an alternate sectionGoals may be documented in an alternate sectionGoals may be documented in an alternate sectionGoals may be documented in an alternate sectionGoals may be documented in an alternate section No data available for this section No data available for this section No data available for this section No data available for this section No data available for this section No data available for this section Care Teams (unrecognized sec tion and content) Team Status: Active Member Role Status Dates Dr. Ashish Lowry DO Family Provider Active Dr. Noel Araujo MD Primary Care Provider Active Team Status: Inactive Member Role Status Dates Dr. Noel Araujo MD Primary Care Provider Active Dr. Geremias Fine MD Attending Provider Active Team Status: Inactive Member Role Status Dates Dr. Noel Araujo MD Primary Care Pro vider, Attending Provider, Referring Provider Active Team Status: Active Member Role Status Dates Dr. Noel Araujo MD Primary Care Provider Active Dr. Brnet Amaro DPM Attending Provider Active Team Status: Inactive Member Role Status Dates Dr. Noel Araujo MD Primary Care Provider Active Dr. Cooper Hernández MD Attending Provider Active Team Status: Inactive Member Role Status Dates Dr. Noel Araujo MD Primary Care Provider, Referri ng Provider Active Jean BOYLE, PA Attending Provider Active Team Status: Active Member Role Status Dates Dr. Noel Araujo MD Primary Care Provider Active Dr. Lee Ann Mayfield MD Attending Provider Active Dr. Cooper Hernández MD Referring Provider Active Team Status: Inactive Member Role Status Dates Dr. Noel Araujo MD Primary Care Provider Active Dr. Cooper Hernández MD Attending Provider, Referring Pr ovider Active Team Status: Inactive Member Role Status Dates Dr. Noel Araujo MD Primary Care Provider, Attendi ng Provider Active Team Status: Inactive Member Role Status Dates Dr. Noel Araujo MD Primary Care Provider, Referri ng Provider Active [place] Andrade Attending Provider Active Team Status: Inactive Member Role Status Dates Dr. Noel Araujo MD Primary Care Provider Active Miguel BOYLE PA Attending Provider, Referring Pr ovider Active Team Status: Inactive Member Role Status Dates Dr. Noel Araujo MD Primary Care Provider Active Dr. Geremias Fine MD Attending Provider, Referring Provider Active Team Status: Active Member Role Status Dates Dr. Noel Araujo MD Primary Care Provider Active Team Status: Inactive Member Role Status Dates Dr. Noel Araujo MD Primary Care Provider Active Start: August 15, 2024 End: August 15, 2024 Dr. Noel Araujo MD Attending Provider Active Start: August 15, 2024 End: August 15, 2024 Dr. Noel Araujo MD Referring Provider Active Start: August 15, 2024 End: August 15, 2024 Team Status: Inactive Member Role Status Dates Dr. Noel Arajuo MD Primary Care Provider Active Start: August 16, 2024 End: August 16, 2024 Dr. Noel Araujo MD Attending Provider Active Start: August 16, 2024 End: August 16, 2024 Dr. Noel Araujo MD Referring Provider Active Start: August 16, 2024 End: August 16, 2024 Team Status: Inactive Member Role Status Dates Dr. Noel Araujo MD Primary Care Provider Active Start: August 17, 2024 End: August 17, 2024 Dr. Noel Araujo MD Attending Provider Active Start: August 17, 2024 End: August 17, 2024 Team Status: Inactive Member Role Status Dates Dr. Noel Araujo MD Primary Care Provider Active Start: October 10, 2024 End: October 10, 2024 Dr. Abenr Stein MD Attending Provider Active Start: October 10, 2024 End: October 10, 2024 Dr. Abner Stein MD Referring Provider Active Start: October 10, 2024 End: October 10, 2024 Team Status: Inactive Member Role Status Dates Dr. Noel Araujo MD Primary Care Provider Active Start: October 13, 2024 End: October 13, 2024 Dr. Noel Araujo MD Referring Provider Active Start: October 13, 2024 End: October 13, 2024 [place] Attending Provider Active Sta rt: October 13, 2024 End: October 13, 2024 Team Status: Inactive Member Role Status Dates Dr. Noel Araujo MD Primary Care Provider Active Start: October 27, 2024 End: October 27, 2024 Dr. Noel Araujo MD Referring Provider Active Start: October 27, 2024 End: October 27, 2024 [place] Attending Provider Active Sta rt: October 27, 2024 End: October 27, 2024 Team Status: Inactive Member Role Status Dates Dr. Noel Araujo MD Primary Care Provider Active Start: November 05, 2024 End: November 05, 2024 Dr. Eric Alba DO Attending Provider Activ e Start: November 05, 2024 End: November 05, 2024 Dr. Eric Alba DO Emergency Provider Activ e Start: November 05, 2024 End: November 05, 2024 Team Status: Inactive Member Role Status Dates Dr. Noel Araujo MD Primary Care Provider Active Start: November 06, 2024 End: November 06, 2024 Dr. Noel Araujo MD Attending Provider Active Start: November 06, 2024 End: November 06, 2024 Team Status: Inactive Member Role Status Dates Dr. Noel Araujo MD Primary Care Provider Active Start: November 06, 2024 End: November 06, 2024 Dr. Noel Araujo MD Attending Provider Active Start: November 06, 2024 End: November 06, 2024 Dr. Noel Araujo MD Referring Provider Active Start: November 06, 2024 End: November 06, 2024 Team Status: Active Member Role Status Dates Dr. Noel Araujo MD Primary Care Provider Active Start: November 07, 2024 Dr. Halima Ray DO Emergency Provider Active Start: November 07, 2024 Dr. Papito Zeng MD Attending Provider Active Start: November 07, 2024 Team Status: Inactive Member Role Status Dates Dr. Noel Araujo MD Primary Care Provider Active Start: November 07, 2024 End: November 09, 2024 Dr. Halima Ray DO Emergency Provider Active Start: November 07, 2024 End: November 09, 2024 Dr. Papito Zeng MD Admit Provider Active Star t: November 07, 2024 End: November 09, 2024 Dr. Papito Zeng MD Other Provider Active Star t: November 07, 2024 End: November 09, 2024 Dr. Angel Covarrubias MD Other Provider Active St art: November 07, 2024 End: November 09, 2024 Dr. Amanda Anthony MD Attending Provider Active Start: November 07, 2024 End: November 09, 2024 Team Status: Active Member Role Status Dates Dr. Noel Araujo MD Primary Care Provider Active Start: November 07, 2024 Dr. Halima Ray DO Emergency Provider Active Start: November 07, 2024 Dr. Papito Zeng MD Admit Provider Active Star t: November 07, 2024 Dr. Papito Zeng MD Other Provider Active Star t: November 07, 2024 Dr. Angel Covarrubias MD Attending Provider Active Start: November 07, 2024 Dr. Angel Covarrubias MD Other Provider Active St art: November 07, 2024 Dr. Amanda Anthony MD Other Provider Active St art: November 07, 2024 Team Status: Active Member Role Status Dates Dr. Noel Araujo MD Primary Care Provider Active Start: November 07, 2024 Dr. Lee Ann Mayfield MD Attending Provider Active Start: November 07, 2024 Team Status: Active Member Role Status Dates Dr. Noel Araujo MD Primary Care Provider Active Start: November 08, 2024 Dr. Halima Ray DO Emergency Provider Active Start: November 08, 2024 Dr. Papito Zeng MD Admit Provider Active Star t: November 08, 2024 Dr. Papito Zeng MD Other Provider Active Star t: November 08, 2024 Dr. Angel Covarrubias MD Attending Provider Active Start: November 08, 2024 Dr. Angel Covarrubias MD Other Provider Active St art: November 08, 2024 Dr. Amanda Anthony MD Other Provider Active St art: November 08, 2024 Team Status: Active Member Role Status Dates Dr. Noel Araujo MD Primary Care Provider Active Start: November 08, 2024 Dr. Halima Ray DO Emergency Provider Active Start: November 08, 2024 Dr. Papito Zeng MD Admit Provider Active Star t: November 08, 2024 Dr. Papito Zeng MD Other Provider Active Star t: November 08, 2024 Dr. Angel Covarrubias MD Other Provider Active St art: November 08, 2024 Dr. Amanda Anthony MD Attending Provider Active Start: November 08, 2024 Dr. Amanda Anthony MD Other Provider Active St art: November 08, 2024 Team Status: Active Member Role Status Dates Dr. Noel Araujo MD Primary Care Provider Active Start: November 09, 2024 Dr. Halima Ray DO Emergency Provider Active Start: November 09, 2024 Dr. Papito Zeng MD Admit Provider Active Star t: November 09, 2024 Dr. Papito Zeng MD Other Provider Active Star t: November 09, 2024 Dr. Angel Covarrubias MD Other Provider Active St art: November 09, 2024 Dr. Amanda Anthony MD Attending Provider Active Start: November 09, 2024 Dr. Amanda Anthony MD Other Provider Active St art: November 09, 2024 Team Status: Active Member Role Status Dates Dr. Noel Araujo MD Primary Care Provider Active Start: November 11, 2024 Dr. Noel Araujo MD Attending Provider Active Start: November 11, 2024 Dr. Noel Araujo MD Referring Provider Active Start: November 11, 2024 Team Status: Inactive Member Role Status Dates Dr. Noel Araujo MD Primary Care Provider Active Start: November 16, 2024 End: November 16, 2024 Dr. Noel Araujo MD Attending Provider Active Start: November 16, 2024 End: November 16, 2024 Team Status: Inactive Member Role Status Dates Dr. Noel Araujo MD Primary Care Provider Active Start: November 19, 2024 End: November 19, 2024 Dr. Noel Araujo MD Referring Provider Active Start: November 19, 2024 End: November 19, 2024 [facility] Attending Provider Active Start: November 19, 2024 End: November 19, 2024 Team Status: Active Member Role Status Dates Dr. Noel Araujo MD Primary Care Provider Active Start: November 20, 2024 David Espinoza NP, DEPARTMENT OPERATIONS MANAGER-C Attending Provider Active S tart: November 20, 2024 David Espinoza DEPARTMENT OPERATIONS MANAGER, DEPARTMENT OPERATIONS MANAGER-C Referring Provider Active S tart: November 20, 2024 Team Status: Inactive Member Role Status Dates Dr. Noel Araujo MD Primary Care Provider Active Start: November 20, 2024 End: November 20, 2024 Dr. Amrik Pacheco DO Emergency Provider Active Start : November 20, 2024 End: November 20, 2024 Team Status: Inactive Member Role Status Dates Dr. Noel Araujo MD Primary Care Provider Active Start: November 27, 2024 End: November 27, 2024 Dr. Eric Alba DO Referring Provider Activ e Start: November 27, 2024 End: November 27, 2024 Dr. Eric Alba DO Emergency Provider Activ e Start: November 27, 2024 End: November 27, 2024 Team Status: Active Member Role Status Dates Dr. Noel Araujo MD Primary Care Provider Active Start: November 27, 2024 Dr. Eric Alba DO Attending Provider Activ e Start: November 27, 2024 Team Status: Inactive Member Role Status Dates Dr. Noel Araujo MD Primary Care Provider Active Start: November 20, 2024 End: November 20, 2024 David Espinoza DEPARTMENT OPERATIONS MANAGER, DEPARTMENT OPERATIONS MANAGER-C Attending Provider Active S tart: November 20, 2024 End: November 20, 2024 David Espinoza DEPARTMENT OPERATIONS MANAGER, DEPARTMENT OPERATIONS MANAGER-C Referring Provider Active S tart: November 20, 2024 End: November 20, 2024 Team Status: Inactive Member Role Status Dates Dr. Noel Araujo MD Primary Care Provider Active Start: November 20, 2024 End: November 20, 2024 Dr. Amrik Pacheco DO Attending Provider Active Start : November 20, 2024 End: November 20, 2024 Dr. Amrik Pacheco DO Emergency Provider Active Start : November 20, 2024 End: November 20, 2024 Team Status: Inactive Member Role Status Dates Dr. Noel Araujo MD Primary Care Provider Active Start: November 27, 2024 End: November 27, 2024 Dr. Eric Alba DO Attending Provider Activ e Start: November 27, 2024 End: November 27, 2024 Team Status: Inactive Member Role Status Dates Dr. Noel Araujo MD Primary Care Provider Active Start: November 27, 2024 End: November 27, 2024 Dr. Eric Alba , DO Attending Provider Activ e Start: November 27, 2024 End: November 27, 2024 Dr. Eric Alba DO Referring Provider Activ e Start: November 27, 2024 End: November 27, 2024 Dr. Eric Alba DO Emergency Provider Activ e Start: November 27, 2024 End: November 27, 2024 Team Status: Inactive Member Role Status Dates Dr. Noel Araujo MD Primary Care Provider Active Start: December 04, 2024 End: December 04, 2024 Dr. Eric Alba DO Attending Provider Activ e Start: December 04, 2024 End: December 04, 2024 Dr. Eric Alba DO Referring Provider Activ e Start: December 04, 2024 End: December 04, 2024 Team Status: Inactive Member Role Status Dates Dr. Noel Araujo MD Primary Care Provider Active Start: November 19, 2024 End: November 19, 2024 Dr. Noel Araujo MD Referring Provider Active Start: November 19, 2024 End: November 19, 2024 David Espinoza NP, DEPARTMENT OPERATIONS MANAGER-C Attending Provider Active S tart: November 19, 2024 End: November 19, 2024 Team Status: Inactive Member Role Status Dates Dr. Noel Araujo MD Primary Care Provider Active Start: December 10, 2024 End: December 11, 2024 Dr. Morales Eubanks MD Emergency Provider Active Start: December 10, 2024 End: December 11, 2024 Team Status: Active Member Role Status Dates Dr. Noel Araujo MD Primary Care Provider Active Start: November 11, 2024 Dr. Noel Araujo MD Referring Provider Active Start: November 11, 2024 Dr. Lee Ann Mayfield MD Attending Provider Active Start: November 11, 2024 Team Status: Active Member Role Status Dates Dr. Noel Araujo MD Primary Care Provider Active Start: December 04, 2024 Dr. Orlin Salvador MD Attending Provider Active S tart: December 04, 2024 Dr. Eric Alba DO Referring Provider Activ e Start: December 04, 2024 Team Status: Inactive Member Role Status Dates Dr. Noel Araujo MD Primary Care Provider Active Start: December 10, 2024 End: December 11, 2024 Dr. Morales Eubanks MD Attending Provider Active Start: December 10, 2024 End: December 11, 2024 Dr. Morales Eubanks MD Emergency Provider Active Start: December 10, 2024 End: December 11, 2024 Team Status: Inactive Member Role Status Dates Dr. Noel Araujo MD Primary Care Provider Active Start: January 23, 2025 End: January 23, 2025 Dr. Noel Araujo MD Referring Provider Active Start: January 23, 2025 End: January 23, 2025 Dr. Abner Stein MD Attending Provider Active Start: January 23, 2025 End: January 23, 2025 Team Status: Inactive Member Role Status Dates Dr. Noel Araujo MD Primary Care Provider Active Start: January 30, 2025 End: January 30, 2025 Dr. Noel Araujo MD Referring Provider Active Start: January 30, 2025 End: January 30, 2025 Dr. Abner Stein MD Attending Provider Active Start: January 30, 2025 End: January 30, 2025 Team Status: Active Member Role Status Dates Dr. Noel Araujo MD Primary Care Provider Active Start: January 30, 2025 Dr. Noel Araujo MD Referring Provider Active Start: January 30, 2025 Dr. Abner Stein MD Attending Provider Active Start: January 30, 2025 Dr. Abner Stein MD Other Provider Active Start: January 30, 2025 Team Status: Inactive Member Role Status Dates Dr. Noel Araujo MD Primary Care Provider Active Start: February 14, 2025 End: February 14, 2025 Dr. Noel Araujo MD Attending Provider Active Start: February 14, 2025 End: February 14, 2025 Dr. Noel Araujo MD Referring Provider Active Start: February 14, 2025 End: February 14, 2025 Team Status: Active Member Role/Relationship Status Dates Dr. Noel Araujo MD Primary Care Provider Active Team Status: Inactive Member Role/Relationship Status Dates Dr. Noel Araujo MD Primary Care Provider Active Start: November 06, 2024 End: November 06, 2024 Dr. Noel Araujo MD Attending Provider Active Start: November 06, 2024 End: November 06, 2024 Team Status: Inactive Member Role/Relationship Status Dates Dr. Noel Araujo MD Primary Care Provider Active Start: November 06, 2024 End: November 06, 2024 Dr. Noel Araujo MD Attending Provider Active Start: November 06, 2024 End: November 06, 2024 Dr. Noel Araujo MD Referring Provider Active Start: November 06, 2024 End: November 06, 2024 Team Status: Active Member Role/Relationship Status Dates Dr. Noel Araujo MD Primary Care Provider Active Start: November 07, 2024 Dr. Halima Ray DO Emergency Provider Active Start: November 07, 2024 Dr. Papito Zeng MD Attending Provider Active Start: November 07, 2024 Team Status: Inactive Member Role/Relationship Status Dates Dr. Noel Araujo MD Primary Care Provider Active Start: November 07, 2024 End: November 09, 2024 Dr. Halima Ray DO Emergency Provider Active Start: November 07, 2024 End: November 09, 2024 Dr. Papito Zeng MD Admit Provider Active Star t: November 07, 2024 End: November 09, 2024 Dr. Papito Zeng MD Other Provider Active Star t: November 07, 2024 End: November 09, 2024 Dr. Angel Covarrubias MD Other Provider Active St art: November 07, 2024 End: November 09, 2024 Dr. Amanda Anthony MD Attending Provider Active Start: November 07, 2024 End: November 09, 2024 Team Status: Active Member Role/Relationship Status Dates Dr. Noel Araujo MD Primary Care Provider Active Start: November 07, 2024 Dr. Halima Ray DO Emergency Provider Active Start: November 07, 2024 Dr. Papito Zeng MD Admit Provider Active Star t: November 07, 2024 Dr. Papito Zeng MD Other Provider Active Star t: November 07, 2024 Dr. Angel Covarrubias MD Attending Provider Active Start: November 07, 2024 Dr. Angel Covarrubias MD Other Provider Active St art: November 07, 2024 Dr. Amanda Anthony MD Other Provider Active St art: November 07, 2024 Team Status: Active Member Role/Relationship Status Dates Dr. Noel Araujo MD Primary Care Provider Active Start: November 07, 2024 Dr. Lee Ann Mayfield MD Attending Provider Active Start: November 07, 2024 Team Status: Active Member Role/Relationship Status Dates Dr. Noel Araujo MD Primary Care Provider Active Start: November 08, 2024 Dr. Halima Ray DO Emergency Provider Active Start: November 08, 2024 Dr. Papito Zeng MD Admit Provider Active Star t: November 08, 2024 Dr. Papito Zeng MD Other Provider Active Star t: November 08, 2024 Dr. Angel Covarrubias MD Attending Provider Active Start: November 08, 2024 Dr. Angel Covarrubias MD Other Provider Active St art: November 08, 2024 Dr. Amanda Anthony MD Other Provider Active St art: November 08, 2024 Team Status: Active Member Role/Relationship Status Dates Dr. Noel Araujo MD Primary Care Provider Active Start: November 08, 2024 Dr. Halima Ray DO Emergency Provider Active Start: November 08, 2024 Dr. Papito Zeng MD Admit Provider Active Star t: November 08, 2024 Dr. Papito Zeng MD Other Provider Active Star t: November 08, 2024 Dr. Angel Covarrubias MD Other Provider Active St art: November 08, 2024 Dr. Amanda Anthony MD Attending Provider Active Start: November 08, 2024 Dr. Amanda Anthony MD Other Provider Active St art: November 08, 2024 Team Status: Active Member Role/Relationship Status Dates Dr. Noel Araujo MD Primary Care Provider Active Start: November 09, 2024 Dr. Hlaima Ray DO Emergency Provider Active Start: November 09, 2024 Dr. Papito Zeng MD Admit Provider Active Star t: November 09, 2024 Dr. Papito Zeng MD Other Provider Active Star t: November 09, 2024 Dr. Angel Covarrubias MD Other Provider Active St art: November 09, 2024 Dr. Amnada Anthony MD Attending Provider Active Start: November 09, 2024 Dr. Amanda Anthony MD Other Provider Active St art: November 09, 2024 Team Status: Active Member Role/Relationship Status Dates Dr. Noel Araujo MD Primary Care Provider Active Start: November 11, 2024 Dr. Noel Araujo MD Attending Provider Active Start: November 11, 2024 Dr. Noel Araujo MD Referring Provider Active Start: November 11, 2024 Team Status: Active Member Role/Relationship Status Dates Dr. Nole Araujo MD Primary Care Provider Active Start: November 11, 2024 Dr. Noel Araujo MD Referring Provider Active Start: November 11, 2024 Dr. Lee Ann Mayfield MD Attending Provider Active Start: November 11, 2024 Team Status: Inactive Member Role/Relationship Status Dates Dr. Noel Araujo MD Primary Care Provider Active Start: November 16, 2024 End: November 16, 2024 Dr. Noel Araujo MD Attending Provider Active Start: November 16, 2024 End: November 16, 2024 Team Status: Inactive Member Role/Relationship Status Dates Dr. Noel Araujo MD Primary Care Provider Active Start: November 19, 2024 End: November 19, 2024 Dr. Noel Araujo MD Referring Provider Active Start: November 19, 2024 End: November 19, 2024 David Espinoza DEPARTMENT OPERATIONS MANAGER, DEPARTMENT OPERATIONS MANAGER-C Attending Provider Active S tart: November 19, 2024 End: November 19, 2024 Team Status: Inactive Member Role/Relationship Status Dates Dr. Noel Araujo MD Primary Care Provider Active Start: November 20, 2024 End: November 20, 2024 David Espinoza DEPARTMENT OPERATIONS MANAGER, DEPARTMENT OPERATIONS MANAGER-C Attending Provider Active S tart: November 20, 2024 End: November 20, 2024 David Espinoza DEPARTMENT OPERATIONS MANAGER, DEPARTMENT OPERATIONS MANAGER-C Referring Provider Active S tart: November 20, 2024 End: November 20, 2024 Team Status: Inactive Member Role/Relationship Status Dates Dr. Noel Araujo MD Primary Care Provider Active Start: November 20, 2024 End: November 20, 2024 Dr. Amrik Pacheco DO Attending Provider Active Start : November 20, 2024 End: November 20, 2024 Dr. Amrik Pacheco DO Emergency Provider Active Start : November 20, 2024 End: November 20, 2024 Team Status: Inactive Member Role/Relationship Status Dates Dr. Noel Araujo MD Primary Care Provider Active Start: November 27, 2024 End: November 27, 2024 Dr. Eric Alba DO Attending Provider Activ e Start: November 27, 2024 End: November 27, 2024 Dr. Eric Alba DO Referring Provider Activ e Start: November 27, 2024 End: November 27, 2024 Dr. Eric Alba DO Emergency Provider Activ e Start: November 27, 2024 End: November 27, 2024 Team Status: Inactive Member Role/Relationship Status Dates Dr. Noel Araujo MD Primary Care Provider Active Start: November 27, 2024 End: November 27, 2024 Dr. Eric Alba DO Attending Provider Activ e Start: November 27, 2024 End: November 27, 2024 Team Status: Inactive Member Role/Relationship Status Dates Dr. Noel Araujo MD Primary Care Provider Active Start: December 04, 2024 End: December 04, 2024 Dr. Eric Alba DO Attending Provider Activ e Start: December 04, 2024 End: December 04, 2024 Dr. Eric Alba DO Referring Provider Activ e Start: December 04, 2024 End: December 04, 2024 Team Status: Active Member Role/Relationship Status Dates Dr. Noel Araujo MD Primary Care Provider Active Start: December 04, 2024 Dr. Orlin Salvador MD Attending Provider Active S tart: December 04, 2024 Dr. Eric Alba DO Referring Provider Activ e Start: December 04, 2024 Team Status: Inactive Member Role/Relationship Status Dates Dr. Noel Araujo MD Primary Care Provider Active Start: December 10, 2024 End: December 11, 2024 Dr. Morales Eubanks MD Attending Provider Active Start: December 10, 2024 End: December 11, 2024 Dr. Morales Eubanks MD Emergency Provider Active Start: December 10, 2024 End: December 11, 2024 Team Status: Inactive Member Role/Relationship Status Dates Dr. Noel Araujo MD Primary Care Provider Active Start: January 23, 2025 End: January 23, 2025 Dr. Noel Araujo MD Referring Provider Active Start: January 23, 2025 End: January 23, 2025 Dr. Abner Stein MD Attending Provider Active Start: January 23, 2025 End: January 23, 2025 Team Status: Inactive Member Role/Relationship Status Dates Dr. Noel Araujo MD Primary Care Provider Active Start: January 30, 2025 End: January 30, 2025 Dr. Noel Araujo MD Referring Provider Active Start: January 30, 2025 End: January 30, 2025 Dr. Abner Stein MD Attending Provider Active Start: January 30, 2025 End: January 30, 2025 Team Status: Active Member Role/Relationship Status Dates Dr. Noel Araujo MD Primary Care Provider Active Start: January 30, 2025 Dr. Noel Araujo MD Referring Provider Active Start: January 30, 2025 Dr. Abner Stein MD Attending Provider Active Start: January 30, 2025 Dr. Abner Stein MD Other Provider Active Start: January 30, 2025 Team Status: Inactive Member Role/Relationship Status Dates Dr. Noel Araujo MD Primary Care Provider Active Start: February 14, 2025 End: February 14, 2025 Dr. Noel Araujo MD Attending Provider Active Start: February 14, 2025 End: February 14, 2025 Dr. Noel Araujo MD Referring Provider Active Start: February 14, 2025 End: February 14, 2025 Team Status: Inactive Member Role/Relationship Status Dates Dr. Noel Araujo MD Primary Care Provider Active Start: March 05, 2025 End: March 06, 2025 Dr. Jacinto Vazquez DO Emergency Provider Active Start: March 05, 2025 End: March 06, 2025 Team Status: Active Member Role/Relationship Status Dates Dr. Noel Araujo MD Primary Care Provider Active Start: November 07, 2024 Dr. Halima Ray DO Emergency Provider Active Start: November 07, 2024 Dr. Papito Zeng MD Attending Provider Active Start: November 07, 2024 Team Status: Inactive Member Role/Relationship Status Dates Dr. Noel Araujo MD Primary Care Provider Active Start: November 07, 2024 End: November 09, 2024 Dr. Halima Ray DO Emergency Provider Active Start: November 07, 2024 End: November 09, 2024 Dr. Papito Zeng MD Admit Provider Active Star t: November 07, 2024 End: November 09, 2024 Dr. Papito Zeng MD Other Provider Active Star t: November 07, 2024 End: November 09, 2024 Dr. Angel Covarrubias MD Other Provider Active St art: November 07, 2024 End: November 09, 2024 Dr. Amanda Anthony MD Attending Provider Active Start: November 07, 2024 End: November 09, 2024 Team Status: Active Member Role/Relationship Status Dates Dr. Noel Araujo MD Primary Care Provider Active Start: November 07, 2024 Dr. Halima Ray DO Emergency Provider Active Start: November 07, 2024 Dr. Papito Zeng MD Admit Provider Active Star t: November 07, 2024 Dr. Papito Zeng MD Other Provider Active Star t: November 07, 2024 Dr. Angel Covarrubias MD Attending Provider Active Start: November 07, 2024 Dr. Angel Covarrubias MD Other Provider Active St art: November 07, 2024 Dr. Amanda Anthony MD Other Provider Active St art: November 07, 2024 Team Status: Active Member Role/Relationship Status Dates Dr. Noel Araujo MD Primary Care Provider Active Start: November 07, 2024 Dr. Lee Ann Mayfield MD Attending Provider Active Start: November 07, 2024 Team Status: Active Member Role/Relationship Status Dates Dr. Noel Araujo MD Primary Care Provider Active Start: November 08, 2024 Dr. Halima Ray DO Emergency Provider Active Start: November 08, 2024 Dr. Papito Zeng MD Admit Provider Active Star t: November 08, 2024 Dr. Papito Zeng MD Other Provider Active Star t: November 08, 2024 Dr. Angel Covarrubias MD Attending Provider Active Start: November 08, 2024 Dr. Angel Covarrubias MD Other Provider Active St art: November 08, 2024 Dr. Amanda Anthony MD Other Provider Active St art: November 08, 2024 Team Status: Active Member Role/Relationship Status Dates Dr. Noel Araujo MD Primary Care Provider Active Start: November 08, 2024 Dr. Halima Ray DO Emergency Provider Active Start: November 08, 2024 Dr. Papito Zeng MD Admit Provider Active Star t: November 08, 2024 Dr. Papito Zeng MD Other Provider Active Star t: November 08, 2024 Dr. Angel Covarrubias MD Other Provider Active St art: November 08, 2024 Dr. Amanda Anthony MD Attending Provider Active Start: November 08, 2024 Dr. Amanda Anthony MD Other Provider Active St art: November 08, 2024 Team Status: Active Member Role/Relationship Status Dates Dr. Noel Araujo MD Primary Care Provider Active Start: November 09, 2024 Dr. Halima Ray DO Emergency Provider Active Start: November 09, 2024 Dr. Papito Zeng MD Admit Provider Active Star t: November 09, 2024 Dr. Papito Zeng MD Other Provider Active Star t: November 09, 2024 Dr. Angel Covarrubias MD Other Provider Active St art: November 09, 2024 Dr. Amanda Anthony MD Attending Provider Active Start: November 09, 2024 Dr. Amanda Anthony MD Other Provider Active St art: November 09, 2024 Team Status: Active Member Role/Relationship Status Dates Dr. Noel Araujo MD Primary Care Provider Active Start: November 11, 2024 Dr. Noel Araujo MD Attending Provider Active Start: November 11, 2024 Dr. Noel Araujo MD Referring Provider Active Start: November 11, 2024 Team Status: Active Member Role/Relationship Status Dates Dr. Noel Araujo MD Primary Care Provider Active Start: November 11, 2024 Dr. Noel Araujo MD Referring Provider Active Start: November 11, 2024 Dr. Lee Ann Mayfield MD Attending Provider Active Start: November 11, 2024 Team Status: Inactive Member Role/Relationship Status Dates Dr. Noel Araujo MD Primary Care Provider Active Start: November 16, 2024 End: November 16, 2024 Dr. Noel Araujo MD Attending Provider Active Start: November 16, 2024 End: November 16, 2024 Team Status: Inactive Member Role/Relationship Status Dates Dr. Noel Araujo MD Primary Care Provider Active Start: November 19, 2024 End: November 19, 2024 Dr. Noel Araujo MD Referring Provider Active Start: November 19, 2024 End: November 19, 2024 David Espinoza DEPARTMENT OPERATIONS MANAGER, DEPARTMENT OPERATIONS MANAGER-C Attending Provider Active S tart: November 19, 2024 End: November 19, 2024 Team Status: Inactive Member Role/Relationship Status Dates Dr. Noel Araujo MD Primary Care Provider Active Start: November 20, 2024 End: November 20, 2024 David Espinoza DEPARTMENT OPERATIONS MANAGER, DEPARTMENT OPERATIONS MANAGER-C Attending Provider Active S tart: November 20, 2024 End: November 20, 2024 David Espinoza DEPARTMENT OPERATIONS MANAGER, DEPARTMENT OPERATIONS MANAGER-C Referring Provider Active S tart: November 20, 2024 End: November 20, 2024 Team Status: Inactive Member Role/Relationship Status Dates Dr. Noel Araujo MD Primary Care Provider Active Start: November 20, 2024 End: November 20, 2024 Dr. Amrik Pacheco DO Attending Provider Active Start : November 20, 2024 End: November 20, 2024 Dr. Amrik Pacheco DO Emergency Provider Active Start : November 20, 2024 End: November 20, 2024 Team Status: Inactive Member Role/Relationship Status Dates Dr. Noel Araujo MD Primary Care Provider Active Start: November 27, 2024 End: November 27, 2024 Dr. Eric Alba DO Attending Provider Activ e Start: November 27, 2024 End: November 27, 2024 Dr. Eric Alba DO Referring Provider Activ e Start: November 27, 2024 End: November 27, 2024 Dr. Eric Alba DO Emergency Provider Activ e Start: November 27, 2024 End: November 27, 2024 Team Status: Inactive Member Role/Relationship Status Dates Dr. Noel Aarujo MD Primary Care Provider Active Start: November 27, 2024 End: November 27, 2024 Dr. Eric Alba DO Attending Provider Activ e Start: November 27, 2024 End: November 27, 2024 Team Status: Inactive Member Role/Relationship Status Dates Dr. Noel Araujo MD Primary Care Provider Active Start: December 04, 2024 End: December 04, 2024 Dr. Eric Alba DO Attending Provider Activ e Start: December 04, 2024 End: December 04, 2024 Dr. Eric Alba DO Referring Provider Activ e Start: December 04, 2024 End: December 04, 2024 Team Status: Active Member Role/Relationship Status Dates Dr. Noel Araujo MD Primary Care Provider Active Start: December 04, 2024 Dr. Orlin Salvador MD Attending Provider Active S tart: December 04, 2024 Dr. Eric Alba DO Referring Provider Activ e Start: December 04, 2024 Team Status: Inactive Member Role/Relationship Status Dates Dr. Noel Araujo MD Primary Care Provider Active Start: December 10, 2024 End: December 11, 2024 Dr. Morales Eubanks MD Attending Provider Active Start: December 10, 2024 End: December 11, 2024 Dr. Morales Eubanks MD Emergency Provider Active Start: December 10, 2024 End: December 11, 2024 Team Status: Inactive Member Role/Relationship Status Dates Dr. Noel Araujo MD Primary Care Provider Active Start: January 23, 2025 End: January 23, 2025 Dr. Noel Araujo MD Referring Provider Active Start: January 23, 2025 End: January 23, 2025 Dr. Abner Stein MD Attending Provider Active Start: January 23, 2025 End: January 23, 2025 Team Status: Inactive Member Role/Relationship Status Dates Dr. Noel Araujo MD Primary Care Provider Active Start: January 30, 2025 End: January 30, 2025 Dr. Noel Araujo MD Referring Provider Active Start: January 30, 2025 End: January 30, 2025 Dr. Abner Stein MD Attending Provider Active Start: January 30, 2025 End: January 30, 2025 Team Status: Active Member Role/Relationship Status Dates Dr. Noel Araujo MD Primary Care Provider Active Start: January 30, 2025 Dr. Noel Araujo MD Referring Provider Active Start: January 30, 2025 Dr. Abner Stein MD Attending Provider Active Start: January 30, 2025 Dr. Abner Stein MD Other Provider Active Start: January 30, 2025 Team Status: Inactive Member Role/Relationship Status Dates Dr. Noel Araujo MD Primary Care Provider Active Start: February 14, 2025 End: February 14, 2025 Dr. Noel Araujo MD Attending Provider Active Start: February 14, 2025 End: February 14, 2025 Dr. Noel Araujo MD Referring Provider Active Start: February 14, 2025 End: February 14, 2025 Team Status: Inactive Member Role/Relationship Status Dates Dr. Noel Araujo MD Primary Care Provider Active Start: March 05, 2025 End: March 06, 2025 Dr. Jacinto Vazquez DO Emergency Provider Active Start: March 05, 2025 End: March 06, 2025 Team Status: Inactive Member Role/Relationship Status Dates Dr. Noel Araujo MD Primary Care Provider Active Start: March 07, 2025 End: March 07, 2025 Dr. Noel Araujo MD Attending Provider Active Start: March 07, 2025 End: March 07, 2025 FOR RECORDS PERTAINING TO PATIENTS WHO ARE [...] BE BASED ON THE PRIMARY CLINICAL RECORDS. [facility] [employer] [facility]. provides no warranty or guarantee of the accuracy or completeness of information in this document.
--- NOTE | 2025-04-07 07:51 | US_ITS ---
PROCEDURE: THYROID 04/07/2025 REASON FOR EXAM: R THYROID NODULE TECHNIQUE: THYROID COMPARISON: Prior study dated January 07, 2024. FINDINGS: Right thyroid lobe size: 2.6 cm x 1.2 cm x 0.6 cm Left thyroid lobe size: 2.3 cm x 0.9 cm x 0.7 cm Isthmus: 0.2 cm Background parenchymal echotexture is heterogeneous. Nodules: No intra thyroid nodule seen. Stable 2.6 cm x 2 cm x 0.7 cm benign-appearing right cervical lymph node. US/Thyroid IMPRESSION: Stable examination. RECOMMENDATION: Based on most suspicious nodule. Nodule size = largest diameter Only evaluate nodule if =>5 mm. Growth > 20% in 2 dimensions = worsening. Follow up to 4 nodules. Recommend biopsy for no more than 2 nodules. Reading Location: [id number]
== END | disposition home or self-care (01) ==
LOC: US 07:44
PROVIDERS: PCP Internal Medicine; Referring Provider Internal Medicine; Visit Provider Internal Medicine
DX: E04.1 Nontoxic single thyroid nodule (principal)
CPT/HCPCS: 76536

== ENCOUNTER → 2025-04-30 | Outpatient (CLI) | payer OTHER, SELFPAY ==
--- NOTE | 2025-04-30 13:27 | CT_ITS ---
PROCEDURE: CHEST WITHOUT CONTRAST 04/30/2025 REASON FOR EXAM: LT LUNG NODULE TECHNIQUE: Chest CT without contrast. Coronal and Sagittal reconstruction series were provided. One or more dose reduction techniques were used (e.g., Automated exposure control, adjustment of the mA and/or kV according to patient size, use of iterative reconstruction technique RADIATION DOSE SUMMARY: CTDlvol: 18.4 mGy DLP: 648.14 mGycm COMPARISON: Prior chest radiograph dated November 20, 2024. FINDINGS: Hardware: None Lymph nodes: Stable small benign-appearing bilateral axillary lymph nodes. Heart and Vasculature: The heart is not enlarged. Coronary Artery Calcifications: Present Lungs and Airways: There is a 10.4 mm noncalcified nodule in the posterior aspect of the left upper lobe as seen on axial image number 55 and coronal image number 149 mild linear scarring in the left lower lobe. Pleura: No pleural effusion. Upper Abdomen: Small hiatal hernia. The gallbladder is not visualized. Bones: Degenerative changes of the thoracic spine. CT/Chest without Contrast IMPRESSION: Coronary artery calcification (CAC) is is present 10.4 mm noncalcified nodule in the posterior aspect of the left upper lobe. Co rrelation with a PET scan recommended. Reading Location: [facility]
== END | disposition home or self-care (01) ==
PROVIDERS: PCP Internal Medicine; Referring Provider Internal Medicine; Visit Provider Internal Medicine
DX: R91.1 Solitary pulmonary nodule (principal)
CPT/HCPCS: 71250

== ENCOUNTER → 2025-05-15 | Outpatient (CLI) | payer OTHER, SELFPAY ==
--- NOTE | 2025-05-15 08:30 | PET_ITS ---
PROCEDURE: PET/CT TUMOR BASE -THIGH INIT 05/15/2025 REASON FOR EXAM: 59 y/o F with SOLITARY PULMONARY NODULE, TECHNIQUE: Procedure Code: [id number] Modality: PT Procedure: PET/CT TUMOR BASE -THIGH INIT Following the intravenous administration of radionucleotide, image acquisition on a dedicated PET/CT unit was performed at one hour post injection. A preliminary CT study encompassing the Skull base, neck, chest, abdomen, pelvis, and proximal thighs was performed for purposes of attenuation correction and anatomic localization. The proximal thighs were also included. The patient's blood glucose level was 134 mg/dL (allowable range: 50-180 mg/dL). RADIOPHARMACEUTICAL: 14.671 mCi 18F-FDG (Fluorodeoxyglucose F18) IV was injected into he patient. RADIATION DOSE SUMMARY: Effective Dose: Approximately 7 mSv for a standard whole-body PET scan Organ Doses: Varies by organ, with higher doses typically to the bladder, liver, and brain COMPARISON: COMPARISON FROM CT, PET OR OTHER PERTINENT EXAMS: 04/30/[address] FINDINGS: Physiologic uptake: There may be expected metabolic uptake within the brain, tongue and floor of the mouth and larynx/vocal cords, heart, becky (many normal individuals have hilar uptake in less than 3 nodes with mildly avid hilar nodes less than 2.7 SUV), liver and spleen, system, and GI tract and symmetric muscle uptake. FDG AVID AND NON-AVID LESIONS. Reported avid SUV values (g/mL*) are maximum SUV. NECK: There are no significant neck abnormalities. CHEST: Chest wall- There are no significant chest wall abnormalities. Axilla- There are no significant axillary abnormalities. Lung parenchyma- There are no significant lung parenchyma abnormalities. This includes the solid pulmonary nodule noted of the posterior left upper lobe, where no hypermetabolic activity is seen. Mediastinum- There are no significant hilar or mediastinal adenopathy. Pleura- There are no significant pleural abnormalities. ABDOMEN: Stomach- No significant abnormalities. Liver- No significant abnormalities. Spleen- No significant abnormalities. Pancrease- No significant abnormalities. Kidneys- No significant abnormalities. Bowel- Normal bowel activity. Spine- No significant abnormalities. PELVIS: Bowel- Normal physiologic bowel activity is identified. Masses- There are no pelvic masses. Bones- Degenerative changes are seen throughout the spine. With the use of bone window settings, there are no osteolytic or osteoblastic lesions. There are no FDG avid lesions within the visualized portion of the axial skeleton. PET/PET/CT Tumor Base -Thigh Init IMPRESSION: FDG avid- No significant avid lesions, including of the posterior left upper lo be noted nodule.. Other: Degenerative changes of the spine. Please note the low-dose CT scan was performed to facilitate PET image reconstr uction and anatomic localization and does not replace a diagnostic CT. Any diagnostic CT requested and performed at the time of the PET will be reported separately. Reading Location: [place] [id number]
== END | disposition home or self-care (01) ==
PROVIDERS: PCP Internal Medicine; Referring Provider Internal Medicine; Visit Provider Internal Medicine
DX: R91.1 Solitary pulmonary nodule (principal)
CPT/HCPCS: 78815; A9552

== ENCOUNTER → 2025-05-16 | Outpatient (CLI) | payer OTHER, SELFPAY ==
--- NOTE | 2025-05-16 15:15 | BI_ITS ---
EXAM: SCRN MAMM (CAD)W/EMELINA BILAT DATE: 05/16/2025 CLINICAL HISTORY: F, Age 59 y/o , SCREENING FOR BREAST CANCER Sister with breast cancer. Prior right breast biopsies. TECHNIQUE: Procedure Code: [id number] Modality: MG Procedure: SCRN MAMM (CAD)W/EMELINA BILAT COMPARISON: Prior exam(s) dated March 21, 2024.. FINDINGS: TISSUE DENSITY: There are scattered areas of fibroglandular density. Bilateral Breast Mammographic Findings: No significant masses, calcifications or other abnormalities are identified. Stable 1.2 cm well-defined nodule in the inferior medial aspect of the right breast. A tissue clip marker is seen within it in keeping with prior ultrasound-guided breast biopsy. Stable small benign-appearing bilateral axillary lymph nodes. No suspicious masses, areas of developing architectural distortion, or suspicious calcifications. There has been no significant interval change. BI/SCRN MAMM (CAD)W/EMELINA BILAT IMPRESSION: Stable bilateral screening mammogram. OVERALL FINAL ASSESSMENT BI-RADS 2: BENIGN RECOMMENDATION: Routine annual follow-up in 1 Year A letter with findings and recommendations will be mailed to the patient. Reading Location: [facility]
[2025-05-16 16:13] LABS: Anion Gap 11 (5-15); BUN 27 mg/dL (4-19); BUN/Creat Ratio 22.1 RATIO (10-20); Calcium,Total 10.4 mg/dL (7.6-11.0); Carbon Dioxide 26.2 mmol/L (21.0-32.0); Chloride 100 mmol/L (98-108); Glucose 133 mg/dL (70-99); Potassium 4.9 mmol/L (3.3-5.1)
== END | disposition home or self-care (01) ==
PROVIDERS: Urology; PCP Internal Medicine; Referring Provider Nurse Practitioner Women's Health; Visit Provider Nurse Practitioner Women's Health
DX: Z12.31 Encounter for screening mammogram for malignant neoplasm of breast (principal)
CPT/HCPCS: 36415; 77063; 77067; 80048

== ENCOUNTER → 2025-05-16 | Outpatient (CLI) | payer OTHER, SELFPAY ==
--- NOTE | 2025-05-16 12:50 | FLU_PTH ---
PATIENT: JAMIE GANT LOC: [facility] U#:[id number] AGE/SX: 59/F ROOM: RE05/16/[address]: Dr. Enid Garcia MD : 1965 BED: DIS: 05/16/2025 SPEC #: [id number] RECD: 05/16/25 15:00 STATUS: FLOR GWEN #: [id number] TINO: 05/16/25 12:[address]: Enid Garcia DEPT: CYTOLOGY RECD BY: Johnnie Kam ENTERED: 05/17/25 14:12 SP TYPE: Fluid OTHR DR: Dr. Romi Araujo MD Tissues: A - Urine Procedures: Special Stain Group II Cytospin Fluid HEADER OPERATION: Not noted PRE-OP DIAGNOSIS: Gross hematuria TISSUE SUBMITTED: A- Urine for cytology -voided DIAGNOSIS CYTOLOGY A. Urine, cytology: No malignant cells are identified CYTOLOGY STUDY Slides are reviewed. CYTOLOGY GROSS A. Received is 45 ml of yellow-cloudy fluid labeled with the patient's name and and designated per the requisition as urine. Submitted for cytology preparation. Mr 05/17/2025 CPT: 34373
[2025-05-16 16:38] LABS: Cytology, Body Fluid / CSF SEE PATHOLOGY REPORT
== END | disposition home or self-care (01) ==
LOC: LABSPEC 16:34
PROVIDERS: PCP Internal Medicine; Visit Provider Urology
DX: R31.0 Gross hematuria (principal)
CPT/HCPCS: 88108; 88305; 88313

== ENCOUNTER → 2025-05-29 | Outpatient (CLI) | payer OTHER, SELFPAY ==
--- NOTE | 2025-05-29 17:20 | CT_ITS ---
PROCEDURE: CT ABD/PELVIS W/WO CONTRAST 05/29/2025 REASON FOR EXAM: GROSS HEMATURIA TECHNIQUE: Procedure Code: [id number] Modality: CT Procedure: CT ABD/PELVIS W/WO CONTRAST Coronal and Sagittal reconstruction series were provided. CONTRAST: Isovue 370 VOLUME: 100 ML One or more dose reduction techniques were used (e.g., Automated exposure control, adjustment of the mA and/or kV according to patient size, use of iterative reconstruction technique. RADIATION DOSE SUMMARY: CTDlvol: 35.38 mGy DLP: 4684.68 mGycm COMPARISON: PET/CT scan 05/15/2025. FINDINGS: Lung bases: Clear. Liver: Liver steatosis. Gallbladder: Gallstones. No biliary dilation. Spleen: Unremarkable. Pancreas: Unremarkable. Adrenals: Unremarkable. Kidneys: Punctate stones measuring up to 1 mm in the lower pole of the kidneys. No hydronephrosis. Bladder: Decompressed which otherwise unremarkable. Reproductive Organs: Unremarkable. Bowel: Colonic diverticulosis with no evidence of acute diverticulitis. No bowel wall obstruction or bowel wall thickening. Appendix: Unremarkable. Lymph nodes: No lymphadenopathy. Vasculature: No aneurysm. Peritoneum / Retroperitoneum: No free air or free fluid. Bones: No acute bony abnormalities. CT/CT Abd/Pelvis W/WO Contrast IMPRESSION: Punctate stones in the kidneys without evidence of hydronephrosis. Reading Location: [facility]
--- NOTE | 2025-05-29 17:20 | CT_ITS ---
PROCEDURE: CT ABD/PELVIS W/WO CONTRAST 05/29/2025 REASON FOR EXAM: GROSS HEMATURIA TECHNIQUE: Procedure Code: [id number] Modality: CT Procedure: CT ABD/PELVIS W/WO CONTRAST Coronal and Sagittal reconstruction series were provided. CONTRAST: Isovue 370 VOLUME: 100 ML One or more dose reduction techniques were used (e.g., Automated exposure control, adjustment of the mA and/or kV according to patient size, use of iterative reconstruction technique. RADIATION DOSE SUMMARY: CTDlvol: 35.38 mGy DLP: 4684.68 mGycm COMPARISON: PET/CT scan 05/15/2025. FINDINGS: Lung bases: Clear. Liver: Liver steatosis. Gallbladder: Gallstones. No biliary dilation. Spleen: Unremarkable. Pancreas: Unremarkable. Adrenals: Unremarkable. Kidneys: Punctate stones measuring up to 1 mm in the lower pole of the kidneys. No hydronephrosis. Bladder: Decompressed which otherwise unremarkable. Reproductive Organs: Unremarkable. Bowel: Colonic diverticulosis with no evidence of acute diverticulitis. No bowel wall obstruction or bowel wall thickening. Appendix: Unremarkable. Lymph nodes: No lymphadenopathy. Vasculature: No aneurysm. Peritoneum / Retroperitoneum: No free air or free fluid. Bones: No acute bony abnormalities. CT/CT Abd/Pelvis W/WO Contrast IMPRESSION: Punctate stones in the kidneys without evidence of hydronephrosis. Reading Location: [facility]
== END | disposition home or self-care (01) ==
LOC: CT 17:12
PROVIDERS: PCP Internal Medicine; Referring Provider Urology; Visit Provider Urology
DX: R31.0 Gross hematuria (principal)
CPT/HCPCS: 74178; Q9967; A4216